=== PATIENT | male | born 1950 | race Caucasian/White ===

== ENCOUNTER 2017-10-25 09:50 | Day surgery (SDC) | payer MEDICARE, BC ==
--- NOTE | 2017-10-24 14:56 | PCM.PREANE ---
Preanesthetic Assessment - Anesthesia/Transfusion/Family Hx Anesthesia History: Prior Anesthesia Without Reaction Family History of Anesthesia Reaction: No Transfusion History: No Prior Transfusion(s) Intubation History: Unknown - Review of Systems General: No Symptoms, Fatigue Pulmonary: No Symptoms (quit smoking 2012) Cardiovascular: No Symptoms (Aortic Valve Stenosis: EF:70-75%), Palpitations, Other (History of murmur, rheumatic fever as a child) Gastrointestinal: No Symptoms Neurological: No Symptoms (Possible TIA/Stroke: 4-6 yrs ago, blacked out) Other: Reports: Easy Bleeding, Easy Bruising, Diabetes (Blood sugar: 126 @ 1048) , Liver Problems (Mildly elevated LFT's.), Depression - Physical Assessment NPO Status Date: 10/24/17 NPO Status Time: 23:00 Pulse: 72 O2 Sat by Pulse Oximetry: 93 Respiratory Rate: 16 Blood Pressure: 161/76 Temperature: 36.8 C Height: 1.85 m Weight: 113 kg ASA Class: 3 Mental Status: Alert & Oriented x3 Airway Class: Mallampati = 2 Dentition: Reports: Dentures (upper) Thyro-Mental Finger Breadths: 3 Mouth Opening Finger Breadths: 3 ROM/Head Extension: Full Lungs: Clear to Auscultation, Normal Respiratory Effort Cardiovascular: Regular Rate, Regular Rhythm, Murmurs - Lab Values: Laboratory Last Values MRSA (PCR) Negative 10/02/17 11:35 All lab values reviewed and noted and within acceptable ranges to proceed with scheduled procedure. Mildly elevated LFT's noted. HGB A1C: 6.7 (h) - Imaging/EKG Impressions: EKG: SR rate= 67, borderline prolonged MI interval, old inferior infarct, minimal ST segment elevation anterior leads. (No significant changes from prior EKG) CXR: negative Echocardiogram: EF=70-75% - Allergies Allergies/Adverse Reactions: Allergies Allergy/AdvReac Type Severity Reaction Status Date / Time No Known Allergies Allergy Verified 10/17/17 14:42 - Anesthesia Plan Pre-Op Medication Ordered: None - Acknowledgements Anesthesia Type Planned: General Anesthesia (And left interscalene block under US guidance for post operative pain control requested by Dr. 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 Neurological History: Reports: None Psychiatric History: Reports: Other (See Below) Other Psychiatric History: mild episode of recurrent major depressive disorder Endocrine/Metabolic History: Reports: Diabetes, Type II Hematologic History: Reports: None Immunologic History: Reports: None Oncologic (Cancer) History: Reports: None Dermatologic History: Reports: Cellulitis, Other (See Below) Other Dermatologic History: skin lesion - Past Surgical History Head Surgeries/Procedures: Reports: None HEENT Surgical History: Reports: Cataract Surgery, Other (See Below) Other HEENT Surgeries/Procedures: resection wedge of eyelid GI Surgical History: Reports: Colonoscopy, EGD Female Surgical History: Reports: None Male Surgical History: Reports: None Endocrine Surgical History: Reports: None Neurological Surgical History: Reports: None Musculoskeletal Surgical History: Reports: Other (See Below) Other Musculoskeletal Surgeries/Procedures:: right knee surgery for dislocated knee cap Oncologic Surgical History: Reports: None - SUBSTANCE USE Smoking Status *Q: Former Smoker Second Hand Smoke Exposure: No Days Per Week of Alcohol Use: 0 Recreational Drug Use History: No - HOME MEDS Home Medications: Home Meds metFORMIN [Glucophage] 1 tab PO BID 06/22/14 [History] Aspirin [Adult Low Dose Aspirin EC] 192 mg PO DAILY 06/23/14 [History] Sertraline [Zoloft] 50 mg PO DAILY 10/17/17 [History] Tamsulosin HCl [Flomax] 0.8 mg PO BEDTIME 10/17/17 [History] atorvaSTATin [Lipitor] 20 mg PO BEDTIME 10/17/17 [History] Cyclobenzaprine [Flexeril] 10 mg PO Q8H PRN #40 tab 10/18/17 [Rx] Hydrocodone/Acetaminophen [Culbertson 5-325 Tablet] 1 - 2 each PO Q6H PRN #40 tablet 10/18/17 [Rx] - CURRENT (IN HOUSE) MEDS Current Meds: Current Medications Discontinued Medications Epinephrine HCl (Adrenalin) Confirm Administered Dose 1 mg .ROUTE .STK-MED ONE Stop: 10/18/17 06:54 Lactated Ringer's (Ringers, Lactated) 1,000 mls @ 125 mls/hr IV ASDIRECTED NURY Stop: 10/18/17 23:00 Lidocaine HCl (Xylocaine-Mpf 1%) Confirm Administered Dose 4 mls @ as directed .ROUTE .STK-MED ONE Stop: 10/18/17 06:53 Lidocaine/Sodium Bicarbonate (Buffered Lidocaine 1% In Ns 8.4%) 0.25 ml IV ONETIME PRN PRN Reason: Prior to IV Start Stop: 10/18/17 18:00 Ropivacaine (Naropin 0.5%) Confirm Administered Dose 30 ml .ROUTE .STK-MED ONE Stop: 10/18/17 06:54 Sodium Chloride (Saline Flush) 10 ml FLUSH ASDIRECTED PRN PRN Reason: Keep Vein Open Stop: 10/18/17 18:00
[~2017-10-25 09:50] MED LIST: Dexamethasone 4 MG/ML 5 ML MDV ONE; EPINEPHrine 1 MG/ML 30 ML MDV ONE; EPINEPHrine 1 MG/ML SDV ONE; Ketorolac 30 MG/ML SDV ONE; Lactated Ringers 1,000 ML IV SCH; Lactated Ringers 1,000 ML ONE; Lidocaine 1% 0 ML ONE; Lidocaine 1% 6 ML ONE; Lidocaine 1%/Sod Bicarbonate in NS 8.4% 1 ML Syringe IV PRN; Midazolam 1 MG/ML 2 ML SDV ONE; Ondansetron 4 MG/2 ML SDV ONE; Propofol 200 MG/20 ML SDV ONE; Rocuronium 50 MG/5 ML Vial ONE; Ropivacaine 0.5% 5 MG/ML 30 ML SDV ONE; Sodium Chloride 0.9% 10 ML Syringe FLUSH PRN; ceFAZolin 1 GM Vial ONE; fentaNYL 250 MCG/5 ML SDV ONE
[2017-10-25] MEDS ORDERED: Lidocaine 1%/Sod Bicarbonate in NS 8.4% 1 ML Syringe IDERM PRN (10:01)
[2017-10-25] MEDS ORDERED: Sodium Chloride 0.9% 10 ML Syringe FLUSH PRN (10:01)
[2017-10-25] MEDS ORDERED: Lactated Ringers 1,000 ML IV SCH (10:15)
[2017-10-25] MEDS ORDERED: Bupivacaine 0.25% 10 ML SDV ONE (12:37)
[2017-10-25] MEDS ORDERED: Propofol 200 MG/20 ML SDV ONE (13:08)
[2017-10-25] MEDS ORDERED: Albuterol 0.083% 2.5 MG/3 ML Neb Soln NEB PRN (13:22)
[2017-10-25] MEDS ORDERED: ePHEDrine 50 MG/ML SDV IVPUSH PRN (13:22)
[2017-10-25] MEDS ORDERED: Ondansetron 4 MG/2 ML SDV IVPUSH PRN (13:22)
[2017-10-25] MEDS ORDERED: fentaNYL 100 MCG/2 ML SDV IVPUSH PRN (13:22)
[2017-10-25] MEDS ORDERED: HYDROmorphone 0.5 MG/0.5 ML Syringe IVPUSH PRN (13:22)
[2017-10-25] MEDS ORDERED: HYDROmorphone 1 MG/ML Syringe ONE (13:29)
[2017-10-25] MEDS ORDERED: Phenylephrine 1 MG in Sodium Chloride 0.9% 10 ML IV SCH (13:30)
[2017-10-25] MEDS ORDERED: ePHEDrine/Normal Saline 25 MG/5 ML Syringe ONE (13:34)
[2017-10-25] MEDS ORDERED: Phenylephrine/Normal Saline 100 MCG/ML 10 ML Syringe ONE (13:38)
[2017-10-25] MEDS ORDERED: Lactated Ringers 1,000 ML ONE (13:52)
[2017-10-25] MEDS ORDERED: Neostigmine Methylsulfate 1 MG/ML 5 ML Syringe ONE (14:16)
[2017-10-25] MEDS ORDERED: Labetalol 100 MG/20 ML MDV ONE (14:41)
--- NOTE | 2017-10-25 14:58 | PCM.POSTAN ---
POST ANESTHESIA ASSESSMENT - MENTAL STATUS Mental Status: Alert - VITAL SIGNS Pulse Rate: 73 SaO2: 91 Resp Rate: 10 Blood Pressure: 134/66 Temperature: 36.5 C - RESPIRATORY Respiratory Status: Respiratory Rate WNL, Airway Patent, O2 Saturation Stable, Supplemental Oxygen - CARDIOVASCULAR CV Status: Pulse Rate WNL, Blood Pressure Stable - GASTROINTESTINAL GI Status: No Symptoms - POST OP HYDRATION Hydration Status: Adequate & Stable
--- NOTE | 2017-10-25 15:36 | PCM.SN ---
- Free Text/Narrative Note: Anesthesia Note: (Left Interscalene block note) Date: 10/25/2017 Time Out: 1214 Start: 1214 Stop: 1230 Surgical Procedure: Left Shoulder Video Arthroscopy with Extensive Debridement , Rotator Cuff Repair, Subacromial Decompression, and bicepts tendonesis Diagnosis: Left Shoulder Rotator Cuff Tear Current Procedure: Left interscalene block under US guidance for postoperative pain control requested by Dr. Giron. Patient chart reviewed, risk/benefits discussed with patient, consent obtained. Patient positioned supine, monitors/alarms on, oxygen placed via nasal cannula at 2 LPM. IV sedation administered: Versed 2mg IV @ 1214, Fentanyl 50mcg IV @ 1214 Left shoulder prepped with two chloropreps. Sterile drapes placed with aseptic technique noted. Under US guidance, left subclavian artery visualized along with the left brachial plexus. Plexus followed up to C6 cricoid level, and area localized with 2mls of 1% lidocaine. 22gauge 2 inch stimiplex needle advanced under US with 0.6mV with stimulation of biceps noted. Good stimulation noted with decreased voltage and absent at 0.2mVs. 1ml of Normal Saline injected with loss of stimulation noted to confirm needle not placed intraneurally. Incremental dosing of 5mls with negative aspiration noted prior to each injection of 0.5% ropivacaine with 1:200,000 epinephrine. Total volume=25mls. Please refer to nurses noted for vital signs. Janessa Toussaint CRNA
--- NOTE | 2017-10-25 16:11 | PCM48HPAN ---
Post Anesthesia Note - EVALUATION WITHIN 48HRS OF ANESTHETIC Vital Signs in Normal Range: Yes Patient Participated in Evaluation: Yes Respiratory Function Stable: Yes Airway Patent: Yes Cardiovascular Function Stable: Yes Hydration Status Stable: Yes Pain Control Satisfactory: Yes Nausea and Vomiting Control Satisfactory: Yes Mental Status Recovered: Yes
[2017-10-25] MEDS ORDERED: Acetaminophen/HYDROcodone 325-5 MG Tab PO PRN (20:55)
[2017-10-25] MEDS ORDERED: Tamsulosin 0.4 MG Cap.ER PO SCH (21:00)
[2017-10-25] MEDS ORDERED: Simvastatin 20 MG Tab PO SCH (21:00)
[2017-10-25] MEDS: Cyclobenzaprine 10 MG Tab PO PRN (21:51)
[2017-10-26] MEDS ORDERED: Ketorolac 15 MG/ML SDV IVPUSH ONE (01:48)
[2017-10-26] MEDS ORDERED: Morphine 2 MG/ML Syringe IVPUSH ONE (01:49)
[2017-10-26] MEDS ORDERED: Acetaminophen/oxyCODONE 325-5 MG Tab PO ONE (01:50)
[2017-10-26] MEDS ORDERED: Acetaminophen/oxyCODONE 325-5 MG Tab PO PRN (01:51)
[2017-10-26] MEDS: Cyclobenzaprine 10 MG Tab PO PRN (06:29)
[2017-10-26] MEDS ORDERED: metFORMIN 500 MG Tab PO SCH ×2 (07:00→21:00)
[2017-10-26 11:47] VITALS: BP 151/63
--- NOTE | 2017-11-01 11:14 | PCM.OPNOTE ---
- General Post-Op/Procedure Note Date of Surgery/Procedure: 10/25/17 Operative Procedure(s): left shoulder video arthroscopy with rotator cuff repair , extensive debridement and biceps tenodesis Pre Op Diagnosis: left shoulder rotator cuff tear with biceps tendinopathy Post-Op Diagnosis: Same Anesthesia Technique: General ET Tube, Regional Block Primary Surgeon: Bridger Giron Anesthesia Provider: Janessa Toussaint Hand Stemmer: Stephy Ramirez EBL in mLs: 5 Complications: None Condition: Good
--- NOTE | 2017-11-01 12:04 | OR ---
DATE OF OPERATION: 10/25/2017 SURGEON: Bridger Giron MD OPERATION PERFORMED: Left shoulder video arthroscopy with rotator cuff repair, extensive debridement of biceps tenodesis. PREOPERATIVE DIAGNOSIS: Left shoulder rotator cuff tear with biceps tendinopathy. POSTOPERATIVE DIAGNOSIS: Left shoulder rotator cuff tear with biceps tendinopathy. ANESTHESIA: General endotracheal intubation with a regional interscalene block. ANESTHESIA PROVIDER: Janessa Toussaint CRNA ESTIMATED BLOOD LOSS: Less than 5 mL. COMPLICATIONS: None. CONDITION: Stable. DESCRIPTION OF PROCEDURE: The patient was identified in the preop holding area. Proper site was marked and identified by the surgeon. The patient was taken back to the operating theater where after adequate anesthesia, the patient was placed in a lazy left lateral decubitus position. The patient had a wedge placed posteriorly. All bony prominences were well padded. Left upper extremity was then sterilely prepped and draped in the usual sterile fashion. OR time-out was performed. The patient received 2 g IV Ancef, 15 pounds traction was applied to the left upper extremity. Standard posterior incision was made. Scope trocar was introduced to the glenohumeral joint. At this time, anterior portal was created with the use of a spinal needle from an outside-in technique. At this time, the biceps tendon was identified and showed significant fraying near its attachment point on the labrum. The supraspinatus did show a full-thickness tear. The glenohumeral joint showed no chondromalacia. There were no loose or foreign bodies in the axillary recess. Labrum did show some fraying as well as significant synovitis. At this time, it was decided biceps tenodesis would be performed with the use of a spinal needle. A #2 FiberWire was shuttled through the biceps tendon and then a tenotomy was performed at its attachment for later tenodesis in the subacromial space in the rotator interval. At this time, the labrum as well as synovitis was debrided out of the shoulder using a full radius resector. At this time, attention was turned to the subacromial space. At this time, the patient was noted to have significant bursitis as well as erythematous tissue in the subacromial space. With use of a full-radius resector as well as a cautery device, an extensive debridement was performed of the subacromial space at this time. A lateral portal was then created. The tear was identified. A good bony bleeding bed was then created at the tear surface using a full radius resector. At this time, one 4.75 mm SwiveLock Arthrex anchor was placed medially with 2 limbs of FiberTape and 2 limbs of FiberWire. At this time, all 4 were then passed through the tear and the 2 limbs of FiberWire were then tied. All 4 suture limbs were then brought out laterally and a lateral self-tapping 4.75 mm Arthrex SwiveLock anchor was used out laterally and attention was held. It was found to have adequate watertight repair. At this time, the biceps sutures were found anteriorly and the biceps tenodesis was performed in the rotator interval. At this time, excess saline was drained from the shoulder. Local was used down in the incisional sites. Simple suture was used for closure of the skin incisions and the patient was placed in a sterile soft dressing and a pillow sling. The patient tolerated the procedure well and was sent to PACU in stable condition. YVETTE /[id number]
== END 2017-10-26 10:04 | disposition home or self-care (01) ==
LOC: JD.SDS 09:50
PROVIDERS: ATTEND Orthopaedic Surgery
DX: M75.102 Unspecified rotator cuff tear or rupture of left shoulder, not specified as traumatic (principal); M75.22 Bicipital tendinitis, left shoulder; E11.9 Type 2 diabetes mellitus without complications; F32.9 Major depressive disorder, single episode, unspecified; Z87.891 Personal history of nicotine dependence
CPT/HCPCS: 29823; 29826; 29827; 29828; 51798; 64415; 82962; 87641; 94640; A9270; J0171; J0690; J1100; J1170; J1885; J2250; J2270; J2405; J2710; J2795; J3010; J7050; J7120; 01630; J2704

== ENCOUNTER 2018-03-25 13:05 | Emergency (ER) | payer MEDICARE, BC ==
[2018-03-25 13:10] VITALS: BP 119/56
[2018-03-25] MEDS ORDERED: Lidocaine 4% Top Soln 50 ML Bottle MUCMEM ONE (13:15)
[2018-03-25] MEDS: Lidocaine 1% 50 ML MDV INJECT STA ×2 (13:25→14:28)
[2018-03-25] MEDS ORDERED: Lidocaine 2% Jelly 10 ML Urojet ONE (13:36)
[2018-03-25] MEDS ORDERED: Lidocaine 2% Jelly 10 ML Urojet MUCMEM ONE (13:38)
--- NOTE | 2018-03-25 14:00 | EDM.PDOC ---
ED HPI GENERAL MEDICAL PROBLEM - General Chief Complaint: Skin Complaint Stated Complaint: WOOD IN RIGHT INDEX FINGER Time Seen by Provider: 03/25/18 13:12 Source of Information: Reports: Patient History Limitations: Reports: No Limitations - History of Present Illness INITIAL COMMENTS - FREE TEXT/NARRATIVE: The patient presents with a splinter in his right index finger. He was mowing around lil[place] bushes and he got poked with a lilac reynoso. His tetanus is up to date. Onset: Sudden Duration: Minutes: Location: Reports: Upper Extremity, Right (Index finger) Quality: Reports: Sharp Severity: Moderate Improves with: Reports: Immobilization Worsens with: Reports: Movement Context: Reports: Other (He was mowing lawn) Associated Symptoms: Reports: No Other Symptoms - Related Data Allergies Allergy/AdvReac Type Severity Reaction Status Date / Time No Known Allergies Allergy Verified 03/25/18 13:09 Home Meds: Home Meds metFORMIN [Glucophage] 1 tab PO BID 06/22/14 [History] Aspirin [Adult Low Dose Aspirin EC] 192 mg PO DAILY 06/23/14 [History] Sertraline [Zoloft] 50 mg PO DAILY 10/17/17 [History] Tamsulosin HCl [Flomax] 0.8 mg PO BEDTIME 10/17/17 [History] atorvaSTATin [Lipitor] 20 mg PO BEDTIME 10/17/17 [History] Past Medical History HEENT History: Reports: Other (See Below) Other HEENT History: dentures Cardiovascular History: Reports: Heart Murmur, High Cholesterol, Other (See Below) Other Cardiovascular History: aortic valve stenosis Respiratory History: Reports: None Genitourinary History: Reports: BPH [employer]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 Neurological History: Reports: None Psychiatric History: Reports: Other (See Below) Other Psychiatric History: mild episode of recurrent major depressive disorder Endocrine/Metabolic History: Reports: Diabetes, Type II Hematologic History: Reports: None Immunologic History: Reports: None Oncologic (Cancer) History: Reports: None Dermatologic History: Reports: Cellulitis, Other (See Below) Other Dermatologic History: skin lesion - Past Surgical History Head Surgeries/Procedures: Reports: None HEENT Surgical History: Reports: Cataract Surgery, Other (See Below) Other HEENT Surgeries/Procedures: resection wedge of eyelid GI Surgical History: Reports: Colonoscopy, EGD Male Surgical History: Reports: None Endocrine Surgical History: Reports: None Neurological Surgical History: Reports: None Musculoskeletal Surgical History: Reports: Other (See Below) Other Musculoskeletal Surgeries/Procedures:: right knee surgery for dislocated knee cap Oncologic Surgical History: Reports: None Social & Family History - Family History Family Medical History: Noncontributory - Tobacco Use Smoking Status *Q: Former Smoker Used Tobacco, but Quit: No - Caffeine Use Caffeine Use: Reports: Coffee - Recreational Drug Use Recreational Drug Use: No ED ROS GENERAL - Review of Systems Review Of Systems: See Below Constitutional: Reports: No Symptoms HEENT: Reports: No Symptoms Respiratory: Reports: No Symptoms Cardiovascular: Reports: No Symptoms Endocrine: Reports: No Symptoms GI/Abdominal: Reports: No Symptoms : Reports: No Symptoms Musculoskeletal: Reports: Other (Splinter to the right index finger) ED EXAM, SKIN/RASH Exam: See Below Exam Limited By: No Limitations General Appearance: Alert, No Apparent Distress Ears: Normal External Exam Nose: Normal Inspection Head: Atraumatic, Normocephalic Neck: Normal Inspection Respiratory/Chest: No Respiratory Distress Extremities: Other (Splinter in the right index finger) ED SKIN PROCEDURES - Foreign Body Removal Indication:: Right index finger splinter Consent Obtained:: Patient Performing Doctor:: Stephen Mayfield Anesthesia Type: Local Complications:: No Course - Vital Signs Last Recorded V/S: Last Vital Signs Temp 97 F 03/25/18 13:07 Pulse 83 03/25/18 13:07 Resp 18 03/25/18 13:07 BP 119/56 L 03/25/18 13:07 Pulse Ox 94 L 03/25/18 13:07 - Orders/Labs/Meds Meds: Medications Discontinued Medications Generic Name Dose Route Start Last Admin Trade Name Chantell PRN Reason Stop Dose Admin Lidocaine HCl 1 ml 03/25/18 13:15 03/25/18 13:25 Xylocaine 4% Top Soln MUCMEM 03/25/18 13:16 Not Given ONETIME ONE Lidocaine HCl 50 ml 03/25/18 13:20 03/25/18 14:28 Xylocaine 1% INJECT 03/25/18 13:21 50 ml NOW STA Administration Lidocaine HCl Confirm 03/25/18 13:36 03/25/18 13:38 Xylocaine 2% Jelly Administered 03/25/18 13:37 10 ml Dose Administration 10 ml .ROUTE .STK-MED ONE Lidocaine HCl 10 ml 03/25/18 13:38 03/25/18 13:40 Xylocaine 2% Jelly MUCMEM 03/25/18 13:39 Not Given ONETIME ONE - Re-Assessments/Exams Free Text/Narrative Re-Assessment/Exam: 03/25/18 15:00 I got the splinter out. I will leave the wound open. I will discharge him home. Departure - Departure Time of Disposition: 15:00 Disposition: Home, Self-Care 01 Condition: Good Clinical Impression: Splinter in skin - Discharge Information Forms: ED Department Discharge Additional Instructions: Soak your finger in warm soapy water 2 times per day and apply antibiotic ointment after. Please return if you are worse.
== END 2018-03-25 15:10 | disposition home or self-care (01) ==
LOC: JD.ED 13:05
DX: S60.450A Superficial foreign body of right index finger, initial encounter (principal); W45.8XXA Other foreign body or object entering through skin, initial encounter
CPT/HCPCS: 10120; 99283-25

== ENCOUNTER 2018-10-14 06:52 | Inpatient (IN) | payer MEDICARE, BC ==
--- NOTE | 2018-10-11 10:49 | PCM.PREANE ---
Preanesthetic Assessment - Anesthesia/Transfusion/Family Hx Anesthesia History: Prior Anesthesia Without Reaction Family History of Anesthesia Reaction: No Transfusion History: No Prior Transfusion(s) Intubation History: Unknown - Review of Systems General: Fatigue Pulmonary: No Symptoms (quit smoking 2013) Cardiovascular: No Symptoms (History of Moderate to Severe Aortic stenosis), Palpitations, Other (History of murmur/rheumatic fever as a child) Gastrointestinal: No Symptoms Neurological: No Symptoms (Possible TIA/Stroke 5-7 yrs ago/blacked out) Other: Reports: Easy Bleeding, Easy Bruising, Diabetes (AM blood [id number]=235 @ 0732), Liver Problems (Mildly elevated LFT's history of), Depression - Physical Assessment NPO Status Date: 10/13/18 NPO Status Time: 21:00 Pulse: 73 O2 Sat by Pulse Oximetry: 93 Respiratory Rate: 16 Blood Pressure: 141/65 Temperature: 36.5 C Height: 1.85 m Weight: 111 kg ASA Class: 3 Mental Status: Alert & Oriented x3 Airway Class: Mallampati = 3 Dentition: Reports: Dentures (upper only no other teeth) Thyro-Mental Finger Breadths: 3 Mouth Opening Finger Breadths: 3 ROM/Head Extension: Full Lungs: Clear to Auscultation, Normal Respiratory Effort Cardiovascular: Regular Rate, Regular Rhythm, Murmurs (History of rheumatic fever as a child) - Lab Values: MRSA: negative All labs reviewed and noted and within acceptable ranges to proceed with scheduled procedure. - Imaging/EKG Impressions: CXR: negative EKG: Sinus Rhythm rate= 77, old inferior infarct Echocardiogram: 10/03/2018 EF: 70-75% Moderate concentric left ventricular hypertrophy Grade II Diastolic Dysfunction Mildly dilated left atrium Moderate to Severe Aortic valve stenosis (can not exclude bicuspid valve) with mild insufficiency - Allergies Allergies/Adverse Reactions: Allergies Allergy/AdvReac Type Severity Reaction Status Date / Time No Known Allergies Allergy Verified 10/11/18 14:46 - Anesthesia Plan Pre-Op Medication Ordered: Other (Pre-Op meds in preoperative area given p.o.: lyrica, tylenol, oxycodone at 0723) - Acknowledgements Anesthesia Type Planned: General Anesthesia (Right adductor canal block under US guidance for post operative pain control requested by Dr. Giron/Radial Artery arterial line planned for invasive monitoring of blood pressures due to Moderate -Severe Aortic Stenosis diagnosis.) Pt an Appropriate Candidate for the Planned Anesthesia: Yes Alternatives and Risks of Anesthesia Discussed w Pt/Guardian: Yes Pt/Guardian Understands and Agrees with Anesthesia Plan: Yes PreAnesthesia Questionnaire HEENT History: Reports: Other (See Below) Other HEENT History: dentures Cardiovascular History: Reports: Heart Murmur, High Cholesterol, Other (See Below) Other Cardiovascular History: aortic valve stenosis Respiratory History: Reports: None Genitourinary History: Reports: BPH 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 Neurological History: Reports: None Psychiatric History: Reports: Other (See Below) Other Psychiatric History: mild episode of recurrent major depressive disorder Endocrine/Metabolic History: Reports: Diabetes, Type II Hematologic History: Reports: None Immunologic History: Reports: None Oncologic (Cancer) History: Reports: None Dermatologic History: Reports: Cellulitis, Other (See Below) Other Dermatologic History: skin lesion - Past Surgical History Head Surgeries/Procedures: Reports: None HEENT Surgical History: Reports: Cataract Surgery, Other (See Below) Other HEENT Surgeries/Procedures: resection wedge of eyelid GI Surgical History: Reports: Colonoscopy, EGD Male Surgical History: Reports: None Endocrine Surgical History: Reports: None Neurological Surgical History: Reports: None Musculoskeletal Surgical History: Reports: Other (See Below) Other Musculoskeletal Surgeries/Procedures:: right knee surgery for dislocated knee cap Oncologic Surgical History: Reports: None - HOME MEDS Home Medications: Home Meds Aspirin [Adult Low Dose Aspirin EC] 192 mg PO DAILY 06/23/14 [History] Sertraline [Zoloft] 50 mg PO DAILY 10/17/17 [History] Tamsulosin HCl [Flomax] 0.8 mg PO BEDTIME 10/17/17 [History] Cholecalciferol (Vitamin D3) [Vitamin D3] 2,000 unit PO BID 10/11/18 [History] atorvaSTATin Calcium [Lipitor] 20 mg PO DAILY 10/11/18 [History] metFORMIN HCl [Metformin HCl] 1,000 mg PO BID 10/11/18 [History] - CURRENT (IN HOUSE) MEDS Current Meds: Current Medications Acetaminophen (Tylenol) 975 mg PO ONETIME NURY Stop: 10/14/18 15:00 Lactated Ringer's (Ringers, Lactated) 1,000 mls @ 125 mls/hr IV ASDIRECTED NURY Stop: 10/14/18 23:00 Lidocaine/Sodium Bicarbonate (Buffered Lidocaine 1% In Ns 8.4%) 0.25 ml IDERM ONETIME PRN PRN Reason: Prior to IV Start Stop: 10/14/18 18:00 Oxycodone HCl (Oxycontin) 10 mg PO ONETIME NURY Stop: 10/14/18 15:00 Pregabalin (Lyrica) 50 mg PO ONETIME NURY Stop: 10/14/18 15:00 Sodium Chloride (Saline Flush) 10 ml FLUSH ASDIRECTED PRN PRN Reason: Keep Vein Open Stop: 10/14/18 18:00
[~2018-10-14 06:52] MED LIST changes: +Acetaminophen 325 MG Tab PO SCH; +Bisacodyl 5 MG Tab PO PRN; -Dexamethasone 4 MG/ML 5 ML MDV ONE; -EPINEPHrine 1 MG/ML 30 ML MDV ONE; -EPINEPHrine 1 MG/ML SDV ONE; +Ketorolac 15 MG/ML SDV IVPUSH PRN; -Ketorolac 30 MG/ML SDV ONE; -Lactated Ringers 1,000 ML IV SCH; -Lactated Ringers 1,000 ML ONE; -Lidocaine 1% 0 ML ONE; -Lidocaine 1% 6 ML ONE; +Lidocaine 1%/Sod Bicarbonate in NS 8.4% 1 ML Syringe IDERM PRN; -Lidocaine 1%/Sod Bicarbonate in NS 8.4% 1 ML Syringe IV PRN; -Midazolam 1 MG/ML 2 ML SDV ONE; +Naloxone 0.4 MG/ML SDV IVPUSH PRN; -Ondansetron 4 MG/2 ML SDV ONE; +Pregabalin 25 MG Cap PO SCH; -Propofol 200 MG/20 ML SDV ONE; -Rocuronium 50 MG/5 ML Vial ONE; -Ropivacaine 0.5% 5 MG/ML 30 ML SDV ONE; +Sennosides 8.6 MG Tab PO PRN; -ceFAZolin 1 GM Vial ONE; -fentaNYL 250 MCG/5 ML SDV ONE; +oxyCODONE ER 10 MG TAB.ER PO SCH
[2018-10-14] MEDS ORDERED: EPINEPHrine 1 MG/ML SDV ONE ×2 (07:23→07:24)
[2018-10-14] MEDS ORDERED: Ropivacaine 0.5% 5 MG/ML 30 ML SDV ONE (07:23)
[2018-10-14] MEDS: Lactated Ringers 1,000 ML IV SCH ×2 (07:35→16:01)
[2018-10-14] MEDS ORDERED: Ondansetron 4 MG/2 ML SDV ONE (08:01)
[2018-10-14] MEDS ORDERED: Phenylephrine 1% 10 MG/ML SDV ONE (08:01)
[2018-10-14] MEDS ORDERED: Ketorolac 30 MG/ML SDV ONE (08:01)
[2018-10-14] MEDS ORDERED: Sodium Chloride 0.9% 100 ML ONE (08:01)
[2018-10-14] MEDS ORDERED: ePHEDrine/Normal Saline 25 MG/5 ML Syringe ONE (08:01)
[2018-10-14] MEDS ORDERED: Lactated Ringers 1,000 ML ONE ×2 (08:01→09:57)
[2018-10-14] MEDS ORDERED: HYDROmorphone 0.5 MG/0.5 ML Syringe ONE (08:01)
[2018-10-14] MEDS ORDERED: Phenylephrine/Normal Saline 100 MCG/ML 10 ML Syringe ONE (08:01)
[2018-10-14] MEDS ORDERED: Rocuronium 50 MG/5 ML Vial ONE (08:01)
[2018-10-14] MEDS ORDERED: Lidocaine 1% 6 ML ONE (08:01)
[2018-10-14] MEDS ORDERED: Propofol 200 MG/20 ML SDV ONE (08:01)
[2018-10-14] MEDS ORDERED: fentaNYL 250 MCG/5 ML SDV ONE (08:02)
[2018-10-14] MEDS ORDERED: ceFAZolin 1 GM Vial ONE ×2 (08:02)
[2018-10-14] MEDS ORDERED: Midazolam 1 MG/ML 2 ML SDV ONE ×2 (08:02→09:55)
--- NOTE | 2018-10-14 09:30 | PCM.SN ---
- Free Text/Narrative Note: Right selective femoral nerve block at the adductor canal for post-procedure pain control under US guidance requested by Dr. Giron. Time Out: 909 Start: 909 End: 920 Chart reviewed. Consent signed. Questions answered. Appropriate monitors applied. Time out performed. Right mid-shaft femur identified with ultrasound, scanning medially of femur, the femoral artery in the adductor canal visualized , and the femoral nerve located laterally to the artery. The skin was prepped lateral to the ultrasound probe with chlorahexadine times two. The 21ga 4 insulated block needle was inserted under direct ultrasound guidance into the adductor canal. 25mL of 0.5% ropivacaine with 1:200,000 epinephrine was injected circumferentially around the nerve with intermittent negative aspiration noted. Patient tolerated the procedure well. Sterile technique noted along with sterile gloves, mask, and sterile probe cover. See picture on progress note and vital signs on nurses notes. Block completed in PREOP. Janessa Toussaint CRNA
[2018-10-14] MEDS ORDERED: ePHEDrine 50 MG/ML SDV IVPUSH PRN (10:08)
[2018-10-14] MEDS ORDERED: Albuterol 0.083% 2.5 MG/3 ML Neb Soln NEB PRN (10:08)
[2018-10-14] MEDS ORDERED: fentaNYL 100 MCG/2 ML SDV IVPUSH PRN (10:08)
[2018-10-14] MEDS ORDERED: diphenhydrAMINE 50 MG/ML SDV IVPUSH PRN (10:08)
[2018-10-14] MEDS ORDERED: Ondansetron 4 MG/2 ML SDV IVPUSH PRN (10:08)
[2018-10-14] MEDS ORDERED: HYDROmorphone 0.5 MG/0.5 ML Syringe IVPUSH PRN (10:08)
[2018-10-14] MEDS: Bupivacaine 0.25% 30 ML SDV ONE ×2 (10:10→10:32)
[2018-10-14] MEDS ORDERED: Phenylephrine 1 MG in Sodium Chloride 0.9% 10 ML IV SCH (10:15)
[2018-10-14] MEDS: ceFAZolin 1 GM Vial ONE ×2 (10:31→10:49)
[2018-10-14] MEDS: Iodine/Sodium Iodide 2% Tincture 30 ML Bottle ONE ×2 (10:32→10:48)
--- NOTE | 2018-10-14 10:32 | PCM.SN ---
- Free Text/Narrative Note: Anesthesia Note: Start:08:40 Stop: 09:15 Arterial Line placed to right radial artery times one attempt in PREOP area. Chart reviewed, allergies noted and consent obtained. Patient placed on monitors, O2 at 2LPM nasal cannula. Sterile technique noted with sterile drapes, sterile gloves, and mask worn. Site localized with 1% lidocaine, after prepped with two chlorohexadine preps. 20 gauge catheter 4 and 1/4" placed with no difficulties noted. Patient tolerated procedure well. Catheter secured with mastisol/steri-strips, and chlorohexadine opsite, and tape. Upon arrival to OR, arterial line zeroed to room air, flushed, and appropriate readings noted throughout surgery that correlated to NIBP monitoring. Thank You! Janessa Toussaint
[2018-10-14] MEDS: Morphine 8 MG, EPINEPHrine 0.3 MG, Cefuroxime 750 MG, Ketorolac 30 MG, Sodium Chloride ... ONE ×10 (10:33→10:55)
[2018-10-14] MEDS: Vancomycin 1 GM SDV ONE ×2 (10:34→10:56)
[2018-10-14] MEDS ORDERED: Neostigmine Methylsulfate 1 MG/ML 5 ML Syringe ONE (11:00)
[2018-10-14] MEDS ORDERED: Labetalol 100 MG/20 ML MDV ONE (11:04)
[2018-10-14] MEDS ORDERED: hydrALAZINE 20 MG/ML SDV ONE (11:04)
--- NOTE | 2018-10-14 11:59 | PCM.POSTAN ---
POST ANESTHESIA ASSESSMENT - MENTAL STATUS Mental Status: Alert - VITAL SIGNS Pulse Rate: 84 SaO2: 95 (3 LPM nasal cannula) Resp Rate: 12 Blood Pressure: 98/56 (ABP) Temperature: 36.7 C - RESPIRATORY Respiratory Status: Respiratory Rate WNL, Airway Patent, O2 Saturation Stable, Supplemental Oxygen - CARDIOVASCULAR CV Status: Pulse Rate WNL, Blood Pressure Stable - GASTROINTESTINAL GI Status: No Symptoms - POST OP HYDRATION Hydration Status: Adequate & Stable
--- NOTE | 2018-10-14 13:11 | CR ---
Right knee: AP and lateral views of the right knee were obtained. Comparison: Previous right knee study of 06/22/14. Knee prosthesis is seen. Components are aligned. Soft tissue air is noted from the surgical procedure. No acute bony abnormality is seen. Impression: 1. Satisfactory postop radiographic appearance of recently placed right knee prosthesis. Diagnostic code #2
[2018-10-14] MEDS: Cyclobenzaprine 10 MG Tab PO PRN (13:30)
[2018-10-14] MEDS: ceFAZolin 1 GM in Premix Bag 1 BAG IV SCH (16:35)
[2018-10-14] MEDS: ceFAZolin 2 GM in Premix Bag 1 BAG IV SCH (16:41)
--- NOTE | 2018-10-14 19:27 | PCM.CONS ---
H&P History of Present Illness - General Date of Service: 10/14/18 Admit Problem/Dx: Admission Diagnosis/Problem Admission Diagnosis/Problem Osteoarthritis of knee Source of Information: Patient, Provider History Limitations: Reports: No Limitations - History of Present Illness Initial Comments - Free Text/Narative: Wilder is a 68 yo male patient of Dr. Giron who is post-operative day 0 of R TKA. Hospital medicine was consulted for post-operative medical care. At this time he is stable. Pain is controlled. He denies any chest pain, shortness of breath, N/V/D, or palpitations. He carries a history of: Aortic stenosis, DM2, Thrombocytopenia, HLD, BPH, h/o rheumatic fever, depression. He is a previous smoker. He is a full code. His PCP is Dr. Canales. Right Knee Pain Score (Numeric/FACES): 3 - Related Data Allergies/Adverse Reactions: Allergies Allergy/AdvReac Type Severity Reaction Status Date / Time No Known Allergies Allergy Verified 10/14/18 19:46 Home Medications: Home Meds Sertraline [Zoloft] 50 mg PO DAILY 10/17/17 [History] Tamsulosin HCl [Flomax] 0.8 mg PO BEDTIME 10/17/17 [History] Cholecalciferol (Vitamin D3) [Vitamin D3] 2,000 unit PO BID 10/11/18 [History] atorvaSTATin Calcium [Lipitor] 20 mg PO DAILY 10/11/18 [History] metFORMIN HCl [Metformin HCl] 1,000 mg PO BID 10/11/18 [History] Acetaminophen/oxyCODONE [Percocet 325-5 MG] 1 - 2 tab PO Q6H PRN #60 tablet [Rx] Aspirin [Ecotrin] 325 mg PO BID #84 tab.ec 10/14/18 [Rx] Bisacodyl [Dulcolax] 5 mg PO DAILY PRN tablet 10/14/18 [Rx] Cyclobenzaprine [Flexeril] 10 mg PO TID PRN #40 tablet 10/14/18 [Rx] Docusate Sodium [Colace] 100 mg PO BID cap 10/14/18 [Rx] Famotidine [Pepcid] 20 mg PO Q12H tablet 10/14/18 [Rx] Sennosides [Senna] 8.6 mg PO BID PRN tablet 10/14/18 [Rx] Past Medical History HEENT History: Reports: Other (See Below) Other HEENT History: dentures Cardiovascular History: Reports: Heart Murmur, High Cholesterol, Other (See Below) Other Cardiovascular History: aortic valve stenosis Respiratory History: Reports: None Gastrointestinal History: Reports: None Genitourinary History: Reports: BPH Other Genitourinary History: frequency ON SITE PROPERTY MANAGER History: Reports: None Musculoskeletal History: Reports: Other (See Below) Other Musculoskeletal History: displaced right knee cap in the past Neurological History: Reports: None Psychiatric History: Reports: Other (See Below) Other Psychiatric History: mild episode of recurrent major depressive disorder Endocrine/Metabolic History: Reports: Diabetes, Type II Hematologic History: Reports: None Immunologic History: Reports: None Oncologic (Cancer) History: Reports: None Dermatologic History: Reports: Cellulitis, Other (See Below) Other Dermatologic History: skin lesion - Past Surgical History Head Surgeries/Procedures: Reports: None HEENT Surgical History: Reports: Cataract Surgery, Other (See Below) Other HEENT Surgeries/Procedures: resection wedge of eyelid Cardiovascular Surgical History: Reports: None GI Surgical History: Reports: Colonoscopy, EGD Male Surgical History: Reports: None Endocrine Surgical History: Reports: None Neurological Surgical History: Reports: None Musculoskeletal Surgical History: Reports: Other (See Below) Other Musculoskeletal Surgeries/Procedures:: right knee surgery for dislocated knee cap Oncologic Surgical History: Reports: None Social & Family History - Family History Family Medical History: Noncontributory - Tobacco Use Smoking Status *Q: Former Smoker Used Tobacco, but Quit: Yes Month/Year Tobacco Last Used: 2013 Second Hand Smoke Exposure: No - Caffeine Use Caffeine Use: Reports: Coffee, Soda, Tea - Recreational Drug Use Recreational Drug Use: No Drug Use in Last 12 Months: No H&P Review of Systems - Review of Systems: Review Of Systems: See Below General: Reports: No Symptoms. Denies: Fever, Chills HEENT: Reports: No Symptoms Pulmonary: Reports: No Symptoms. Denies: Shortness of Breath, Cough Cardiovascular: Reports: No Symptoms. Denies: Chest Pain, Palpitations Gastrointestinal: Reports: No Symptoms. Denies: Abdominal Pain, Diarrhea, Nausea, Vomiting Genitourinary: Reports: No Symptoms Musculoskeletal: Reports: No Symptoms Skin: Reports: No Symptoms Psychiatric: Reports: No Symptoms Neurological: Reports: No Symptoms Hematologic/Lymphatic: Reports: No Symptoms Immunologic: Reports: No Symptoms Exam - Exam Exam: See Below - Vital Signs Vital Signs: Last Vital Signs Temp 97.8 F 10/14/18 16:00 Pulse 81 10/14/18 17:00 Resp 10 L 10/14/18 16:00 BP 124/84 10/14/18 18:00 Pulse Ox 93 L 10/14/18 17:00 Weight: 254 lb 6.4 oz - Exam Quality Assessment: Supplemental Oxygen, DVT Prophylaxis General: Alert, Oriented, Cooperative, Mild Distress HEENT: Conjunctiva Clear, EACs Clear, EOMI, Hearing Intact, Mucosa Moist & [place] , Nares Patent, Normal Nasal Septum, Posterior Pharynx Clear, PERRLA Neck: Supple, Trachea Midline, 2 Lungs: Clear to Auscultation, Normal Respiratory Effort Cardiovascular: Regular Rate, Regular Rhythm, Systolic Murmur GI/Abdominal Exam: Normal Bowel Sounds, Soft, Non-Tender, No Organomegaly, No Distention, No Abnormal Bruit, No Mass, Pelvis Stable (Male) Exam: Deferred Rectal (Males) Exam: Deferred Back Exam: Normal Inspection Extremities: Normal Inspection, Non-Tender, No Pedal Edema, Normal Capillary Refill, Limited Range of Motion (s/p R TKA) Peripheral Pulses: 2+: Posterior Tibial (L), Posterior Tibial (R), Dorsalis Pedis (L), Dorsalis Pedis (R) Skin: Warm, Dry, Intact, Other (bandage dry and intact) Neurological: Cranial Nerves Intact (grossly) Psychiatric: Alert, Normal Affect, Normal Mood - Patient Data Lab Results Last 24 hrs: Laboratory Results - last 24 hr 10/14/18 10/14/18 10/14/18 Range/Units 07:30 07:32 11:50 PT 11.6 (9.5-12.1) SECONDS INR 1.07 POC Glucose 155 H 183 H (80-115) mg/dL Consult PN Assessment/Plan POD#: 0 Procedures: Procedures AIRWAY INHALATION TREATMENT (10/25/17) ARTHROSCOP ROTATOR CUFF REPR (10/25/17) ARTHROSCOPY BICEPS TENODESIS (10/25/17) ELECTROCARDIOGRAM TRACING (06/23/14) EMERGENCY DEPT VISIT (03/25/18) EMERGENCY DEPT VISIT (06/23/14) FLUOROSCOPY <1 HR PHYS/QHP (06/23/14) GAIT TRAINING THERAPY (06/23/14) GLUCOSE BLOOD TEST (10/25/17) INJECTION FOR SHOULDER X-RAY (05/23/17) MEASURE BLOOD OXYGEN LEVEL (06/23/14) MEASURE BLOOD OXYGEN LEVEL (06/23/14) MR-STAPH DNA AMP PROBE (10/03/18) MRI JNT OF LWR EXTRE W/O DYE (06/23/14) MRI JOINT UPR EXTREM W/DYE (05/23/17) N BLOCK INJ BRACHIAL PLEXUS (10/25/17) NEEDLE LOCALIZATION BY XRAY (05/23/17) PT EVALUATION (06/23/14) REMOVE FOREIGN BODY (03/25/18) REPAIR OF KNEECAP TENDON (06/23/14) SHOULDER ARTHROSCOPY/SURGERY (10/25/17) SHOULDER ARTHROSCOPY/SURGERY (10/25/17) THER/PROPH/DIAG INJ IV PUSH (06/23/14) THERAPEUTIC ACTIVITIES (06/23/14) TISSUE EXAM BY PATHOLOGIST (03/10/15) TX/PRO/DX INJ NEW DRUG ADDON (06/23/14) TX/PRO/DX INJ SAME DRUG SOCIOLOGY PROFESSOR (06/23/14) US URINE CAPACITY MEASURE (10/25/17) X-RAY EXAM OF FINGER(S) (11/16/16) X-RAY EXAM OF KNEE 3 (06/23/14) (1) S/P total knee arthroplasty SNOMED Code(s): 4928029688030, 736969108, 9233635986007 Code(s): Z96.659 - PRESENCE OF UNSPECIFIED ARTIFICIAL KNEE JOINT Priority: High Current Visit: Yes Qualifiers: Laterality: right Qualified Code(s): Z96.651 - Presence of right artificial knee joint Problem List Initiated/Reviewed/Updated: Yes Plan: I/P: Acute: S/P right total knee arthroplasty - post-operative day 0 -DVT prophylaxis and pain management per primary care team -PT/OT -IS/RT -Monitor oxygen saturation -Titrate oxygen as needed -Vital signs stable -Monitor labs -Hgb 15.8 -GFR >90 Osteoarthritis of right knee -Pain management per primary care team Chronic: Aortic stenosis DM2 Thrombocytopenia HLD BPH h/o rheumatic fever depression Plan: CM for discharge planning GI prophylaxis: Pepcid DVT/PE prophylaxis: ASA, RANDY hose, SCDs Home medications as indicated Other orders as listed above Routine AM labs He is a full code. Thank you for allowing us to participate in the care of this patient!
[2018-10-14] MEDS: Cholecalciferol (Vitamin D3) 1,000 Unit Tab PO SCH (20:24)
[2018-10-14] MEDS: Famotidine 20 MG Tab PO SCH (20:24)
[2018-10-14] MEDS: Docusate Sodium 100 MG Cap PO SCH (20:24)
[2018-10-14] MEDS: Tamsulosin 0.4 MG Cap.ER PO SCH (20:24)
[2018-10-14] MEDS: metFORMIN 500 MG Tab PO SCH (20:24)
--- NOTE | 2018-10-14 21:51 | PCM.OPNOTE ---
- General Post-Op/Procedure Note Date of Surgery/Procedure: 10/14/18 Operative Procedure(s): right total knee arthroplasty Pre Op Diagnosis: right knee osteoarthrosis Post-Op Diagnosis: Same Anesthesia Technique: General ET Tube, Regional Block Primary Surgeon: Bridger Giron Anesthesia Provider: Janessa Toussaint Shell Machine Operator: Stephy Ramirez Shell Machine Operator: Candice Warren EBL in mLs: 450 Complications: None Condition: Good Free Text/Narrative:: Intake & Output 10/14/18 10/14/18 10/14/18 06:59 14:59 22:59 Intake Total 300 1920 Output Total 50 Balance 300 1870 size 7 femur size 6 tibia 9mm poly 35x10
[2018-10-14] MEDS: Acetaminophen/oxyCODONE 325-5 MG Tab PO PRN (22:20)
[2018-10-15] MEDS: ceFAZolin 1 GM in Premix Bag 1 BAG IV SCH ×2 (00:17→09:16)
[2018-10-15] MEDS: ceFAZolin 2 GM in Premix Bag 1 BAG IV SCH ×2 (00:17→09:16)
[2018-10-15] MEDS: Cyclobenzaprine 10 MG Tab PO PRN ×3 (00:52→22:33)
[2018-10-15] MEDS: Acetaminophen/oxyCODONE 325-5 MG Tab PO PRN ×4 (05:28→20:52)
--- NOTE | 2018-10-15 06:26 | PCM.CONSN ---
- General Info Date of Service: 10/15/18 Admission Dx/Problem (Free Text): Admission Diagnosis/Problem Admission Diagnosis/Problem Osteoarthritis of knee Subjective Update: In to see Wilder. He is doing well and has been working with PT/OT. He has been ambulating and has urinated. We have attempted multiple times to wean him off of oxygen with no success. Suspect underlying COPD since he was a long-time smoker. Will order 2 view CXR. RT has been consulted to work towards getting him of of oxygen. He will have an overnight pulse ox. Suggest outpatient PFT and sleep study on discharge. He also needs to follow up with cardiology regarding his heart valve. Otherwise labs and vital signs look good. No nursing concerns. Will remove arterial line and downgrade to floor status. Hopeful for discharge tomorrow. Functional Status: Reports: Pain Controlled, Tolerating Diet, Ambulating, Urinating, Incentive Spirometry. Denies: New Symptoms - Review of Systems General: Reports: No Symptoms. Denies: Fever, Weakness, Fatigue, Malaise, Chills HEENT: Reports: No Symptoms. Denies: Headaches, Sore Throat Pulmonary: Reports: No Symptoms. Denies: Shortness of Breath, Pleuritic Chest Pain, Cough, Sputum, Wheezing Cardiovascular: Reports: No Symptoms. Denies: Chest Pain, Palpitations, Dyspnea on Exertion, Edema, Lightheadedness Gastrointestinal: Reports: No Symptoms. Denies: Abdominal Pain, Constipation, Diarrhea, Nausea, Vomiting Genitourinary: Reports: No Symptoms. Denies: Pain Musculoskeletal: Reports: Leg Pain Skin: Reports: No Symptoms. Denies: Cyanosis Neurological: Reports: No Symptoms. Denies: Confusion, Headache, Numbness, Seizure, Syncope, Change in Speech Psychiatric: Reports: No Symptoms - Patient Data Vitals - Most Recent: Last Vital Signs Temp 98.6 F 10/15/18 04:00 Pulse 79 10/15/18 04:00 Resp 18 10/15/18 04:00 BP 126/64 10/15/18 04:00 Pulse Ox 95 10/15/18 04:00 Weight - Most Recent: 264 lb 9.6 oz I&O - Last 24 Hours: Intake & Output 10/14/18 10/14/18 10/15/18 14:59 22:59 06:59 Intake Total 300 2020 1100 Output Total 100 350 Balance 300 1920 750 Lab Results Last 24 Hours: Laboratory Results - last 24 hr 10/14/18 10/14/18 10/14/18 Range/Units 07:30 07:32 11:50 PT 11.6 (9.5-12.1) SECONDS INR 1.07 POC Glucose 155 H 183 H (80-115) mg/dL Med Orders - Current: Current Medications Aspirin (Ecotrin) 325 mg PO BID [facility] Bisacodyl (Dulcolax) 5 mg PO DAILY PRN PRN Reason: Constipation Cholecalciferol (Vitamin D3) 2,000 units PO BID [facility] Last Admin: 10/14/18 20:24 Dose: 2,000 units Cyclobenzaprine HCl (Flexeril) 10 mg PO TID PRN PRN Reason: Spasms Last Admin: 10/15/18 00:52 Dose: 10 mg Docusate Sodium (Colace) 100 mg PO BID [facility] Last Admin: 10/14/18 20:24 Dose: 100 mg Famotidine (Pepcid) 20 mg PO Q12H [facility] Last Admin: 10/14/18 20:24 Dose: 20 mg Cefazolin Sodium/Dextrose 2 gm (/ Premix) 50 mls @ 100 mls/hr IV Q8H [facility] Stop: 10/15/18 08:59 Last Admin: 10/15/18 00:17 Dose: 100 mls/hr Cefazolin Sodium/Dextrose 1 gm (/ Premix) 50 mls @ 100 mls/hr IV Q8H [facility] Stop: 10/15/18 08:59 Last Admin: 10/15/18 00:17 Dose: 100 mls/hr Ketorolac Tromethamine (Toradol) 15 mg IVPUSH Q6H PRN PRN Reason: Pain Last Admin: 10/14/18 20:25 Dose: 15 mg Metformin HCl (Glucophage) 1,000 mg PO BID [facility] Last Admin: 10/14/18 20:24 Dose: 1,000 mg Morphine Sulfate (Morphine) 2 mg IVPUSH Q2H PRN PRN Reason: Breakthrough Pain Naloxone HCl (Narcan) 0.1 mg IVPUSH Q5M PRN PRN Reason: Oversedation Oxycodone/Acetaminophen (Percocet 325-5 Mg) 1 - 2 tab PO Q4H PRN PRN Reason: Pain Last Admin: 10/15/18 05:28 Dose: 2 tab Senna (Senna) 8.6 mg PO BID PRN PRN Reason: Constipation Sertraline HCl (Zoloft) 50 mg PO DAILY NURY Simvastatin (Zocor) 20 mg PO DAILY NURY Tamsulosin HCl (Flomax) 0.8 mg PO BEDTIME NURY Last Admin: 10/14/18 20:24 Dose: 0.8 mg Discontinued Medications Acetaminophen (Tylenol) 975 mg PO ONETIME NURY Stop: 10/14/18 15:00 Last Admin: 10/14/18 07:23 Dose: 975 mg Albuterol (Proventil Neb Soln) 2.5 mg NEB ONETIME PRN PRN Reason: improve oxygenation Stop: 10/14/18 14:00 Bupivacaine HCl (Marcaine 0.25%) Confirm Administered Dose 30 ml .ROUTE .STK- MED ONE Stop: 10/14/18 08:22 Last Admin: 10/14/18 10:10 Dose: 30 ml Cefazolin Sodium (Ancef) Confirm Administered Dose 1 gm .ROUTE .STK-MED ONE Stop: 10/14/18 08:03 Cefazolin Sodium (Ancef) Confirm Administered Dose 1 gm .ROUTE .STK-MED ONE Stop: 10/14/18 08:03 Cefazolin Sodium (Ancef) Confirm Administered Dose 2 gm .ROUTE .STK-MED ONE Stop: 10/14/18 08:21 Last Admin: 10/14/18 10:49 Dose: 2 gm Morphine Sulfate 8 mg/Epinephrine HCl 0.3 mg/Cefuroxime Sodium 750 mg/Ketorolac Tromethamine 30 mg/Sodium Chloride 27.9 ml 0 mg .XX ONETIME ONE Stop: 10/14/18 10:01 Last Admin: 10/14/18 10:55 Dose: 788.3 mg Diphenhydramine HCl (Benadryl) 25 mg IVPUSH Q6H PRN PRN Reason: pruritis Stop: 10/14/18 14:00 Ephedrine Sulfate (Ephedrine In Ns) Confirm Administered Dose 25 mg .ROUTE .STK- MED ONE Stop: 10/14/18 08:02 Ephedrine Sulfate (Ephedrine Sulfate) 5 mg IVPUSH ASDIRECTED PRN PRN Reason: Hypotension Stop: 10/14/18 14:00 Epinephrine HCl (Adrenalin) Confirm Administered Dose 1 mg .ROUTE .STK-MED ONE Stop: 10/14/18 07:24 Epinephrine HCl (Adrenalin) Confirm Administered Dose 1 mg .ROUTE .STK-MED ONE Stop: 10/14/18 07:25 Fentanyl (Sublimaze) Confirm Administered Dose 250 mcg .ROUTE .STK-MED ONE Stop: 10/14/18 08:03 Fentanyl (Sublimaze) 50 mcg IVPUSH Q5M PRN PRN Reason: Pain Stop: 10/14/18 14:00 Last Admin: 10/14/18 12:06 Dose: 50 mcg Glycopyrrolate () Confirm Administered Dose 1 mg .ROUTE .STK-MED ONE Stop: 10/14/18 11:01 Hydralazine HCl (Apresoline) Confirm Administered Dose 20 mg .ROUTE .STK-MED ONE Stop: 10/14/18 11:05 Hydromorphone HCl (Dilaudid) Confirm Administered Dose 0.5 mg .ROUTE .ST-MED ONE Stop: 10/14/18 08:02 Hydromorphone HCl (Dilaudid) 0.5 mg IVPUSH Q15M PRN PRN Reason: Pain (severe 7-10) Stop: 10/14/18 14:00 Last Admin: 10/14/18 11:51 Dose: 0.5 mg Lactated Ringer's (Ringers, Lactated) 1,000 mls @ 125 mls/hr IV ASDIRECTED NURY Stop: 10/14/18 23:00 Last Admin: 10/14/18 16:01 Dose: 125 mls/hr Lidocaine HCl (Xylocaine-Mpf 1%) Confirm Administered Dose 6 mls @ as directed .ROUTE .ST-MED ONE Stop: 10/14/18 08:02 Sodium Chloride (Normal Saline) Confirm Administered Dose 100 mls @ as directed .ROUTE .STK-MED ONE Stop: 10/14/18 08:02 Lactated Ringer's (Ringers, Lactated) Confirm Administered Dose 1,000 mls @ as directed .ROUTE .STK-MED ONE Stop: 10/14/18 08:02 Lactated Ringer's (Ringers, Lactated) Confirm Administered Dose 1,000 mls @ as directed .ROUTE .ST-MED ONE Stop: 10/14/18 09:58 Phenylephrine HCl 1 mg/ Sodium (Chloride) 10.1 mls @ 1 mls/sec IV TITRATE NURY; Protocol Stop: 10/14/18 14:00 Iodine (Iodine 2% Mild Tincture) Confirm Administered Dose 30 ml .ROUTE .STK- MED ONE Stop: 10/14/18 08:22 Last Admin: 10/14/18 10:48 Dose: 18 ml Ketorolac Tromethamine (Toradol) Confirm Administered Dose 30 mg .ROUTE .STK- MED ONE Stop: 10/14/18 08:02 Labetalol HCl (Normodyne) Confirm Administered Dose 100 mg .ROUTE .STK-MED ONE Stop: 10/14/18 11:05 Lidocaine/Sodium Bicarbonate (Buffered Lidocaine 1% In Ns 8.4%) 0.25 ml IDERM ONETIME PRN PRN Reason: Prior to IV Start Stop: 10/14/18 18:00 Last Admin: 10/14/18 07:34 Dose: 0.25 ml Midazolam HCl (Versed 1 Mg/Ml) Confirm Administered Dose 2 mg .ROUTE .ST-MED ONE Stop: 10/14/18 08:03 Midazolam HCl (Versed 1 Mg/Ml) Confirm Administered Dose 2 mg .ROUTE .ST-MED ONE Stop: 10/14/18 09:56 Neostigmine Methylsulfate (Neostigmine) Confirm Administered Dose 5 mg .ROUTE .STK-MED ONE Stop: 10/14/18 11:01 Ondansetron HCl (Zofran) Confirm Administered Dose 4 mg .ROUTE .STK-MED ONE Stop: 10/14/18 08:02 Ondansetron HCl (Zofran) 4 mg IVPUSH ONETIME PRN PRN Reason: Nausea/Vomiting Stop: 10/14/18 14:00 Oxycodone HCl (Oxycontin) 10 mg PO ONETIME NURY Stop: 10/14/18 15:00 Last Admin: 10/14/18 07:23 Dose: 10 mg Phenylephrine HCl (Christ-Synephrine) Confirm Administered Dose 10 mg .ROUTE .STK- MED ONE Stop: 10/14/18 08:02 Phenylephrine HCl (Phenylephrine In Ns 100 Mcg/Ml) Confirm Administered Dose 1 mg .ROUTE .STK-MED ONE Stop: 10/14/18 08:02 Pregabalin (Lyrica) 50 mg PO ONETIME NURY Stop: 10/14/18 15:00 Last Admin: 10/14/18 07:23 Dose: 50 mg Propofol (Diprivan 20 Ml) Confirm Administered Dose 200 mg .ROUTE .STK-MED ONE Stop: 10/14/18 08:02 Rocuronium [place] (Zemuron) Confirm Administered Dose 50 mg .ROUTE .STK-MED ONE Stop: 10/14/18 08:02 Ropivacaine (Naropin 0.5%) Confirm Administered Dose 30 ml .ROUTE .STK-MED ONE Stop: 10/14/18 07:24 Sodium Chloride (Saline Flush) 10 ml FLUSH ASDIRECTED PRN PRN Reason: Keep Vein Open Stop: 10/14/18 18:00 Tranexamic Acid (Cyklokapron) Confirm Administered Dose 1,000 mg .ROUTE .STK- MED ONE Stop: 10/14/18 08:21 Last Admin: 10/14/18 10:57 Dose: 1,000 mg Vancomycin HCl (Vancomycin) Confirm Administered Dose 1 gm .ROUTE .[facility]-MED ONE Stop: 10/14/18 08:21 Last Admin: 10/14/18 10:56 Dose: 1 gm - Exam Quality Assessment: Supplemental Oxygen (2L), DVT Prophylaxis General: Alert, Oriented, Cooperative, No Acute Distress HEENT: Pupils Equal, Pupils Reactive, EOMI, Mucous Membr. Moist/[place] Neck: Supple, Trachea Midline, No JVD Lungs: Clear to Auscultation, Normal Respiratory Effort Cardiovascular: Regular Rate, Regular Rhythm, Murmurs GI/Abdominal Exam: Normal Bowel Sounds, Soft, Non-Tender, No Distention, No Abnormal Bruit (Male) Exam: No Hernia, Normal Inspection, Normal Prostate, Circumcised Back Exam: Normal Inspection, Full Range of Motion Extremities: No Pedal Edema, Normal Capillary Refill, Leg Pain, Limited Range of Motion, Other (Bandage in place on right leg. Cooling pack in place ) Peripheral Pulses: 3+: Radial (L), Radial (R), Dorsalis Pedis (L), Dorsalis Pedis (R) Skin: Warm, Dry, Intact Wound/Incisions: Dressing Dry and Intact, No Drainage Neurological: No New Focal Deficit Psy/Mental Status: Alert, Normal Affect, Normal Mood Consult PN Assessment/Plan POD#: 1 Procedures: Procedures AIRWAY INHALATION TREATMENT (10/25/17) ARTHROSCOP ROTATOR CUFF REPR (10/25/17) ARTHROSCOPY BICEPS TENODESIS (10/25/17) ELECTROCARDIOGRAM TRACING (06/23/14) EMERGENCY DEPT VISIT (03/25/18) EMERGENCY DEPT VISIT (06/23/14) FLUOROSCOPY <1 HR PHYS/QHP (06/23/14) GAIT TRAINING THERAPY (06/23/14) GLUCOSE BLOOD TEST (10/25/17) INJECTION FOR SHOULDER X-RAY (05/23/17) MEASURE BLOOD OXYGEN LEVEL (06/23/14) MEASURE BLOOD OXYGEN LEVEL (06/23/14) MR-STAPH DNA AMP PROBE (10/03/18) MRI JNT OF LWR EXTRE W/O DYE (06/23/14) MRI JOINT UPR EXTREM W/DYE (05/23/17) N BLOCK INJ BRACHIAL PLEXUS (10/25/17) NEEDLE LOCALIZATION BY XRAY (05/23/17) PT EVALUATION (06/23/14) REMOVE FOREIGN BODY (03/25/18) REPAIR OF KNEECAP TENDON (06/23/14) SHOULDER ARTHROSCOPY/SURGERY (10/25/17) SHOULDER ARTHROSCOPY/SURGERY (10/25/17) THER/PROPH/DIAG INJ IV PUSH (06/23/14) THERAPEUTIC ACTIVITIES (06/23/14) TISSUE EXAM BY PATHOLOGIST (03/10/15) TX/PRO/DX INJ NEW DRUG ADDON (06/23/14) TX/PRO/DX INJ SAME DRUG POWDER AND PRIMER CANNING LEADER (06/23/14) US URINE CAPACITY MEASURE (10/25/17) X-RAY EXAM OF FINGER(S) (11/16/16) X-RAY EXAM OF KNEE 3 (06/23/14) (1) S/P total knee arthroplasty SNOMED Code(s): 5079209939884, 739216907, 2821608061521 Code(s): Z96.659 - PRESENCE OF UNSPECIFIED ARTIFICIAL KNEE JOINT Priority: High Current Visit: Yes Qualifiers: Laterality: right Qualified Code(s): Z96.651 - Presence of right artificial knee joint (2) Hypomagnesemia SNOMED Code(s): 710278911 Code(s): E83.42 - HYPOMAGNESEMIA Priority: High Current Visit: Yes (3) Postoperative hypoxia SNOMED Code(s): 475604230 Code(s): R09.02 - HYPOXEMIA; Z98.890 - OTHER SPECIFIED POSTPROCEDURAL STATES Priority: High Current Visit: Yes Problem List Initiated/Reviewed/Updated: Yes Plan: I/P: Acute: S/P right total knee arthroplasty - post-operative day 1 -DVT prophylaxis and pain management per primary care team -PT/OT -IS/RT -Monitor oxygen saturation -Titrate oxygen as needed -Vital signs stable -Monitor labs -Hgb 15.8; Now 12.5 -GFR >90; Now >60 Osteoarthritis of right knee -Pain management per primary care team Post-operative Hypoxia -Former long-term smoker -Oxygen saturations have been in 80's when off O2 -Currently on 2L via NC -CXR ordered -Consult RT -Continue IS -Had similar episode with last surgery -Overnight pulse ox - evaluate for home O2. -Suspect underlying COPD -Suggest outpatient PFT and sleep study after discharge Moderate to sever aortic valve stenosis -Reportedly has been worsening over past few surgeries -Cardiology recommended arterial line for monitoring -Discontinue today -Recommend follow-up with cardiology to explore surgical fixation Hypomagnesemia -Magnesium 1.8 (low end of normal) -2gm supplement given -Monitor Chronic: Aortic stenosis DM2 Thrombocytopenia HLD BPH h/o rheumatic fever depression Plan: ICU status due to arterial line--> Discontinue arterial line and downgrade to floor status with telemetry CM for discharge planning GI prophylaxis: Pepcid DVT/PE prophylaxis: ASA, RANDY hose, SCDs Home medications as indicated Other orders as listed above Routine AM labs He is a full code; PCP: Dr. Canales Thank you for allowing us to participate in the care of this patient!
--- NOTE | 2018-10-15 08:16 | PCM.SURGPN ---
- General Info Date of Service: 10/15/18 POD#: 1 Functional Status: Reports: Tolerating Diet, Incentive Spirometry, Other (The pt states he did not sleep well last night.) - Patient Data Vitals - Most Recent: Last Vital Signs Temp 99.1 F 10/15/18 08:00 Pulse 79 10/15/18 04:00 Resp 16 10/15/18 08:00 BP 130/69 10/15/18 08:00 Pulse Ox 92 L 10/15/18 08:00 Weight - Most Recent: 264 lb 9.6 oz I&O - Last 24 Hours: Intake & Output 10/14/18 10/15/18 10/15/18 22:59 06:59 14:59 Intake Total 2020 1100 Output Total 100 350 Balance 1920 750 Lab Results Last 24 Hrs: Laboratory Results - last 24 hr 10/14/18 10/15/18 10/15/18 Range/Units 11:50 05:54 05:54 WBC 6.64 (4.23-9.07) K/mm3 RBC 3.95 L (4.63-6.08) M/mm3 Hgb 12.5 L (13.7-17.5) gm/L Hct 39.6 L (40.1-51.0) % MCV 100.3 H (79.0-92.2) fl MCH 31.6 (25.7-32.2) pg MCHC 31.6 L (32.2-35.5) g/dl RDW Std Deviation 51.4 H (35.1-43.9) fL Plt Count 108 L (163-337) K/mm3 MPV 11.0 (9.4-12.3) fl Sodium 137 (136-145) mEq/L Potassium 4.1 (3.5-5.1) mEq/L Chloride 103 (98-107) mEq/L Carbon Dioxide 27 (21-32) mEq/L Anion Gap 11.1 (5-15) BUN 14 (7-18) mg/dL Creatinine 0.8 (0.7-1.3) mg/dL Est Cr Clr Drug Dosing 99.88 mL/min Estimated GFR (MDRD) > 60 (>60) mL/min BUN/Creatinine Ratio 17.5 (14-18) Glucose 187 H (80-115) mg/dL POC Glucose 183 H (80-115) mg/dL Calcium 8.2 L (8.5-10.1) mg/dL Total Bilirubin 0.6 (0.2-1.0) mg/dL AST 42 H (15-37) U/L ALT 53 (16-63) U/L Alkaline Phosphatase 140 H (46-116) U/L Total Protein 6.3 L (6.4-8.2) g/dl Albumin 2.8 L (3.4-5.0) g/dl Globulin 3.5 gm/dL Albumin/Globulin Ratio 0.8 L (1-2) Med Orders - Current: Current Medications Aspirin (Ecotrin) 325 mg PO BID [facility] Bisacodyl (Dulcolax) 5 mg PO DAILY PRN PRN Reason: Constipation Cholecalciferol (Vitamin D3) 2,000 units PO BID [facility] Last Admin: 10/14/18 20:24 Dose: 2,000 units Cyclobenzaprine HCl (Flexeril) 10 mg PO TID PRN PRN Reason: Spasms Last Admin: 10/15/18 00:52 Dose: 10 mg Docusate Sodium (Colace) 100 mg PO BID [facility] Last Admin: 10/14/18 20:24 Dose: 100 mg Famotidine (Pepcid) 20 mg PO Q12H [facility] Last Admin: 10/14/18 20:24 Dose: 20 mg Cefazolin Sodium/Dextrose 2 gm (/ Premix) 50 mls @ 100 mls/hr IV Q8H [facility] Stop: 10/15/18 08:59 Last Admin: 10/15/18 00:17 Dose: 100 mls/hr Cefazolin Sodium/Dextrose 1 gm (/ Premix) 50 mls @ 100 mls/hr IV Q8H [facility] Stop: 10/15/18 08:59 Last Admin: 10/15/18 00:17 Dose: 100 mls/hr Ketorolac Tromethamine (Toradol) 15 mg IVPUSH Q6H PRN PRN Reason: Pain Last Admin: 10/14/18 20:25 Dose: 15 mg Metformin HCl (Glucophage) 1,000 mg PO BID [facility] Last Admin: 10/14/18 20:24 Dose: 1,000 mg Morphine Sulfate (Morphine) 2 mg IVPUSH Q2H PRN PRN Reason: Breakthrough Pain Naloxone HCl (Narcan) 0.1 mg IVPUSH Q5M PRN PRN Reason: Oversedation Oxycodone/Acetaminophen (Percocet 325-5 Mg) 1 - 2 tab PO Q4H PRN PRN Reason: Pain Last Admin: 10/15/18 05:28 Dose: 2 tab Senna (Senna) 8.6 mg PO BID PRN PRN Reason: Constipation Sertraline HCl (Zoloft) 50 mg PO DAILY NURY Simvastatin (Zocor) 20 mg PO DAILY NURY Tamsulosin HCl (Flomax) 0.8 mg PO BEDTIME NURY Last Admin: 10/14/18 20:24 Dose: 0.8 mg Discontinued Medications Acetaminophen (Tylenol) 975 mg PO ONETIME NURY Stop: 10/14/18 15:00 Last Admin: 10/14/18 07:23 Dose: 975 mg Albuterol (Proventil Neb Soln) 2.5 mg NEB ONETIME PRN PRN Reason: improve oxygenation Stop: 10/14/18 14:00 Bupivacaine HCl (Marcaine 0.25%) Confirm Administered Dose 30 ml .ROUTE .STK- MED ONE Stop: 10/14/18 08:22 Last Admin: 10/14/18 10:10 Dose: 30 ml Cefazolin Sodium (Ancef) Confirm Administered Dose 1 gm .ROUTE .STK-MED ONE Stop: 10/14/18 08:03 Cefazolin Sodium (Ancef) Confirm Administered Dose 1 gm .ROUTE .STK-MED ONE Stop: 10/14/18 08:03 Cefazolin Sodium (Ancef) Confirm Administered Dose 2 gm .ROUTE .STK-MED ONE Stop: 10/14/18 08:21 Last Admin: 10/14/18 10:49 Dose: 2 gm Morphine Sulfate 8 mg/Epinephrine HCl 0.3 mg/Cefuroxime Sodium 750 mg/Ketorolac Tromethamine 30 mg/Sodium Chloride 27.9 ml 0 mg .XX ONETIME ONE Stop: 10/14/18 10:01 Last Admin: 10/14/18 10:55 Dose: 788.3 mg Diphenhydramine HCl (Benadryl) 25 mg IVPUSH Q6H PRN PRN Reason: pruritis Stop: 10/14/18 14:00 Ephedrine Sulfate (Ephedrine In Ns) Confirm Administered Dose 25 mg .ROUTE .STK- MED ONE Stop: 10/14/18 08:02 Ephedrine Sulfate (Ephedrine Sulfate) 5 mg IVPUSH ASDIRECTED PRN PRN Reason: Hypotension Stop: 10/14/18 14:00 Epinephrine HCl (Adrenalin) Confirm Administered Dose 1 mg .ROUTE .STK-MED ONE Stop: 10/14/18 07:24 Epinephrine HCl (Adrenalin) Confirm Administered Dose 1 mg .ROUTE .STK-MED ONE Stop: 10/14/18 07:25 Fentanyl (Sublimaze) Confirm Administered Dose 250 mcg .ROUTE .STK-MED ONE Stop: 10/14/18 08:03 Fentanyl (Sublimaze) 50 mcg IVPUSH Q5M PRN PRN Reason: Pain Stop: 10/14/18 14:00 Last Admin: 10/14/18 12:06 Dose: 50 mcg Glycopyrrolate () Confirm Administered Dose 1 mg .ROUTE .STK-MED ONE Stop: 10/14/18 11:01 Hydralazine HCl (Apresoline) Confirm Administered Dose 20 mg .ROUTE .STK-MED ONE Stop: 10/14/18 11:05 Hydromorphone HCl (Dilaudid) Confirm Administered Dose 0.5 mg .ROUTE .STK-MED ONE Stop: 10/14/18 08:02 Hydromorphone HCl (Dilaudid) 0.5 mg IVPUSH Q15M PRN PRN Reason: Pain (severe 7-10) Stop: 10/14/18 14:00 Last Admin: 10/14/18 11:51 Dose: 0.5 mg Lactated Ringer's (Ringers, Lactated) 1,000 mls @ 125 mls/hr IV ASDIRECTED NURY Stop: 10/14/18 23:00 Last Admin: 10/14/18 16:01 Dose: 125 mls/hr Lidocaine HCl (Xylocaine-Mpf 1%) Confirm Administered Dose 6 mls @ as directed .ROUTE .STK-MED ONE Stop: 10/14/18 08:02 Sodium Chloride (Normal Saline) Confirm Administered Dose 100 mls @ as directed .ROUTE .STK-MED ONE Stop: 10/14/18 08:02 Lactated Ringer's (Ringers, Lactated) Confirm Administered Dose 1,000 mls @ as directed .ROUTE .STK-MED ONE Stop: 10/14/18 08:02 Lactated Ringer's (Ringers, Lactated) Confirm Administered Dose 1,000 mls @ as directed .ROUTE .[facility]-MED ONE Stop: 10/14/18 09:58 Phenylephrine HCl 1 mg/ Sodium (Chloride) 10.1 mls @ 1 mls/sec IV TITRATE NURY; Protocol Stop: 10/14/18 14:00 Iodine (Iodine 2% Mild Tincture) Confirm Administered Dose 30 ml .ROUTE .ST- MED ONE Stop: 10/14/18 08:22 Last Admin: 10/14/18 10:48 Dose: 18 ml Ketorolac Tromethamine (Toradol) Confirm Administered Dose 30 mg .ROUTE .ST- MED ONE Stop: 10/14/18 08:02 Labetalol HCl (Normodyne) Confirm Administered Dose 100 mg .ROUTE .ST-MED ONE Stop: 10/14/18 11:05 Lidocaine/Sodium Bicarbonate (Buffered Lidocaine 1% In Ns 8.4%) 0.25 ml IDERM ONETIME PRN PRN Reason: Prior to IV Start Stop: 10/14/18 18:00 Last Admin: 10/14/18 07:34 Dose: 0.25 ml Midazolam HCl (Versed 1 Mg/Ml) Confirm Administered Dose 2 mg .ROUTE .ST-MED ONE Stop: 10/14/18 08:03 Midazolam HCl (Versed 1 Mg/Ml) Confirm Administered Dose 2 mg .ROUTE .ST-MED ONE Stop: 10/14/18 09:56 Neostigmine Methylsulfate (Neostigmine) Confirm Administered Dose 5 mg .ROUTE .ST-MED ONE Stop: 10/14/18 11:01 Ondansetron HCl (Zofran) Confirm Administered Dose 4 mg .ROUTE .ST-MED ONE Stop: 10/14/18 08:02 Ondansetron HCl (Zofran) 4 mg IVPUSH ONETIME PRN PRN Reason: Nausea/Vomiting Stop: 10/14/18 14:00 Oxycodone HCl (Oxycontin) 10 mg PO ONETIME NURY Stop: 10/14/18 15:00 Last Admin: 10/14/18 07:23 Dose: 10 mg Phenylephrine HCl (Christ-Synephrine) Confirm Administered Dose 10 mg .ROUTE .STK- MED ONE Stop: 10/14/18 08:02 Phenylephrine HCl (Phenylephrine In Ns 100 Mcg/Ml) Confirm Administered Dose 1 mg .ROUTE .STK-MED ONE Stop: 10/14/18 08:02 Pregabalin (Lyrica) 50 mg PO ONETIME NURY Stop: 10/14/18 15:00 Last Admin: 10/14/18 07:23 Dose: 50 mg Propofol (Diprivan 20 Ml) Confirm Administered Dose 200 mg .ROUTE .STK-MED ONE Stop: 10/14/18 08:02 Rocuronium [place] (Zemuron) Confirm Administered Dose 50 mg .ROUTE .STK-MED ONE Stop: 10/14/18 08:02 Ropivacaine (Naropin 0.5%) Confirm Administered Dose 30 ml .ROUTE .STK-MED ONE Stop: 10/14/18 07:24 Sodium Chloride (Saline Flush) 10 ml FLUSH ASDIRECTED PRN PRN Reason: Keep Vein Open Stop: 10/14/18 18:00 Tranexamic Acid (Cyklokapron) Confirm Administered Dose 1,000 mg .ROUTE .STK- MED ONE Stop: 10/14/18 08:21 Last Admin: 10/14/18 10:57 Dose: 1,000 mg Vancomycin HCl (Vancomycin) Confirm Administered Dose 1 gm .ROUTE .STK-MED ONE Stop: 10/14/18 08:21 Last Admin: 10/14/18 10:56 Dose: 1 gm - Exam Wound/Incisions: Dressing Dry and Intact General: Alert, Cooperative, No Acute Distress Lungs: Normal Respiratory Effort Extremities: Other (NVS intact for BLE. Joyce' negative.) - Problem List Review Problem List Initiated/Reviewed/Updated: Yes - My Orders Last 24 Hours: Active Orders 24 hr Category Date Time Status Patient Status [ADT] Routine ADT 10/14/18 12:44 Active Communication Order [RC] ROUTINE Care 10/14/18 10:08 Active Notify Provider [RC] ASDIRECTED Care 10/14/18 10:08 Active Pulse Oximetry [RC] ASDIRECTED Care 10/14/18 10:08 Active RT Aerosol Therapy [RC] ASDIRECTED Care 10/14/18 10:09 Active [employer] Diet [DIET] Diet 10/14/18 Lunch Active Aspirin [Ecotrin] Med 10/15/18 09:00 Active 325 mg PO BID Cholecalciferol (Vitamin D3) [Vitamin D3] Med 10/14/18 21:00 Active 2,000 units PO BID Docusate Sodium [Colace] Med 10/14/18 21:00 Active 100 mg PO BID Famotidine [Pepcid] Med 10/14/18 21:00 Active 20 mg PO Q12H Sertraline [Zoloft] Med 10/15/18 09:00 Active 50 mg PO DAILY Simvastatin [Zocor] Med 10/15/18 09:00 Active 20 mg PO DAILY Tamsulosin [Flomax] Med 10/14/18 21:00 Active 0.8 mg PO BEDTIME ceFAZolin [Ancef] 1 gm Med 10/14/18 16:30 Active Premix Bag 1 bag IV Q8H ceFAZolin [Ancef] 2 gm Med 10/14/18 16:30 Active Premix Bag 1 bag IV Q8H metFORMIN [Glucophage] Med 10/14/18 21:00 Active 1,000 mg PO BID Medication Orders Aspirin (Ecotrin) 325 mg PO BID [facility] Bisacodyl (Dulcolax) 5 mg PO DAILY PRN PRN Reason: Constipation Cholecalciferol (Vitamin D3) 2,000 units PO BID [facility] Last Admin: 10/14/18 20:24 Dose: 2,000 units Cyclobenzaprine HCl (Flexeril) 10 mg PO TID PRN PRN Reason: Spasms Last Admin: 10/15/18 00:52 Dose: 10 mg Admin: 10/14/18 13:30 Dose: 10 mg Docusate Sodium (Colace) 100 mg PO BID [facility] Last Admin: 10/14/18 20:24 Dose: 100 mg Famotidine (Pepcid) 20 mg PO Q12H [facility] Last Admin: 10/14/18 20:24 Dose: 20 mg Cefazolin Sodium/Dextrose 2 gm (/ Premix) 50 mls @ 100 mls/hr IV Q8H [facility] Stop: 10/15/18 08:59 Last Admin: 10/15/18 00:17 Dose: 100 mls/hr Infusion: 10/14/18 17:11 Dose: 100 mls/hr Admin: 10/14/18 16:41 Dose: 100 mls/hr Cefazolin Sodium/Dextrose 1 gm (/ Premix) 50 mls @ 100 mls/hr IV Q8H [facility] Stop: 10/15/18 08:59 Last Admin: 10/15/18 00:17 Dose: 100 mls/hr Infusion: 10/14/18 17:05 Dose: 100 mls/hr Admin: 10/14/18 16:35 Dose: 100 mls/hr Ketorolac Tromethamine (Toradol) 15 mg IVPUSH Q6H PRN PRN Reason: Pain Last Admin: 10/14/18 20:25 Dose: 15 mg Metformin HCl (Glucophage) 1,000 mg PO BID [facility] Last Admin: 10/14/18 20:24 Dose: 1,000 mg Morphine Sulfate (Morphine) 2 mg IVPUSH Q2H PRN PRN Reason: Breakthrough Pain Naloxone HCl (Narcan) 0.1 mg IVPUSH Q5M PRN PRN Reason: Oversedation Oxycodone/Acetaminophen (Percocet 325-5 Mg) 1 - 2 tab PO Q4H PRN PRN Reason: Pain Last Admin: 10/15/18 05:28 Dose: 2 tab Admin: 10/14/18 22:20 Dose: 2 tab Senna (Senna) 8.6 mg PO BID PRN PRN Reason: Constipation Sertraline HCl (Zoloft) 50 mg PO DAILY [facility] Simvastatin (Zocor) 20 mg PO DAILY [facility] Tamsulosin HCl (Flomax) 0.8 mg PO BEDTIME [facility] Last Admin: 10/14/18 20:24 Dose: 0.8 mg - Assessment Assessment (Free Text/Narrative):: POD#1 - right TKA - Plan Plan (Free Text/Narrative):: 1. Hgb 12.5. 2. Further orders per Hospitalist service. 3. 325mg ASA PO BID, frequent mobility, TEDs. 4. Discharge to home today if cleared by Hospitalist service and therapies. The pt's case was discussed with Dr. Giron.
[2018-10-15] MEDS: Morphine 2 MG/ML Syringe IVPUSH PRN ×2 (09:14→18:46)
[2018-10-15] MEDS: metFORMIN 500 MG Tab PO SCH ×2 (09:23→20:52)
[2018-10-15] MEDS: Sertraline 50 MG Tab PO SCH (09:23)
[2018-10-15] MEDS: Aspirin 325 MG Tab.EC PO SCH ×2 (09:25→20:52)
[2018-10-15] MEDS: Docusate Sodium 100 MG Cap PO SCH ×2 (09:25→20:52)
[2018-10-15] MEDS: Famotidine 20 MG Tab PO SCH ×2 (09:26→20:52)
[2018-10-15] MEDS: Cholecalciferol (Vitamin D3) 1,000 Unit Tab PO SCH ×2 (09:28→20:52)
[2018-10-15] MEDS: Simvastatin 20 MG Tab PO SCH (09:28)
[2018-10-15] MEDS ORDERED: Magnesium Sulfate/Water 2 GM in Premix Bag 1 BAG IV ONE (13:00)
--- NOTE | 2018-10-15 15:43 | CR ---
Chest: Two views of the chest were obtained. Comparison: No prior chest x-rays available. Heart size at the upper limits of normal. Tortuous thoracic aorta is seen. Minimal areas of atelectasis are seen. Central lung markings are slightly increased and difficult to exclude mild upper lobe pulmonary vascular redistribution. No acute parenchymal change is suspected. Degenerative spurring is noted within the spine. Impression: 1. Heart size at the upper limits of normal. 2. Slight increased central lung markings most likely chronic but difficult to exclude mild upper lobe pulmonary vascular redistribution. Diagnostic code #3
[2018-10-15] MEDS: Tamsulosin 0.4 MG Cap.ER PO SCH (20:52)
[2018-10-15] MEDS ORDERED: Temazepam 15 MG Cap PO PRN (22:24)
[2018-10-16] MEDS: Acetaminophen/oxyCODONE 325-5 MG Tab PO PRN ×3 (00:52→11:43)
[2018-10-16] MEDS: Morphine 2 MG/ML Syringe IVPUSH PRN ×3 (02:11→10:12)
--- NOTE | 2018-10-16 06:42 | PCM.CONSN ---
- General Info Date of Service: 10/16/18 Admission Dx/Problem (Free Text): Admission Diagnosis/Problem Admission Diagnosis/Problem Osteoarthritis of knee Subjective Update: In to see Wilder multiple times today. He is doing pretty well however overnight he has had multiple desaturations while on oxygen and was noted to drop into the 60's at times. He has been placed on 2L via NC for discharge. Home oxygen was ordered. Discussed progress with him, his , and daughter. He will need cardiology f/u, outpatient PFT, and outpatient sleep study. He will be discharged today. Functional Status: Reports: Pain Controlled, Tolerating Diet, Ambulating, Urinating, Incentive Spirometry. Denies: New Symptoms - Review of Systems General: Reports: No Symptoms. Denies: Fever, Weakness, Fatigue, Malaise, Chills HEENT: Reports: No Symptoms. Denies: Headaches, Sore Throat, Visual Changes Pulmonary: Reports: No Symptoms. Denies: Shortness of Breath, Cough, Sputum, Wheezing Cardiovascular: Reports: Dyspnea on Exertion. Denies: Chest Pain, Palpitations , Edema, Lightheadedness Gastrointestinal: Reports: No Symptoms. Denies: Abdominal Pain, Constipation, Diarrhea, Nausea, Vomiting Genitourinary: Reports: No Symptoms. Denies: Pain Musculoskeletal: Reports: Leg Pain Skin: Reports: No Symptoms Neurological: Reports: No Symptoms. Denies: Confusion, Dizziness, Headache, Numbness, Tingling Psychiatric: Reports: No Symptoms - Patient Data Vitals - Most Recent: Last Vital Signs Temp 97.9 F 10/16/18 03:59 Pulse 100 10/16/18 03:59 Resp 18 10/16/18 03:59 BP 144/78 H 10/16/18 03:59 Pulse Ox 87 L 10/16/18 03:59 Weight - Most Recent: 265 lb 4.8 oz I&O - Last 24 Hours: Intake & Output 10/15/18 10/15/18 10/16/18 14:59 22:59 06:59 Intake Total 150 1880 200 Output Total 291 437 7382 Balance -50 1380 -800 Lab Results Last 24 Hours: Laboratory Results - last 24 hr 10/15/18 10/15/18 10/15/18 Range/Units 05:54 05:54 05:54 WBC 6.64 (4.23-9.07) K/mm3 RBC 3.95 L (4.63-6.08) M/mm3 Hgb 12.5 L (13.7-17.5) gm/L Hct 39.6 L (40.1-51.0) % MCV 100.3 H (79.0-92.2) fl MCH 31.6 (25.7-32.2) pg MCHC 31.6 L (32.2-35.5) g/dl RDW Std Deviation 51.4 H (35.1-43.9) fL Plt Count 108 L (163-337) K/mm3 MPV 11.0 (9.4-12.3) fl Sodium 137 (136-145) mEq/L Potassium 4.1 (3.5-5.1) mEq/L Chloride 103 (98-107) mEq/L Carbon Dioxide 27 (21-32) mEq/L Anion Gap 11.1 (5-15) BUN 14 (7-18) mg/dL Creatinine 0.8 (0.7-1.3) mg/dL Est Cr Clr Drug Dosing 99.88 mL/min Estimated GFR (MDRD) > 60 (>60) mL/min BUN/Creatinine Ratio 17.5 (14-18) Glucose 187 H (80-115) mg/dL Calcium 8.2 L (8.5-10.1) mg/dL Magnesium 1.8 (1.8-2.4) mg/dl Total Bilirubin 0.6 (0.2-1.0) mg/dL AST 42 H (15-37) U/L ALT 53 (16-63) U/L Alkaline Phosphatase 140 H (46-116) U/L Total Protein 6.3 L (6.4-8.2) g/dl Albumin 2.8 L (3.4-5.0) g/dl Globulin 3.5 gm/dL Albumin/Globulin Ratio 0.8 L (1-2) Med Orders - Current: Current Medications Aspirin (Ecotrin) 325 mg PO BID [facility] Last Admin: 10/15/18 20:52 Dose: 325 mg Bisacodyl (Dulcolax) 5 mg PO DAILY PRN PRN Reason: Constipation Cholecalciferol (Vitamin D3) 2,000 units PO BID [facility] Last Admin: 10/15/18 20:52 Dose: 2,000 units Cyclobenzaprine HCl (Flexeril) 10 mg PO TID PRN PRN Reason: Spasms Last Admin: 10/15/18 22:33 Dose: 10 mg Docusate Sodium (Colace) 100 mg PO BID [facility] Last Admin: 10/15/18 20:52 Dose: 100 mg Famotidine (Pepcid) 20 mg PO Q12H [facility] Last Admin: 10/15/18 20:52 Dose: 20 mg Ketorolac Tromethamine (Toradol) 15 mg IVPUSH Q6H PRN PRN Reason: Pain Last Admin: 10/14/18 20:25 Dose: 15 mg Metformin HCl (Glucophage) 1,000 mg PO BID [facility] Last Admin: 10/15/18 20:52 Dose: 1,000 mg Morphine Sulfate (Morphine) 2 mg IVPUSH Q2H PRN PRN Reason: Breakthrough Pain Last Admin: 10/16/18 05:59 Dose: 2 mg Naloxone HCl (Narcan) 0.1 mg IVPUSH Q5M PRN PRN Reason: Oversedation Oxycodone/Acetaminophen (Percocet 325-5 Mg) 1 - 2 tab PO Q4H PRN PRN Reason: Pain Last Admin: 10/16/18 00:52 Dose: 2 tab Senna (Senna) 8.6 mg PO BID PRN PRN Reason: Constipation Sertraline HCl (Zoloft) 50 mg PO DAILY [facility] Last Admin: 10/15/18 09:23 Dose: 50 mg Simvastatin (Zocor) 20 mg PO DAILY [facility] Last Admin: 10/15/18 09:28 Dose: Not Given Tamsulosin HCl (Flomax) 0.8 mg PO BEDTIME [facility] Last Admin: 10/15/18 20:52 Dose: 0.8 mg Temazepam (Restoril) 15 mg PO BEDTIME PRN PRN Reason: Sleep Last Admin: 10/15/18 22:33 Dose: 15 mg Discontinued Medications Acetaminophen (Tylenol) 975 mg PO ONETIME [facility] Stop: 10/14/18 15:00 Last Admin: 10/14/18 07:23 Dose: 975 mg Albuterol (Proventil Neb Soln) 2.5 mg NEB ONETIME PRN PRN Reason: improve oxygenation Stop: 10/14/18 14:00 Bupivacaine HCl (Marcaine 0.25%) Confirm Administered Dose 30 ml .ROUTE .STK- MED ONE Stop: 10/14/18 08:22 Last Admin: 10/14/18 10:10 Dose: 30 ml Cefazolin Sodium (Ancef) Confirm Administered Dose 1 gm .ROUTE .STK-MED ONE Stop: 10/14/18 08:03 Cefazolin Sodium (Ancef) Confirm Administered Dose 1 gm .ROUTE .STK-MED ONE Stop: 10/14/18 08:03 Cefazolin Sodium (Ancef) Confirm Administered Dose 2 gm .ROUTE .STK-MED ONE Stop: 10/14/18 08:21 Last Admin: 10/14/18 10:49 Dose: 2 gm Morphine Sulfate 8 mg/Epinephrine HCl 0.3 mg/Cefuroxime Sodium 750 mg/Ketorolac Tromethamine 30 mg/Sodium Chloride 27.9 ml 0 mg .XX ONETIME ONE Stop: 10/14/18 10:01 Last Admin: 10/14/18 10:55 Dose: 788.3 mg Diphenhydramine HCl (Benadryl) 25 mg IVPUSH Q6H PRN PRN Reason: pruritis Stop: 10/14/18 14:00 Ephedrine Sulfate (Ephedrine In Ns) Confirm Administered Dose 25 mg .ROUTE .STK- MED ONE Stop: 10/14/18 08:02 Ephedrine Sulfate (Ephedrine Sulfate) 5 mg IVPUSH ASDIRECTED PRN PRN Reason: Hypotension Stop: 10/14/18 14:00 Epinephrine HCl (Adrenalin) Confirm Administered Dose 1 mg .ROUTE .STK-MED ONE Stop: 10/14/18 07:24 Epinephrine HCl (Adrenalin) Confirm Administered Dose 1 mg .ROUTE .STK-MED ONE Stop: 10/14/18 07:25 Fentanyl (Sublimaze) Confirm Administered Dose 250 mcg .ROUTE .STK-MED ONE Stop: 10/14/18 08:03 Fentanyl (Sublimaze) 50 mcg IVPUSH Q5M PRN PRN Reason: Pain Stop: 10/14/18 14:00 Last Admin: 10/14/18 12:06 Dose: 50 mcg Glycopyrrolate () Confirm Administered Dose 1 mg .ROUTE .STK-MED ONE Stop: 10/14/18 11:01 Hydralazine HCl (Apresoline) Confirm Administered Dose 20 mg .ROUTE .STK-MED ONE Stop: 10/14/18 11:05 Hydromorphone HCl (Dilaudid) Confirm Administered Dose 0.5 mg .ROUTE .[facility]-MED ONE Stop: 10/14/18 08:02 Hydromorphone HCl (Dilaudid) 0.5 mg IVPUSH Q15M PRN PRN Reason: Pain (severe 7-10) Stop: 10/14/18 14:00 Last Admin: 10/14/18 11:51 Dose: 0.5 mg Lactated Ringer's (Ringers, Lactated) 1,000 mls @ 125 mls/hr IV ASDIRECTED [facility] Stop: 10/14/18 23:00 Last Admin: 10/14/18 16:01 Dose: 125 mls/hr Cefazolin Sodium/Dextrose 2 gm (/ Premix) 50 mls @ 100 mls/hr IV Q8H [facility] Stop: 10/15/18 08:59 Last Admin: 10/15/18 09:16 Dose: 100 mls/hr Lidocaine HCl (Xylocaine-Mpf 1%) Confirm Administered Dose 6 mls @ as directed .ROUTE .[facility]-MED ONE Stop: 10/14/18 08:02 Sodium Chloride (Normal Saline) Confirm Administered Dose 100 mls @ as directed .ROUTE .[facility] ONE Stop: 10/14/18 08:02 Lactated Ringer's (Ringers, Lactated) Confirm Administered Dose 1,000 mls @ as directed .ROUTE .[facility] ONE Stop: 10/14/18 08:02 Cefazolin Sodium/Dextrose 1 gm (/ Premix) 50 mls @ 100 mls/hr IV Q8H [facility] Stop: 10/15/18 08:59 Last Admin: 10/15/18 09:16 Dose: 100 mls/hr Lactated Ringer's (Ringers, Lactated) Confirm Administered Dose 1,000 mls @ as directed .ROUTE .[facility] ONE Stop: 10/14/18 09:58 Phenylephrine HCl 1 mg/ Sodium (Chloride) 10.1 mls @ 1 mls/sec IV TITRATE NURY; Protocol Stop: 10/14/18 14:00 Magnesium Sulfate 2 gm/ Premix 50 mls @ 25 mls/hr IV ONETIME ONE Stop: 10/15/18 14:59 Last Admin: 10/15/18 12:57 Dose: 25 mls/hr Iodine (Iodine 2% Mild Tincture) Confirm Administered Dose 30 ml .ROUTE .STK- MED ONE Stop: 10/14/18 08:22 Last Admin: 10/14/18 10:48 Dose: 18 ml Ketorolac Tromethamine (Toradol) Confirm Administered Dose 30 mg .ROUTE .STK- MED ONE Stop: 10/14/18 08:02 Labetalol HCl (Normodyne) Confirm Administered Dose 100 mg .ROUTE .STK-MED ONE Stop: 10/14/18 11:05 Lidocaine/Sodium Bicarbonate (Buffered Lidocaine 1% In Ns 8.4%) 0.25 ml IDERM ONETIME PRN PRN Reason: Prior to IV Start Stop: 10/14/18 18:00 Last Admin: 10/14/18 07:34 Dose: 0.25 ml Midazolam HCl (Versed 1 Mg/Ml) Confirm Administered Dose 2 mg .ROUTE .ST-MED ONE Stop: 10/14/18 08:03 Midazolam HCl (Versed 1 Mg/Ml) Confirm Administered Dose 2 mg .ROUTE .ST-MED ONE Stop: 10/14/18 09:56 Neostigmine Methylsulfate (Neostigmine) Confirm Administered Dose 5 mg .ROUTE .ST-MED ONE Stop: 10/14/18 11:01 Ondansetron HCl (Zofran) Confirm Administered Dose 4 mg .ROUTE .ST-MED ONE Stop: 10/14/18 08:02 Ondansetron HCl (Zofran) 4 mg IVPUSH ONETIME PRN PRN Reason: Nausea/Vomiting Stop: 10/14/18 14:00 Oxycodone HCl (Oxycontin) 10 mg PO ONETIME [facility] Stop: 10/14/18 15:00 Last Admin: 10/14/18 07:23 Dose: 10 mg Phenylephrine HCl (Christ-Synephrine) Confirm Administered Dose 10 mg .ROUTE .STK- MED ONE Stop: 10/14/18 08:02 Phenylephrine HCl (Phenylephrine In Ns 100 Mcg/Ml) Confirm Administered Dose 1 mg .ROUTE .STK-MED ONE Stop: 10/14/18 08:02 Pregabalin (Lyrica) 50 mg PO ONETIME NURY Stop: 10/14/18 15:00 Last Admin: 10/14/18 07:23 Dose: 50 mg Propofol (Diprivan 20 Ml) Confirm Administered Dose 200 mg .ROUTE .STK-MED ONE Stop: 10/14/18 08:02 Rocuronium [place] (Zemuron) Confirm Administered Dose 50 mg .ROUTE .STK-MED ONE Stop: 10/14/18 08:02 Ropivacaine (Naropin 0.5%) Confirm Administered Dose 30 ml .ROUTE .STK-MED ONE Stop: 10/14/18 07:24 Sodium Chloride (Saline Flush) 10 ml FLUSH ASDIRECTED PRN PRN Reason: Keep Vein Open Stop: 10/14/18 18:00 Tranexamic Acid (Cyklokapron) Confirm Administered Dose 1,000 mg .ROUTE .STK- MED ONE Stop: 10/14/18 08:21 Last Admin: 10/14/18 10:57 Dose: 1,000 mg Vancomycin HCl (Vancomycin) Confirm Administered Dose 1 gm .ROUTE .STK-MED ONE Stop: 10/14/18 08:21 Last Admin: 10/14/18 10:56 Dose: 1 gm - Exam Quality Assessment: Supplemental Oxygen, DVT Prophylaxis General: Alert, Oriented, Cooperative, No Acute Distress HEENT: Pupils Equal, Pupils Reactive, EOMI, Mucous Membr. Moist/[place] Neck: Supple, Trachea Midline, No JVD Lungs: Clear to Auscultation, Normal Respiratory Effort Cardiovascular: Regular Rate, Regular Rhythm, Murmurs GI/Abdominal Exam: Normal Bowel Sounds, Soft, Non-Tender, No Organomegaly, No Distention, No Abnormal Bruit, No Mass, Pelvis Stable (Male) Exam: Deferred Back Exam: Normal Inspection, Full Range of Motion Extremities: No Pedal Edema, Normal Capillary Refill, Leg Pain, Limited Range of Motion, Other (Bandage in place on right leg. Cooling pack in place. ) Peripheral Pulses: 2+: Radial (L), Radial (R), Dorsalis Pedis (L), Dorsalis Pedis (R) Skin: Warm, Dry, Intact Neurological: No New Focal Deficit Psy/Mental Status: Alert, Normal Affect, Normal Mood Consult PN Assessment/Plan POD#: 2 Procedures: Procedures AIRWAY INHALATION TREATMENT (10/25/17) ARTHROSCOP ROTATOR CUFF REPR (10/25/17) ARTHROSCOPY BICEPS TENODESIS (10/25/17) ELECTROCARDIOGRAM TRACING (06/23/14) EMERGENCY DEPT VISIT (03/25/18) EMERGENCY DEPT VISIT (06/23/14) FLUOROSCOPY <1 HR PHYS/QHP (06/23/14) GAIT TRAINING THERAPY (06/23/14) GLUCOSE BLOOD TEST (10/25/17) INJECTION FOR SHOULDER X-RAY (05/23/17) MEASURE BLOOD OXYGEN LEVEL (06/23/14) MEASURE BLOOD OXYGEN LEVEL (06/23/14) MR-STAPH DNA AMP PROBE (10/03/18) MRI JNT OF LWR EXTRE W/O DYE (06/23/14) MRI JOINT UPR EXTREM W/DYE (05/23/17) N BLOCK INJ BRACHIAL PLEXUS (10/25/17) NEEDLE LOCALIZATION BY XRAY (05/23/17) PT EVALUATION (06/23/14) REMOVE FOREIGN BODY (03/25/18) REPAIR OF KNEECAP TENDON (06/23/14) SHOULDER ARTHROSCOPY/SURGERY (10/25/17) SHOULDER ARTHROSCOPY/SURGERY (10/25/17) THER/PROPH/DIAG INJ IV PUSH (06/23/14) THERAPEUTIC ACTIVITIES (06/23/14) TISSUE EXAM BY PATHOLOGIST (03/10/15) TX/PRO/DX INJ NEW DRUG ADDON (06/23/14) TX/PRO/DX INJ SAME DRUG HEAD START TEACHER (06/23/14) US URINE CAPACITY MEASURE (10/25/17) X-RAY EXAM OF FINGER(S) (11/16/16) X-RAY EXAM OF KNEE 3 (06/23/14) (1) S/P total knee arthroplasty SNOMED Code(s): 0514406591072, 438591577, 8536808190383 Code(s): Z96.659 - PRESENCE OF UNSPECIFIED ARTIFICIAL KNEE JOINT Priority: High Current Visit: Yes Qualifiers: Laterality: right Qualified Code(s): Z96.651 - Presence of right artificial knee joint (2) Hypomagnesemia SNOMED Code(s): 132925608 Code(s): E83.42 - HYPOMAGNESEMIA Priority: High Current Visit: Yes (3) Postoperative hypoxia SNOMED Code(s): 609111091 Code(s): R09.02 - HYPOXEMIA; Z98.890 - OTHER SPECIFIED POSTPROCEDURAL STATES Priority: High Current Visit: Yes Problem List Initiated/Reviewed/Updated: Yes My Orders Last 24 Hours: My Active Orders 10/15/18 12:57 Consult to Respiratory Therapy [Respiratory Care Assess and Treatment] [CONS] Routine 10/15/18 12:59 Patient Status [ADT] Routine Arterial Line Discontinue [OM.PC] Routine 10/15/18 14:07 Evaluate for Home Oxygen [RT Evaluate for Home Oxygen] [RC] Click to Edit Overnight Pulse Oximetry [RC] Click to Edit 10/16/18 05:11 BASIC METABOLIC PANEL,BMP [CHEM] AM CBC WITH AUTO DIFF [HEME] AM MAGNESIUM [CHEM] AM 10/17/18 05:11 BASIC METABOLIC PANEL,BMP [CHEM] AM CBC WITH AUTO DIFF [HEME] AM MAGNESIUM [CHEM] AM 10/18/18 05:11 BASIC METABOLIC PANEL,BMP [CHEM] AM CBC WITH AUTO DIFF [HEME] AM MAGNESIUM [CHEM] AM 10/19/18 05:11 BASIC METABOLIC PANEL,BMP [CHEM] AM CBC WITH AUTO DIFF [HEME] AM MAGNESIUM [CHEM] AM Plan: I/P: Acute: S/P right total knee arthroplasty - post-operative day 2 -DVT prophylaxis and pain management per primary care team -PT/OT -IS/RT -Monitor oxygen saturation -Titrate oxygen as needed -Vital signs stable -Monitor labs -Hgb 15.8 preoperatively; 12.5; Now 12.3 -GFR >90 preoperatively; >60; Now >60 Osteoarthritis of right knee -Pain management per primary care team Post-operative Hypoxia -Former long-term smoker -Oxygen saturations have been in 80's when off O2 -Currently on 2L via NC -CXR 10/15/18: * 1. Heart size at the upper limits of normal * 2. Slight increased central lung markings most likely chronic but difficult to exclude mild upper lobe pulmonary vascular redistribution -Consult RT -Continue IS -Had similar episode with last surgery -Overnight pulse ox showed sever desaturations - will need home O2. -Suspect underlying COPD -Strongly recommend outpatient PFT and sleep study after discharge -Consider pulmonology consult outpatient Moderate to sever aortic valve stenosis -Reportedly has been worsening over past few surgeries -Cardiology recommended arterial line for monitoring -Discontinued yesterday -Strongly recommend follow-up with cardiology to explore surgical fixation Resolved Hypomagnesemia -Magnesium 1.8 (low end of normal) -2gm supplement given -Monitor Chronic: Aortic stenosis DM2 Thrombocytopenia HLD BPH h/o rheumatic fever depression Plan: ICU status due to arterial line--> Discontinue arterial line and downgrade to floor status with telemetry CM for discharge planning GI prophylaxis: Pepcid DVT/PE prophylaxis: ASA, RANDY hose, SCDs Home medications as indicated Other orders as listed above Routine AM labs He is a full code; PCP: Dr. Canales Overall from a hospitalist standpoint Wilder is doing ok. His labs have been stable. He has needed O2 and this will be ordered on discharge. He had an overnight pulse ox with over 900 desaturations and saturations that have dropped into the 60's as noted by RT. He will need a sleep study after discharge once he has recovered form his TKA and is off of opiates. He was noted to have several apneic episodes by nursing while sleeping. He has known moderate to severe aortic stenosis. He was encouraged to follow-up with cardiology to explore a possible aortic valve replacement. He is suspected to have an underlying COPD as well. Suggest PFT once he has completed recovery with his PCP. Family and patient were updated on this. Otherwise he has been ambulating and working with therapies. He has urinated. Vital signs have remained stable. He will be discharged today pending primary team and PT/OT agreement. Dr. Giron has been updated on oxygenation status. Thank you for allowing us to participate in the care of this patient!
[2018-10-16] MEDS: Cyclobenzaprine 10 MG Tab PO PRN (07:41)
--- NOTE | 2018-10-16 08:54 | PCM.SURGPN ---
- General Info Date of Service: 10/16/18 POD#: 2 Functional Status: Reports: Pain Controlled, Tolerating Diet, Ambulating, Urinating, Incentive Spirometry, Other (The pt states he is "moving better" than yesterday.) - Patient Data Vitals - Most Recent: Last Vital Signs Temp 98.3 F 10/16/18 07:48 Pulse 100 10/16/18 03:59 Resp 16 10/16/18 07:48 BP 138/66 10/16/18 07:48 Pulse Ox 91 L 10/16/18 07:48 Weight - Most Recent: 265 lb 4.8 oz I&O - Last 24 Hours: Intake & Output 10/15/18 10/16/18 10/16/18 22:59 06:59 14:59 Intake Total 1880 200 Output Total 500 1000 200 Balance 1380 -800 -200 Lab Results Last 24 Hrs: Laboratory Results - last 24 hr 10/15/18 10/16/18 10/16/18 Range/Units 05:54 05:55 05:55 WBC 7.98 (4.23-9.07) K/mm3 RBC 3.91 L (4.63-6.08) M/mm3 Hgb 12.3 L (13.7-17.5) gm/L Hct 38.9 L (40.1-51.0) % MCV 99.5 H (79.0-92.2) fl MCH 31.5 (25.7-32.2) pg MCHC 31.6 L (32.2-35.5) g/dl RDW Std Deviation 50.0 H (35.1-43.9) fL Plt Count 126 L (163-337) K/mm3 MPV 11.0 (9.4-12.3) fl Neut % (Auto) 68.2 H (34.0-67.9) % Lymph % (Auto) 17.4 L (21.8-53.1) % [place] % (Auto) 12.3 H (5.3-12.2) % Eos % (Auto) 0.9 (0.8-7.0) Baso % (Auto) 0.9 (0.1-1.2) % Neut # (Auto) 5.45 H (1.78-5.38) K/mm3 Lymph # (Auto) 1.39 (1.32-3.57) K/mm3 [place] # (Auto) 0.98 H (0.30-0.82) K/mm3 Eos # (Auto) 0.07 (0.04-0.54) K/mm3 Baso # (Auto) 0.07 (0.01-0.08) K/mm3 Sodium 134 L (136-145) mEq/L Potassium 4.2 (3.5-5.1) mEq/L Chloride 99 (98-107) mEq/L Carbon Dioxide 26 (21-32) mEq/L Anion Gap 13.2 (5-15) BUN 12 (7-18) mg/dL Creatinine 0.7 (0.7-1.3) mg/dL Est Cr Clr Drug Dosing 114.14 mL/min Estimated GFR (MDRD) > 60 (>60) mL/min BUN/Creatinine Ratio 17.1 (14-18) Glucose 160 H (80-115) mg/dL POC Glucose (80-115) mg/dL Calcium 8.7 (8.5-10.1) mg/dL Magnesium 1.8 2.0 (1.8-2.4) mg/dl 10/16/18 Range/Units 06:41 WBC (4.23-9.07) K/mm3 RBC (4.63-6.08) M/mm3 Hgb (13.7-17.5) gm/L Hct (40.1-51.0) % MCV (79.0-92.2) fl MCH (25.7-32.2) pg MCHC (32.2-35.5) g/dl RDW Std Deviation (35.1-43.9) fL Plt Count (163-337) K/mm3 MPV (9.4-12.3) fl Neut % (Auto) (34.0-67.9) % Lymph % (Auto) (21.8-53.1) % [place] % (Auto) (5.3-12.2) % Eos % (Auto) (0.8-7.0) Baso % (Auto) (0.1-1.2) % Neut # (Auto) (1.78-5.38) K/mm3 Lymph # (Auto) (1.32-3.57) K/mm3 [place] # (Auto) (0.30-0.82) K/mm3 Eos # (Auto) (0.04-0.54) K/mm3 Baso # (Auto) (0.01-0.08) K/mm3 Sodium (136-145) mEq/L Potassium (3.5-5.1) mEq/L Chloride (98-107) mEq/L Carbon Dioxide (21-32) mEq/L Anion Gap (5-15) BUN (7-18) mg/dL Creatinine (0.7-1.3) mg/dL Est Cr Clr Drug Dosing mL/min Estimated GFR (MDRD) (>60) mL/min BUN/Creatinine Ratio (14-18) Glucose (80-115) mg/dL POC Glucose 176 H (80-115) mg/dL Calcium (8.5-10.1) mg/dL Magnesium (1.8-2.4) mg/dl Med Orders - Current: Current Medications Aspirin (Ecotrin) 325 mg PO BID [facility] Last Admin: 10/15/18 20:52 Dose: 325 mg Bisacodyl (Dulcolax) 5 mg PO DAILY PRN PRN Reason: Constipation Cholecalciferol (Vitamin D3) 2,000 units PO BID [facility] Last Admin: 10/15/18 20:52 Dose: 2,000 units Cyclobenzaprine HCl (Flexeril) 10 mg PO TID PRN PRN Reason: Spasms Last Admin: 10/16/18 07:41 Dose: 10 mg Docusate Sodium (Colace) 100 mg PO BID [facility] Last Admin: 10/15/18 20:52 Dose: 100 mg Famotidine (Pepcid) 20 mg PO Q12H [facility] Last Admin: 10/15/18 20:52 Dose: 20 mg Ketorolac Tromethamine (Toradol) 15 mg IVPUSH Q6H PRN PRN Reason: Pain Last Admin: 10/14/18 20:25 Dose: 15 mg Metformin HCl (Glucophage) 1,000 mg PO BID [facility] Last Admin: 10/15/18 20:52 Dose: 1,000 mg Morphine Sulfate (Morphine) 2 mg IVPUSH Q2H PRN PRN Reason: Breakthrough Pain Last Admin: 10/16/18 05:59 Dose: 2 mg Naloxone HCl (Narcan) 0.1 mg IVPUSH Q5M PRN PRN Reason: Oversedation Oxycodone/Acetaminophen (Percocet 325-5 Mg) 1 - 2 tab PO Q4H PRN PRN Reason: Pain Last Admin: 10/16/18 07:38 Dose: 2 tab Senna (Senna) 8.6 mg PO BID PRN PRN Reason: Constipation Sertraline HCl (Zoloft) 50 mg PO DAILY [facility] Last Admin: 10/15/18 09:23 Dose: 50 mg Simvastatin (Zocor) 20 mg PO DAILY [facility] Last Admin: 10/15/18 09:28 Dose: Not Given Tamsulosin HCl (Flomax) 0.8 mg PO BEDTIME [facility] Last Admin: 10/15/18 20:52 Dose: 0.8 mg Temazepam (Restoril) 15 mg PO BEDTIME PRN PRN Reason: Sleep Last Admin: 10/15/18 22:33 Dose: 15 mg Discontinued Medications Acetaminophen (Tylenol) 975 mg PO ONETIME NURY Stop: 10/14/18 15:00 Last Admin: 10/14/18 07:23 Dose: 975 mg Albuterol (Proventil Neb Soln) 2.5 mg NEB ONETIME PRN PRN Reason: improve oxygenation Stop: 10/14/18 14:00 Bupivacaine HCl (Marcaine 0.25%) Confirm Administered Dose 30 ml .ROUTE .STK- MED ONE Stop: 10/14/18 08:22 Last Admin: 10/14/18 10:10 Dose: 30 ml Cefazolin Sodium (Ancef) Confirm Administered Dose 1 gm .ROUTE .STK-MED ONE Stop: 10/14/18 08:03 Cefazolin Sodium (Ancef) Confirm Administered Dose 1 gm .ROUTE .STK-MED ONE Stop: 10/14/18 08:03 Cefazolin Sodium (Ancef) Confirm Administered Dose 2 gm .ROUTE .STK-MED ONE Stop: 10/14/18 08:21 Last Admin: 10/14/18 10:49 Dose: 2 gm Morphine Sulfate 8 mg/Epinephrine HCl 0.3 mg/Cefuroxime Sodium 750 mg/Ketorolac Tromethamine 30 mg/Sodium Chloride 27.9 ml 0 mg .XX ONETIME ONE Stop: 10/14/18 10:01 Last Admin: 10/14/18 10:55 Dose: 788.3 mg Diphenhydramine HCl (Benadryl) 25 mg IVPUSH Q6H PRN PRN Reason: pruritis Stop: 10/14/18 14:00 Ephedrine Sulfate (Ephedrine In Ns) Confirm Administered Dose 25 mg .ROUTE .STK- MED ONE Stop: 10/14/18 08:02 Ephedrine Sulfate (Ephedrine Sulfate) 5 mg IVPUSH ASDIRECTED PRN PRN Reason: Hypotension Stop: 10/14/18 14:00 Epinephrine HCl (Adrenalin) Confirm Administered Dose 1 mg .ROUTE .STK-MED ONE Stop: 10/14/18 07:24 Epinephrine HCl (Adrenalin) Confirm Administered Dose 1 mg .ROUTE .STK-MED ONE Stop: 10/14/18 07:25 Fentanyl (Sublimaze) Confirm Administered Dose 250 mcg .ROUTE .STK-MED ONE Stop: 10/14/18 08:03 Fentanyl (Sublimaze) 50 mcg IVPUSH Q5M PRN PRN Reason: Pain Stop: 10/14/18 14:00 Last Admin: 10/14/18 12:06 Dose: 50 mcg Glycopyrrolate () Confirm Administered Dose 1 mg .ROUTE .STK-MED ONE Stop: 10/14/18 11:01 Hydralazine HCl (Apresoline) Confirm Administered Dose 20 mg .ROUTE .STK-MED ONE Stop: 10/14/18 11:05 Hydromorphone HCl (Dilaudid) Confirm Administered Dose 0.5 mg .ROUTE .STK-MED ONE Stop: 10/14/18 08:02 Hydromorphone HCl (Dilaudid) 0.5 mg IVPUSH Q15M PRN PRN Reason: Pain (severe 7-10) Stop: 10/14/18 14:00 Last Admin: 10/14/18 11:51 Dose: 0.5 mg Lactated Ringer's (Ringers, Lactated) 1,000 mls @ 125 mls/hr IV ASDIRECTED NURY Stop: 10/14/18 23:00 Last Admin: 10/14/18 16:01 Dose: 125 mls/hr Cefazolin Sodium/Dextrose 2 gm (/ Premix) 50 mls @ 100 mls/hr IV Q8H [facility] Stop: 10/15/18 08:59 Last Admin: 10/15/18 09:16 Dose: 100 mls/hr Lidocaine HCl (Xylocaine-Mpf 1%) Confirm Administered Dose 6 mls @ as directed .ROUTE .ST-MED ONE Stop: 10/14/18 08:02 Sodium Chloride (Normal Saline) Confirm Administered Dose 100 mls @ as directed .ROUTE .ST-MED ONE Stop: 10/14/18 08:02 Lactated Ringer's (Ringers, Lactated) Confirm Administered Dose 1,000 mls @ as directed .ROUTE .[facility]-MED ONE Stop: 10/14/18 08:02 Cefazolin Sodium/Dextrose 1 gm (/ Premix) 50 mls @ 100 mls/hr IV Q8H NURY Stop: 10/15/18 08:59 Last Admin: 10/15/18 09:16 Dose: 100 mls/hr Lactated Ringer's (Ringers, Lactated) Confirm Administered Dose 1,000 mls @ as directed .ROUTE .[facility]-MED ONE Stop: 10/14/18 09:58 Phenylephrine HCl 1 mg/ Sodium (Chloride) 10.1 mls @ 1 mls/sec IV TITRATE NURY; Protocol Stop: 10/14/18 14:00 Magnesium Sulfate 2 gm/ Premix 50 mls @ 25 mls/hr IV ONETIME ONE Stop: 10/15/18 14:59 Last Admin: 10/15/18 12:57 Dose: 25 mls/hr Iodine (Iodine 2% Mild Tincture) Confirm Administered Dose 30 ml .ROUTE .[facility]- MED ONE Stop: 10/14/18 08:22 Last Admin: 10/14/18 10:48 Dose: 18 ml Ketorolac Tromethamine (Toradol) Confirm Administered Dose 30 mg .ROUTE .ST- MED ONE Stop: 10/14/18 08:02 Labetalol HCl (Normodyne) Confirm Administered Dose 100 mg .ROUTE .[facility]-MED ONE Stop: 10/14/18 11:05 Lidocaine/Sodium Bicarbonate (Buffered Lidocaine 1% In Ns 8.4%) 0.25 ml IDERM ONETIME PRN PRN Reason: Prior to IV Start Stop: 10/14/18 18:00 Last Admin: 10/14/18 07:34 Dose: 0.25 ml Midazolam HCl (Versed 1 Mg/Ml) Confirm Administered Dose 2 mg .ROUTE .ST-MED ONE Stop: 10/14/18 08:03 Midazolam HCl (Versed 1 Mg/Ml) Confirm Administered Dose 2 mg .ROUTE .[facility]-MED ONE Stop: 10/14/18 09:56 Neostigmine Methylsulfate (Neostigmine) Confirm Administered Dose 5 mg .ROUTE .[facility]-MED ONE Stop: 10/14/18 11:01 Ondansetron HCl (Zofran) Confirm Administered Dose 4 mg .ROUTE .[facility]-MED ONE Stop: 10/14/18 08:02 Ondansetron HCl (Zofran) 4 mg IVPUSH ONETIME PRN PRN Reason: Nausea/Vomiting Stop: 10/14/18 14:00 Oxycodone HCl (Oxycontin) 10 mg PO ONETIME [facility] Stop: 10/14/18 15:00 Last Admin: 10/14/18 07:23 Dose: 10 mg Phenylephrine HCl (Christ-Synephrine) Confirm Administered Dose 10 mg .ROUTE .[facility]- MED ONE Stop: 10/14/18 08:02 Phenylephrine HCl (Phenylephrine In Ns 100 Mcg/Ml) Confirm Administered Dose 1 mg .ROUTE .[facility]-MED ONE Stop: 10/14/18 08:02 Pregabalin (Lyrica) 50 mg PO ONETIME NURY Stop: 10/14/18 15:00 Last Admin: 10/14/18 07:23 Dose: 50 mg Propofol (Diprivan 20 Ml) Confirm Administered Dose 200 mg .ROUTE .ST-MED ONE Stop: 10/14/18 08:02 Rocuronium [place] (Zemuron) Confirm Administered Dose 50 mg .ROUTE .[facility]-MED ONE Stop: 10/14/18 08:02 Ropivacaine (Naropin 0.5%) Confirm Administered Dose 30 ml .ROUTE .[facility]-MED ONE Stop: 10/14/18 07:24 Sodium Chloride (Saline Flush) 10 ml FLUSH ASDIRECTED PRN PRN Reason: Keep Vein Open Stop: 10/14/18 18:00 Tranexamic Acid (Cyklokapron) Confirm Administered Dose 1,000 mg .ROUTE .ST- MED ONE Stop: 10/14/18 08:21 Last Admin: 10/14/18 10:57 Dose: 1,000 mg Vancomycin HCl (Vancomycin) Confirm Administered Dose 1 gm .ROUTE .[facility]-MED ONE Stop: 10/14/18 08:21 Last Admin: 10/14/18 10:56 Dose: 1 gm - Exam Wound/Incisions: Dressing Dry and Intact General: Alert, Cooperative, No Acute Distress Lungs: Normal Respiratory Effort Extremities: Other (NVS intact for RLE. Joyce's negative.) - Problem List Review Problem List Initiated/Reviewed/Updated: Yes - My Orders Last 24 Hours: Active Orders 24 hr Category Date Time Status Patient Status [ADT] Routine ADT 10/15/18 12:59 Active Evaluate for Home Oxygen [RT Evaluate for Home Oxygen] Care 10/15/18 14:07 Active [RC] Click to Edit Overnight Pulse Oximetry [RC] Click to Edit Care 10/15/18 14:07 Active Ready for Discharge [RC] PER UNIT ROUTINE Care 10/16/18 07:00 Active Consult to Respiratory Therapy [Respiratory Care Assess Cons 10/15/18 12:57 Active and Treatment] [CONS] Routine BASIC METABOLIC PANEL,BMP [CHEM] AM Lab 10/17/18 05:11 Ordered BASIC METABOLIC PANEL,BMP [CHEM] AM Lab 10/18/18 05:11 Ordered BASIC METABOLIC PANEL,BMP [CHEM] AM Lab 10/19/18 05:11 Ordered CBC WITH AUTO DIFF [HEME] AM Lab 10/17/18 05:11 Ordered CBC WITH AUTO DIFF [HEME] AM Lab 10/18/18 05:11 Ordered CBC WITH AUTO DIFF [HEME] AM Lab 10/19/18 05:11 Ordered MAGNESIUM [CHEM] AM Lab 10/17/18 05:11 Ordered MAGNESIUM [CHEM] AM Lab 10/18/18 05:11 Ordered MAGNESIUM [CHEM] AM Lab 10/19/18 05:11 Ordered Aspirin [Ecotrin] Med 10/15/18 09:00 Active 325 mg PO BID Sertraline [Zoloft] Med 10/15/18 09:00 Active 50 mg PO DAILY Simvastatin [Zocor] Med 10/15/18 09:00 Active 20 mg PO DAILY Temazepam [Restoril] Med 10/15/18 22:24 Active 15 mg PO BEDTIME PRN Arterial Line Discontinue [OM.PC] Routine Oth 10/15/18 12:59 Ordered Medication Orders Aspirin (Ecotrin) 325 mg PO BID NURY Last Admin: 10/15/18 20:52 Dose: 325 mg Admin: 10/15/18 09:25 Dose: 325 mg Bisacodyl (Dulcolax) 5 mg PO DAILY PRN PRN Reason: Constipation Cholecalciferol (Vitamin D3) 2,000 units PO BID [facility] Last Admin: 10/15/18 20:52 Dose: 2,000 units Admin: 10/15/18 09:28 Dose: Not Given Admin: 10/14/18 20:24 Dose: 2,000 units Cyclobenzaprine HCl (Flexeril) 10 mg PO TID PRN PRN Reason: Spasms Last Admin: 10/16/18 07:41 Dose: 10 mg Admin: 10/15/18 22:33 Dose: 10 mg Admin: 10/15/18 12:33 Dose: 10 mg Admin: 10/15/18 00:52 Dose: 10 mg Admin: 10/14/18 13:30 Dose: 10 mg Docusate Sodium (Colace) 100 mg PO BID [facility] Last Admin: 10/15/18 20:52 Dose: 100 mg Admin: 10/15/18 09:25 Dose: 100 mg Admin: 10/14/18 20:24 Dose: 100 mg Famotidine (Pepcid) 20 mg PO Q12H [facility] Last Admin: 10/15/18 20:52 Dose: 20 mg Admin: 10/15/18 09:26 Dose: 20 mg Admin: 10/14/18 20:24 Dose: 20 mg Ketorolac Tromethamine (Toradol) 15 mg IVPUSH Q6H PRN PRN Reason: Pain Last Admin: 10/14/18 20:25 Dose: 15 mg Metformin HCl (Glucophage) 1,000 mg PO BID [facility] Last Admin: 10/15/18 20:52 Dose: 1,000 mg Admin: 10/15/18 09:23 Dose: 1,000 mg Admin: 10/14/18 20:24 Dose: 1,000 mg Morphine Sulfate (Morphine) 2 mg IVPUSH Q2H PRN PRN Reason: Breakthrough Pain Last Admin: 10/16/18 05:59 Dose: 2 mg Admin: 10/16/18 02:11 Dose: 2 mg Admin: 10/15/18 18:46 Dose: 2 mg Admin: 10/15/18 09:14 Dose: 2 mg Naloxone HCl (Narcan) 0.1 mg IVPUSH Q5M PRN PRN Reason: Oversedation Oxycodone/Acetaminophen (Percocet 325-5 Mg) 1 - 2 tab PO Q4H PRN PRN Reason: Pain Last Admin: 10/16/18 07:38 Dose: 2 tab Admin: 10/16/18 00:52 Dose: 2 tab Admin: 10/15/18 20:52 Dose: 2 tab Admin: 10/15/18 14:47 Dose: 2 tab Admin: 10/15/18 08:55 Dose: 2 tab Admin: 10/15/18 05:28 Dose: 2 tab Admin: 10/14/18 22:20 Dose: 2 tab Senna (Senna) 8.6 mg PO BID PRN PRN Reason: Constipation Sertraline HCl (Zoloft) 50 mg PO DAILY [facility] Last Admin: 10/15/18 09:23 Dose: 50 mg Simvastatin (Zocor) 20 mg PO DAILY [facility] Last Admin: 10/15/18 09:28 Dose: Not Given Tamsulosin HCl (Flomax) 0.8 mg PO BEDTIME NURY Last Admin: 10/15/18 20:52 Dose: 0.8 mg Admin: 10/14/18 20:24 Dose: 0.8 mg Temazepam (Restoril) 15 mg PO BEDTIME PRN PRN Reason: Sleep Last Admin: 10/15/18 22:33 Dose: 15 mg - Assessment Assessment (Free Text/Narrative):: POD#2 - right TKA - Plan Plan (Free Text/Narrative):: 1. 325mg ASA PO BID, TEDs. SCDs in Hospital. 2. Discharge to home today. The pt will have the assistance of his . 3. Further orders per Hospitalist service. 4. Hgb 12.3 today. The pt's case was discussed with Dr. Giron.
[2018-10-16] MEDS: Docusate Sodium 100 MG Cap PO SCH (09:16)
[2018-10-16] MEDS: Sertraline 50 MG Tab PO SCH (09:16)
[2018-10-16] MEDS: Aspirin 325 MG Tab.EC PO SCH (09:17)
[2018-10-16] MEDS: metFORMIN 500 MG Tab PO SCH (09:17)
[2018-10-16] MEDS: Famotidine 20 MG Tab PO SCH (09:18)
[2018-10-16] MEDS: Cholecalciferol (Vitamin D3) 1,000 Unit Tab PO SCH (09:19)
[2018-10-16] MEDS: Simvastatin 20 MG Tab PO SCH (09:19)
[2018-10-16 12:41] VITALS: BP 143/73
--- NOTE | 2018-10-17 10:10 | PCM.DCSUM1 ---
Discharge Summary - Hospital Course Brief History: Wilder is a 68 yo male who underwent right TKA with Dr. Giron on . The procedure was completed under general anesthesia with pre- operative adductor canal block. The pt had an arterial line inserted pre- operatively. The pt tolerated the procedure well and was admitted to the ICU. The pt received Ancef stephanie-operatively. He participated in P.T. and O.T. and progressed well. He was allowed to WBAT and used a FWW for mobility. The pt's surgical wound was dressed with a Mepilex dressing and remained clean and dry. On POD#1, the pt was started on 325mg ASA BID for VTE prophylaxis. The pt used TEDs and SCDs also. On POD#1, the pt's hemoglobin was 12.5. Medical management was provided by the Hospitalist service and the pt's hospital course was remarkable for low O2 saturations, therefore, the pt remain in Hospital until POD#2 to allow for overnight oximetry to be completed. On POD#2, the pt was deemed appropriate for discharge to home with his . The pt was discharged with O2 for home and the pt will follow-up with his PCP. - Discharge Data Discharge Date: 10/16/18 Discharge Disposition: Home, Self-Care 01 Condition: Good - Patient Summary/Data Operative Procedure(s) Performed: right total knee arthroplasty Consults: Consultations 10/14/18 06:46 OT Evaluation and Treatment [CONS] Routine PT Evaluation and Treatment [CONS] Routine 10/14/18 06:47 Consult to Physician [CONS] Routine 10/15/18 12:57 Consult to Respiratory Therapy [Respiratory Care Assess and Treatment] [CONS] Routine - Patient Instructions Diet: Diabetic Diet Activity: Apply Ice, As Tolerated, Elevate Extremity, Full Weight Bearing Driving: Do Not Drive Showering/Bathing: May Shower Wound/Incision Care: Keep Operative Site/Wound Site Clean and Dry, Do NOT Change Dressing Notify Provider of: Fever, Increased Pain, Swelling and Redness, Drainage, Nausea and/or Vomiting Other/Special Instructions: Please get up and moving around EVERY HOUR while awake. This helps to prevent blood clots. Please use your walker and have help with mobility as needed. Take a short walk in your home EVERY HOUR while awake. Please take 325mg Aspirin TWICE daily. The aspirin is being used for blood clot prevention and not for pain management so please do not miss a dose of the medication. You do not need to take your 81mg aspirin daily in addition to the 325mg aspirin twice daily. At this time, take only the 325mg aspirin twice daily. You could use a medication like Zantac or Pepcid and a medication like Prilosec or Nexium to protect your stomach while you are using the aspirin. At home, please complete the exercises that you learned during the Hospital stay. Schedule for physical therapy. Use the pain medication as needed. The medication may cause drowsiness and constipation. Contact your primary care provider for instructions if you are constipated. You may use a stool softener like docusate sodium or Colace 100mg twice daily and/or a laxative like Miralax daily for constipation. Increase your water and fiber intake while you are using the pain medication. Discontinue use of the pain medication as soon as able. Please do not use other medications that may cause drowsiness (other pain medications, anxiety pills, cold medications, sleeping pills, etc) while using the prescription pain medication. Do not use alcohol while using the pain medication. Wear the RANDY hose during the day and you may remove these at night. Elevate the limb to decrease swelling. Place ice to the area often. Place a towel between your skin and the blue pad. Use the incentive spirometer often. Take deep breaths throughout the day. Please keep the dressing in place until follow-up. Notify the Clinic if the dressing becomes saturated. Increase your protein intake while you are healing. Please closely monitor your blood sugars and notify your primary care provider with abnormal values. Elevated blood sugars increases the risk of infection. Call the Clinic with questions or concerns - [phone]. - Discharge Plan *PRESCRIPTION DRUG MONITORING PROGRAM REVIEWED*: No *COPY OF PRESCRIPTION DRUG MONITORING REPORT IN PATIENT SHO: No Prescriptions/Med Rec: Acetaminophen/oxyCODONE [Percocet 325-5 MG] 1 - 2 tab PO Q6H PRN #60 tablet PRN Reason: Pain Aspirin [Ecotrin] 325 mg PO BID #84 tab.ec Cyclobenzaprine [Flexeril] 10 mg PO TID PRN #40 tablet PRN Reason: Spasms Home Medications: Home Meds Sertraline [Zoloft] 50 mg PO DAILY 10/17/17 [History] Tamsulosin HCl [Flomax] 0.8 mg PO BEDTIME 10/17/17 [History] Cholecalciferol (Vitamin D3) [Vitamin D3] 2,000 unit PO BID 10/11/18 [History] atorvaSTATin Calcium [Lipitor] 20 mg PO DAILY 10/11/18 [History] metFORMIN HCl [Metformin HCl] 1,000 mg PO BID 10/11/18 [History] Acetaminophen/oxyCODONE [Percocet 325-5 MG] 1 - 2 tab PO Q6H PRN #60 tablet [Rx] Aspirin [Ecotrin] 325 mg PO BID #84 tab.ec 10/14/18 [Rx] Bisacodyl [Dulcolax] 5 mg PO DAILY PRN tablet 10/14/18 [Rx] Cyclobenzaprine [Flexeril] 10 mg PO TID PRN #40 tablet 10/14/18 [Rx] Docusate Sodium [Colace] 100 mg PO BID cap 10/14/18 [Rx] Famotidine [Pepcid] 20 mg PO Q12H tablet 10/14/18 [Rx] Sennosides [Senna] 8.6 mg PO BID PRN tablet 10/14/18 [Rx] Referrals: Stephy Ramirez PA-C [Physician Financial Aid Counselor] - (Orthopedics. ) Zaki Canales MD [Primary Care Provider] - (Please f/u with PCP in 7-10 days.) - Discharge Summary/Plan Comment DC Time >30 min.: No - Patient Data Vitals - Most Recent: Last Vital Signs Temp 98.8 F 10/16/18 11:47 Pulse 100 10/16/18 03:59 Resp 16 10/16/18 11:47 BP 143/73 H 10/16/18 12:00 Pulse Ox 93 L 10/16/18 12:00 Weight - Most Recent: 265 lb 4.8 oz Med Orders - Current: Current Medications Discontinued Medications Acetaminophen (Tylenol) 975 mg PO ONETIME NURY Stop: 10/14/18 15:00 Last Admin: 10/14/18 07:23 Dose: 975 mg Albuterol (Proventil Neb Soln) 2.5 mg NEB ONETIME PRN PRN Reason: improve oxygenation Stop: 10/14/18 14:00 Aspirin (Ecotrin) 325 mg PO BID NURY Last Admin: 10/16/18 09:17 Dose: 325 mg Bisacodyl (Dulcolax) 5 mg PO DAILY PRN PRN Reason: Constipation Bupivacaine HCl (Marcaine 0.25%) Confirm Administered Dose 30 ml .ROUTE .STK- MED ONE Stop: 10/14/18 08:22 Last Admin: 10/14/18 10:10 Dose: 30 ml Cefazolin Sodium (Ancef) Confirm Administered Dose 1 gm .ROUTE .STK-MED ONE Stop: 10/14/18 08:03 Cefazolin Sodium (Ancef) Confirm Administered Dose 1 gm .ROUTE .STK-MED ONE Stop: 10/14/18 08:03 Cefazolin Sodium (Ancef) Confirm Administered Dose 2 gm .ROUTE .STK-MED ONE Stop: 10/14/18 08:21 Last Admin: 10/14/18 10:49 Dose: 2 gm Cholecalciferol (Vitamin D3) 2,000 units PO BID [facility] Last Admin: 10/16/18 09:19 Dose: Not Given Morphine Sulfate 8 mg/Epinephrine HCl 0.3 mg/Cefuroxime Sodium 750 mg/Ketorolac Tromethamine 30 mg/Sodium Chloride 27.9 ml 0 mg .XX ONETIME ONE Stop: 10/14/18 10:01 Last Admin: 10/14/18 10:55 Dose: 788.3 mg Cyclobenzaprine HCl (Flexeril) 10 mg PO TID PRN PRN Reason: Spasms Last Admin: 10/16/18 07:41 Dose: 10 mg Diphenhydramine HCl (Benadryl) 25 mg IVPUSH Q6H PRN PRN Reason: pruritis Stop: 10/14/18 14:00 Docusate Sodium (Colace) 100 mg PO BID [facility] Last Admin: 10/16/18 09:16 Dose: 100 mg Ephedrine Sulfate (Ephedrine In Ns) Confirm Administered Dose 25 mg .ROUTE .STK- MED ONE Stop: 10/14/18 08:02 Ephedrine Sulfate (Ephedrine Sulfate) 5 mg IVPUSH ASDIRECTED PRN PRN Reason: Hypotension Stop: 10/14/18 14:00 Epinephrine HCl (Adrenalin) Confirm Administered Dose 1 mg .ROUTE .STK-MED ONE Stop: 10/14/18 07:24 Epinephrine HCl (Adrenalin) Confirm Administered Dose 1 mg .ROUTE .STK-MED ONE Stop: 10/14/18 07:25 Famotidine (Pepcid) 20 mg PO Q12H [facility] Last Admin: 10/16/18 09:18 Dose: Not Given Fentanyl (Sublimaze) Confirm Administered Dose 250 mcg .ROUTE .STK-MED ONE Stop: 10/14/18 08:03 Fentanyl (Sublimaze) 50 mcg IVPUSH Q5M PRN PRN Reason: Pain Stop: 10/14/18 14:00 Last Admin: 10/14/18 12:06 Dose: 50 mcg Glycopyrrolate () Confirm Administered Dose 1 mg .ROUTE .STK-MED ONE Stop: 10/14/18 11:01 Hydralazine HCl (Apresoline) Confirm Administered Dose 20 mg .ROUTE .STK-MED ONE Stop: 10/14/18 11:05 Hydromorphone HCl (Dilaudid) Confirm Administered Dose 0.5 mg .ROUTE .STK-MED ONE Stop: 10/14/18 08:02 Hydromorphone HCl (Dilaudid) 0.5 mg IVPUSH Q15M PRN PRN Reason: Pain (severe 7-10) Stop: 10/14/18 14:00 Last Admin: 10/14/18 11:51 Dose: 0.5 mg Lactated Ringer's (Ringers, Lactated) 1,000 mls @ 125 mls/hr IV ASDIRECTED [facility] Stop: 10/14/18 23:00 Last Admin: 10/14/18 16:01 Dose: 125 mls/hr Cefazolin Sodium/Dextrose 2 gm (/ Premix) 50 mls @ 100 mls/hr IV Q8H [facility] Stop: 10/15/18 08:59 Last Admin: 10/15/18 09:16 Dose: 100 mls/hr Lidocaine HCl (Xylocaine-Mpf 1%) Confirm Administered Dose 6 mls @ as directed .ROUTE .STK-MED ONE Stop: 10/14/18 08:02 Sodium Chloride (Normal Saline) Confirm Administered Dose 100 mls @ as directed .ROUTE .STK-MED ONE Stop: 10/14/18 08:02 Lactated Ringer's (Ringers, Lactated) Confirm Administered Dose 1,000 mls @ as directed .ROUTE .STK-MED ONE Stop: 10/14/18 08:02 Cefazolin Sodium/Dextrose 1 gm (/ Premix) 50 mls @ 100 mls/hr IV Q8H NURY Stop: 10/15/18 08:59 Last Admin: 10/15/18 09:16 Dose: 100 mls/hr Lactated Ringer's (Ringers, Lactated) Confirm Administered Dose 1,000 mls @ as directed .ROUTE .STK-MED ONE Stop: 10/14/18 09:58 Phenylephrine HCl 1 mg/ Sodium (Chloride) 10.1 mls @ 1 mls/sec IV TITRATE NURY; Protocol Stop: 10/14/18 14:00 Magnesium Sulfate 2 gm/ Premix 50 mls @ 25 mls/hr IV ONETIME ONE Stop: 10/15/18 14:59 Last Admin: 10/15/18 12:57 Dose: 25 mls/hr Iodine (Iodine 2% Mild Tincture) Confirm Administered Dose 30 ml .ROUTE .STK- MED ONE Stop: 10/14/18 08:22 Last Admin: 10/14/18 10:48 Dose: 18 ml Ketorolac Tromethamine (Toradol) 15 mg IVPUSH Q6H PRN PRN Reason: Pain Last Admin: 10/14/18 20:25 Dose: 15 mg Ketorolac Tromethamine (Toradol) Confirm Administered Dose 30 mg .ROUTE .STK- MED ONE Stop: 10/14/18 08:02 Labetalol HCl (Normodyne) Confirm Administered Dose 100 mg .ROUTE .STK-MED ONE Stop: 10/14/18 11:05 Lidocaine/Sodium Bicarbonate (Buffered Lidocaine 1% In Ns 8.4%) 0.25 ml IDERM ONETIME PRN PRN Reason: Prior to IV Start Stop: 10/14/18 18:00 Last Admin: 10/14/18 07:34 Dose: 0.25 ml Metformin HCl (Glucophage) 1,000 mg PO BID NURY Last Admin: 10/16/18 09:17 Dose: 1,000 mg Midazolam HCl (Versed 1 Mg/Ml) Confirm Administered Dose 2 mg .ROUTE .STK-MED ONE Stop: 10/14/18 08:03 Midazolam HCl (Versed 1 Mg/Ml) Confirm Administered Dose 2 mg .ROUTE .STK-MED ONE Stop: 10/14/18 09:56 Morphine Sulfate (Morphine) 2 mg IVPUSH Q2H PRN PRN Reason: Breakthrough Pain Last Admin: 10/16/18 10:12 Dose: 2 mg Naloxone HCl (Narcan) 0.1 mg IVPUSH Q5M PRN PRN Reason: Oversedation Neostigmine Methylsulfate (Neostigmine) Confirm Administered Dose 5 mg .ROUTE .STK-MED ONE Stop: 10/14/18 11:01 Ondansetron HCl (Zofran) Confirm Administered Dose 4 mg .ROUTE .STK-MED ONE Stop: 10/14/18 08:02 Ondansetron HCl (Zofran) 4 mg IVPUSH ONETIME PRN PRN Reason: Nausea/Vomiting Stop: 10/14/18 14:00 Oxycodone HCl (Oxycontin) 10 mg PO ONETIME [facility] Stop: 10/14/18 15:00 Last Admin: 10/14/18 07:23 Dose: 10 mg Oxycodone/Acetaminophen (Percocet 325-5 Mg) 1 - 2 tab PO Q4H PRN PRN Reason: Pain Last Admin: 10/16/18 11:43 Dose: 2 tab Phenylephrine HCl (Christ-Synephrine) Confirm Administered Dose 10 mg .ROUTE .STK- MED ONE Stop: 10/14/18 08:02 Phenylephrine HCl (Phenylephrine In Ns 100 Mcg/Ml) Confirm Administered Dose 1 mg .ROUTE .STK-MED ONE Stop: 10/14/18 08:02 Pregabalin (Lyrica) 50 mg PO ONETIME [facility] Stop: 10/14/18 15:00 Last Admin: 10/14/18 07:23 Dose: 50 mg Propofol (Diprivan 20 Ml) Confirm Administered Dose 200 mg .ROUTE .STK-MED ONE Stop: 10/14/18 08:02 Rocuronium Griffin (Zemuron) Confirm Administered Dose 50 mg .ROUTE .STK-MED ONE Stop: 10/14/18 08:02 Ropivacaine (Naropin 0.5%) Confirm Administered Dose 30 ml .ROUTE .STK-MED ONE Stop: 10/14/18 07:24 Senna (Senna) 8.6 mg PO BID PRN PRN Reason: Constipation Sertraline HCl (Zoloft) 50 mg PO DAILY [facility] Last Admin: 10/16/18 09:16 Dose: 50 mg Simvastatin (Zocor) 20 mg PO DAILY [facility] Last Admin: 10/16/18 09:19 Dose: Not Given Sodium Chloride (Saline Flush) 10 ml FLUSH ASDIRECTED PRN PRN Reason: Keep Vein Open Stop: 10/14/18 18:00 Tamsulosin HCl (Flomax) 0.8 mg PO BEDTIME NURY Last Admin: 10/15/18 20:52 Dose: 0.8 mg Temazepam (Restoril) 15 mg PO BEDTIME PRN PRN Reason: Sleep Last Admin: 10/15/18 22:33 Dose: 15 mg Tranexamic Acid (Cyklokapron) Confirm Administered Dose 1,000 mg .ROUTE .STK- MED ONE Stop: 10/14/18 08:21 Last Admin: 10/14/18 10:57 Dose: 1,000 mg Vancomycin HCl (Vancomycin) Confirm Administered Dose 1 gm .ROUTE .STK-MED ONE Stop: 10/14/18 08:21 Last Admin: 10/14/18 10:56 Dose: 1 gm
--- NOTE | 2018-10-24 11:08 | OR ---
DATE OF OPERATION: 10/14/2018 SURGEON: Bridger Giron MD OPERATION PERFORMED: Right total knee arthroplasty. PREOPERATIVE DIAGNOSIS: Right knee osteoarthrosis. POSTOPERATIVE DIAGNOSIS: Right knee osteoarthrosis. ANESTHESIA: General endotracheal intubation with regional adductor canal block. ANESTHESIA PROVIDER: Janessa Toussaint CRNA. ASSISTANTS: Stephy Ramirez PA-C and Candice Warren LPN. ESTIMATED BLOOD LOSS: 450 mL. COMPLICATIONS: None. CONDITION: Stable. IMPLANTS: 1. [place] size 7 press-fit CR femur. 2. Paulie size 6 press-fit tibial base plate. 3. [place] size 6, 9 mm CS polyethylene insert. 4. Paulie size 35 x 10 mm cementless patella. DESCRIPTION OF PROCEDURE: The patient was identified in the preop holding area. Proper site was marked and identified by the surgeon. The patient was taken back to the operating theater. After adequate anesthesia, the patient's right lower extremity had a nonsterile tourniquet applied and it was sterilely prepped and draped in the usual sterile fashion. OR time-out was performed. The patient received 2 g IV Ancef. At this time, the right lower extremity was exsanguinated. Tourniquet was insufflated to 300 mmHg. Standard medial parapatellar incision was made. Medial parapatellar arthrotomy was created. Deep fibers of the MCL were raised and anterior fat pad was resected. At this time, attention was turned to the patella. Patella measured a 25 and was resected to a 15 for a 35 x 10 mm patella. Drill holes were then drilled and found to be in adequate position. The drill was then drilled in the distal femur and the intramedullary distal femoral cutting guide was then placed. 8 mm was resected off the distal femur and was found to be an adequate resection. Sizing guide was placed. It was found to be a Paulie size 7 press-fit CR femur that was shown on the implant record at the beginning of this dictation. The drill holes were drilled for the epicondylar axis using Whitesides line and epicondyles as reference. At this time, the 4-in-1 cutting block was placed. An anterior posterior and anterior and posterior chamfer cuts were then completed. Attention was turned to the tibia. The posterior medial lateral retractors were placed. The extramedullary tibial guide was placed. It was placed in the old footprint of the ACL. It was aligned with the center of the ankle and 0 degrees of slope, 9 mm was then resected off the unaffected side. There was found to be an acceptable reduction. At this time, posterior osteophytes were removed along with medial and lateral meniscus. A trial implant was placed with a correct sized tibia that was mentioned at the beginning of the dictation. A [place] size 6, 9 mm CS polyethylene insert was then placed. The patient's knee was brought through range of motion. The patella was tracking centrally and was stable to varus and valgus stress. Alignment was found to be roughly at 0 degrees. The tibia was stamped and drilled in proper rotation. The universal tibial base plate was impacted in place. Next, the [place] size 7 press-fit CR femur impacted into place and the [place] size 6, 9 mm CS polyethylene insert was placed. The patient's knee was brought into full extension. The patella was then press-fit in place at this time. Tourniquet was deflated. One liter dilute Betadine solution was irrigated through the knee along with 3 L of pulse lavage irrigation with Ancef. Periarticular injection was then completed. The patient's knee was brought through a range of motion. Knee was found to be stable to varus valgus stress, the patella was tracking centrally with full range of motion. At this time, a #2 barbed suture was used for closure of the medial parapatellar arthrotomy. Topical tranexamic acid was placed. 2-0 Vicryl was used subcutaneously, Prineo was used for the skin. The patient tolerated the procedure well and was sent to the PACU in stable condition. YVETTE /[id number] ZANE
== END 2018-10-16 14:00 | disposition home or self-care (01) | DRG 470 ==
LOC: JD.SDS 06:52 → JD.MS 06:53 → JD.ICU 11:18 → JD.SDS 12:44 → JD.ICU 12:44
PROVIDERS: ADMIT Orthopaedic Surgery; ATTEND Orthopaedic Surgery
PROC: 0SRC0JA Replacement of Right Knee Joint with Synthetic Substitute, Uncemented, Open Approach (ICD-10-PCS; principal; 2018-10-14)
PROC: 3E0T3BZ Introduction of Anesthetic Agent into Peripheral Nerves and Plexi, Percutaneous Approach (ICD-10-PCS; 2018-10-14)
DX: M17.11 Unilateral primary osteoarthritis, right knee (principal); F33.9 Major depressive disorder, recurrent, unspecified; I06.0 Rheumatic aortic stenosis; E83.42 Hypomagnesemia; J44.9 Chronic obstructive pulmonary disease, unspecified; R09.02 Hypoxemia; G89.18 Other acute postprocedural pain; E11.9 Type 2 diabetes mellitus without complications; E78.5 Hyperlipidemia, unspecified; N40.1 Benign prostatic hyperplasia with lower urinary tract symptoms; R35.0 Frequency of micturition; R39.15 Urgency of urination; D69.6 Thrombocytopenia, unspecified; E78.00 Pure hypercholesterolemia, unspecified; R79.89 Other specified abnormal findings of blood chemistry; Z87.891 Personal history of nicotine dependence; Z79.84 Long term (current) use of oral hypoglycemic drugs; Z79.82 Long term (current) use of aspirin; Z79.899 Other long term (current) drug therapy
CPT/HCPCS: 27447; 36415; 73560; 82962 ×2; 85610; A9270 ×4; C1776 ×4; J0171 ×3; J0360; J0690 ×3; J0697; J1170 ×2; J1885 ×2; J2001; J2250 ×2; J2270; J2370 ×2; J2405; J2704; J2710; J2795; J3010 ×2; J3370; J3490 ×2; J7030; J7050; J7120 ×3; 01402; 64450; 71046; 71046-26; 80048; 80053; 83735; 85025; 85027; 97110-GP; 97116-GP; 97161-GP; 97165-GO; 97535-GO; J3475

== ENCOUNTER 2018-10-19 12:26 | Emergency (ER) | payer MEDICARE, BC ==
[2018-10-19 13:25] VITALS: BP 131/66
[2018-10-19] MEDS ORDERED: Lidocaine 2% Jelly 10 ML Urojet ONE (13:34)
[2018-10-19] MEDS ORDERED: Lidocaine 2% Jelly 10 ML Urojet MUCMEM ONE (13:40)
[2018-10-19] MEDS ORDERED: Sodium Chloride 0.9% 10 ML Syringe FLUSH PRN (14:09)
[2018-10-19] MEDS ORDERED: Sodium Chloride 0.9% 1,000 ML IV SCH (14:15)
--- NOTE | 2018-10-19 16:03 | EDM.PDOC ---
ED HPI GENERAL MEDICAL PROBLEM - General Chief Complaint: Genitourinary Problem Stated Complaint: POSSIBLE BLADDER INFECTION Time Seen by Provider: 10/19/18 13:40 Source of Information: Reports: Patient, RN Notes Reviewed - History of Present Illness INITIAL COMMENTS - FREE TEXT/NARRATIVE: 68-year-old male comes in with some concerns over voiding frequency, discoloration of urine about 5 days status post right knee replacement. Was discharged home 3 days ago. He is having some but not a lot of right knee pain. He has been taking oxycodone about every 3-4 hours for pain. His reports that he was hallucinating some during the night, was sure that there was someone hiding behind a couch. He has had no nausea vomiting fever or chills. No chest pain or difficulty breathing. - Related Data Allergies Allergy/AdvReac Type Severity Reaction Status Date / Time No Known Allergies Allergy Verified 10/19/18 13:01 Home Meds: Home Meds Sertraline [Zoloft] 50 mg PO DAILY 10/17/17 [History] Tamsulosin HCl [Flomax] 0.8 mg PO BEDTIME 10/17/17 [History] Cholecalciferol (Vitamin D3) [Vitamin D3] 2,000 unit PO BID 10/11/18 [History] atorvaSTATin Calcium [Lipitor] 20 mg PO DAILY 10/11/18 [History] metFORMIN HCl [Metformin HCl] 1,000 mg PO BID 10/11/18 [History] Acetaminophen/oxyCODONE [Percocet 325-5 MG] 1 - 2 tab PO Q6H PRN #60 tablet [Rx] Aspirin [Ecotrin] 325 mg PO BID #84 tab.ec 10/14/18 [Rx] Cyclobenzaprine [Flexeril] 10 mg PO TID PRN #40 tablet 10/14/18 [Rx] Docusate Sodium [Colace] 100 mg PO BID cap 10/14/18 [Rx] Past Medical History HEENT History: Reports: Other (See Below) Other HEENT History: dentures Cardiovascular History: Reports: Heart Murmur, High Cholesterol, Other (See Below) Other Cardiovascular History: aortic valve stenosis Respiratory History: Reports: None Gastrointestinal History: Reports: None Genitourinary History: Reports: BPH Other Genitourinary History: frequency TRACK GRINDER History: Reports: None Musculoskeletal History: Reports: Other (See Below) Other Musculoskeletal History: displaced right knee cap in the past Neurological History: Reports: None Psychiatric History: Reports: Depression, Other (See Below) Other Psychiatric History: mild episode of recurrent major depressive disorder Endocrine/Metabolic History: Reports: Diabetes, Type II Hematologic History: Reports: None Immunologic History: Reports: None Oncologic (Cancer) History: Reports: None Dermatologic History: Reports: Cellulitis, Other (See Below) Other Dermatologic History: skin lesion - Infectious Disease History Infectious Disease History: Reports: Chicken Pox, Measles, Mumps - Past Surgical History Head Surgeries/Procedures: Reports: None HEENT Surgical History: Reports: Cataract Surgery, Other (See Below) Other HEENT Surgeries/Procedures: resection wedge of eyelid Cardiovascular Surgical History: Reports: None GI Surgical History: Reports: Colonoscopy, EGD Male Surgical History: Reports: None Endocrine Surgical History: Reports: None Neurological Surgical History: Reports: None Musculoskeletal Surgical History: Reports: Other (See Below) Other Musculoskeletal Surgeries/Procedures:: right knee surgery for dislocated knee cap Oncologic Surgical History: Reports: None Social & Family History - Family History Family Medical History: Noncontributory - Tobacco Use Smoking Status *Q: Former Smoker Years of Tobacco use: 50 Packs/Tins Daily: 2 Used Tobacco, but Quit: Yes Month/Year Tobacco Last Used: September 2013 - Caffeine Use Caffeine Use: Reports: Coffee - Recreational Drug Use Recreational Drug Use: No ED ROS GENERAL - Review of Systems Review Of Systems: See Below Constitutional: Denies: Fever, Chills, Diaphoresis HEENT: Reports: No Symptoms Respiratory: Reports: Shortness of Breath (Not any worse than usual, has been using oxygen at home postoperatively), Cough. Denies: Wheezing Cardiovascular: Denies: Chest Pain (Occasional) GI/Abdominal: Denies: Abdominal Pain, Nausea, Vomiting : Reports: Frequency, Other (Discoloration) Musculoskeletal: Reports: Joint Pain (Right knee, moderate), Joint Swelling ( Right knee moderate) Skin: Reports: Erythema (He has had some erythema of the medial knee and adjacent distal medial and inferior thigh) Neurological: Denies: Numbness, Tingling, Trouble Speaking, Weakness ED EXAM, RENAL/ - Physical Exam Exam: See Below General Appearance: Alert, No Apparent Distress Eye Exam: Bilateral Eye: PERRL Throat/Mouth: Normal Inspection Head: Atraumatic Neck: Supple Respiratory/Chest: No Respiratory Distress, Lungs Clear, Normal Breath Sounds Cardiovascular: Regular Rate, Rhythm GI/Abdominal: Soft, Non-Tender Extremities: Joint Swelling (There is moderate swelling of the right knee, minimal tenderness, does fairly well with, no major pain with flexion and extension with), Redness (Calf is nontender is erythema of the medial distal thigh just proximal to the knee). No: Leg Pain Neurological: Alert, Oriented, No Motor/Sensory Deficits Skin Exam: Warm, Dry, Normal Color Course - Vital Signs Last Recorded V/S: Last Vital Signs Temp 96.6 F 10/19/18 12:30 Pulse 92 10/19/18 12:30 Resp 18 10/19/18 12:30 BP 131/66 10/19/18 12:30 Pulse Ox 91 L 10/19/18 12:30 - Orders/Labs/Meds Orders: Active Orders 24 hr Category Date Time Status Peripheral IV Care [RC] . DIRECTED Care 10/19/18 14:10 Active Peripheral IV Insertion Adult [OM.PC] Stat Oth 10/19/18 14:09 Ordered Labs: Laboratory Tests 10/19/18 10/19/18 10/19/18 Range/Units 12:48 12:50 12:55 WBC 7.04 (4.23-9.07) K/mm3 RBC 3.98 L (4.63-6.08) M/mm3 Hgb 12.4 L (13.7-17.5) gm/L Hct 38.6 L (40.1-51.0) % MCV 97.0 H (79.0-92.2) fl MCH 31.2 (25.7-32.2) pg MCHC 32.1 L (32.2-35.5) g/dl RDW Std Deviation 47.5 H (35.1-43.9) fL Plt Count 240 (163-337) K/mm3 MPV 10.4 (9.4-12.3) fl Neutrophils % (Manual) 57 (40-60) % Band Neutrophils % 0 (0-10) % Lymphocytes % (Manual) 36 (20-40) % Atypical Lymphs % 0 % Monocytes % (Manual) 4 (2-10) % Eosinophils % (Manual) 2 (0.8-7.0) % Basophils % (Manual) 1 (0.2-1.2) Platelet Estimate Adequate RBC Morph Comment Normal Sodium (136-145) mEq/L Potassium (3.5-5.1) mEq/L Chloride (98-107) mEq/L Carbon Dioxide (21-32) mEq/L Anion Gap (5-15) BUN (7-18) mg/dL Creatinine (0.7-1.3) mg/dL Est Cr Clr Drug Dosing mL/min Estimated GFR (MDRD) (>60) mL/min BUN/Creatinine Ratio (14-18) Glucose (80-115) mg/dL POC Glucose 176 H (80-115) mg/dL Calcium (8.5-10.1) mg/dL Total Bilirubin (0.2-1.0) mg/dL AST (15-37) U/L ALT (16-63) U/L Alkaline Phosphatase (46-116) U/L Total Protein (6.4-8.2) g/dl Albumin (3.4-5.0) g/dl Globulin gm/dL Albumin/Globulin Ratio (1-2) Urine Color [place] H (Yellow) Urine Appearance Clear (Clear) Urine pH 7.0 (5.0-8.0) Ur Specific [place] 1.020 (1.005-1.030) Urine Protein 1+ H (Negative) Urine Glucose (UA) 1+ H (Negative) Urine Ketones 1+ H (Negative) Urine Occult Blood Negative (Negative) Urine Nitrite Negative (Negative) Urine Bilirubin 2+ H (Negative) Urine Urobilinogen >=8.0 H (0.2-1.0) Ur Leukocyte Esterase Negative (Negative) Urine RBC 0-5 (0-5) /hpf Urine WBC 0-5 (0-5) /hpf Ur Epithelial Cells 0-5 (0-5) /hpf Urine Bacteria Few (FEW) /hpf Hyaline Casts 5-10 H (0-5) /lpf Urine Mucus Many H (FEW) /hpf 10/19/18 Range/Units 12:55 WBC (4.23-9.07) K/mm3 RBC (4.63-6.08) M/mm3 Hgb (13.7-17.5) gm/L Hct (40.1-51.0) % MCV (79.0-92.2) fl MCH (25.7-32.2) pg MCHC (32.2-35.5) g/dl RDW Std Deviation (35.1-43.9) fL Plt Count (163-337) K/mm3 MPV (9.4-12.3) fl Neutrophils % (Manual) (40-60) % Band Neutrophils % (0-10) % Lymphocytes % (Manual) (20-40) % Atypical Lymphs % % Monocytes % (Manual) (2-10) % Eosinophils % (Manual) (0.8-7.0) % Basophils % (Manual) (0.2-1.2) Platelet Estimate RBC Morph Comment Sodium 137 (136-145) mEq/L Potassium 3.4 L (3.5-5.1) mEq/L Chloride 98 (98-107) mEq/L Carbon Dioxide 28 (21-32) mEq/L Anion Gap 14.4 (5-15) BUN 16 (7-18) mg/dL Creatinine 1.0 (0.7-1.3) mg/dL Est Cr Clr Drug Dosing 79.90 mL/min Estimated GFR (MDRD) > 60 (>60) mL/min BUN/Creatinine Ratio 16.0 (14-18) Glucose 170 H (80-115) mg/dL POC Glucose (80-115) mg/dL Calcium 9.2 (8.5-10.1) mg/dL Total Bilirubin 2.0 H (0.2-1.0) mg/dL AST 51 H (15-37) U/L ALT 39 (16-63) U/L Alkaline Phosphatase 140 H (46-116) U/L Total Protein 7.6 (6.4-8.2) g/dl Albumin 3.0 L (3.4-5.0) g/dl Globulin 4.6 gm/dL Albumin/Globulin Ratio 0.7 L (1-2) Urine Color (Yellow) Urine Appearance (Clear) Urine pH (5.0-8.0) Ur Specific [place] (1.005-1.030) Urine Protein (Negative) Urine Glucose (UA) (Negative) Urine Ketones (Negative) Urine Occult Blood (Negative) Urine Nitrite (Negative) Urine Bilirubin (Negative) Urine Urobilinogen (0.2-1.0) Ur Leukocyte Esterase (Negative) Urine RBC (0-5) /hpf Urine WBC (0-5) /hpf Ur Epithelial Cells (0-5) /hpf Urine Bacteria (FEW) /hpf Hyaline Casts (0-5) /lpf Urine Mucus (FEW) /hpf Meds: Medications Discontinued Medications Generic Name Dose Route Start Last Admin Trade Name Chantell PRN Reason Stop Dose Admin Sodium Chloride 1,000 mls @ 999 mls/hr 10/19/18 14:15 10/19/18 15:40 Normal Saline IV 999 mls/hr ONETIME NURY Administration Lidocaine HCl Confirm 10/19/18 13:34 10/19/18 13:51 Xylocaine 2% Jelly Administered 10/19/18 13:35 Not Given Dose 10 ml .ROUTE .STK-MED ONE Lidocaine HCl 10 ml 10/19/18 13:40 10/19/18 13:40 Xylocaine 2% Jelly MUCMEM 10/19/18 13:41 10 ml ONETIME ONE Administration Sodium Chloride 10 ml 10/19/18 14:09 Saline Flush FLUSH ASDIRECTED PRN Keep Vein Open - Re-Assessments/Exams Free Text/Narrative Re-Assessment/Exam: 10/19/18 16:38 Urine does show bilirubin and ketones, bilirubin 2.0, other labs as noted. He is not been having difficulty with gallbladder or right upper quadrant discomfort. He has not been eating real well. Renal function hydration status status looks good, we did give 1 L of fluid while awaiting lab work. Discharge instructions as documented. Departure - Departure Time of Disposition: 16:00 Disposition: Home, Self-Care 01 Condition: Fair Clinical Impression: Postoperative examination, Elevated bilirubin - Discharge Information Instructions: Pain Relief Preoperatively and Postoperatively, Bilirubin Test Referrals: Zaki Canales MD [Primary Care Provider] - Forms: ED Department Discharge Additional Instructions: Drink plenty of water to maintain hydration, stop the oxycodone, cut ear hydrocodone tablets in half and take one half tablet hydrocodone along with 500 mg Tylenol every 6-8 hours if needed for severe pain. After a day or 2 try go to just Tylenol 2 or 3 times daily if needed, do not ever take more than 3000 mg Tylenol in a 24-hour time., Follow-up with Dr. Giron as planned or needed, follow-up clinic and have your labs rechecked in about 3-5 days. Return to ED as needed if symptoms worsening in any way. - My Orders Last 24 Hours: My Active Orders 10/19/18 14:09 Peripheral IV Insertion Adult [OM.PC] Stat 10/19/18 14:10 Peripheral IV Care [RC] . DIRECTED - Assessment/Plan Last 24 Hours: My Active Orders 10/19/18 14:09 Peripheral IV Insertion Adult [OM.PC] Stat 10/19/18 14:10 Peripheral IV Care [RC] . DIRECTED
== END 2018-10-19 16:22 | disposition home or self-care (01) ==
LOC: JD.ED 12:26 → SUPCPDRO 12:26 → JD.ED 16:22
DX: R17 Unspecified jaundice (principal); Z79.899 Other long term (current) drug therapy; Z87.891 Personal history of nicotine dependence; Z98.890 Other specified postprocedural states
CPT/HCPCS: 36415; 80053; 81001; 82962; 85007; 85027; 93005; 96360; 99285; J7040; 99283

== ENCOUNTER 2019-09-09 03:30 | Inpatient (IN) | payer MEDICARE, BC ==
--- NOTE | 2019-09-09 04:00 | EDM.PDOC ---
<Maxwell Quezada - Last Filed: 09/09/19 07:16> ED HPI GENERAL MEDICAL PROBLEM - General Chief Complaint: Abdominal Pain Stated Complaint: UPPER ABDOMINAL PAIN Time Seen by Provider: 09/09/19 03:50 - History of Present Illness INITIAL COMMENTS - FREE TEXT/NARRATIVE: 69-year-old male presents emergency room with right upper quadrant pain. Yesterday the patient had a liver biopsy done. He is being evaluated for underlying liver disease before undergoing cholecystectomy. Patient is on Xaralto and held this for 4 days just started it again last night. Patient cannot recall any triggers to this pain. He has had pain like this with his gallbladder in the past however it has gotten better with time this time it has not patient denies any nausea or vomiting. He is not any fevers or chills. He denies any alcohol use Epigastric Pain Score (Numeric/FACES): 10 - Related Data Allergies Allergy/AdvReac Type Severity Reaction Status Date / Time No Known Allergies Allergy Verified 09/09/19 03:39 Home Meds: Home Meds Alfuzosin [Uroxatral] 10 mg PO DAILY 01/23/19 [History] Sertraline [Zoloft] 50 mg PO DAILY 01/23/19 [History] metFORMIN HCl [Metformin HCl ER] 1,000 mg PO BID 01/23/19 [History] Cholecalciferol (Vitamin D3) [Vitamin D3] 1,000 intnl unit PO DAILY 08/06/19 [ History] Rivaroxaban [Xarelto] 20 mg PO BEDTIME 08/06/19 [History] Rosuvastatin [Crestor] 10 mg PO DAILY 08/06/19 [History] Acetaminophen/Butalbital/Caff [Fioricet 325-50-40 MG] 1 tab PO Q6H PRN #60 tablet 08/09/19 [Rx] Past Medical History HEENT History: Reports: Other (See Below) Other HEENT History: dentures Cardiovascular History: Reports: Heart Murmur, High Cholesterol, Other (See Below) Other Cardiovascular History: aortic valve stenosis Respiratory History: Reports: None Gastrointestinal History: Reports: None Genitourinary History: Reports: BPH Other Genitourinary History: frequency [employer] History: Reports: None Musculoskeletal History: Reports: Other (See Below) Other Musculoskeletal History: displaced right knee cap in the past Neurological History: Reports: TIA Psychiatric History: Reports: Depression, Other (See Below) Other Psychiatric History: mild episode of recurrent major depressive disorder Endocrine/Metabolic History: Reports: Diabetes, Type II, Obesity/BMI 30+ Hematologic History: Reports: None Immunologic History: Reports: None Oncologic (Cancer) History: Reports: None Dermatologic History: Reports: Cellulitis, Other (See Below) Other Dermatologic History: skin lesion - Infectious Disease History Infectious Disease History: Reports: Chicken Pox, Measles, Mumps - Past Surgical History Head Surgeries/Procedures: Reports: None HEENT Surgical History: Reports: Cataract Surgery, Other (See Below) Other HEENT Surgeries/Procedures: resection wedge of eyelid Cardiovascular Surgical History: Reports: Valve Replacement GI Surgical History: Reports: Colonoscopy, EGD Male Surgical History: Reports: None Endocrine Surgical History: Reports: None Neurological Surgical History: Reports: None Musculoskeletal Surgical History: Reports: Other (See Below) Other Musculoskeletal Surgeries/Procedures:: right knee surgery for dislocated knee cap, shoulder surgery Oncologic Surgical History: Reports: None Social & Family History - Family History Family Medical History: Noncontributory - Caffeine Use Caffeine Use: Reports: Coffee Other Caffeine Use: 2-3 cups coffee/day. 1 can pop/day ED ROS GENERAL - Review of Systems Review Of Systems: See Below Constitutional: Reports: No Symptoms Respiratory: Reports: No Symptoms Cardiovascular: Reports: No Symptoms GI/Abdominal: Reports: Abdominal Pain. Denies: Constipation, Diarrhea, Nausea, Vomiting : Reports: No Symptoms Musculoskeletal: Reports: No Symptoms Skin: Reports: No Symptoms Neurological: Reports: No Symptoms ED EXAM, GI/ABD - Physical Exam Exam: See Below Exam Limited By: No Limitations General Appearance: Alert, No Apparent Distress Head: Atraumatic, Normocephalic Neck: Normal Inspection, Supple, Non-Tender, Full Range of Motion Respiratory/Chest: No Respiratory Distress, Lungs Clear, Normal Breath Sounds Cardiovascular: Regular Rate, Rhythm, No Edema, No Murmur GI/Abdominal Exam: Normal Bowel Sounds, Soft, No Distention, Other (At upper quadrant discomfort with palpation). No: Guarding, Rigid, Rebound Back Exam: Normal Inspection. No: CVA Tenderness (L), CVA Tenderness (R) Extremities: Normal Inspection, No Pedal Edema Neurological: Alert, Oriented, Normal Cognition Skin Exam: Warm, Dry, Diaphoretic Course - Vital Signs Last Recorded V/S: Last Vital Signs Temp 37.0 C 09/09/19 11:11 Pulse 111 H 09/09/19 11:11 Resp 28 H 09/09/19 11:11 BP 192/80 H 09/09/19 11:11 Pulse Ox 88 L 09/09/19 11:11 - Orders/Labs/Meds Orders: Active Orders 24 hr Category Date Time Status Oxygen Therapy, ED [RC] ASDIRECTED Care 09/09/19 09:40 Active PATIENT RETYPE [BBK] Routine Lab 09/09/19 09:57 Ordered Schedule Procedure [COMM] Routine Oth 09/09/19 07:40 Ordered Labs: Laboratory Tests 09/09/19 09/09/19 09/09/19 Range/Units 03:45 03:45 03:45 WBC 4.52 (4.23-9.07) K/mm3 RBC 4.80 (4.63-6.08) M/mm3 Hgb 14.4 (13.7-17.5) gm/dl Hct 44.4 (40.1-51.0) % MCV 92.5 H (79.0-92.2) fl MCH 30.0 (25.7-32.2) pg MCHC 32.4 (32.2-35.5) g/dl RDW Std Deviation 47.7 H (35.1-43.9) fL Plt Count 80 L (163-337) K/mm3 MPV 10.4 (9.4-12.3) fl Neutrophils % (Manual) 59 (40-60) % Band Neutrophils % 2 (0-10) % Lymphocytes % (Manual) 27 (20-40) % Atypical Lymphs % 0 % Monocytes % (Manual) 7 (2-10) % Eosinophils % (Manual) 1 (0.8-7.0) % Basophils % (Manual) 4 H (0.2-1.2) Platelet Estimate Marked dec Plt Morphology Comment Normal RBC Morph Comment Normal PT (9.7-12.0) SECONDS INR Sodium 140 (136-145) mEq/L Potassium 3.3 L (3.5-5.1) mEq/L Chloride 103 (98-107) mEq/L Carbon Dioxide 25 (21-32) mEq/L Anion Gap 15.3 H (5-15) BUN 10 (7-18) mg/dL Creatinine 0.7 (0.7-1.3) mg/dL Est Cr Clr Drug Dosing 115.80 mL/min Estimated GFR (MDRD) > 60 (>60) mL/min BUN/Creatinine Ratio 14.3 (14-18) Glucose 198 H (80-115) mg/dL Calcium 8.6 (8.5-10.1) mg/dL Total Bilirubin 0.7 (0.2-1.0) mg/dL Direct Bilirubin 0.40 H (0.0-0.2) mg/dl GGT 672 H (15-85) U/L AST 64 H (15-37) U/L ALT 60 (16-63) U/L Alkaline Phosphatase 248 H (46-116) U/L Troponin I < 0.017 (0.00-0.056) ng/mL Total Protein 7.9 (6.4-8.2) g/dl Albumin 3.5 (3.4-5.0) g/dl Globulin 4.4 gm/dL Albumin/Globulin Ratio 0.8 L (1-2) Blood Type B POSITIVE Gel Antibody Screen Negative 09/09/19 Range/Units 03:45 WBC (4.23-9.07) K/mm3 RBC (4.63-6.08) M/mm3 Hgb (13.7-17.5) gm/dl Hct (40.1-51.0) % MCV (79.0-92.2) fl MCH (25.7-32.2) pg MCHC (32.2-35.5) g/dl RDW Std Deviation (35.1-43.9) fL Plt Count (163-337) K/mm3 MPV (9.4-12.3) fl Neutrophils % (Manual) (40-60) % Band Neutrophils % (0-10) % Lymphocytes % (Manual) (20-40) % Atypical Lymphs % % Monocytes % (Manual) (2-10) % Eosinophils % (Manual) (0.8-7.0) % Basophils % (Manual) (0.2-1.2) Platelet Estimate Plt Morphology Comment RBC Morph Comment PT 13.1 H (9.7-12.0) SECONDS INR 1.22 Sodium (136-145) mEq/L Potassium (3.5-5.1) mEq/L Chloride (98-107) mEq/L Carbon Dioxide (21-32) mEq/L Anion Gap (5-15) BUN (7-18) mg/dL Creatinine (0.7-1.3) mg/dL Est Cr Clr Drug Dosing mL/min Estimated GFR (MDRD) (>60) mL/min BUN/Creatinine Ratio (14-18) Glucose (80-115) mg/dL Calcium (8.5-10.1) mg/dL Total Bilirubin (0.2-1.0) mg/dL Direct Bilirubin (0.0-0.2) mg/dl GGT (15-85) U/L AST (15-37) U/L ALT (16-63) U/L Alkaline Phosphatase (46-116) U/L Troponin I (0.00-0.056) ng/mL Total Protein (6.4-8.2) g/dl Albumin (3.4-5.0) g/dl Globulin gm/dL Albumin/Globulin Ratio (1-2) Blood Type Gel Antibody Screen Meds: Medications Discontinued Medications Generic Name Dose Route Start Last Admin Trade Name Freq PRN Reason Stop Dose Admin Diatrizoate Meglum/Diatrizoate Sod 90 ml 09/09/19 07:36 09/09/19 07:57 Gastrografin 37% PO 09/09/19 07:37 90 ml ONETIME ONE Administration Fentanyl Confirm 09/09/19 08:02 Sublimaze Administered 09/09/19 08:03 Dose 250 mcg .ROUTE .STK-MED ONE Hydromorphone HCl 0.5 mg 09/09/19 04:13 09/09/19 04:22 Dilaudid IVPUSH 09/09/19 04:14 0.5 mg ONETIME ONE Administration Hydromorphone HCl 0.5 mg 09/09/19 05:45 09/09/19 05:53 Dilaudid IVPUSH 09/09/19 05:46 0.5 mg ONETIME ONE Administration Hydromorphone HCl 1 mg 09/09/19 07:02 09/09/19 07:22 Dilaudid IVPUSH 09/09/19 07:03 1 mg ONETIME ONE Administration Hydromorphone HCl Confirm 09/09/19 08:01 Dilaudid Administered 09/09/19 08:02 Dose 0.5 mg .ROUTE .STK-MED ONE Hydromorphone HCl 1 mg 09/09/19 08:29 09/09/19 08:39 Dilaudid IVPUSH 09/09/19 08:30 1 mg ONETIME ONE Administration Lidocaine HCl Confirm 09/09/19 08:00 Xylocaine-Mpf 1% Administered 09/09/19 08:01 Dose 6 mls @ as directed .ROUTE .STK-MED ONE Lactated Ringer's Confirm 09/09/19 08:00 Ringers, Lactated Administered 09/09/19 08:01 Dose 2,000 mls @ as directed .ROUTE .STK-MED ONE Iopamidol 100 ml 09/09/19 07:36 09/09/19 07:58 Isovue-300 (61%) IVPUSH 09/09/19 07:37 100 ml ONETIME ONE Administration Iopamidol 50 ml 09/09/19 07:36 09/09/19 07:58 Isovue-300 (61%) IVPUSH 09/09/19 07:37 25 ml ONETIME ONE Administration Ketorolac Tromethamine Confirm 09/09/19 08:00 Toradol Administered 09/09/19 08:01 Dose 30 mg .ROUTE .STK-MED ONE Lorazepam 1 mg 09/09/19 08:30 09/09/19 08:36 Ativan IVPUSH 09/09/19 08:31 1 mg ONETIME ONE Administration Metoclopramide HCl 7.5 mg 09/09/19 10:41 09/09/19 11:09 Reglan IVPUSH 09/09/19 10:42 7.5 mg ONETIME ONE Administration Midazolam HCl Confirm 09/09/19 08:01 Versed 1 Mg/Ml Administered 09/09/19 08:02 Dose 2 mg .ROUTE .STK-MED ONE Morphine Sulfate 8 mg 09/09/19 10:41 09/09/19 11:06 Morphine IVPUSH 09/09/19 10:42 Not Given ONETIME ONE Morphine Sulfate 8 mg 09/09/19 11:15 09/09/19 11:05 Morphine IVPUSH 09/09/19 11:16 8 mg ONETIME ONE Administration Ondansetron HCl 4 mg 09/09/19 04:13 09/09/19 04:20 Zofran IVPUSH 09/09/19 04:14 4 mg ONETIME ONE Administration Ondansetron HCl Confirm 09/09/19 08:00 Zofran Administered 09/09/19 08:01 Dose 4 mg .ROUTE .STK-MED ONE Phenylephrine HCl Confirm 09/09/19 08:00 Phenylephrine In Ns 100 Mcg/Ml Administered 09/09/19 08:01 Dose 1 mg .ROUTE .STK-MED ONE Potassium Chloride 40 meq 09/09/19 05:51 09/09/19 05:59 Klor-Con M20 PO 09/09/19 05:52 40 meq ONETIME ONE Administration Propofol Confirm 09/09/19 08:01 Diprivan 20 Ml Administered 09/09/19 08:02 Dose 200 mg .ROUTE .STK-MED ONE Rocuronium [place] Confirm 09/09/19 08:00 Zemuron Administered 09/09/19 08:01 Dose 100 mg .ROUTE .STK-MED ONE Sodium Chloride 10 ml 09/09/19 07:36 09/09/19 07:58 Saline Flush FLUSH 09/09/19 07:37 10 ml ONETIME ONE Administration - Re-Assessments/Exams Free Text/Narrative Re-Assessment/Exam: 09/09/19 05:59 Patient has improved with pain management with Dilaudid 0.5 mg 2. Laboratory evaluation shows low platelet count at 80,000, this is chronic. Transaminases, his GGT is quite elevated total scratch that direct bilirubin mildly elevated at 0.4. CBC non suggestive the patient's potassium is low he received 40 mg once oral potassium here. Case was discussed with Dr. Sandoval, interventional radiologist on-call for Dr. Parham who agreed with the workup thus far recommended. Management if symptoms worsen check a CT. Pain is quite similar to gallbladder attacks he's had in the past however this wouldn't did not resolve. 09/09/19 07:16 She does have a hard time getting comfortable. Also the patient's daughter states that the patient is just not himself at this point even though his vitals are stable going check a CT to ensure he does not have any extensive bleeding going on. At this time it's change or shift further care and disposition per Dr. Soriano Departure - Departure Disposition: DC/Tfer to [facility] Clinical Impression: Right upper quadrant pain, Recurrent biliary colic - Discharge Information Instructions: Biliary Colic, Adult Referrals: Zaki Canales MD [Primary Care Provider] - Forms: ED Department Discharge Sepsis Event Note - Evaluation Sepsis Screening Result: No Definite Risk - Focused Exam Vital Signs: Vital Signs Temp Pulse Resp BP Pulse Ox 09/09/19 11:11 37.0 C 111 H 28 H 192/80 H 88 L 09/09/19 05:57 36.3 C 69 18 161/81 H 91 L 09/09/19 03:35 36.4 C 74 16 175/87 H 97 Date Exam was Performed: 09/09/19 Time Exam was Performed: 07:16 <Jj Soriano - Last Filed: 09/09/19 11:50> Course - Re-Assessments/Exams Free Text/Narrative Re-Assessment/Exam: 09/09/19 08:25 CT of the abdomen and pelvis has been completed with IV contrast only. It does not reveal any intrahepatic bleeding source to account for his current pain syndrome. Solitary nodule appreciated in the posterior left lobe of the liver. The area was recently biopsied yesterday. It appears to be a solid lesion of unclear etiology. Gallbladder itself does appear to contain a few stones and sludge. Pancreas appears normal. Spleen appears normal. Adrenal glands. Normal kidneys appear normal. Dr. Alfaro the surgeon has seen him in consultation and agrees that it appears that it is his gallbladder causing current pain condition. For the patient be kept nothing by mouth have a formal surgical time. Pain is much improved after the last dose of Dilaudid 1 mg IV. Will repeat Dilaudid 1 mg IV with Ativan 1 mg IV in hopes of relieving the pain a little bit longer. It's likely going to be late this afternoon before he can have any definitive surgery. 09/09/19 10:41 patient once again is complaining of pain right upper quadrant of the abdomen. Requesting further analgesia. Try morphine 8 mg IV and was given Reglan 7.5 mg IV as well 09/09/19 11:31 it appears that the patient will be going to the operating room shortly after 1300 hrs. today. This is for laparoscopic cholecystectomy with Dr. Jj Alfaro. Departure - Departure Time of Disposition: 13:00 - Discharge Information *PRESCRIPTION DRUG MONITORING PROGRAM REVIEWED*: No *COPY OF PRESCRIPTION DRUG MONITORING REPORT IN PATIENT SHO: No Sepsis Event Note - Focused Exam Date Exam was Performed: 09/09/19 Time Exam was Performed: 11:48
[2019-09-09] MEDS ORDERED: HYDROmorphone 0.5 MG/0.5 ML Syringe IVPUSH ONE ×2 (04:13→05:45)
[2019-09-09] MEDS ORDERED: Ondansetron 4 MG/2 ML SDV IVPUSH ONE ×2 (04:13→23:07)
[2019-09-09] MEDS ORDERED: Potassium Chloride 20 MEQ Tab.ER PO ONE (05:51)
[2019-09-09] MEDS ORDERED: HYDROmorphone 1 MG/ML Syringe IVPUSH ONE ×2 (07:02→08:29)
--- NOTE | 2019-09-09 07:25 | CR ---
Abdomen: Supine and upright views of the abdomen were obtained. Comparison: No prior abdominal x-ray, previous abdominal ultrasound of the right upper quadrant dated 08/06/[address] abdomen and pelvis also dated 08/06/19. Degenerative change is scattered throughout the spine. Vascular calcification is noted. Bowel gas pattern is normal. No free air is seen. Impression: 1. Nothing acute is seen on two-view abdominal x-ray. Diagnostic code #2 This report was dictated in [place] Standard Time
[2019-09-09] MEDS ORDERED: Iopamidol 612 MG/ML 100 ML Bottle IVPUSH ONE (07:36)
[2019-09-09] MEDS ORDERED: Diatrizoate Meglumine/Diatrizoate Sodium 37% 120 ML Bottle PO ONE (07:36)
[2019-09-09] MEDS ORDERED: Sodium Chloride 0.9% 10 ML Syringe FLUSH ONE (07:36)
[2019-09-09] MEDS ORDERED: Iopamidol 612 MG/ML 50 ML SDV IVPUSH ONE (07:36)
[2019-09-09] MEDS ORDERED: Lidocaine 1% 6 ML ONE (08:00)
[2019-09-09] MEDS ORDERED: Rocuronium 100 MG/10 ML MDV ONE ×2 (08:00→15:56)
[2019-09-09] MEDS ORDERED: Phenylephrine/Normal Saline 100 MCG/ML 10 ML Syringe ONE ×3 (08:00→17:03)
[2019-09-09] MEDS ORDERED: Ketorolac 30 MG/ML SDV ONE (08:00)
[2019-09-09] MEDS ORDERED: Ondansetron 4 MG/2 ML SDV ONE (08:00)
[2019-09-09] MEDS ORDERED: Lactated Ringers 2,000 ML ONE (08:00)
[2019-09-09] MEDS ORDERED: Midazolam 1 MG/ML 2 ML SDV ONE (08:01)
[2019-09-09] MEDS ORDERED: HYDROmorphone 0.5 MG/0.5 ML Syringe ONE (08:01)
[2019-09-09] MEDS ORDERED: Propofol 200 MG/20 ML SDV ONE (08:01)
[2019-09-09] MEDS ORDERED: fentaNYL 250 MCG/5 ML SDV ONE (08:02)
[2019-09-09] MEDS ORDERED: LORazepam 2 MG/ML SDV IVPUSH ONE (08:30)
--- NOTE | 2019-09-09 08:32 | PCM.PREANE ---
<OrestesJanessa gagnon Monty - Last Filed: 09/09/19 08:27> Preanesthetic Assessment - Anesthesia/Transfusion/Family Hx Anesthesia History: Prior Anesthesia Without Reaction Family History of Anesthesia Reaction: No Transfusion History: No Prior Transfusion(s) Intubation History: Unknown - Review of Systems Pulmonary: No Symptoms (quit smoking 2012) Cardiovascular: No Symptoms (HTN, history of severe aortic valve stenosis/ aortic valve replaced) Gastrointestinal: Abdominal Pain Neurological: No Symptoms (? TIA 5-7 years ago/patient blacked out) Other: Reports: Easy Bleeding, Easy Bruising, Diabetes (am Blood sugar=), Liver Problems (elevated liver enzymes noted), Depression - Physical Assessment NPO Status Date: 09/09/19 NPO Status Time: 07:57 (gastrografen) Vital Signs: Last Vital Signs Temp 97.4 F 09/09/19 05:57 Pulse 69 09/09/19 05:57 Resp 18 09/09/19 05:57 BP 161/81 H 09/09/19 05:57 Pulse Ox 91 L 09/09/19 05:57 Height: 6 ft 2 in Weight: 109.316 kg ASA Class: 3 Mental Status: Alert & Oriented x3 Dentition: Reports: Dentures - Lab Values: Laboratory Last Values WBC 4.52 K/mm3 (4.23-9.07) 09/09/19 03:45 RBC 4.80 M/mm3 (4.63-6.08) 09/09/19 03:45 Hgb 14.4 gm/dl (13.7-17.5) 09/09/19 03:45 Hct 44.4 % (40.1-51.0) 09/09/19 03:45 MCV 92.5 fl (79.0-92.2) H 09/09/19 03:45 MCH 30.0 pg (25.7-32.2) 09/09/19 03:45 MCHC 32.4 g/dl (32.2-35.5) 09/09/19 03:45 RDW Std Deviation 47.7 fL (35.1-43.9) H 09/09/19 03:45 Plt Count 80 K/mm3 (163-337) L 09/09/19 03:45 MPV 10.4 fl (9.4-12.3) 09/09/19 03:45 Neutrophils % (Manual) 59 % (40-60) 09/09/19 03:45 Band Neutrophils % 2 % (0-10) 09/09/19 03:45 Lymphocytes % (Manual) 27 % (20-40) 09/09/19 03:45 Atypical Lymphs % 0 % 09/09/19 03:45 Monocytes % (Manual) 7 % (2-10) 09/09/19 03:45 Eosinophils % (Manual) 1 % (0.8-7.0) 09/09/19 03:45 Basophils % (Manual) 4 (0.2-1.2) H 09/09/19 03:45 Platelet Estimate Marked dec 09/09/19 03:45 Plt Morphology Comment Normal 09/09/19 03:45 RBC Morph Comment Normal 09/09/19 03:45 PT 13.1 SECONDS (9.7-12.0) H 09/09/19 03:45 INR 1.22 09/09/19 03:45 Sodium 140 mEq/L (136-145) 09/09/19 03:45 Potassium 3.3 mEq/L (3.5-5.1) L 09/09/19 03:45 Chloride 103 mEq/L (98-107) 09/09/19 03:45 Carbon Dioxide 25 mEq/L (21-32) 09/09/19 03:45 Anion Gap 15.3 (5-15) H 09/09/19 03:45 BUN 10 mg/dL (7-18) 09/09/19 03:45 Creatinine 0.7 mg/dL (0.7-1.3) 09/09/19 03:45 Est Cr Clr Drug Dosing 115.80 mL/min 09/09/19 03:45 Estimated GFR (MDRD) > 60 mL/min (>60) 09/09/19 03:45 BUN/Creatinine Ratio 14.3 (14-18) 09/09/19 03:45 Glucose 198 mg/dL (80-115) H 09/09/19 03:45 Calcium 8.6 mg/dL (8.5-10.1) 09/09/19 03:45 Total Bilirubin 0.7 mg/dL (0.2-1.0) 09/09/19 03:45 Direct Bilirubin 0.40 mg/dl (0.0-0.2) H 09/09/19 03:45 GGT 672 U/L (15-85) H 09/09/19 03:45 AST 64 U/L (15-37) H 09/09/19 03:45 ALT 60 U/L (16-63) 09/09/19 03:45 Alkaline Phosphatase 248 U/L (46-116) H 09/09/19 03:45 Troponin I < 0.017 ng/mL (0.00-0.056) 09/09/19 03:45 Total Protein 7.9 g/dl (6.4-8.2) 09/09/19 03:45 Albumin 3.5 g/dl (3.4-5.0) 09/09/19 03:45 Globulin 4.4 gm/dL 09/09/19 03:45 Albumin/Globulin Ratio 0.8 (1-2) L 09/09/19 03:45 Blood Type B POSITIVE 09/09/19 03:45 Gel Antibody Screen Negative 09/09/19 03:45 Above labs reviewed and noted and within acceptable ranges to proceed with scheduled procedure. - Imaging/EKG Impressions: CXR: 08/12 negative EK04/15/2019 SR rate 69 prolonged ENMANUEL, old infarct Qwaves inferior leads, anterior leads Echocardiogram: 08/11/2019 EF: 60-65%, trace mitral valve regurgitation, mild tricuspid regurgitation. - Allergies Allergies/Adverse Reactions: Allergies Allergy/AdvReac Type Severity Reaction Status Date / Time No Known Allergies Allergy Verified 09/09/19 03:39 - Acknowledgements Anesthesia Type Planned: General Anesthesia Pt an Appropriate Candidate for the Planned Anesthesia: Yes Alternatives and Risks of Anesthesia Discussed w Pt/Guardian: Yes Pt/Guardian Understands and Agrees with Anesthesia Plan: Yes PreAnesthesia Questionnaire HEENT History: Reports: Other (See Below) Other HEENT History: dentures Cardiovascular History: Reports: Heart Murmur, High Cholesterol, Other (See Below) Other Cardiovascular History: aortic valve stenosis Respiratory History: Reports: None Gastrointestinal History: Reports: None Genitourinary History: Reports: BPH Other Genitourinary History: frequency 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 Musculoskeletal History: Reports: Other (See Below) Other Musculoskeletal History: displaced right knee cap in the past Neurological History: Reports: TIA Psychiatric History: Reports: Depression, Other (See Below) Other Psychiatric History: mild episode of recurrent major depressive disorder Endocrine/Metabolic History: Reports: Diabetes, Type II, Obesity/BMI 30+ Hematologic History: Reports: None Immunologic History: Reports: None Oncologic (Cancer) History: Reports: None Dermatologic History: Reports: Cellulitis, Other (See Below) Other Dermatologic History: skin lesion - Infectious Disease History Infectious Disease History: Reports: Chicken Pox, Measles, Mumps - Past Surgical History Head Surgeries/Procedures: Reports: None HEENT Surgical History: Reports: Cataract Surgery, Other (See Below) Other HEENT Surgeries/Procedures: resection wedge of eyelid Cardiovascular Surgical History: Reports: Valve Replacement GI Surgical History: Reports: Colonoscopy, EGD Male Surgical History: Reports: None Endocrine Surgical History: Reports: None Neurological Surgical History: Reports: None Musculoskeletal Surgical History: Reports: Other (See Below) Other Musculoskeletal Surgeries/Procedures:: right knee surgery for dislocated knee cap, shoulder surgery Oncologic Surgical History: Reports: None - SUBSTANCE USE Smoking Status *Q: Former Smoker - HOME MEDS Home Medications: Home Meds Alfuzosin [Uroxatral] 10 mg PO DAILY 01/23/19 [History] Sertraline [Zoloft] 50 mg PO DAILY 01/23/19 [History] metFORMIN HCl [Metformin HCl ER] 1,000 mg PO BID 01/23/19 [History] Cholecalciferol (Vitamin D3) [Vitamin D3] 1,000 intnl unit PO DAILY 08/06/19 [ History] Rivaroxaban [Xarelto] 20 mg PO BEDTIME 08/06/19 [History] Rosuvastatin [Crestor] 10 mg PO DAILY 08/06/19 [History] Acetaminophen/Butalbital/Caff [Fioricet 325-50-40 MG] 1 tab PO Q6H PRN #60 tablet 08/09/19 [Rx] - CURRENT (IN HOUSE) MEDS Current Meds: Current Medications Discontinued Medications Diatrizoate Meglum/Diatrizoate Sod (Gastrografin 37%) 90 ml PO ONETIME ONE Stop: 09/09/19 07:37 Last Admin: 09/09/19 07:57 Dose: 90 ml Fentanyl (Sublimaze) Confirm Administered Dose 250 mcg .ROUTE .STK-MED ONE Stop: 09/09/19 08:03 Hydromorphone HCl (Dilaudid) 0.5 mg IVPUSH ONETIME ONE Stop: 09/09/19 04:14 Last Admin: 09/09/19 04:22 Dose: 0.5 mg Hydromorphone HCl (Dilaudid) 0.5 mg IVPUSH ONETIME ONE Stop: 09/09/19 05:46 Last Admin: 09/09/19 05:53 Dose: 0.5 mg Hydromorphone HCl (Dilaudid) 1 mg IVPUSH ONETIME ONE Stop: 09/09/19 07:03 Last Admin: 09/09/19 07:22 Dose: 1 mg Hydromorphone HCl (Dilaudid) Confirm Administered Dose 0.5 mg .ROUTE .STK-MED ONE Stop: 09/09/19 08:02 Hydromorphone HCl (Dilaudid) 1 mg IVPUSH ONETIME ONE Stop: 09/09/19 08:30 Last Admin: 09/09/19 08:39 Dose: 1 mg Lidocaine HCl (Xylocaine-Mpf 1%) Confirm Administered Dose 6 mls @ as directed .ROUTE .STK-MED ONE Stop: 09/09/19 08:01 Lactated Ringer's (Ringers, Lactated) Confirm Administered Dose 2,000 mls @ as directed .ROUTE .STK-MED ONE Stop: 09/09/19 08:01 Iopamidol (Isovue-300 (61%)) 100 ml IVPUSH ONETIME ONE Stop: 09/09/19 07:37 Last Admin: 09/09/19 07:58 Dose: 100 ml Iopamidol (Isovue-300 (61%)) 50 ml IVPUSH ONETIME ONE Stop: 09/09/19 07:37 Last Admin: 09/09/19 07:58 Dose: 25 ml Ketorolac Tromethamine (Toradol) Confirm Administered Dose 30 mg .ROUTE .STK- MED ONE Stop: 09/09/19 08:01 Lorazepam (Ativan) 1 mg IVPUSH ONETIME ONE Stop: 09/09/19 08:31 Last Admin: 09/09/19 08:36 Dose: 1 mg Midazolam HCl (Versed 1 Mg/Ml) Confirm Administered Dose 2 mg .ROUTE .STK-MED ONE Stop: 09/09/19 08:02 Ondansetron HCl (Zofran) 4 mg IVPUSH ONETIME ONE Stop: 09/09/19 04:14 Last Admin: 09/09/19 04:20 Dose: 4 mg Ondansetron HCl (Zofran) Confirm Administered Dose 4 mg .ROUTE .STK-MED ONE Stop: 09/09/19 08:01 Phenylephrine HCl (Phenylephrine In Ns 100 Mcg/Ml) Confirm Administered Dose 1 mg .ROUTE .STK-MED ONE Stop: 09/09/19 08:01 Potassium Chloride (Klor-Con M20) 40 meq PO ONETIME ONE Stop: 09/09/19 05:52 Last Admin: 09/09/19 05:59 Dose: 40 meq Propofol (Diprivan 20 Ml) Confirm Administered Dose 200 mg .ROUTE .STK-MED ONE Stop: 09/09/19 08:02 Rocuronium [place] (Zemuron) Confirm Administered Dose 100 mg .ROUTE .STK-MED ONE Stop: 09/09/19 08:01 Sodium Chloride (Saline Flush) 10 ml FLUSH ONETIME ONE Stop: 09/09/19 07:37 Last Admin: 09/09/19 07:58 Dose: 10 ml <Stephen Beltran M - Last Filed: 09/09/19 10:32> Preanesthetic Assessment - Procedure Proposed Procedure: lap choley - Anesthesia/Transfusion/Family Hx Anesthesia History: Prior Anesthesia Reaction Type of Anesthesia Reaction: Other (see below) (getting oxygen levels up) Family History of Anesthesia Reaction: No Transfusion History: No Prior Transfusion(s) Intubation History: Unknown - Review of Systems General: No Symptoms Pulmonary: No Symptoms, Other (on oxygen now at 2 liters with sat of 92) Cardiovascular: No Symptoms Gastrointestinal: Abdominal Pain (started last night at 11 pm) Neurological: No Symptoms Other: Reports: Easy Bleeding, Easy Bruising, Diabetes (198) - Physical Assessment ASA Class: 3E Mental Status: Alert & Oriented x3 Airway Class: Mallampati = 2 Dentition: Reports: Dentures (top) Thyro-Mental Finger Breadths: 3 Mouth Opening Finger Breadths: 3 ROM/Head Extension: Full Lungs: Clear to Auscultation, Normal Respiratory Effort Cardiovascular: Regular Rate, Regular Rhythm - Blood Blood Available: Yes - Acknowledgements Anesthesia Type Planned: General Anesthesia Pt an Appropriate Candidate for the Planned Anesthesia: Yes Alternatives and Risks of Anesthesia Discussed w Pt/Guardian: Yes Pt/Guardian Understands and Agrees with Anesthesia Plan: Yes PreAnesthesia Questionnaire Cardiovascular History: Reports: Heart Murmur (aortic valve replaced december 2018) , High Cholesterol Respiratory History: Reports: None, Other (See Below) (on oxygen now) Gastrointestinal History: Reports: None Genitourinary History: Reports: BPH 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 Neurological History: Reports: TIA Psychiatric History: Reports: Depression Endocrine/Metabolic History: Reports: Diabetes, Type II, Obesity/BMI 30+ Immunologic History: Reports: None Oncologic (Cancer) History: Reports: None Dermatologic History: Reports: Cellulitis - Past Surgical History HEENT Surgical History: Reports: Cataract Surgery, Other (See Below) Cardiovascular Surgical History: Reports: Valve Replacement (december 2018) GI Surgical History: Reports: Colonoscopy, EGD Male Surgical History: Reports: None Endocrine Surgical History: Reports: None Neurological Surgical History: Reports: None Musculoskeletal Surgical History: Reports: Other (See Below) Oncologic Surgical History: Reports: None - SUBSTANCE USE Smoking Status *Q: Former Smoker Tobacco Use Within Last Twelve Months: No Second Hand Smoke Exposure: No Days Per Week of Alcohol Use: 0 Recreational Drug Use History: No
--- NOTE | 2019-09-09 08:53 | CT ---
CT abdomen and pelvis Technique: Multiple axial sections were obtained from above the dome of the diaphragm inferiorly through the pubic symphysis. Intravenous contrast was utilized. Small amount of oral contrast is seen which remains primarily within the stomach. Comparison: Previous CT abdomen and pelvis exam of 08/06/19. Visualized lung bases shows a partially visualized nodule within the right middle lobe measuring 4 mm. No additional nodule is seen within either lung base. Liver shows a low density lesion within the left lobe. This does not appear to be cystic and is a solid nodule and shows no characteristics of hemangioma. This measures 1.8 cm in size. This is believed to be present without definite change from previous CT exam. Spleen appears within normal limits. Adrenal glands show no nodule. Increased density is seen within the gallbladder possibly due to gallstones or sludge. Pancreas shows no discrete abnormality. Kidneys show symmetric contrast enhancement. Low density lesion is noted within the left kidney which has Hounsfield unit measurements of a cyst and measures about 1.5 cm. Aorta shows atherosclerotic calcification which continues into the iliac vessels. No aneurysm is identified. No retroperitoneal adenopathy or mesenteric abnormalities are seen. No pelvic mass or adenopathy is seen. No small bowel dilatation is seen. No free fluid is seen. Bone window settings were reviewed showing diffuse degenerative change throughout the spine. Impression: 1. Single liver lesion identified on the CT exam within the left lobe. This is without appreciable change from prior CT study of 08/06/19. 2. Minimal density within the gallbladder either due to sludge or gallstones. 3. Small right middle lobe nodule measuring 4 mm. This is not appreciated on previous exam. 4. Nothing acute is otherwise seen on CT study of the abdomen and pelvis. Diagnostic code #3 This report was dictated in [place] Standard Time
[2019-09-09] MEDS ORDERED: Metoclopramide 10 MG/2 ML SDV IVPUSH ONE (10:41)
[2019-09-09] MEDS ORDERED: Morphine 10 MG/ML Syringe IVPUSH ONE (10:41)
[2019-09-09] MEDS ORDERED: Morphine 10 MG/ML SDV IVPUSH ONE (11:15)
[2019-09-09] MEDS ORDERED: Iopamidol 612 MG/ML 50 ML SDV ONE (12:33)
[2019-09-09] MEDS ORDERED: Albuterol 0.083% 2.5 MG/3 ML Neb Soln NEB ONE (13:08)
[2019-09-09] MEDS ORDERED: Levalbuterol HCl 1.25 MG/3 ML Neb NEB ONE (13:10)
[2019-09-09] MEDS ORDERED: Metoprolol Tartrate 5 MG/5 ML SDV IVPUSH ONE ×2 (13:15→13:35)
[2019-09-09] MEDS ORDERED: Metoprolol Tartrate 5 MG/5 ML SDV ONE (13:17)
[2019-09-09] MEDS ORDERED: Lactated Ringers 1,000 ML IV ONE ×3 (13:20→14:41)
[2019-09-09] MEDS ORDERED: Piperacillin/Tazobactam 4.5 GM in Sodium Chloride 0.9% 100 ML IV SCH (13:45)
--- NOTE | 2019-09-09 14:23 | PCM.HP.2 ---
H&P History of Present Illness - General Date of Service: 09/09/19 Admit Problem/Dx: Admission Diagnosis/Problem Admission Diagnosis/Problem Acalculous Cholecystitis Source of Information: Patient History Limitations: Reports: No Limitations - History of Present Illness Onset of Symptoms: Reports: Today Duration of Symptoms: Reports: Hour(s):, Constant, Getting Worse Location: Reports: Abdomen Quality: Reports: Sharp Severity: Severe Improves with: Reports: None Associated Symptoms: Reports: Diaphoresis, Fever/Chills Other HPI/Comments: Patient known to me from prior recent inpatient consult following admission for suspected sepsis- he had abnormal LFTs and suspected cholecystitis based on CT imaging, though no gallstones were identified on supplemental ultrasound imaging. His symptoms spontaneously resolved and he had a HIDA scan just before discharge showing lack of activity of the gallbladder consistent with acalculous cholecystitis. A suspicious liver lesion had been identified prior to workup and initial IR core biopsy was non-diagnostic. He had a repeat biopsy in [place] about 12 hours preceding the onset of his abdominal pain. Epigastric Pain Score (Numeric/FACES): 10 - Related Data Allergies/Adverse Reactions: Allergies Allergy/AdvReac Type Severity Reaction Status Date / Time No Known Allergies Allergy Verified 09/09/19 03:39 Home Medications: Home Meds Alfuzosin [Uroxatral] 10 mg PO DAILY 01/23/19 [History] Sertraline [Zoloft] 50 mg PO DAILY 01/23/19 [History] metFORMIN HCl [Metformin HCl ER] 1,000 mg PO BID 01/23/19 [History] Cholecalciferol (Vitamin D3) [Vitamin D3] 1,000 intnl unit PO DAILY 08/06/19 [ History] Rivaroxaban [Xarelto] 20 mg PO BEDTIME 08/06/19 [History] Rosuvastatin [Crestor] 10 mg PO DAILY 08/06/19 [History] Acetaminophen/Butalbital/Caff [Fioricet 325-50-40 MG] 1 tab PO Q6H PRN #60 tablet 08/09/19 [Rx] Past Medical History HEENT History: Reports: Other (See Below) Other HEENT History: dentures Cardiovascular History: Reports: Heart Murmur (aortic valve replaced december 2018) , High Cholesterol Other Cardiovascular History: aortic valve stenosis Respiratory History: Reports: None, Other (See Below) (on oxygen now) Gastrointestinal History: Reports: None Genitourinary History: Reports: BPH Other Genitourinary History: frequency 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 Musculoskeletal History: Reports: Other (See Below) Other Musculoskeletal History: displaced right knee cap in the past Neurological History: Reports: TIA Psychiatric History: Reports: Depression Other Psychiatric History: mild episode of recurrent major depressive disorder Endocrine/Metabolic History: Reports: Diabetes, Type II, Obesity/BMI 30+ Hematologic History: Reports: None Immunologic History: Reports: None Oncologic (Cancer) History: Reports: None Dermatologic History: Reports: Cellulitis Other Dermatologic History: skin lesion - Infectious Disease History Infectious Disease History: Reports: Chicken Pox, Measles, Mumps - Past Surgical History HEENT Surgical History: Reports: Cataract Surgery, Other (See Below) Cardiovascular Surgical History: Reports: Valve Replacement (december 2018) GI Surgical History: Reports: Colonoscopy, EGD Male Surgical History: Reports: None Endocrine Surgical History: Reports: None Neurological Surgical History: Reports: None Musculoskeletal Surgical History: Reports: Other (See Below) Oncologic Surgical History: Reports: None Social & Family History - Family History Family Medical History: Noncontributory - Tobacco Use Smoking Status *Q: Former Smoker Used Tobacco, but Quit: Yes Month/Year Tobacco Last Used: Second Hand Smoke Exposure: No - Caffeine Use Caffeine Use: Reports: Coffee Other Caffeine Use: 2-3 cups coffee/day. 1 can pop/day - Alcohol Use Days Per Week of Alcohol Use: 0 - Recreational Drug Use Recreational Drug Use: No H&P Review of Systems - Review of Systems: Review Of Systems: See Below General: Reports: Fever, Chills, Malaise HEENT: Reports: No Symptoms Pulmonary: Reports: No Symptoms Cardiovascular: Reports: No Symptoms Gastrointestinal: Reports: Abdominal Pain Genitourinary: Reports: No Symptoms Musculoskeletal: Reports: No Symptoms Skin: Reports: No Symptoms Psychiatric: Reports: No Symptoms Neurological: Reports: No Symptoms Hematologic/Lymphatic: Reports: Easy Bleeding Immunologic: Reports: No Symptoms Exam - Exam Exam: See Below - Vital Signs Vital Signs: Last Vital Signs Temp 37.0 C 09/09/19 11:11 Pulse 134 H 09/09/19 13:18 Resp 28 H 09/09/19 11:11 BP 113/53 L 09/09/19 13:18 Pulse Ox 100 09/09/19 13:55 Weight: 109.316 kg - Exam Quality Assessment: Supplemental Oxygen General: Alert, Oriented, Mild Distress HEENT: Conjunctiva Clear Neck: Supple Lungs: Clear to Auscultation Cardiovascular: Regular Rate GI/Abdominal Exam: Distended, Guarding, Tender (Male) Exam: No Hernia Rectal (Males) Exam: Deferred Back Exam: Normal Inspection Extremities: Normal Inspection Skin: Warm, Moist Neuro Extensive - Mental Status: Alert, Oriented x3 Psychiatric: Alert, Normal Affect - Patient Data Lab Results Last 24 hrs: Laboratory Results - last 24 hr 09/09/19 09/09/19 09/09/19 Range/Units 03:45 03:45 03:45 WBC 4.52 (4.23-9.07) K/mm3 RBC 4.80 (4.63-6.08) M/mm3 Hgb 14.4 (13.7-17.5) gm/dl Hct 44.4 (40.1-51.0) % MCV 92.5 H (79.0-92.2) fl MCH 30.0 (25.7-32.2) pg MCHC 32.4 (32.2-35.5) g/dl RDW Std Deviation 47.7 H (35.1-43.9) fL Plt Count 80 L (163-337) K/mm3 MPV 10.4 (9.4-12.3) fl Neutrophils % (Manual) 59 (40-60) % Band Neutrophils % 2 (0-10) % Lymphocytes % (Manual) 27 (20-40) % Atypical Lymphs % 0 % Monocytes % (Manual) 7 (2-10) % Eosinophils % (Manual) 1 (0.8-7.0) % Basophils % (Manual) 4 H (0.2-1.2) Platelet Estimate Marked dec Plt Morphology Comment Normal RBC Morph Comment Normal PT (9.7-12.0) SECONDS INR Sodium 140 (136-145) mEq/L Potassium 3.3 L (3.5-5.1) mEq/L Chloride 103 (98-107) mEq/L Carbon Dioxide 25 (21-32) mEq/L Anion Gap 15.3 H (5-15) BUN 10 (7-18) mg/dL Creatinine 0.7 (0.7-1.3) mg/dL Est Cr Clr Drug Dosing 115.80 mL/min Estimated GFR (MDRD) > 60 (>60) mL/min BUN/Creatinine Ratio 14.3 (14-18) Glucose 198 H (80-115) mg/dL POC Glucose (80-115) mg/dL Calcium 8.6 (8.5-10.1) mg/dL Total Bilirubin 0.7 (0.2-1.0) mg/dL Direct Bilirubin 0.40 H (0.0-0.2) mg/dl GGT 672 H (15-85) U/L AST 64 H (15-37) U/L ALT 60 (16-63) U/L Alkaline Phosphatase 248 H (46-116) U/L Troponin I < 0.017 (0.00-0.056) ng/mL Total Protein 7.9 (6.4-8.2) g/dl Albumin 3.5 (3.4-5.0) g/dl Globulin 4.4 gm/dL Albumin/Globulin Ratio 0.8 L (1-2) Blood Type B POSITIVE Gel Antibody Screen Negative 09/09/19 09/09/19 09/09/19 Range/Units 03:45 13:09 13:20 WBC (4.23-9.07) K/mm3 RBC (4.63-6.08) M/mm3 Hgb (13.7-17.5) gm/dl Hct (40.1-51.0) % MCV (79.0-92.2) fl MCH (25.7-32.2) pg MCHC (32.2-35.5) g/dl RDW Std Deviation (35.1-43.9) fL Plt Count (163-337) K/mm3 MPV (9.4-12.3) fl Neutrophils % (Manual) (40-60) % Band Neutrophils % (0-10) % Lymphocytes % (Manual) (20-40) % Atypical Lymphs % % Monocytes % (Manual) (2-10) % Eosinophils % (Manual) (0.8-7.0) % Basophils % (Manual) (0.2-1.2) Platelet Estimate Plt Morphology Comment RBC Morph Comment PT 13.1 H (9.7-12.0) SECONDS INR 1.22 Sodium (136-145) mEq/L Potassium (3.5-5.1) mEq/L Chloride (98-107) mEq/L Carbon Dioxide (21-32) mEq/L Anion Gap (5-15) BUN (7-18) mg/dL Creatinine (0.7-1.3) mg/dL Est Cr Clr Drug Dosing mL/min Estimated GFR (MDRD) (>60) mL/min BUN/Creatinine Ratio (14-18) Glucose (80-115) mg/dL POC Glucose 206 H (80-115) mg/dL Calcium (8.5-10.1) mg/dL Total Bilirubin (0.2-1.0) mg/dL Direct Bilirubin (0.0-0.2) mg/dl GGT (15-85) U/L AST (15-37) U/L ALT (16-63) U/L Alkaline Phosphatase (46-116) U/L Troponin I < 0.017 (0.00-0.056) ng/mL Total Protein (6.4-8.2) g/dl Albumin (3.4-5.0) g/dl Globulin gm/dL Albumin/Globulin Ratio (1-2) Blood Type Gel Antibody Screen 09/09/19 Range/Units 13:42 WBC (4.23-9.07) K/mm3 RBC (4.63-6.08) M/mm3 Hgb (13.7-17.5) gm/dl Hct (40.1-51.0) % MCV (79.0-92.2) fl MCH (25.7-32.2) pg MCHC (32.2-35.5) g/dl RDW Std Deviation (35.1-43.9) fL Plt Count (163-337) K/mm3 MPV (9.4-12.3) fl Neutrophils % (Manual) (40-60) % Band Neutrophils % (0-10) % Lymphocytes % (Manual) (20-40) % Atypical Lymphs % % Monocytes % (Manual) (2-10) % Eosinophils % (Manual) (0.8-7.0) % Basophils % (Manual) (0.2-1.2) Platelet Estimate Plt Morphology Comment RBC Morph Comment PT (9.7-12.0) SECONDS INR Sodium (136-145) mEq/L Potassium (3.5-5.1) mEq/L Chloride (98-107) mEq/L Carbon Dioxide (21-32) mEq/L Anion Gap (5-15) BUN (7-18) mg/dL Creatinine (0.7-1.3) mg/dL Est Cr Clr Drug Dosing mL/min Estimated GFR (MDRD) (>60) mL/min BUN/Creatinine Ratio (14-18) Glucose (80-115) mg/dL POC Glucose 169 H (80-115) mg/dL Calcium (8.5-10.1) mg/dL Total Bilirubin (0.2-1.0) mg/dL Direct Bilirubin (0.0-0.2) mg/dl GGT (15-85) U/L AST (15-37) U/L ALT (16-63) U/L Alkaline Phosphatase (46-116) U/L Troponin I (0.00-0.056) ng/mL Total Protein (6.4-8.2) g/dl Albumin (3.4-5.0) g/dl Globulin gm/dL Albumin/Globulin Ratio (1-2) Blood Type Gel Antibody Screen Result Diagrams: 09/09/19 03:45 09/09/19 03:45 Sepsis Event Note - Evaluation Sepsis Screening Result: No Definite Risk - Focused Exam Vital Signs: Vital Signs Temp Pulse Pulse Resp BP BP Pulse Ox 09/09/19 13:55 09/09/19 13:18 134 H 113/53 L 09/09/19 11:11 37.0 C 111 H 28 H 192/80 H 88 L 09/09/19 05:57 36.3 C 69 18 161/81 H 91 L 09/09/19 03:35 36.4 C 74 16 175/87 H 97 Pulse Ox 09/09/19 13:55 100 09/09/19 13:18 09/09/19 11:11 09/09/19 05:57 09/09/19 03:35 Date Exam was Performed: 09/09/19 Time Exam was Performed: 14:18 *Q Meaningful Use (ADM) - VTE *Q VTE Pharmacological Contraindications *Q: Risk of Bleeding Problem List Initiated/Reviewed/Updated: Yes Orders Last 24hrs: Active Orders 24 hr Category Date Time Status Patient Status [ADT] Routine ADT 09/09/19 13:04 Active EKG Documentation Completion [RC] STAT Care 09/09/19 13:09 Active Oxygen Therapy, ED [RC] ASDIRECTED Care 09/09/19 09:40 Active RT Aerosol Therapy [RC] ASDIRECTED Care 09/09/19 13:08 Inactive RT Aerosol Therapy [RC] ASDIRECTED Care 09/09/19 13:10 Active Chest 1V Frontal [CR] Stat Exams 09/09/19 13:35 Taken MYOGLOBIN [REF] Stat Lab 09/09/19 13:20 Received PATIENT RETYPE [BBK] Routine Lab 09/09/19 09:57 Ordered Piperacillin/Tazobactam [Piperacil-Tazobact] 4.5 gm Med 09/09/19 13:45 Active Sodium Chloride 0.9% [Normal Saline] 100 ml IV Q8H Schedule Procedure [COMM] Routine Oth 09/09/19 07:40 Ordered Medication Orders Piperacillin Sod/Tazobactam (Sod 4.5 gm/ Sodium Chloride) 100 mls @ 25 mls/hr IV Q8H NURY Assessment/Plan Comment:: 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
--- NOTE | 2019-09-09 14:24 | CR ---
Chest: Portable view of the chest was obtained. Comparison: Prior chest x-ray of 08/06/19. Heart is enlarged. Tortuous thoracic aorta is seen. Sternotomy is noted. Pulmonary vessels show mild upper lobe vascular redistribution. Mild left basilar atelectasis is noted. Impression: 1. Cardiomegaly. Upper lobe pulmonary vascular redistribution. 2. Mild left basilar atelectasis. Diagnostic code #3 This report was dictated in [place] Standard Time
[2019-09-09] MEDS ORDERED: Piperacillin/Tazobactam 4.5 GM in Sodium Chloride 0.9% 100 ML IV ONE (14:30)
[2019-09-09] MEDS ORDERED: Lactated Ringers 1,000 ML ONE ×3 (14:43→17:17)
[2019-09-09] MEDS ORDERED: Sodium Chloride 0.9% 1,000 ML IV SCH (15:15)
[2019-09-09] MEDS: Bupivacaine 0.5%/EPINEPHrine 1:200,000 50 ML MDV ONE ×2 (15:26→15:42)
[2019-09-09] MEDS ORDERED: Albuterol 6.7 GM Inhaler INH ONE (15:51)
[2019-09-09] MEDS ORDERED: ePHEDrine/Normal Saline 25 MG/5 ML Syringe ONE (16:24)
[2019-09-09] MEDS ORDERED: ceFAZolin 1 GM Vial ONE (16:45)
[2019-09-09] MEDS ORDERED: Midazolam 50 MG in Sodium Chloride 0.9% 40 ML IV SCH (17:45)
[2019-09-09] MEDS: fentaNYL 100 MCG/2 ML SDV IVPUSH PRN ×2 (17:54→21:37)
[2019-09-09] MEDS: Lactated Ringers 1,000 ML IV SCH (18:07)
--- NOTE | 2019-09-09 18:07 | PCM.PRNOTE ---
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 Given the patient's bleeding diatheses and difficulty with safe dissection, the gallbladder was needle decompressed and a 10 F CASSIE drain was placed in the dissection field. EBL 100 cc. Detailed report: The patient was taken to the OR and placed in supine position. Time out was performed, and general endotracheal anesthesia administered. The abdomen was clipped, prepped and draped in sterile fashion. A Veress insufflation needle was inserted at the left upper quadrant at Zhu's point and the abdominal cavity insufflated with CO2 to 15 mm Hg. A 5 mm port was placed superior to the umbilicus and the 5 mm 30 degree laparoscope was inserted. The liver had the appearance of nodular cirrhosis. Additional ports were placed; two 5 mm sites at the right upper quadrant and a 12 mm site in the subxiphoid region. The gallbladder fundus was grasped and elevated. It was chronically inflamed with very thickened, indurated and edematous overlying peritoneum. The gallbladder was needle decompressed and about 15 cc of light blood/bile tinged fluid was aspirated. Careful dissection proceeded using hook electrocautery, blunt dissection with Kittner and suction irrigation, and [place] graspers. The peritoneum overlying the infundibulum was opened transversely and a thick rind was peeled back to expose the gallbladder. Bleeding and weeping edema was managed with suction and with sponges. The peritoneal attachments to the liver were divided with cautery and the gallbladder was carefully mobilized. The inflammation was too severe to safely proceed with dissection at the triangle of Calot, and a top-down approach was employed with the plan to clip to gallbladder at the infundibulum for subtotal cholecystectomy. However, it proved too dangerous to safely dissect posteriorly between the gallbladder and liver plate, and there was significant concern for hemorrhage and unsafe blind dissection. At this point, a 10 F CASSIE drain was placed in the dissection field and brought out through the lateral right sided 5 mm port site. This was secured at the skin with a nylon stitch. The field had some hematoma and ongoing hemorrhage or coagulopathy was not evident. The large port site was closed at the level of fascia with vicryl on the laparoscopic suture passer. Pneumoperitoneum was released. Skin was closed with vicryl and dressed with dermabond. The patient was transferred intubated to the ICU for ongoing resuscitation. Ernst Alfaro MD General Surgery
--- NOTE | 2019-09-09 18:11 | PCM.POSTAN ---
POST ANESTHESIA ASSESSMENT - MENTAL STATUS Mental Status: Other (intubated) - VITAL SIGNS Vital Signs: Last Vital Signs Temp 98.6 F 09/09/19 11:11 Pulse 110 H 09/09/19 13:38 Resp 28 H 09/09/19 11:11 BP 108/62 09/09/19 13:38 Pulse Ox 100 09/09/19 13:55 1710 90/43 10 100 98% 98.9 - RESPIRATORY Respiratory Status: Respiratory Rate WNL, Airway Patent, O2 Saturation Stable, Supplemental Oxygen - CARDIOVASCULAR CV Status: Pulse Rate WNL, Blood Pressure Stable, Low Blood Pressure - GASTROINTESTINAL GI Status: No Symptoms - PAIN Pain Score: 0 - POST OP HYDRATION Hydration Status: Adequate & Stable - OBSERVATIONS Free Text/Narrative:: Intubated with 100% ambu. In ICU. Monitors on. Dr. Alfaro present.
[2019-09-09] MEDS ORDERED: Sodium Chloride 0.9% 500 ML ONE (19:12)
[2019-09-09] MEDS: Acetaminophen 325 MG Tab PO SCH (21:01)
[2019-09-09] MEDS ORDERED: Ondansetron 4 MG/2 ML SDV IVPUSH PRN ×2 (23:10→23:59)
[2019-09-09] MEDS: Piperacillin/Tazobactam 4.5 GM in Sodium Chloride 0.9% 100 ML IV SCH (23:18)
[2019-09-10] MEDS: Lactated Ringers 1,000 ML IV SCH ×3 (00:45→14:16)
[2019-09-10] MEDS: Acetaminophen 325 MG Tab PO SCH ×3 (02:50→17:27)
[2019-09-10] MEDS: oxyCODONE 5 MG Tab PO PRN ×3 (04:18→14:24)
[2019-09-10] MEDS: Piperacillin/Tazobactam 4.5 GM in Sodium Chloride 0.9% 100 ML IV SCH ×2 (05:36→14:16)
[2019-09-10] MEDS: fentaNYL 100 MCG/2 ML SDV IVPUSH PRN ×2 (06:15→16:17)
[2019-09-10] MEDS ORDERED: Sodium Chloride 0.9% 1,000 ML IV ONE (07:48)
--- NOTE | 2019-09-10 11:02 | PCM48HPAN ---
Post Anesthesia Note - EVALUATION WITHIN 48HRS OF ANESTHETIC Vital Signs in Normal Range: Yes Patient Participated in Evaluation: Yes Respiratory Function Stable: Yes Airway Patent: Yes Cardiovascular Function Stable: Yes Hydration Status Stable: Yes Pain Control Satisfactory: Yes Nausea and Vomiting Control Satisfactory: Yes Mental Status Recovered: Yes Vital Signs: Last Vital Signs Temp 36.9 C 09/10/19 08:00 Pulse 88 09/10/19 04:00 Resp 15 09/10/19 08:00 BP 122/65 09/10/19 08:00 Pulse Ox 94 L 09/10/19 08:00
[2019-09-10] MEDS ORDERED: oxyCODONE 5 MG Tab PO PRN (17:08)
[2019-09-10] MEDS ORDERED: oxyCODONE 5 MG Tab PO ONE (17:15)
[2019-09-10] MEDS ORDERED: Morphine 2 MG/ML Syringe IVPUSH PRN (18:20)
--- NOTE | 2019-09-10 20:22 | CR ---
Chest: Portable view of the chest was obtained. Comparison: Prior chest x-ray of 09/09/19. Heart is enlarged. Minimal blunting of the costophrenic angles are seen which may be chronic or due to minimal pleural effusions. Lung markings are mildly increased which appears stable. No acute parenchymal change is seen. Bony structures are grossly intact. Previous sternotomy is noted. Impression: 1. Multiple findings as noted above. Diagnostic code #2 This report was dictated in [place] Standard Time
--- NOTE | 2019-09-10 20:22 | CR ---
Chest: Supine view of the chest was obtained. Comparison: Prior CT abdomen and pelvis exam of 09/09/19. Findings: Study is extremely suboptimal due to patient body habitus and technique. Visualized bowel gas pattern is grossly unremarkable. Degenerative change is scattered within the spine. No further comments can be made. Impression: 1. Suboptimal study as noted above. 2. Nothing acute is definitely appreciated. Diagnostic code #2 This report was dictated in [place] Standard Time
[2019-09-10 20:34] VITALS: BP 167/80; PULSE 84
--- NOTE | 2019-09-11 11:39 | PCM.DCSUM1 ---
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 The operation was very difficult and dangerous due to the severity of inflammation and the patient's multiple bleeding diatheses including thrombocytopenia and anticoagulation with xarelto for a cardiac valve replacement. Thus, the operation was aborted after needle decompression of the gallbladder to aid with retraction and placement of a 10 F CASSIE drain around the dissection field. He went to the ICU post op intubated, and was successfully extubated by morning. He was initially doing okay, but pain returned, and on the evening of POD 1 he developed several abdominal chest pain and the output from the CASSIE drain changed from serosanguinous to bilious. Transfer was arranged to [facility] for availability of multidisciplinary and subspecialty care. He was hemodynamically stable at the time of discharge and air transport to [facility]. - Discharge Data Discharge Date: 09/10/19 Discharge Disposition: DC/Tfer to Acute Hospital 02 Condition: Good - Referral to Home Health Primary Care Physician: Zaki Canales MD - Patient Summary/Data Consults: Consultations 09/10/19 15:32 OT Evaluation and Treatment [CONS] Routine 09/10/19 15:33 Consult to Physical Therapy [PT Evaluation and Treatment] [CONS] Routine - Discharge Plan *PRESCRIPTION DRUG MONITORING PROGRAM REVIEWED*: Not Applicable *COPY OF PRESCRIPTION DRUG MONITORING REPORT IN PATIENT SHO: Not Applicable Home Medications: Home Meds Alfuzosin [Uroxatral] 10 mg PO DAILY 01/23/19 [History] Sertraline [Zoloft] 50 mg PO DAILY 01/23/19 [History] metFORMIN HCl [Metformin HCl ER] 1,000 mg PO BID 01/23/19 [History] Cholecalciferol (Vitamin D3) [Vitamin D3] 1,000 intnl unit PO DAILY 08/06/19 [ History] Rivaroxaban [Xarelto] 20 mg PO BEDTIME 08/06/19 [History] Rosuvastatin [Crestor] 10 mg PO DAILY 08/06/19 [History] Acetaminophen/Butalbital/Caff [Fioricet 325-50-40 MG] 1 tab PO Q6H PRN #60 tablet 08/09/19 [Rx] Other Amb Orders: CULTURE BLOOD [BC] Location: None Selected CULTURE BLOOD [BC] Location: None Selected LACTIC ACID [CHEM] Location: None Selected Patient Handouts: Laparoscopic Cholecystectomy, Care After, Biliary Colic, Adult Forms: ED Department Discharge Referrals: Zaki Canales MD [Primary Care Provider] - - Discharge Summary/Plan Comment DC Time >30 min.: Yes (arrangement for transfer) Discharge Summary/Plan Comment: Transfer to [facility] for higher level of care with availability of IR, GI, HPB and cardiology specialty care. - Patient Data Vitals - Most Recent: Last Vital Signs Temp 37.1 C 09/10/19 20:28 Pulse 84 09/10/19 20:28 Resp 17 09/10/19 20:28 BP 167/80 H 09/10/19 20:28 Pulse Ox 94 L 09/10/19 20:28 Weight - Most Recent: 113.852 kg I&O - Last 24 hours: Intake & Output 09/10/19 09/11/19 09/11/19 22:59 06:59 14:59 Intake Total 2868 Output Total 955 Balance 1913 Lab Results - Last 24 hrs: Laboratory Results - last 24 hr 09/09/19 09/10/19 09/10/19 Range/Units 13:20 11:51 17:32 WBC (4.23-9.07) K/mm3 RBC (4.63-6.08) M/mm3 Hgb (13.7-17.5) gm/dl Hct (40.1-51.0) % MCV (79.0-92.2) fl MCH (25.7-32.2) pg MCHC (32.2-35.5) g/dl RDW Std Deviation (35.1-43.9) fL Plt Count (163-337) K/mm3 MPV (9.4-12.3) fl Neut % (Auto) (34.0-67.9) % Lymph % (Auto) (21.8-53.1) % [place] % (Auto) (5.3-12.2) % Eos % (Auto) (0.8-7.0) Baso % (Auto) (0.1-1.2) % Neut # (Auto) (1.78-5.38) K/mm3 Lymph # (Auto) (1.32-3.57) K/mm3 [place] # (Auto) (0.30-0.82) K/mm3 Eos # (Auto) (0.04-0.54) K/mm3 Baso # (Auto) (0.01-0.08) K/mm3 Manual Slide Review Puncture Site ABG pH (7.35-7.45) ABG pCO2 (35.0-45.0) mmHg ABG pO2 (80.0-100.0) mmHg ABG HCO3 (22.0-26.0) meq/L ABG O2 Saturation (96.0-97.0) % ABG Base Excess (-2-2.0) A-a Gradient mmHg O2 Delivery Device Oxygen Flow Rate FiO2 (21.00-100.00) % POC Glucose 124 H 130 H (80-115) mg/dL Magnesium (1.8-2.4) mg/dl CK-MB (CK-2) (0-3.6) ng/ml Myoglobin 22 (17-106) ng/mL Troponin I (0.00-0.056) ng/mL 09/10/19 09/10/19 09/10/19 Range/Units 19:40 19:40 19:40 WBC 12.31 H (4.23-9.07) K/mm3 RBC 4.27 L (4.63-6.08) M/mm3 Hgb 13.0 L (13.7-17.5) gm/dl Hct 41.5 (40.1-51.0) % MCV 97.2 H (79.0-92.2) fl MCH 30.4 (25.7-32.2) pg MCHC 31.3 L (32.2-35.5) g/dl RDW Std Deviation 51.7 H (35.1-43.9) fL Plt Count 71 L (163-337) K/mm3 MPV 11.2 (9.4-12.3) fl Neut % (Auto) 81.8 H (34.0-67.9) % Lymph % (Auto) 10.4 L (21.8-53.1) % [place] % (Auto) 6.3 (5.3-12.2) % Eos % (Auto) 0.9 (0.8-7.0) Baso % (Auto) 0.3 (0.1-1.2) % Neut # (Auto) 10.07 H (1.78-5.38) K/mm3 Lymph # (Auto) 1.28 L (1.32-3.57) K/mm3 [place] # (Auto) 0.77 (0.30-0.82) K/mm3 Eos # (Auto) 0.11 (0.04-0.54) K/mm3 Baso # (Auto) 0.04 (0.01-0.08) K/mm3 Manual Slide Review Abnormal smear Puncture Site Rt radial ABG pH 7.41 (7.35-7.45) ABG pCO2 44.1 (35.0-45.0) mmHg ABG pO2 67.0 L (80.0-100.0) mmHg ABG HCO3 27.4 H (22.0-26.0) meq/L ABG O2 Saturation 94.4 L (96.0-97.0) % ABG Base Excess 2.8 H (-2-2.0) A-a Gradient 192 mmHg O2 Delivery Device Nasal cannula Oxygen Flow Rate 6.0 FiO2 44.00 (21.00-100.00) % POC Glucose (80-115) mg/dL Magnesium (1.8-2.4) mg/dl CK-MB (CK-2) 1.0 (0-3.6) ng/ml Myoglobin (17-106) ng/mL Troponin I < 0.017 (0.00-0.056) ng/mL 09/10/19 Range/Units 19:40 WBC (4.23-9.07) K/mm3 RBC (4.63-6.08) M/mm3 Hgb (13.7-17.5) gm/dl Hct (40.1-51.0) % MCV (79.0-92.2) fl MCH (25.7-32.2) pg MCHC (32.2-35.5) g/dl RDW Std Deviation (35.1-43.9) fL Plt Count (163-337) K/mm3 MPV (9.4-12.3) fl Neut % (Auto) (34.0-67.9) % Lymph % (Auto) (21.8-53.1) % [place] % (Auto) (5.3-12.2) % Eos % (Auto) (0.8-7.0) Baso % (Auto) (0.1-1.2) % Neut # (Auto) (1.78-5.38) K/mm3 Lymph # (Auto) (1.32-3.57) K/mm3 [place] # (Auto) (0.30-0.82) K/mm3 Eos # (Auto) (0.04-0.54) K/mm3 Baso # (Auto) (0.01-0.08) K/mm3 Manual Slide Review Puncture Site ABG pH (7.35-7.45) ABG pCO2 (35.0-45.0) mmHg ABG pO2 (80.0-100.0) mmHg ABG HCO3 (22.0-26.0) meq/L ABG O2 Saturation (96.0-97.0) % ABG Base Excess (-2-2.0) A-a Gradient mmHg O2 Delivery Device Oxygen Flow Rate FiO2 (21.00-100.00) % POC Glucose (80-115) mg/dL Magnesium 1.6 L (1.8-2.4) mg/dl CK-MB (CK-2) (0-3.6) ng/ml Myoglobin (17-106) ng/mL Troponin I (0.00-0.056) ng/mL LEATHA Results - Last 24 hrs: Microbiology 09/09/19 13:55 Aerobic Blood Culture - Preliminary Blood NO GROWTH AFTER 1 DAY Anaerobic Blood Culture - Preliminary NO GROWTH AFTER 1 DAY 09/09/19 14:01 Aerobic Blood Culture - Preliminary Blood NO GROWTH AFTER 1 DAY Anaerobic Blood Culture - Preliminary NO GROWTH AFTER 1 DAY Med Orders - Current: Current Medications Discontinued Medications Acetaminophen (Tylenol) 975 mg PO Q8H [facility] Last Admin: 09/10/19 17:27 Dose: 975 mg Albuterol (Proventil Neb Soln) 2.5 mg NEB ONETIME ONE Stop: 09/09/19 13:09 Last Admin: 09/09/19 13:56 Dose: Not Given Albuterol (Proventil Hfa) Confirm Administered Dose 6.7 gm INH .STK-MED ONE Stop: 09/09/19 15:52 Bupivacaine HCl/Epinephrine Bitart (Marcaine 0.5%/Epinephrine 1:200,000) Confirm Administered Dose 50 ml .ROUTE .STK-MED ONE Stop: 09/09/19 12:34 Last Admin: 09/09/19 15:26 Dose: 28 ml Cefazolin Sodium (Ancef) Confirm Administered Dose 2 gm .ROUTE .STK-MED ONE Stop: 09/09/19 16:46 Diatrizoate Meglum/Diatrizoate Sod (Gastrografin 37%) 90 ml PO ONETIME ONE Stop: 09/09/19 07:37 Last Admin: 09/09/19 07:57 Dose: 90 ml Ephedrine Sulfate (Ephedrine In Ns) Confirm Administered Dose 25 mg .ROUTE .STK- MED ONE Stop: 09/09/19 16:25 Fentanyl (Sublimaze) Confirm Administered Dose 250 mcg .ROUTE .STK-MED ONE Stop: 09/09/19 08:03 Fentanyl (Sublimaze) 25 mcg IVPUSH Q1H PRN PRN Reason: Abdominal Pain Last Admin: 09/10/19 16:17 Dose: 25 mcg Hydromorphone HCl (Dilaudid) 0.5 mg IVPUSH ONETIME ONE Stop: 09/09/19 04:14 Last Admin: 09/09/19 04:22 Dose: 0.5 mg Hydromorphone HCl (Dilaudid) 0.5 mg IVPUSH ONETIME ONE Stop: 09/09/19 05:46 Last Admin: 09/09/19 05:53 Dose: 0.5 mg Hydromorphone HCl (Dilaudid) 1 mg IVPUSH ONETIME ONE Stop: 09/09/19 07:03 Last Admin: 09/09/19 07:22 Dose: 1 mg Hydromorphone HCl (Dilaudid) Confirm Administered Dose 0.5 mg .ROUTE .STK-MED ONE Stop: 09/09/19 08:02 Hydromorphone HCl (Dilaudid) 1 mg IVPUSH ONETIME ONE Stop: 09/09/19 08:30 Last Admin: 09/09/19 08:39 Dose: 1 mg Lidocaine HCl (Xylocaine-Mpf 1%) Confirm Administered Dose 6 mls @ as directed .ROUTE .STK-MED ONE Stop: 09/09/19 08:01 Lactated Ringer's (Ringers, Lactated) Confirm Administered Dose 2,000 mls @ as directed .ROUTE .STK-MED ONE Stop: 09/09/19 08:01 Piperacillin Sod/Tazobactam (Sod 4.5 gm/ Sodium Chloride) 100 mls @ 25 mls/hr IV Q8H NURY Last Admin: 09/09/19 14:30 Dose: Not Given Piperacillin Sod/Tazobactam (Sod 4.5 gm/ Sodium Chloride) 100 mls @ 200 mls/hr IV ONETIME ONE Stop: 09/09/19 14:59 Last Admin: 09/09/19 14:19 Dose: 200 mls/hr Piperacillin Sod/Tazobactam (Sod 4.5 gm/ Sodium Chloride) 100 mls @ 25 mls/hr IV Q8H [facility] Last Admin: 09/10/19 14:16 Dose: 25 mls/hr Lactated Ringer's (Ringers, Lactated) 1,000 mls @ 999 mls/hr IV .BOLUS ONE Stop: 09/09/19 14:20 Last Admin: 09/09/19 13:20 Dose: 999 mls/hr Lactated Ringer's (Ringers, Lactated) 1,000 mls @ 999 mls/hr IV .BOLUS ONE Stop: 09/09/19 15:41 Last Admin: 09/09/19 13:50 Dose: 999 mls/hr Lactated Ringer's (Ringers, Lactated) Confirm Administered Dose 1,000 mls @ as directed .ROUTE .STK-MED ONE Stop: 09/09/19 14:44 Lactated Ringer's (Ringers, Lactated) 1,000 mls @ 999 mls/hr IV .BOLUS ONE Stop: 09/09/19 14:40 Last Admin: 09/09/19 13:40 Dose: 999 mls/hr Sodium Chloride (Normal Saline) 1,000 mls @ 50 mls/hr IV ASDIRECTED NURY Stop: 09/13/19 15:07 Last Admin: 09/09/19 14:15 Dose: 50 mls/hr Lactated Ringer's (Ringers, Lactated) Confirm Administered Dose 1,000 mls @ as directed .ROUTE .STK-MED ONE Stop: 09/09/19 16:40 Lactated Ringer's (Ringers, Lactated) Confirm Administered Dose 1,000 mls @ as directed .ROUTE .STK-MED ONE Stop: 09/09/19 17:18 Last Admin: 09/09/19 21:02 Dose: Not Given Lactated Ringer's (Ringers, Lactated) 1,000 mls @ 150 mls/hr IV ASDIRECTED NURY Last Admin: 09/10/19 14:16 Dose: 150 mls/hr Midazolam HCl 50 mg/ Sodium (Chloride) 50 mls @ 7 mls/hr IV TITRATE NURY; Protocol Last Titration: 09/09/19 23:15 Dose: 0 mg/hr, 0 mls/hr Sodium Chloride (Normal Saline) Confirm Administered Dose 500 mls @ as directed .ROUTE .STK-MED ONE Stop: 09/09/19 19:13 Last Admin: 09/09/19 21:03 Dose: Not Given Sodium Chloride (Normal Saline) 1,000 mls @ 1,000 mls/hr IV ONETIME ONE Stop: 09/10/19 08:47 Last Admin: 09/10/19 09:18 Dose: 1,000 mls/hr Iopamidol (Isovue-300 (61%)) 100 ml IVPUSH ONETIME ONE Stop: 09/09/19 07:37 Last Admin: 09/09/19 07:58 Dose: 100 ml Iopamidol (Isovue-300 (61%)) 50 ml IVPUSH ONETIME ONE Stop: 09/09/19 07:37 Last Admin: 09/09/19 07:58 Dose: 25 ml Iopamidol (Isovue-300 (61%)) Confirm Administered Dose 50 ml .ROUTE .STK-MED ONE Stop: 09/09/19 12:34 Ketorolac Tromethamine (Toradol) Confirm Administered Dose 30 mg .ROUTE .STK- MED ONE Stop: 09/09/19 08:01 Levalbuterol HCl (Xopenex) 1.25 mg NEB ONETIME ONE Stop: 09/09/19 13:11 Last Admin: 09/09/19 13:56 Dose: 1.25 mg Lorazepam (Ativan) 1 mg IVPUSH ONETIME ONE Stop: 09/09/19 08:31 Last Admin: 09/09/19 08:36 Dose: 1 mg Metoclopramide HCl (Reglan) 7.5 mg IVPUSH ONETIME ONE Stop: 09/09/19 10:42 Last Admin: 09/09/19 11:09 Dose: 7.5 mg Metoprolol Tartrate (Lopressor) Confirm Administered Dose 5 mg .ROUTE .STK-MED ONE Stop: 09/09/19 13:18 Last Admin: 09/09/19 14:02 Dose: Not Given Metoprolol Tartrate (Lopressor) 2.5 mg IVPUSH ONETIME ONE Stop: 09/09/19 13:16 Last Admin: 09/09/19 13:18 Dose: 2.5 mg Metoprolol Tartrate (Lopressor) 2.5 mg IVPUSH ONETIME ONE Stop: 09/09/19 13:36 Last Admin: 09/09/19 13:38 Dose: 2.5 mg Midazolam HCl (Versed 1 Mg/Ml) Confirm Administered Dose 2 mg .ROUTE .STK-MED ONE Stop: 09/09/19 08:02 Morphine Sulfate (Morphine) 8 mg IVPUSH ONETIME ONE Stop: 09/09/19 10:42 Last Admin: 09/09/19 11:06 Dose: Not Given Morphine Sulfate (Morphine) 8 mg IVPUSH ONETIME ONE Stop: 09/09/19 11:16 Last Admin: 09/09/19 11:05 Dose: 8 mg Morphine Sulfate (Morphine) 1 mg IVPUSH Q3H PRN PRN Reason: Breakthrough Pain Last Admin: 09/10/19 18:33 Dose: 1 mg Ondansetron HCl (Zofran) 4 mg IVPUSH ONETIME ONE Stop: 09/09/19 04:14 Last Admin: 09/09/19 04:20 Dose: 4 mg Ondansetron HCl (Zofran) Confirm Administered Dose 4 mg .ROUTE .STK-MED ONE Stop: 09/09/19 08:01 Ondansetron HCl (Zofran) 4 mg IVPUSH Q8H PRN PRN Reason: Nausea/Vomiting Last Admin: 09/09/19 23:17 Dose: 4 mg Ondansetron HCl (Zofran) 4 mg IVPUSH Q6H PRN PRN Reason: Nausea/Vomiting Oxycodone HCl (Oxycodone) 5 mg PO Q4H PRN PRN Reason: Pain (moderate 4-6) Last Admin: 09/10/19 14:24 Dose: 5 mg Oxycodone HCl (Oxycodone) 5 mg PO ONETIME ONE Stop: 09/10/19 17:16 Last Admin: 09/10/19 17:29 Dose: 5 mg Oxycodone HCl (Oxycodone) 10 mg PO Q4H PRN PRN Reason: Pain Last Admin: 09/10/19 20:21 Dose: 10 mg Phenylephrine HCl (Phenylephrine In Ns 100 Mcg/Ml) Confirm Administered Dose 1 mg .ROUTE .STK-MED ONE Stop: 09/09/19 08:01 Phenylephrine HCl (Phenylephrine In Ns 100 Mcg/Ml) Confirm Administered Dose 1 mg .ROUTE .STK-MED ONE Stop: 09/09/19 15:47 Phenylephrine HCl (Phenylephrine In Ns 100 Mcg/Ml) Confirm Administered Dose 1 mg .ROUTE .STK-MED ONE Stop: 09/09/19 17:04 Potassium Chloride (Klor-Con M20) 40 meq PO ONETIME ONE Stop: 09/09/19 05:52 Last Admin: 09/09/19 05:59 Dose: 40 meq Propofol (Diprivan 20 Ml) Confirm Administered Dose 200 mg .ROUTE .STK-MED ONE Stop: 09/09/19 08:02 Rocuronium [place] (Zemuron) Confirm Administered Dose 100 mg .ROUTE .STK-MED ONE Stop: 09/09/19 08:01 Rocuronium [place] (Zemuron) Confirm Administered Dose 100 mg .ROUTE .STK-MED ONE Stop: 09/09/19 15:57 Sodium Chloride (Saline Flush) 10 ml FLUSH ONETIME ONE Stop: 09/09/19 07:37 Last Admin: 09/09/19 07:58 Dose: 10 ml *Q Meaningful Use (DIS) - VTE *Q VTE Pharmacological Contraindications *Q: Risk of Bleeding
== END 2019-09-10 21:17 | DRG 419 ==
LOC: JD.ED 03:30 → JD.SDS 13:05 → JD.ICU 17:25 → JD.MS 09-10 09:54 → JD.ICU 09-10 10:00
PROVIDERS: ADMIT Surgery; ATTEND Surgery
PROC: 0FT44ZZ Resection of Gallbladder, Percutaneous Endoscopic Approach (ICD-10-PCS; principal; 2019-09-09)
PROC: 0BH17EZ Insertion of Endotracheal Airway into Trachea, Via Natural or Artificial Opening (ICD-10-PCS; 2019-09-09)
DX: K81.2 Acute cholecystitis with chronic cholecystitis (principal); K80.46 Calculus of bile duct with acute and chronic cholecystitis without obstruction; Z95.2 Presence of prosthetic heart valve; D69.6 Thrombocytopenia, unspecified; K74.69 Other cirrhosis of liver; E78.00 Pure hypercholesterolemia, unspecified; E11.9 Type 2 diabetes mellitus without complications; F32.9 Major depressive disorder, single episode, unspecified; E66.9 Obesity, unspecified; N40.0 Benign prostatic hyperplasia without lower urinary tract symptoms; Z86.73 Personal history of transient ischemic attack (TIA), and cerebral infarction without residual deficits; Z98.49 Cataract extraction status, unspecified eye; Z53.09 Procedure and treatment not carried out because of other contraindication; Z79.01 Long term (current) use of anticoagulants; Z79.84 Long term (current) use of oral hypoglycemic drugs; Z79.899 Other long term (current) drug therapy; Z87.891 Personal history of nicotine dependence; Z68.32 Body mass index [BMI] 32.0-32.9, adult
CPT/HCPCS: 36415; 47562; 71045; 74019; 74177; 80053; 82248; 82962 ×2; 82977; 83874; 84484 ×2; 85007; 85027; 85610; 86850; 86900; 86901; 87040 ×2; 93005 ×2; 94640; A9270 ×2; J1170 ×4; J2001; J2060; J2250; J2270; J2370 ×3; J2405 ×2; J2543; J2704; J2765; J3010; J3490 ×3; J7030; J7050 ×2; J7120 ×7; J7612; Q9963; Q9967 ×2; 36600; 74018; 74018-26; 80048; 82553; 82803; 83735; 85025; 94002; 94760; J0690; J1885

== ENCOUNTER 2020-12-19 04:40 | Observation (INO) | payer MEDICARE, BC ==
[2020-12-19] MEDS ORDERED: Ondansetron 4 MG/2 ML SDV IVPUSH ONE (05:04)
[2020-12-19] MEDS ORDERED: HYDROmorphone 0.5 MG/0.5 ML Syringe IVPUSH ONE ×2 (05:04→10:12)
--- NOTE | 2020-12-19 05:09 | EDM.PDOC ---
<Stephen Henson - Last Filed: 12/19/20 06:58> ED HPI GENERAL MEDICAL PROBLEM - General Chief Complaint: Abdominal Pain Stated Complaint: EXTREME ABDOMINAL PAIN Time Seen by Provider: 12/19/20 04:58 Source of Information: Reports: Patient History Limitations: Reports: No Limitations - History of Present Illness INITIAL COMMENTS - FREE TEXT/NARRATIVE: This is a 70-year-old male. He had onset of right upper quadrant abdominal pain fairly severe going across the upper abdomen to the left upper quadrant. It started around midnight and since that time he has had nausea and vomiting x4. He has had no fever he has had no diarrhea. He had a normal bowel movement about the time this started. It is eased up some but he still having considerable upper abdominal pain. This does not radiate into his chest. He had a cholecystectomy in August 2019 as well as some liver biopsies. Apparently he is got some lesions in his liver and he had some more biopsies done about a month ago but he has been doing fine. This was sudden onset. He has not had any duration of the pain into his back. The patient had a aortic valve replacement about 5 or 6 as ago and has been doing well in that department. He does indicate in the last 3 or 4 days has been waking up with a lot of low back pain but it does not seem to be related to his upper abdominal pain. He assures me the pain in his abdomen does not seem to radiate into his back. We have some communication from his daughter indicates he does have a history and present history of liver cancer. He does have a cyst on the top of his liver that was not ablated the last time they worked on his liver a month ago. Right Upper Abdomen Pain Score (Numeric/FACES): 7 - Related Data Allergies Allergy/AdvReac Type Severity Reaction Status Date / Time cyclobenzaprine Allergy Severe Hallucinati Verified 12/19/20 05:44 [From Flexeril] ons gabapentin Allergy Severe Hallucinati Verified 12/19/20 05:44 ons Home Meds: Home Meds Alfuzosin [Uroxatral] 10 mg PO DAILY 01/23/19 [History] Sertraline [Zoloft] 100 mg PO DAILY 01/23/19 [History] metFORMIN HCl [Metformin HCl ER] 1,000 mg PO BID 01/23/19 [History] Cholecalciferol (Vitamin D3) [Vitamin D3] 2,000 units PO DAILY 08/06/19 [History] Rivaroxaban [Xarelto] 20 mg PO BEDTIME 08/06/19 [History] Rosuvastatin [Crestor] 10 mg PO DAILY 08/06/19 [History] Diltiazem [Cardizem CD] 120 mg PO DAILY 12/19/20 [History] Furosemide [Lasix] 20 mg PO DAILY 12/19/20 [History] Oxybutynin 5 mg PO BID 12/19/20 [History] Past Medical History HEENT History: Reports: Other (See Below) Other HEENT History: dentures Cardiovascular History: Reports: Afib, Arrhythmia, Heart Murmur, High Cholesterol Other Cardiovascular History: aortic valve stenosis Respiratory History: Reports: Other (See Below) Gastrointestinal History: Reports: None Genitourinary History: Reports: BPH Other Genitourinary History: frequency [employer] History: Reports: None Musculoskeletal History: Reports: Other (See Below) Other Musculoskeletal History: displaced right knee cap in the past Neurological History: Reports: TIA Psychiatric History: Reports: Depression Other Psychiatric History: mild episode of recurrent major depressive disorder Endocrine/Metabolic History: Reports: Diabetes, Type II, Obesity/BMI 30+ Hematologic History: Reports: None Immunologic History: Reports: None Oncologic (Cancer) History: Reports: Other (See Below) Other Oncologic History: liver biopsy Dermatologic History: Reports: Cellulitis Other Dermatologic History: skin lesion - Infectious Disease History Infectious Disease History: Reports: Chicken Pox, Measles, Mumps - Past Surgical History HEENT Surgical History: Reports: Cataract Surgery, Other (See Below) Other HEENT Surgeries/Procedures: resection wedge of eyelid Cardiovascular Surgical History: Reports: Valve Replacement Respiratory Surgical History: Reports: None GI Surgical History: Reports: Cholecystectomy, Colonoscopy, EGD, Other (See Below) Other GI Surgeries/Procedures: Part of liver removed. Liver biopsy. Male Surgical History: Reports: None Musculoskeletal Surgical History: Reports: Knee Replacement, Other (See Below) Other Musculoskeletal Surgeries/Procedures:: right knee surgery for dislocated knee cap, shoulder surgery Oncologic Surgical History: Reports: None Social & Family History - Family History Family Medical History: No Pertinent Family History - Tobacco Use Tobacco Use Status *Q: Former Tobacco User Used Tobacco, but Quit: Yes Month/Year Tobacco Last Used: 2014 - Caffeine Use Caffeine Use: Reports: Coffee Other Caffeine Use: 2-3 cups coffee/day. 1 can pop/day - Recreational Drug Use Recreational Drug Use: No ED ROS GENERAL - Review of Systems Review Of Systems: See Below Constitutional: Denies: Fever, Chills HEENT: Reports: No Symptoms Respiratory: Denies: Shortness of Breath, Cough Cardiovascular: Denies: Chest Pain Endocrine: Reports: No Symptoms GI/Abdominal: Reports: Abdominal Pain, Nausea, Vomiting. Denies: Constipation, Diarrhea : Reports: No Symptoms Musculoskeletal: Reports: No Symptoms Skin: Reports: No Symptoms Neurological: Reports: No Symptoms Psychiatric: Reports: No Symptoms Hematologic/Lymphatic: Reports: No Symptoms ED EXAM, GI/ABD - Physical Exam Exam: See Below Exam Limited By: No Limitations General Appearance: Alert, WD/WN, No Apparent Distress, Other (Does complain of upper abdominal pain but he does not appear to be in any severe distress.) Eyes: Bilateral: Normal Appearance Ears: Normal External Exam Nose: Normal Inspection Throat/Mouth: Normal Lips, Normal Voice, No Airway Compromise Head: Normocephalic Neck: Supple Respiratory/Chest: No Respiratory Distress, Lungs Clear, Normal Breath Sounds Cardiovascular: Regular Rate, Rhythm, No Murmur, Systolic Murmur, Other (Faint systolic ejection murmur noted) GI/Abdominal Exam: Soft, Guarding, Tender, Other (He has tenderness in the right upper quadrant and all across epigastric and left upper quadrant, no rebound but he does guard some with palpation, bowel sounds are decreased. He also has some tenderness in the left lower quadrant but not so much in the right lower quadrant.) Back Exam: Normal Inspection, Full Range of Motion Extremities: Normal Inspection, Normal Range of Motion Neurological: Alert, Oriented Psychiatric: Normal Affect, Normal Mood Skin Exam: Warm, Dry Course - Radiology Interpretation Free Text/Narrative:: Ultrasound of the right upper quadrant kidney and pancreas just shows diffuse increase in hepatic parenchymal echogenicity consistent with fatty infiltration. The liver is somewhat larger than normal at 18 cm. They cannot visualize the pancreas very well but everything else appeared to be normal. - Re-Assessments/Exams Free Text/Narrative Re-Assessment/Exam: 12/19/20 06:59 Spoke to the patient regarding the ultrasound report. Due to his severe pain with nausea and vomiting and unknown etiology when looking at his blood work and then his history of liver cancer I will order a p.o. and IV contrast CT of the abdomen and pelvis. 12/19/20 07:04 Dr. Mayfield will be taking over the care of this patient. Departure - Departure Disposition: Admitted As Inpatient 66 Clinical Impression: Thrombocytopenia Abdominal pain Qualifiers: Abdominal location: upper abdomen, unspecified Qualified Code(s): R10.10 - Upper abdominal pain, unspecified Gastric ulcer Qualifiers: Gastric ulcer chronicity: acute Gastric ulcer complication status: with hemorrhage Qualified Code(s): K25.0 - Acute gastric ulcer with hemorrhage Liver cancer Qualifiers: Liver malignancy type: unspecified primary liver malignancy Qualified Code(s): C22.8 - Malignant neoplasm of liver, primary, unspecified as to type - Discharge Information Referrals: Zaki Canales MD [Primary Care Provider] - Forms: ED Department Discharge Sepsis Event Note (ED) - Evaluation Sepsis Screening Result: No Definite Risk <Stephen Mayfield - Last Filed: 12/19/20 09:48> #1 Interpretation EKG Date: 12/19/20 Time: 07:15 Rhythm: NSR Rate (Beats/Min): 84 [place]: LAD-Left [place] Deviation P-Wave: Present QRS: Normal ST-T: Normal QT: Normal MT/PQ Interval: 1st degree HB EKG Interpretation Comments: Q waves in the inferior leads Course - Vital Signs Last Recorded V/S: Last Vital Signs Temp 97.9 F 12/19/20 04:49 Pulse 85 12/19/20 09:00 Resp 14 12/19/20 09:00 BP 121/70 12/19/20 09:00 Pulse Ox 90 L 12/19/20 09:00 - Orders/Labs/Meds Orders: Active Orders 24 hr Category Date Time Status Patient Status [ADT] Routine ADT 12/19/20 09:23 Active Activity as Tolerated [RC] .Routine Care 12/19/20 09:23 Active Antiembolic Devices [RC] PER UNIT ROUTINE Care 12/19/20 09:24 Active EKG Documentation Completion [RC] ASDIRECTED Care 12/19/20 07:06 Active Oxygen Therapy [RC] ASDIRECTED Care 12/19/20 05:45 Active Oxygen Therapy [RC] PRN Care 12/19/20 09:23 Active RT Incentive Spirometry [RC] Q1HWA Care 12/19/20 09:23 Active Vital Signs [RC] Q4H Care 12/19/20 09:23 Active Nothing Per Oral Diet [DIET] Diet 12/19/20 Breakfast Active CBC WITH AUTO DIFF [HEME] Timed Lab 12/19/20 16:00 Ordered Lactated Ringers [Ringers, Lactated] 1,000 ml Med 12/19/20 09:30 Active IV ASDIRECTED Morphine Med 12/19/20 09:23 Active 1 mg IVPUSH Q3H PRN Ondansetron [Zofran] 4 mg Med 12/19/20 09:27 Active Sodium Chloride 0.9% [Normal Saline] 50 ml IV Q6H Oxybutynin Med 12/19/20 21:00 Active 5 mg PO BID Pantoprazole [ProTONIX IV] 40 mg Med 12/19/20 21:00 Active Sodium Chloride 0.9% [Normal Saline] 100 ml IV BID Rosuvastatin [Crestor] Med 12/20/20 09:00 Active 10 mg PO DAILY Sertraline [Zoloft] Med 12/20/20 09:00 Active 100 mg PO DAILY Sodium Chloride 0.9% [Normal Saline] 1,000 ml Med 12/19/20 09:29 Active IV ONETIME Sodium Chloride 0.9% [Saline Flush] Med 12/19/20 07:45 Active 10 ml FLUSH BOLUS Sucralfate [Carafate] Med 12/19/20 09:30 Active 1 gm PO Q6H Sequential Compression Device [OM.PC] Routine Oth 12/19/20 09:23 Ordered Resuscitation Status Routine Resus Stat 12/19/20 09:23 Ordered EKG 12 Lead [EK] Stat Ther 12/19/20 07:06 Ordered Medication Orders Lactated Ringer's (Ringers, Lactated) 1,000 mls @ 100 mls/hr IV ASDIRECTED NURY Pantoprazole Sodium 40 mg/ (Sodium Chloride) 100 mls @ 200 mls/hr IV BID NURY Ondansetron HCl 4 mg/ Sodium (Chloride) 52 mls @ 100 mls/hr IV Q6H PRN PRN Reason: Nausea Sodium Chloride (Normal Saline) 1,000 mls @ 1,000 mls/hr IV ONETIME ONE Stop: 12/19/20 10:28 Morphine Sulfate (Morphine 2 Mg/Ml Syringe) 1 mg IVPUSH Q3H PRN PRN Reason: Pain (severe 7-10) Oxybutynin Chloride (Oxybutynin 5 Mg Tab) 5 mg PO BID [facility] Rosuvastatin Calcium (Rosuvastatin 10 Mg Tab) 10 mg PO DAILY [facility] Sertraline HCl (Sertraline 50 Mg Tab) 100 mg PO DAILY [facility] Sodium Chloride (Sodium Chloride 0.9% 10 Ml Syringe) 10 ml FLUSH BOLUS [facility] Last Admin: 12/19/20 07:56 Dose: 10 ml Documented by: ASHLEY Sucralfate (Sucralfate Suspension 1 Gm/10 Ml Cup) 1 gm PO Q6H [facility] Last Admin: 12/19/20 09:44 Dose: Not Given Documented by: MALIK Labs: Laboratory Tests 12/19/20 12/19/20 12/19/20 Range/Units 05:20 05:20 07:20 WBC 6.99 (4.23-9.07) K/mm3 RBC 4.46 L (4.63-6.08) M/mm3 Hgb 13.8 (13.7-17.5) gm/dl Hct 42.4 (40.1-51.0) % MCV 95.1 H (79.0-92.2) fl MCH 30.9 (25.7-32.2) pg MCHC 32.5 (32.2-35.5) g/dl RDW Std Deviation 49.3 H (35.1-43.9) fL Plt Count 72 L (163-337) K/mm3 MPV 11.0 (9.4-12.3) fl Neut % (Auto) 93.6 H (34.0-67.9) % Lymph % (Auto) 2.0 L (21.8-53.1) % [place] % (Auto) 3.9 L (5.3-12.2) % Eos % (Auto) 0.4 L (0.8-7.0) Baso % (Auto) 0.1 (0.1-1.2) % Neut # (Auto) 6.54 H (1.78-5.38) K/mm3 Lymph # (Auto) 0.14 L (1.32-3.57) K/mm3 [place] # (Auto) 0.27 L (0.30-0.82) K/mm3 Eos # (Auto) 0.03 L (0.04-0.54) K/mm3 Baso # (Auto) 0.01 (0.01-0.08) K/mm3 Manual Slide Review Abnormal smear Sodium 140 (136-145) mEq/L Potassium 3.9 (3.5-5.1) mEq/L Chloride 101 (98-107) mEq/L Carbon Dioxide 29 (21-32) mEq/L Anion Gap 13.9 (5-15) BUN 13 (7-18) mg/dL Creatinine 1.0 (0.7-1.3) mg/dL Est Cr Clr Drug Dosing 79.92 mL/min Estimated GFR (MDRD) > 60 (>60) mL/min BUN/Creatinine Ratio 13.0 L (14-18) Glucose 216 H (80-115) mg/dL Calcium 9.1 (8.5-10.1) mg/dL Total Bilirubin 1.2 H (0.2-1.0) mg/dL AST 61 H (15-37) U/L ALT 55 (16-63) U/L Alkaline Phosphatase 242 H (46-116) U/L Troponin I < 0.017 < 0.017 (0.00-0.056) ng/mL Total Protein 7.6 (6.4-8.2) g/dl Albumin 3.4 (3.4-5.0) g/dl Globulin 4.2 gm/dL Albumin/Globulin Ratio 0.8 L (1-2) Lipase 155 (73-393) U/L Meds: Medications Generic Name Dose Route Start Last Admin Trade Name Freq PRN Reason Stop Dose Admin Lactated Ringer's 1,000 mls @ 100 mls/hr 12/19/20 09:30 Ringers, Lactated IV ASDIRECTED NURY Pantoprazole Sodium 40 mg/ 100 mls @ 200 mls/hr 12/19/20 21:00 Sodium Chloride IV BID NURY Ondansetron HCl 4 mg/ Sodium 52 mls @ 100 mls/hr 12/19/20 09:27 Chloride IV Q6H PRN Nausea Sodium Chloride 1,000 mls @ 1,000 mls/hr 12/19/20 09:29 Normal Saline IV 12/19/20 10:28 ONETIME ONE Morphine Sulfate 1 mg 12/19/20 09:23 Morphine 2 Mg/Ml Syringe IVPUSH Q3H PRN Pain (severe 7-10) Oxybutynin Chloride 5 mg 12/19/20 21:00 Oxybutynin 5 Mg Tab PO BID [facility] Rosuvastatin Calcium 10 mg 12/20/20 09:00 Rosuvastatin 10 Mg Tab PO DAILY [facility] Sertraline HCl 100 mg 12/20/20 09:00 Sertraline 50 Mg Tab PO DAILY [facility] Sodium Chloride 10 ml 12/19/20 07:45 12/19/20 07:56 Sodium Chloride 0.9% 10 Ml Syringe FLUSH 10 ml BOLUS [facility] Administration Sucralfate 1 gm 12/19/20 09:30 12/19/20 09:44 Sucralfate Suspension 1 Gm/10 Ml Cup PO Not Given Q6H [facility] Discontinued Medications Generic Name Dose Route Start Last Admin Trade Name Freq PRN Reason Stop Dose Admin Hydromorphone HCl 0.5 mg 12/19/20 05:04 12/19/20 05:30 Hydromorphone 0.5 Mg/0.5 Ml Syringe IVPUSH 12/19/20 05:05 0.5 mg ONETIME ONE Administration Hydromorphone HCl 1 mg 12/19/20 07:25 12/19/20 07:29 Hydromorphone 1 Mg/Ml Syringe IVPUSH 12/19/20 07:26 1 mg ONETIME ONE Administration Lactated Ringer's 1,000 mls @ 500 mls/hr 12/19/20 05:15 12/19/20 05:36 Ringers, Lactated IV 500 mls/hr ASDIRECTED NURY Administration Iopamidol 100 ml 12/19/20 07:34 12/19/20 07:55 Iopamidol 612 Mg/Ml 100 Ml Bottle IVPUSH 12/19/20 07:35 100 ml ONETIME ONE Administration Iopamidol 50 ml 12/19/20 07:36 12/19/20 07:56 Iopamidol 612 Mg/Ml 50 Ml Sdv IVPUSH 12/19/20 07:37 50 ml ONETIME ONE Administration Metoclopramide HCl 10 mg 12/19/20 07:25 12/19/20 07:29 Metoclopramide 10 Mg/2 Ml Sdv IVPUSH 12/19/20 07:26 10 mg ONETIME ONE Administration Ondansetron HCl 4 mg 12/19/20 05:04 12/19/20 05:30 Ondansetron 4 Mg/2 Ml Sdv IVPUSH 12/19/20 05:05 4 mg ONETIME ONE Administration Pantoprazole Sodium 40 mg 12/19/20 09:05 12/19/20 09:12 Pantoprazole 40 Mg Vial IVPUSH 12/19/20 09:06 40 mg ONETIME ONE Administration Sucralfate 1 gm 12/19/20 09:05 12/19/20 09:12 Sucralfate Suspension 1 Gm/10 Ml Cup PO 12/19/20 09:06 1 gm ONETIME ONE Administration - Re-Assessments/Exams Free Text/Narrative Re-Assessment/Exam: 12/19/20 09:[address] Henson. His WBC and Hgb were normal. His platelets were low at 72. His glucose was 216. His total bili was 1.2. His AST was elevated at 61. His alk phos was elevated at 242. His troponin was negative initially. He did have a run of V-tach of about 8 beats. I did an EKG and it showed a NSR with no acute changes. His repeat troponin was negative. His lipase was normal. The CT of his chest shows slight atelectasis within both posterior lung bases superimposed upon scarring. Nothing acute is appreciated. Low density lesion within the right lobe of the liver measuring up to 3.8cm. This is an interval change from prior exam. This is not identified on recent ultrasound study. Has this been worked up in the past? Increased fluid within the stomach. There is also increased density within the body and fundus of the stomach which could represent ingested material or represent acute blood. By history patient has not had recent meal and blood is most likely etiology. Other findings as noted above believed to be incidental. No other acute finding is appreciated on CT study of the abdomen and pelvis. I called Dr Alfaro and he will come see the patient. He did want me to give him protonix 40mg IV and sucralfate PO. I have ordered both. 12/19/20 09:46 Dr Alfaro will admit him and hold his xarelto and put him on a PPI. Departure - Departure Time of Disposition: 09:50 Condition: Fair Sepsis Event Note (ED) - Focused Exam Vital Signs: Vital Signs Temp Pulse Resp BP Pulse Ox 12/19/20 09:00 85 14 121/70 90 L 12/19/20 08:30 84 14 128/67 90 L 12/19/20 08:05 86 14 114/60 91 L 12/19/20 06:00 17 124/67 92 L 12/19/20 04:49 97.9 F 97 17 130/68 95 - My Orders Last 24 Hours: My Active Orders 12/19/20 07:06 EKG Documentation Completion [RC] ASDIRECTED EKG 12 Lead [EK] Stat - Assessment/Plan Last 24 Hours: My Active Orders 12/19/20 07:06 EKG Documentation Completion [RC] ASDIRECTED EKG 12 Lead [EK] Stat
[2020-12-19] MEDS ORDERED: Lactated Ringers 1,000 ML IV SCH (05:15)
[2020-12-19] MEDS ORDERED: Metoclopramide 10 MG/2 ML SDV IVPUSH ONE (07:25)
[2020-12-19] MEDS ORDERED: HYDROmorphone 1 MG/ML Syringe IVPUSH ONE (07:25)
[2020-12-19] MEDS ORDERED: Iopamidol 612 MG/ML 100 ML Bottle IVPUSH ONE (07:34)
[2020-12-19] MEDS ORDERED: Iopamidol 612 MG/ML 50 ML SDV IVPUSH ONE (07:36)
[2020-12-19] MEDS ORDERED: Sodium Chloride 0.9% 10 ML Syringe FLUSH SCH (07:45)
--- NOTE | 2020-12-19 09:01 | CT ---
CT chest Technique: Multiple axial sections through the chest were obtained. Intravenous contrast was utilized. Reconstructed coronal and sagittal images were obtained. Comparison: Prior CT chest exam of 08/07/19. Findings: Atherosclerotic calcification is seen within the thoracic aorta. No aneurysm or dissection is seen within the aorta. Coronary artery calcification is seen. No pericardial thickening is seen. Small lymph nodes are seen within the mediastinum which are believed to be within normal limits. No axillary adenopathy is appreciated. Minimal scattered nodules are seen on lung window settings. These are believed to be stable. There is minimal atelectasis posteriorly within both lung bases as well as areas of scarring. No acute parenchymal change is appreciated. Bone window settings were reviewed which show scattered degenerative change within the spine. Previous sternotomy is noted. No acute osseous finding is appreciated. Impression: 1. Slight atelectasis within both posterior lung bases superimposed upon scarring. 2. Other findings as noted above. Nothing acute is appreciated. Diagnostic code #2 CT abdomen and pelvis Technique: Multiple axial sections were obtained through the abdomen and pelvis. Intravenous contrast was utilized. No oral contrast has been given. Reconstructed coronal and sagittal images were obtained. Comparison: Prior CT abdomen and pelvis study of 09/09/19. Prior ultrasound study performed earlier (5:49 AM). Findings: Low density lesion is noted within the right lobe of the liver. This is an interval change from prior exam. This finding measures approximately 3.8 cm. Prior study showed a low density lesion within the left lobe which cannot be seen on the current CT study. Gallbladder is collapsed and shows a minimal density possibly due to minimal gallstone. Stomach is dilated with fluid. There is some increased density noted within the body of the stomach and superiorly close to the fundus which could represent ingested material as well as possible blood. Spleen appears within normal limits. Adrenal glands show no nodule. No abnormality is appreciated within the pancreas. Kidneys show symmetric contrast enhancement. Cyst is noted within the left kidney measuring 1.9 cm which is stable from prior CT exam. Abdominal aorta shows atherosclerotic calcification without aneurysmal dilatation. Atherosclerotic calcification continues into the iliac vessels. No retroperitoneal adenopathy or mesenteric abnormalities are seen. Prostate calcifications are seen. No discrete pelvic mass or adenopathy is noted. Diverticuli are seen within portions of the descending and sigmoid colon. No inflammatory change is seen to indicate diverticulitis. Bone window settings were reviewed which show diffuse degenerative change within the spine. No definite acute osseous abnormality is appreciated. Impression: 1. Low density lesion within the right lobe of the liver measuring up to 3.8 cm. This is an interval change from prior exam. This is not identified on recent ultrasound study. Has this been worked up in the past? 2. Increased fluid within the stomach. There is also increased density within the body and fundus of the stomach which could represent ingested material or represent acute blood. By history patient has not had recent meal and blood is the most likely etiology. 3. Other findings as noted above believed to be incidental. No other acute finding is appreciated on CT study of the abdomen and pelvis. Diagnostic code #9
[2020-12-19] MEDS ORDERED: Sucralfate Suspension 1 GM/10 ML Cup PO ONE (09:05)
[2020-12-19] MEDS ORDERED: Pantoprazole 40 MG Vial IVPUSH ONE (09:05)
--- NOTE | 2020-12-19 09:19 | US ---
Limited abdominal ultrasound: Multiple real-time images of the upper right abdomen were obtained. Technologist's note: Suboptimal study due to patient body habitus, poor ultrasound windows and lots of bowel gas Comparison: No prior abdominal ultrasound is available. Liver is poorly seen. No gross abnormality is noted. No finding is appreciated on the ultrasound to explain subsequent CT mass within the right lobe of the liver. History and ultrasound says prior cholecystectomy. Interesting to note that there appears to be a small gallbladder on the CT exam which most likely represents a small cystic collection on CT study if history of cholecystectomy is present. Right kidney shows no hydronephrosis. No biliary duct dilatation is seen. Main portal vein shows normal hepatopedal flow. Pancreas is not seen. Impression: 1. Suboptimal study as noted above. 2. History of prior cholecystectomy, if this is correct the report on CT study suggesting a small gallbladder most likely represents a small postoperative fluid collection. 3. No additional abnormality is definitely appreciated. Diagnostic code #2 I agree with preliminary report from [facility], finalized on 12/19/20, 7:55 AM CDT
[2020-12-19] MEDS ORDERED: Morphine 2 MG/ML SYRINGE IVPUSH PRN (09:23)
[2020-12-19] MEDS ORDERED: Ondansetron 4 MG in Sodium Chloride 0.9% 50 ML IV PRN (09:27)
[2020-12-19] MEDS ORDERED: Sodium Chloride 0.9% 1,000 ML IV ONE (09:29)
--- NOTE | 2020-12-19 09:36 | PCM.HP.2 ---
H&P History of Present Illness - General Date of Service: 12/19/20 Admit Problem/Dx: Admission Diagnosis/Problem Admission Diagnosis/Problem Gastritis with hemorrhage Source of Information: Patient, Provider History Limitations: Reports: No Limitations - History of Present Illness Initial Comments - Free Text/Narative: Mr. Schaefer is a 70 yo man with history of cirrhosis, HCC who presents with nausea, vomiting and abdominal pain that started last night. He has vomited multiple times, with emesis described as relatively clear. He denies hematemesis or melena. Lab work indicates only mild dehydration, and CT scan is significant for finding of what looks like gastric hemorrhage. The patient is hemodynamically normal and Hgb > 13 with no clinical signs of GI bleed. He is taking xarelto for atrial fibrillation. He has no history of peptic ulcer disease and does not take antacid medication. He has never had an upper endoscopy. He has no history of portal hypertension or esophageal varices. Right Upper Abdomen Pain Score (Numeric/FACES): 7 - Related Data Allergies/Adverse Reactions: Allergies Allergy/AdvReac Type Severity Reaction Status Date / Time cyclobenzaprine Allergy Severe Hallucinati Verified 12/19/20 05:44 [From Flexeril] ons gabapentin Allergy Severe Hallucinati Verified 12/19/20 05:44 ons Home Medications: Home Meds Alfuzosin [Uroxatral] 10 mg PO DAILY 01/23/19 [History] Sertraline [Zoloft] 100 mg PO DAILY 01/23/19 [History] metFORMIN HCl [Metformin HCl ER] 1,000 mg PO BID 01/23/19 [History] Cholecalciferol (Vitamin D3) [Vitamin D3] 2,000 units PO DAILY 08/06/19 [History] Rivaroxaban [Xarelto] 20 mg PO BEDTIME 08/06/19 [History] Rosuvastatin [Crestor] 10 mg PO DAILY 08/06/19 [History] Diltiazem [Cardizem CD] 120 mg PO DAILY 12/19/20 [History] Furosemide [Lasix] 20 mg PO DAILY 12/19/20 [History] Oxybutynin 5 mg PO BID 12/19/20 [History] Past Medical History HEENT History: Reports: Other (See Below) Other HEENT History: dentures Cardiovascular History: Reports: Afib, Arrhythmia, Heart Murmur, High Cholesterol Other Cardiovascular History: aortic valve stenosis Respiratory History: Reports: Other (See Below) Gastrointestinal History: Reports: Other (See Below) Other Gastrointestinal History: Nodule to upper liver near the diaphragm Genitourinary History: Reports: BPH Other Genitourinary History: frequency COLLAR FUSER History: Reports: None Musculoskeletal History: Reports: Other (See Below) Other Musculoskeletal History: displaced right knee cap in the past Neurological History: Reports: TIA Psychiatric History: Reports: Depression Other Psychiatric History: mild episode of recurrent major depressive disorder Endocrine/Metabolic History: Reports: Diabetes, Type II, Obesity/BMI 30+ Hematologic History: Reports: Other (See Below) Other Hematologic History: low platelets Immunologic History: Reports: None Oncologic (Cancer) History: Reports: Liver, Other (See Below) Other Oncologic History: liver biopsy. Nodule to upper liver near the diaphragm Dermatologic History: Reports: Cellulitis Other Dermatologic History: skin lesion - Infectious Disease History Infectious Disease History: Reports: Chicken Pox, Measles, Mumps - Past Surgical History HEENT Surgical History: Reports: Cataract Surgery, Other (See Below) Other HEENT Surgeries/Procedures: resection wedge of eyelid Cardiovascular Surgical History: Reports: Valve Replacement Respiratory Surgical History: Reports: None GI Surgical History: Reports: Cholecystectomy, Colonoscopy, EGD, Other (See Below) Other GI Surgeries/Procedures: Part of liver removed. Liver biopsy. Male Surgical History: Reports: None Musculoskeletal Surgical History: Reports: Knee Replacement, Other (See Below) Other Musculoskeletal Surgeries/Procedures:: right knee surgery for dislocated knee cap, shoulder surgery Oncologic Surgical History: Reports: None Social & Family History - Family History Family Medical History: No Pertinent Family History - Tobacco Use Tobacco Use Status *Q: Former Tobacco User Used Tobacco, but Quit: Yes Month/Year Tobacco Last Used: 2014 - Caffeine Use Caffeine Use: Reports: Coffee Other Caffeine Use: 2-3 cups coffee/day. 1 can pop/day - Recreational Drug Use Recreational Drug Use: No H&P Review of Systems - Review of Systems: Review Of Systems: See Below General: Reports: Malaise HEENT: Reports: No Symptoms Pulmonary: Reports: No Symptoms Cardiovascular: Reports: No Symptoms Gastrointestinal: Reports: Abdominal Pain, Anorexia, Diarrhea, Nausea, Vomiting Genitourinary: Reports: No Symptoms Musculoskeletal: Reports: No Symptoms Skin: Reports: No Symptoms Psychiatric: Reports: No Symptoms Neurological: Reports: No Symptoms Hematologic/Lymphatic: Reports: Easy Bleeding Immunologic: Reports: No Symptoms Exam - Exam Exam: See Below - Vital Signs Vital Signs: Last Vital Signs Temp 36.6 C 12/19/20 04:49 Pulse 85 12/19/20 09:00 Resp 14 12/19/20 09:00 BP 121/70 12/19/20 09:00 Pulse Ox 90 L 12/19/20 09:00 Weight: 112.173 kg - Exam General: Alert, Oriented, Cooperative HEENT: Conjunctiva Clear Neck: Supple, Trachea Midline Lungs: Clear to Auscultation, Normal Respiratory Effort Cardiovascular: Regular Rate GI/Abdominal Exam: Other (distended, minimally tender diffusely, no especially tympanitic, right subcostal incision scar) Skin: Warm, Dry Neuro Extensive - Mental Status: Alert, Oriented x3 Psychiatric: Normal Mood - Patient Data Lab Results Last 24 hrs: Laboratory Results - last 24 hr 12/19/20 12/19/20 12/19/20 Range/Units 05:20 05:20 07:20 WBC 6.99 (4.23-9.07) K/mm3 RBC 4.46 L (4.63-6.08) M/mm3 Hgb 13.8 (13.7-17.5) gm/dl Hct 42.4 (40.1-51.0) % MCV 95.1 H (79.0-92.2) fl MCH 30.9 (25.7-32.2) pg MCHC 32.5 (32.2-35.5) g/dl RDW Std Deviation 49.3 H (35.1-43.9) fL Plt Count 72 L (163-337) K/mm3 MPV 11.0 (9.4-12.3) fl Neut % (Auto) 93.6 H (34.0-67.9) % Lymph % (Auto) 2.0 L (21.8-53.1) % [place] % (Auto) 3.9 L (5.3-12.2) % Eos % (Auto) 0.4 L (0.8-7.0) Baso % (Auto) 0.1 (0.1-1.2) % Neut # (Auto) 6.54 H (1.78-5.38) K/mm3 Lymph # (Auto) 0.14 L (1.32-3.57) K/mm3 [place] # (Auto) 0.27 L (0.30-0.82) K/mm3 Eos # (Auto) 0.03 L (0.04-0.54) K/mm3 Baso # (Auto) 0.01 (0.01-0.08) K/mm3 Manual Slide Review Abnormal smear Sodium 140 (136-145) mEq/L Potassium 3.9 (3.5-5.1) mEq/L Chloride 101 (98-107) mEq/L Carbon Dioxide 29 (21-32) mEq/L Anion Gap 13.9 (5-15) BUN 13 (7-18) mg/dL Creatinine 1.0 (0.7-1.3) mg/dL Est Cr Clr Drug Dosing 79.92 mL/min Estimated GFR (MDRD) > 60 (>60) mL/min BUN/Creatinine Ratio 13.0 L (14-18) Glucose 216 H (80-115) mg/dL Calcium 9.1 (8.5-10.1) mg/dL Total Bilirubin 1.2 H (0.2-1.0) mg/dL AST 61 H (15-37) U/L ALT 55 (16-63) U/L Alkaline Phosphatase 242 H (46-116) U/L Troponin I < 0.017 < 0.017 (0.00-0.056) ng/mL Total Protein 7.6 (6.4-8.2) g/dl Albumin 3.4 (3.4-5.0) g/dl Globulin 4.2 gm/dL Albumin/Globulin Ratio 0.8 L (1-2) Lipase 155 (73-393) U/L Result Diagrams: 12/19/20 05:20 12/19/20 05:20 Sepsis Event Note - Evaluation Sepsis Screening Result: No Definite Risk - Focused Exam Vital Signs: Vital Signs Temp Pulse Resp BP Pulse Ox 12/19/20 09:00 85 14 121/70 90 L 12/19/20 08:30 84 14 128/67 90 L 12/19/20 08:05 86 14 114/60 91 L 12/19/20 06:00 17 124/67 92 L 12/19/20 04:49 36.6 C 97 17 130/68 95 Problem List Initiated/Reviewed/Updated: Yes Orders Last 24hrs: Active Orders 24 hr Category Date Time Status Patient Status [ADT] Routine ADT 12/19/20 09:23 Ordered Activity as Tolerated [RC] .Routine Care 12/19/20 09:23 Ordered Antiembolic Devices [RC] PER UNIT ROUTINE Care 12/19/20 09:24 Ordered EKG Documentation Completion [RC] ASDIRECTED Care 12/19/20 07:06 Active Oxygen Therapy [RC] ASDIRECTED Care 12/19/20 05:45 Active Oxygen Therapy [RC] PRN Care 12/19/20 09:23 Ordered RT Incentive Spirometry [RC] Q1HWA Care 12/19/20 09:23 Ordered Vital Signs [RC] Q4H Care 12/19/20 09:23 Ordered Nothing Per Oral Diet [DIET] Diet 12/19/20 Breakfast Ordered CBC WITH AUTO DIFF [HEME] Timed Lab 12/19/20 16:00 Ordered Lactated Ringers @ 100 MLS/HR(1000ml Bag) Med 12/19/20 09:30 Ordered Lactated Ringers [Ringers, Lactated] 1,000 ml IV ASDIRECTED Morphine Med 12/19/20 09:23 Ordered 1 mg IVPUSH Q3H PRN Ondansetron [Zofran] 4 mg Med 12/19/20 09:27 Ordered Sodium Chloride 0.9% [Normal Saline] 50 ml IV Q6H Oxybutynin Med 12/19/20 21:00 Ordered 5 mg PO BID Pantoprazole [ProTONIX IV] 40 mg Med 12/19/20 21:00 Ordered Sodium Chloride 0.9% [Normal Saline] 100 ml IV BID Rosuvastatin [Crestor] Med 12/20/20 09:00 Ordered 10 mg PO DAILY Sertraline [Zoloft] Med 12/20/20 09:00 Ordered 100 mg PO DAILY Sodium Chloride 0.9% [Normal Saline] 1,000 ml Med 12/19/20 09:29 Ordered IV ONETIME Sodium Chloride 0.9% [Saline Flush] Med 12/19/20 07:45 Active 10 ml FLUSH BOLUS Sucralfate [Carafate] Med 12/19/20 09:30 Ordered 1 gm PO Q6H Sequential Compression Device [OM.PC] Routine Oth 12/19/20 09:23 Ordered Resuscitation Status Routine Resus Stat 12/19/20 09:23 Ordered EKG 12 Lead [EK] Stat Ther 12/19/20 07:06 Ordered Medication Orders Lactated Ringer's (Ringers, Lactated) 1,000 mls @ 100 mls/hr IV ASDIRECTED [facility] Pantoprazole Sodium 40 mg/ (Sodium Chloride) 100 mls @ 200 mls/hr IV BID [facility] Ondansetron HCl 4 mg/ Sodium (Chloride) 52 mls @ 100 mls/hr IV Q6H PRN PRN Reason: Nausea Morphine Sulfate (Morphine 2 Mg/Ml Syringe) 1 mg IVPUSH Q3H PRN PRN Reason: Pain (severe 7-10) Oxybutynin Chloride (Oxybutynin 5 Mg Tab) 5 mg PO BID [facility] Rosuvastatin Calcium (Rosuvastatin 10 Mg Tab) 10 mg PO DAILY [facility] Sertraline HCl (Sertraline 50 Mg Tab) 100 mg PO DAILY [facility] Sodium Chloride (Sodium Chloride 0.9% 10 Ml Syringe) 10 ml FLUSH BOLUS [facility] Last Admin: 12/19/20 07:56 Dose: 10 ml Documented by: ASHLEY Sucralfate (Sucralfate Suspension 1 Gm/10 Ml Cup) 1 gm PO Q6H [facility] Assessment/Plan Comment:: New onset nausea, vomiting and abdominal pain, with CT scan suggestive of upper GI hemorrhage. Patient is taking xarelto for atrial fibrillation. Hemodynamically normal with reassuring lab work at this time. Plan for admission to observation. Morphine prn pain IS, pulmonary toilet 1 L NS bolus now, LR @ 100cc/hr NPO, sips with meds okay. Will place NG tube for decompression if patient vomits again. Will plan for EGD if clinical signs of GI bleed manifest. Start protonix 40 mg IV bid, sucralfate. Hold xarelto. Repeat CBC at 4 pm. SCD for DVT ppx - Mortality Measure Prognosis:: Poor
[2020-12-19] MEDS: Sucralfate Suspension 1 GM/10 ML Cup PO SCH ×3 (09:44→20:38)
[2020-12-19] MEDS: Lactated Ringers 1,000 ML IV SCH ×2 (11:41→20:31)
[2020-12-19] MEDS: HYDROmorphone 0.5 MG/0.5 ML Syringe IVPUSH PRN ×3 (14:36→20:39)
[2020-12-19] MEDS: Oxybutynin 5 MG Tab PO SCH (20:34)
[2020-12-19] MEDS ORDERED: Pantoprazole 40 MG in Sodium Chloride 0.9% 100 ML IV SCH (21:00)
[2020-12-20] MEDS: Sucralfate Suspension 1 GM/10 ML Cup PO SCH ×4 (03:46→20:46)
[2020-12-20] MEDS: HYDROmorphone 0.5 MG/0.5 ML Syringe IVPUSH PRN ×2 (03:47→07:39)
[2020-12-20] MEDS: Lactated Ringers 1,000 ML IV SCH (05:41)
[2020-12-20] MEDS ORDERED: Ondansetron 4 MG/2 ML SDV IVPUSH PRN (07:34)
[2020-12-20] MEDS ORDERED: Sodium Chloride 0.45% 1,000 ML IV SCH (09:00)
[2020-12-20] MEDS ORDERED: Sodium Chloride 0.9% 1,000 ML ONE (09:02)
[2020-12-20] MEDS: Rosuvastatin 10 MG Tab PO SCH (09:08)
[2020-12-20] MEDS: Sertraline 50 MG Tab PO SCH (09:08)
[2020-12-20] MEDS: Simethicone 80 MG Tab.Chew PO SCH ×3 (09:08→20:46)
[2020-12-20] MEDS: Pantoprazole 40 MG Vial IV SCH ×2 (09:09→20:46)
[2020-12-20] MEDS: Oxybutynin 5 MG Tab PO SCH ×2 (09:09→20:46)
--- NOTE | 2020-12-20 10:20 | PCM.SN.2 ---
- Free Text/Narrative Note: Hospital day 2, admitted with abdominal pain and vomiting with finding on CT suggestive of hemorrhagic gastritis. S: reports continued abdominal pain and headache. No vomiting since admission. No bowel movement. Passing small amount of flatus. reports right neck swelling. O: AF-VSS Hgb 12.3 this morning, was 12.3 yesterday afternoon Awake and alert, appears mildly uncomfortable On 3 L NC with SpO2 low 90% range, breathing normally RRR Abd distended, tympanitic, tender diffusely, no palpable mass, no rebound A: Probable hemorrhagic gastritis based on CT imaging, although there has been no clinical sign of hemorrhage since admission. Patient has chronic abdominal pain but distention and vomiting are new. No evidence of small bowel obstruction on CT scan. P: Will treat symptoms with gas-x. Stop narcotics. Prefer to avoid giving acetaminophen and NSAIDs given chronic liver disease and presumed gastritis. If feeling better by end of day and tolerating PO may restart anticoagulation at that time. Continue PPI, sucralfate.
[2020-12-20] MEDS ORDERED: Furosemide 20 MG Tab PO ONE (15:00)
[2020-12-20] MEDS ORDERED: Rivaroxaban 10 MG Tab PO ONE (21:00)
[2020-12-20] MEDS ORDERED: metFORMIN 500 MG Tab PO ONE (21:00)
[2020-12-20] MEDS ORDERED: METFORMIN 500 MG PO SCH (21:00)
[2020-12-21] MEDS: Sucralfate Suspension 1 GM/10 ML Cup PO SCH ×2 (03:09→08:45)
[2020-12-21] MEDS: Simethicone 80 MG Tab.Chew PO SCH ×2 (03:09→08:45)
[2020-12-21] MEDS ORDERED: Magnesium Hydroxide 400 MG/5 ML Susp 30 ML Cup PO ONE (06:00)
--- NOTE | 2020-12-21 08:28 | PCM.DCSUM1 ---
Discharge Summary - Hospital Course Free Text/Narrative:: Mr. Schaefer is a 70 yo man with cirrhosis and HCC who presented to the ER with abdominal pain, vomiting, and finding of probable hemorrhagic gastritis on CT scan, although he never had an episode of hematemesis or melena. He takes eliquis for history of atrial fibrillation. He was admitted, placed on a PPI, and anticoagulation was held. Serial CBC showed stable hemoglobin around 12 g/dL. His symptoms improved while he was observed and no invasive procedure was undertaken. His platelets were as low as 51,000, without concurrent signs of active hemorrhage. He was tolerating a regular diet and having bowel movements, with no worrisome symptoms, after observation for 48 hours. Diagnosis: Stroke: No - Discharge Data Discharge Date: 12/21/20 Discharge Disposition: Home, Self-Care 01 Condition: Good - Referral to Home Health Primary Care Physician: Zaki Canales MD - Patient Instructions Diet: Regular Diet as Tolerated Notify Provider of: Fever, Increased Pain, Nausea and/or Vomiting - Discharge Plan *PRESCRIPTION DRUG MONITORING PROGRAM REVIEWED*: Not Applicable *COPY OF PRESCRIPTION DRUG MONITORING REPORT IN PATIENT SHO: Not Applicable Home Medications: Home Meds Alfuzosin [Uroxatral] 10 mg PO DAILY 01/23/19 [History] Sertraline [Zoloft] 100 mg PO DAILY 01/23/19 [History] Cholecalciferol (Vitamin D3) [Vitamin D3] 2,000 units PO DAILY 08/06/19 [History] Rivaroxaban [Xarelto] 20 mg PO BEDTIME 08/06/19 [History] Rosuvastatin [Crestor] 10 mg PO DAILY 08/06/19 [History] Diltiazem [Cardizem CD] 120 mg PO DAILY 12/19/20 [History] Furosemide [Lasix] 20 mg PO DAILY 12/19/20 [History] Ibuprofen [Motrin] 600 mg PO Q4HR PRN 12/19/20 [History] Oxybutynin 5 mg PO BID 12/19/20 [History] metFORMIN HCl [Glucophage] 1,000 mg PO BID 12/20/20 [History] Oxygen Therapy Mode: Room Air Forms: ED Department Discharge Referrals: Zaki Canales MD [Primary Care Provider] - - Discharge Summary/Plan Comment DC Time >30 min.: No Discharge Summary/Plan Comment: Take omeprazole (prilosec) twice a day for two weeks. Go to once a day after this. Plan for follow up with recheck of platelet count with your primary doctor within the next week or two. - Patient Data Vitals - Most Recent: Last Vital Signs Temp 36.5 C 12/21/20 03:12 Pulse 68 12/21/20 03:12 Resp 20 12/21/20 03:12 BP 147/82 H 12/21/20 03:12 Pulse Ox 91 L 12/21/20 03:12 Weight - Most Recent: 112.899 kg I&O - Last 24 hours: Intake & Output 12/20/20 12/21/20 12/21/20 22:59 06:59 14:59 Intake Total 400 600 Output Total 1950 Balance -1550 600 Lab Results - Last 24 hrs: Laboratory Results - last 24 hr 12/20/20 Range/Units 05:58 Sodium 140 (136-145) mEq/L Potassium 4.4 (3.5-5.1) mEq/L Chloride 103 (98-107) mEq/L Carbon Dioxide 32 (21-32) mEq/L Anion Gap 9.4 (5-15) BUN 10 (7-18) mg/dL Creatinine 0.7 (0.7-1.3) mg/dL Est Cr Clr Drug Dosing 114.17 mL/min Estimated GFR (MDRD) > 60 (>60) mL/min BUN/Creatinine Ratio 14.3 (14-18) Glucose 149 H (80-115) mg/dL Calcium 8.4 L (8.5-10.1) mg/dL Total Bilirubin 1.2 H (0.2-1.0) mg/dL AST 49 H (15-37) U/L ALT 45 (16-63) U/L Alkaline Phosphatase 177 H (46-116) U/L Total Protein 6.7 (6.4-8.2) g/dl Albumin 2.8 L (3.4-5.0) g/dl Globulin 3.9 gm/dL Albumin/Globulin Ratio 0.7 L (1-2) Med Orders - Current: Current Medications Cholecalciferol (Cholecalciferol (Vitamin D3) 25 Mcg Tab) 50 mcg PO DAILY [facility]UR[facility] Diltiazem HCl (Diltiazem 120 Mg Cap.Cd) 120 mg PO DAILY [facility] Furosemide (Furosemide 20 Mg Tab) 20 mg PO DAILY [facility] Non-Formulary Medication (Alfuzosin [Uroxatral]) 10 mg PO DAILY [facility] Non-Formulary Medication (Rivaroxaban [Xarelto]) 20 mg PO BEDTIME [facility] Non-Formulary Medication (Metformin) 1,000 mg PO BID [facility] Ondansetron HCl (Ondansetron 4 Mg/2 Ml Sdv) 4 mg IVPUSH Q6H PRN PRN Reason: NAUSEA Oxybutynin Chloride (Oxybutynin 5 Mg Tab) 5 mg PO BID [facility] Last Admin: 12/20/20 20:46 Dose: 5 mg Documented by: Pantoprazole Sodium (Pantoprazole 40 Mg Vial) 40 mg IV BID [facility] Last Admin: 12/20/20 20:46 Dose: 40 mg Documented by: Rosuvastatin Calcium (Rosuvastatin 10 Mg Tab) 10 mg PO DAILY [facility] Last Admin: 12/20/20 09:08 Dose: 10 mg Documented by: Sertraline HCl (Sertraline 50 Mg Tab) 100 mg PO DAILY [facility] Last Admin: 12/20/20 09:08 Dose: 100 mg Documented by: Simethicone (Simethicone 80 Mg Tab.Chew) 80 mg PO Q6H [facility] Last Admin: 12/21/20 03:09 Dose: 80 mg Documented by: Sucralfate (Sucralfate Suspension 1 Gm/10 Ml Cup) 1 gm PO Q6H [facility] Last Admin: 12/21/20 03:09 Dose: 1 gm Documented by: Discontinued Medications Furosemide (Furosemide 20 Mg Tab) 20 mg PO ONETIME ONE Stop: 12/20/20 15:01 Last Admin: 12/20/20 14:52 Dose: 20 mg Documented by: Hydromorphone HCl (Hydromorphone 0.5 Mg/0.5 Ml Syringe) 0.5 mg IVPUSH ONETIME ONE Stop: 12/19/20 05:05 Last Admin: 12/19/20 05:30 Dose: 0.5 mg Documented by: Hydromorphone HCl (Hydromorphone 1 Mg/Ml Syringe) 1 mg IVPUSH ONETIME ONE Stop: 12/19/20 07:26 Last Admin: 12/19/20 07:29 Dose: 1 mg Documented by: Hydromorphone HCl (Hydromorphone 0.5 Mg/0.5 Ml Syringe) 0.5 mg IVPUSH ONETIME ONE Stop: 12/19/20 10:13 Last Admin: 12/19/20 10:17 Dose: 0.5 mg Documented by: Hydromorphone HCl (Hydromorphone 0.5 Mg/0.5 Ml Syringe) 0.5 mg IVPUSH Q3H PRN PRN Reason: Pain (severe 7-10) Last Admin: 12/20/20 07:39 Dose: 0.5 mg Documented by: Lactated Ringer's (Ringers, Lactated) 1,000 mls @ 500 mls/hr IV ASDIRECTED [facility] Last Admin: 12/19/20 05:36 Dose: 500 mls/hr Documented by: Lactated Ringer's (Ringers, Lactated) 1,000 mls @ 100 mls/hr IV ASDIRECTED [facility] Last Admin: 12/20/20 05:41 Dose: 100 mls/hr Documented by: Pantoprazole Sodium 40 mg/ (Sodium Chloride) 100 mls @ 200 mls/hr IV BID [facility] Last Admin: 12/19/20 20:29 Dose: 200 mls/hr Documented by: Ondansetron HCl 4 mg/ Sodium (Chloride) 52 mls @ 100 mls/hr IV Q6H PRN PRN Reason: Nausea Sodium Chloride (Normal Saline) 1,000 mls @ 1,000 mls/hr IV ONETIME ONE Stop: 12/19/20 10:28 Last Admin: 12/19/20 10:10 Dose: 1,000 mls/hr Documented by: Sodium Chloride (Sodium Chloride 0.45%) 1,000 mls @ 50 mls/hr IV ASDIRECTED [facility] Last Admin: 12/20/20 09:15 Dose: 50 mls/hr Documented by: Sodium Chloride (Normal Saline) Confirm Administered Dose 1,000 mls @ as directed .ROUTE .STK-MED ONE Stop: 12/20/20 09:03 Last Admin: 12/20/20 09:10 Dose: Not Given Documented by: Iopamidol (Iopamidol 612 Mg/Ml 100 Ml Bottle) 100 ml IVPUSH ONETIME ONE Stop: 12/19/20 07:35 Last Admin: 12/19/20 07:55 Dose: 100 ml Documented by: Iopamidol (Iopamidol 612 Mg/Ml 50 Ml Sdv) 50 ml IVPUSH ONETIME ONE Stop: 12/19/20 07:37 Last Admin: 12/19/20 07:56 Dose: 50 ml Documented by: Magnesium Hydroxide (Magnesium Hydroxide 400 Mg/5 Ml Susp 30 Ml Cup) 30 ml PO ONETIME ONE Stop: 12/21/20 06:01 Last Admin: 12/21/20 07:05 Dose: Not Given Documented by: Metformin HCl (Metformin 500 Mg Tab) 1,000 mg PO ONETIME ONE Stop: 12/20/20 21:01 Last Admin: 12/20/20 20:45 Dose: 1,000 mg Documented by: Metoclopramide HCl (Metoclopramide 10 Mg/2 Ml Sdv) 10 mg IVPUSH ONETIME ONE Stop: 12/19/20 07:26 Last Admin: 12/19/20 07:29 Dose: 10 mg Documented by: Morphine Sulfate (Morphine 2 Mg/Ml Syringe) 1 mg IVPUSH Q3H PRN PRN Reason: Pain (severe 7-10) Last Admin: 12/19/20 11:45 Dose: 1 mg Documented by: Ondansetron HCl (Ondansetron 4 Mg/2 Ml Sdv) 4 mg IVPUSH ONETIME ONE Stop: 12/19/20 05:05 Last Admin: 12/19/20 05:30 Dose: 4 mg Documented by: Pantoprazole Sodium (Pantoprazole 40 Mg Vial) 40 mg IVPUSH ONETIME ONE Stop: 12/19/20 09:06 Last Admin: 12/19/20 09:12 Dose: 40 mg Documented by: Rivaroxaban (Rivaroxaban 10 Mg Tab) 20 mg PO ONETIME ONE Stop: 12/20/20 21:01 Last Admin: 12/20/20 20:46 Dose: 20 mg Documented by: Sodium Chloride (Sodium Chloride 0.9% 10 Ml Syringe) 10 ml FLUSH BOLUS NURY Last Admin: 12/19/20 07:56 Dose: 10 ml Documented by: Sucralfate (Sucralfate Suspension 1 Gm/10 Ml Cup) 1 gm PO ONETIME ONE Stop: 12/19/20 09:06 Last Admin: 12/19/20 09:12 Dose: 1 gm Documented by:
[2020-12-21] MEDS: Rosuvastatin 10 MG Tab PO SCH (08:45)
[2020-12-21] MEDS: Sertraline 50 MG Tab PO SCH (08:45)
[2020-12-21] MEDS: Pantoprazole 40 MG Vial IV SCH (08:45)
[2020-12-21] MEDS: Oxybutynin 5 MG Tab PO SCH (08:45)
[2020-12-21 08:52] VITALS: BP 141/94; PULSE 62
[2020-12-21] MEDS ORDERED: METFORMIN 500 MG PO SCH (09:00)
[2020-12-21] MEDS ORDERED: Diltiazem 120 MG Cap.CD PO SCH (09:00)
[2020-12-21] MEDS ORDERED: Furosemide 20 MG Tab PO SCH (09:00)
[2020-12-21] MEDS ORDERED: ALFUZOSIN 10 MG PO SCH (09:00)
[2020-12-21] MEDS ORDERED: Cholecalciferol (Vitamin D3) 25 MCG Tab PO SCH (09:00)
[2020-12-21] MEDS ORDERED: Non-Formulary Medication 1 Each (Rivaroxaban [Xarelto] 20 MG Tablet) PO SCH (21:00)
== END 2020-12-21 10:21 | disposition home or self-care (01) ==
LOC: JD.ED 04:40 → JD.MS 09:23
PROVIDERS: ADMIT Surgery; ATTEND Surgery
DX: R10.11 Right upper quadrant pain (principal); R11.2 Nausea with vomiting, unspecified; C22.0 Liver cell carcinoma; D69.6 Thrombocytopenia, unspecified; I48.91 Unspecified atrial fibrillation; E78.00 Pure hypercholesterolemia, unspecified; E11.9 Type 2 diabetes mellitus without complications; E66.9 Obesity, unspecified; Z68.32 Body mass index [BMI] 32.0-32.9, adult; Z01.812 Encounter for preprocedural laboratory examination; Z20.822 Contact with and (suspected) exposure to COVID-19; Z88.8 Allergy status to other drugs, medicaments and biological substances; Z79.84 Long term (current) use of oral hypoglycemic drugs; Z79.899 Other long term (current) drug therapy; Z87.891 Personal history of nicotine dependence; Z95.818 Presence of other cardiac implants and grafts; Z98.890 Other specified postprocedural states
CPT/HCPCS: 36415; 71260; 74177; 76705; 80053; 83690; 84484; 85025; 93005; 94761; 96365; 96375; 96376; 99285; A9270; C9113; G0378; J1170; J2270; J2405; J2765; J7030; J7120; Q9967; U0002; 93010; 96374; 99217; 99219; 99225

== ENCOUNTER 2021-04-13 09:40 | Emergency (ER) | payer MEDICARE, BC ==
[2021-04-13] MEDS ORDERED: Sodium Chloride 0.9% 10 ML Syringe FLUSH PRN (09:57)
[2021-04-13 10:06] VITALS: BP 126/63; PULSE 73
--- NOTE | 2021-04-13 10:22 | CT ---
Head CT Technique: Multiple axial sections through the brain were obtained. Intravenous contrast was not utilized. Reconstructed coronal and sagittal images were obtained. Comparison: Prior head CT study of 08/06/19. Findings: Ventricles along with basal cisterns and sulci over the convexities are mildly prominent. No abnormal parenchymal densities are seen. No evidence of intracranial hemorrhage is seen. No midline shift or mass-effect is seen. Bone window settings were reviewed which show mild atherosclerotic calcification within the carotid siphon. No acute calvarial abnormality is seen. Visualized mastoid sinuses and paranasal sinuses show nothing acute. Impression: 1. Mild generalized atrophy. This appears similar to prior exam. 2. Slight atherosclerotic calcification within the carotid siphon. 3. No acute intracranial abnormality is appreciated. Diagnostic code #2
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
== END 2021-04-13 12:30 | disposition home or self-care (01) ==
LOC: JD.ED 09:40
DX: R42 Dizziness and giddiness (principal); D69.6 Thrombocytopenia, unspecified; D72.818 Other decreased white blood cell count; I48.91 Unspecified atrial fibrillation; E78.00 Pure hypercholesterolemia, unspecified; E11.9 Type 2 diabetes mellitus without complications; E66.9 Obesity, unspecified; Z68.32 Body mass index [BMI] 32.0-32.9, adult; Z88.5 Allergy status to narcotic agent; Z79.01 Long term (current) use of anticoagulants; Z79.899 Other long term (current) drug therapy; Z79.84 Long term (current) use of oral hypoglycemic drugs; Z87.891 Personal history of nicotine dependence
CPT/HCPCS: 36415; 70450; 70450-26; 80053; 84484; 85025; 85610; 85730; 93005; 93010; 99284; 99284-25

== ENCOUNTER 2021-05-23 13:52 | Emergency (ER) | payer MEDICARE, BC ==
[2021-05-23 14:08] VITALS: BP 140/59; PULSE 86
--- NOTE | 2021-05-23 16:07 | EDM.PDOC ---
ED HPI GENERAL MEDICAL PROBLEM - General Chief Complaint: Gastrointestinal Problem Stated Complaint: BLACK STOOL Time Seen by Provider: 05/23/21 14:00 Source of Information: Reports: Patient History Limitations: Reports: No Limitations - History of Present Illness INITIAL COMMENTS - FREE TEXT/NARRATIVE: 70-year-old male presents the emergency department today with complaints of black tarry stools for the past 2 days. Patient takes Xarelto for intermittent atrial fibrillation. He states that 2 days ago he noted black tarry stools and did have a little dizziness associated with it however he states that the dizziness has resolved. He states he noted black tarry stools again yesterday and has not had a bowel movement today. He states he called his primary care provider, , who advised him to come to the emergency department for evaluation. He denies any fever, chills, nausea, vomiting or diarrhea. He denies any shortness of breath or cough or any other respiratory type symptoms. States he has felt healthy otherwise. Of note, the patient does have a primary hepatocellular carcinoma for like he had a liver resection. He states that he recently had biopsies for new masses spot on liver however they did come back negative. He sees Dr. Farrell, for his oncology and states he sees him in a couple of weeks. - Related Data Allergies Allergy/AdvReac Type Severity Reaction Status Date / Time cyclobenzaprine AdvReac Intermediate Hallucinati Verified 04/13/21 10:06 [From Flexeril] ons gabapentin AdvReac Intermediate Hallucinati Verified 04/13/21 10:06 ons Home Meds: Home Meds Alfuzosin [Uroxatral] 10 mg PO DAILY 01/23/19 [History] Sertraline [Zoloft] 100 mg PO DAILY 01/23/19 [History] Cholecalciferol (Vitamin D3) [Vitamin D3] 2,000 units PO DAILY 08/06/19 [History] Rivaroxaban [Xarelto] 20 mg PO BEDTIME 08/06/19 [History] Rosuvastatin [Crestor] 10 mg PO DAILY 08/06/19 [History] Diltiazem [Cardizem CD] 120 mg PO DAILY 12/19/20 [History] Furosemide [Lasix] 20 mg PO DAILY 12/19/20 [History] Oxybutynin 5 mg PO BID 12/19/20 [History] metFORMIN HCl [Glucophage] 1,000 mg PO BID 12/20/20 [History] Past Medical History HEENT History: Reports: Cataract, Other (See Below) Other HEENT History: wear upper dentures Cardiovascular History: Reports: Afib, Arrhythmia, Heart Murmur, High Cholesterol Other Cardiovascular History: aortic valve stenosis Respiratory History: Reports: Other (See Below) Gastrointestinal History: Reports: Other (See Below) Other Gastrointestinal History: Nodule to upper liver near the diaphragm-found about 1 month ago Genitourinary History: Reports: BPH Other Genitourinary History: frequency 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 Hematologic History: Reports: Other (See Below) Other Hematologic History: low platelets, black stool Immunologic History: Reports: None Oncologic (Cancer) History: Reports: Liver, Other (See Below) Other Oncologic History: liver biopsy. Nodule to upper liver near the diaphragm Dermatologic History: Reports: Cellulitis Other Dermatologic History: skin lesion - Infectious Disease History Infectious Disease History: Reports: Chicken Pox, Measles, Mumps - Past Surgical History Head Surgeries/Procedures: Reports: None HEENT Surgical History: Reports: Cataract Surgery, Other (See Below) Other HEENT Surgeries/Procedures: resection wedge of eyelid Cardiovascular Surgical History: Reports: Valve Replacement Respiratory Surgical History: Reports: None GI Surgical History: Reports: Cholecystectomy, Colonoscopy, EGD, Other (See Below) Other GI Surgeries/Procedures: Part of liver removed. Liver biopsy x2. Male Surgical History: Reports: None Endocrine Surgical History: Reports: None Neurological Surgical History: Reports: None Musculoskeletal Surgical History: Reports: Knee Replacement, Shoulder Surgery, Other (See Below) Other Musculoskeletal Surgeries/Procedures:: right knee surgery for dislocated knee cap, shoulder surgery Oncologic Surgical History: Reports: None Other Oncologic Surgeries/Procedures: Liver ablation Social & Family History - Family History Family Medical History: No Pertinent Family History - Tobacco Use Used Tobacco, but Quit: No - Caffeine Use Caffeine Use: Reports: Coffee Other Caffeine Use: 2-3 cups coffee/day. 1 can pop/day - Recreational Drug Use Recreational Drug Use: No ED ROS GENERAL - Review of Systems Review Of Systems: Comprehensive ROS is negative, except as noted in HPI. ED EXAM, GI/ABD - Physical Exam Exam: See Below Exam Limited By: No Limitations General Appearance: Alert, WD/WN, No Apparent Distress Ears: Normal External Exam, Hearing Grossly Normal Nose: Normal Inspection Throat/Mouth: Normal Inspection, Normal Lips, Normal Voice, No Airway Compromise Head: Atraumatic Neck: Normal Inspection, Supple Respiratory/Chest: No Respiratory Distress, Lungs Clear, Normal Breath Sounds, No Accessory Muscle Use, Chest Non-Tender Cardiovascular: Normal Peripheral Pulses, Regular Rate, Rhythm, No Edema, Systolic Murmur GI/Abdominal Exam: Normal Bowel Sounds, Soft, Non-Tender, No Distention (Male) Exam: Deferred Rectal (Males) Exam: Heme + Stool (Patient was able to give a stool sample which was tested) Back Exam: Normal Inspection Extremities: Normal Inspection, Normal Range of Motion, Non-Tender, No Pedal Edema, Normal Capillary Refill Neurological: Alert, Oriented, Normal Cognition Psychiatric: Normal Affect, Normal Mood Skin Exam: Warm, Dry, Intact, Normal Color, No Rash Lymphatic: No Adenopathy Course - Vital Signs Text/Narrative:: As stated above, patient presents with a 2-day history of black tarry stools. He was symptomatic 2 days ago with dizziness however this has resolved. He has had no other symptoms. Upon assessment the patient is awake alert and in no distress. Assessment is essentially unremarkable. I have ordered labs to include a CBC, CMP, PT/INR and a PTT. We will also do rectal exam to test for occult stool. Last Recorded V/S: Last Vital Signs Temp 97.3 F 05/23/21 14:02 Pulse 86 05/23/21 14:02 Resp 18 05/23/21 14:02 BP 140/59 L 05/23/21 14:02 Pulse Ox 95 05/23/21 14:02 - Orders/Labs/Meds Labs: Laboratory Tests 05/23/21 05/23/21 05/23/21 Range/Units 14:36 14:47 14:47 WBC 4.58 (4.23-9.07) K/mm3 RBC 3.11 L (4.63-6.08) M/mm3 Hgb 9.7 L D (13.7-17.5) gm/dl Hct 29.9 L (40.1-51.0) % MCV 96.1 H (79.0-92.2) fl MCH 31.2 (25.7-32.2) pg MCHC 32.4 (32.2-35.5) g/dl RDW Std Deviation 52.3 H (35.1-43.9) fL Plt Count 66 L (163-337) K/mm3 MPV 11.0 (9.4-12.3) fl Neut % (Auto) 76.4 H (34.0-67.9) % Lymph % (Auto) 13.1 L (21.8-53.1) % [place] % (Auto) 8.1 (5.3-12.2) % Eos % (Auto) 1.7 (0.8-7.0) Baso % (Auto) 0.7 (0.1-1.2) % Neut # (Auto) 3.50 (1.78-5.38) K/mm3 Lymph # (Auto) 0.60 L (1.32-3.57) K/mm3 [place] # (Auto) 0.37 (0.30-0.82) K/mm3 Eos # (Auto) 0.08 (0.04-0.54) K/mm3 Baso # (Auto) 0.03 (0.01-0.08) K/mm3 Manual Slide Review Abnormal smear PT 12.8 H (9.7-12.0) SECONDS INR 1.20 APTT 31.4 (21.7-31.4) SECONDS Sodium 141 (136-145) mEq/L Potassium 3.6 (3.5-5.1) mEq/L Chloride 105 (98-107) mEq/L Carbon Dioxide 25 (21-32) mEq/L Anion Gap 14.6 (5-15) BUN 27 H (7-18) mg/dL Creatinine 0.9 (0.7-1.3) mg/dL Est Cr Clr Drug Dosing 88.80 mL/min Estimated GFR (MDRD) > 60 (>60) mL/min BUN/Creatinine Ratio 30.0 H (14-18) Glucose 208 H (70-99) mg/dL Calcium 8.6 (8.5-10.1) mg/dL Total Bilirubin 0.6 (0.2-1.0) mg/dL AST 51 H (15-37) U/L ALT 59 (16-63) U/L Alkaline Phosphatase 191 H (46-116) U/L Total Protein 6.8 (6.4-8.2) g/dl Albumin 3.1 L (3.4-5.0) g/dl Globulin 3.7 gm/dL Albumin/Globulin Ratio 0.8 L (1-2) - Re-Assessments/Exams Free Text/Narrative Re-Assessment/Exam: 05/23/21 16:15 Hematology reveals a WBC of 4.58, hemoglobin 9.7, hematocrit 29.9, platelet co unt 66 (patient's platelet count generally runs 50s to 70s as seen from previous ER visits, so this is stable for him, Coagulation reveals a pro time of 12.8, INR 1.20, PTT 31.4 Chemistry reveals a sodium of 141, potassium 3.6, anion gap 14.6, BUN 27, creatinine 0.9, glucose 208, total bilirubin 0.6, AST 51, ALT 59, alk phos 191 Patient did have a bowel movement and it was grossly positive for occult stool. I discussed the case with the surgeon on-call, , and she recommends that the patient stop taking his Xarelto and be discharged to home. He will need to follow-up with his oncologist and his primary care provider for the management of that. She states that she will see him in consult either tomorrow or Alejandro in the clinic and he will likely need a colonoscopy. I discussed the plan with the patient and he is agreeable to this. I have also given him strong return precautions. Departure - Departure Time of Disposition: 16:18 Disposition: Home, Self-Care 01 Condition: Good Clinical Impression: GI bleed Qualifiers: GI bleed type/associated pathology: unspecified gastrointestinal hemorrhage type Qualified Code(s): K92.2 - Gastrointestinal hemorrhage, unspecified - Discharge Information Instructions: Gastrointestinal Bleeding Referrals: Zaki Canales MD [Primary Care Provider] - Additional Instructions: You were seen in the emergency department today with complaints of black tarry stools. Labs were pleaded which included a CBC, CMP, PT/INR and a PTT. Your hemoglobin level today was 9.6 however it is not low enough to meet criteria to receive a blood transfusion. Platelet count was 66 today. Stool was tested and it was positive for blood. Dr. Wright, general surgeon on-call, was consulted and she recommends you stop taking your Xarelto at this time. You will need to follow-up with Dr. Canales and Dr. Farrell for further recommendations regarding management of your Xarelto. Please phone them for follow up. Dr. Wright will see you at the clinic either tomorrow or Sunday of this week. You will need to call and schedule an appointment with her at [phone] and they will get you in for an appointment. Should you develop dizziness or lightheadedness, it is recommended that you return to the emergency department at that time. Sepsis Event Note (ED) - Focused Exam Vital Signs: Vital Signs Temp Pulse Resp BP Pulse Ox 05/23/21 14:02 97.3 F 86 18 140/59 L 95
== END 2021-05-23 16:39 | disposition home or self-care (01) ==
LOC: JD.ED 13:52
DX: K92.2 Gastrointestinal hemorrhage, unspecified (principal); I48.91 Unspecified atrial fibrillation; E78.00 Pure hypercholesterolemia, unspecified; E11.9 Type 2 diabetes mellitus without complications; E66.9 Obesity, unspecified; Z68.30 Body mass index [BMI] 30.0-30.9, adult; Z88.8 Allergy status to other drugs, medicaments and biological substances; Z79.84 Long term (current) use of oral hypoglycemic drugs; Z79.899 Other long term (current) drug therapy
CPT/HCPCS: 36415; 80053; 85025; 85610; 85730; 99284

== ENCOUNTER → 2021-06-01 | Day surgery (SDC) | payer MEDICARE, BC ==
[~2021-06-01] MED LIST changes: -Acetaminophen 325 MG Tab PO SCH; -Bisacodyl 5 MG Tab PO PRN; -Ketorolac 15 MG/ML SDV IVPUSH PRN; +Lactated Ringers 1,000 ML IV SCH; +Lidocaine 1% 4 ML ONE; -Naloxone 0.4 MG/ML SDV IVPUSH PRN; -Pregabalin 25 MG Cap PO SCH; +Propofol 200 MG/20 ML SDV ONE; -Sennosides 8.6 MG Tab PO PRN; -oxyCODONE ER 10 MG TAB.ER PO SCH
--- NOTE | 2021-06-01 08:03 | PCM.PREANE ---
Preanesthetic Assessment - Procedure Proposed Procedure: EGD - Anesthesia/Transfusion/Family Hx Anesthesia History: Prior Anesthesia Without Reaction (Patient has needed oxygen following surgery) Family History of Anesthesia Reaction: No Transfusion History: No Prior Transfusion(s) Intubation History: Unknown - Review of Systems General: No Symptoms Pulmonary: No Symptoms Cardiovascular: No Symptoms Gastrointestinal: Melena (Patient went into ER with this symptom, was told to stop taking xarelto, his symptoms stopped two days following stopping his xarelto) Neurological: Dizziness (ocassionally, patient describes it as orthostatic hypotension), Other (History of TIA greater than 5 years ago. No deficits following.) Other: Reports: Easy Bleeding, Easy Bruising, Diabetes, Liver Problems (Liver cancer), Depression, Anxiety - Physical Assessment NPO Status Date: 05/31/21 (Sip of water this morning with pills at 0530) NPO Status Time: 23:00 Vital Signs: Admission BP: 149/64 Recheck BP at 0808: 122/72 HR 75 96% RA RR 18 98.6 Height: 1.88 m Weight: 109.8 kg ASA Class: 3 Mental Status: Alert & Oriented x3 Airway Class: Mallampati = 2 Dentition: Reports: Dentures (On top), Broken Tooth/Teeth, Missing Tooth/Teeth Thyro-Mental Finger Breadths: 3 Mouth Opening Finger Breadths: 3 ROM/Head Extension: Full Lungs: Clear to Auscultation, Normal Respiratory Effort Cardiovascular: Regular Rate, Regular Rhythm, No Murmurs (No murmur heard on exam) - Lab Values: Labs placed to recheck CBC and coags due to liver cancer and questioning GI bleed; will evaluate labs when resulted - Imaging/EKG Impressions: EKG 04/28: NSR, prolonged WA interval ECHO EF 60-65% See cardiology documentation - Allergies Allergies/Adverse Reactions: Allergies Allergy/AdvReac Type Severity Reaction Status Date / Time cyclobenzaprine AdvReac Intermediate Hallucinati Verified 06/01/21 08:36 [From Flexeril] ons gabapentin AdvReac Intermediate Hallucinati Verified 06/01/21 08:36 ons - Blood Blood Available: No Product(s) Available: None - Anesthesia Plan Pre-Op Medication Ordered: None - Acknowledgements Anesthesia Type Planned: MAC Pt an Appropriate Candidate for the Planned Anesthesia: Yes Alternatives and Risks of Anesthesia Discussed w Pt/Guardian: Yes Pt/Guardian Understands and Agrees with Anesthesia Plan: Yes PreAnesthesia Questionnaire HEENT History: Reports: Cataract, Other (See Below) Other HEENT History: wear upper dentures Cardiovascular History: Reports: Afib, Arrhythmia, CAD, Heart Murmur, High Cholesterol Other Cardiovascular History: aortic valve stenosis (s/p aortic valve replacement), right bundle branch block, atrial tachycardia Respiratory History: Reports: None Gastrointestinal History: Reports: Other (See Below) Other Gastrointestinal History: abnormal LFTs, biliary colic Genitourinary History: Reports: BPH, Other (See Below) Other Genitourinary History: frequency, benign non-nodular prostatic hyperplasia with lower urinary tract symptoms 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 Hematologic History: Reports: Other (See Below) Other Hematologic History: low platelets, black stool, thrombocytopenia Immunologic History: Reports: None Oncologic (Cancer) History: Reports: Liver, Other (See Below) Other Oncologic History: liver biopsy. Nodule to upper liver near the diaphragm (hepatocellular carcinoma) Dermatologic History: Reports: Cellulitis Other Dermatologic History: skin lesion, wound cellulitis (resolved) - Infectious Disease History Infectious Disease History: Reports: Chicken Pox, Measles, Mumps - Past Surgical History Head Surgeries/Procedures: Reports: None HEENT Surgical History: Reports: Cataract Surgery, Other (See Below) Other HEENT Surgeries/Procedures: resection wedge of eyelid Cardiovascular Surgical History: Reports: Valve Replacement Respiratory Surgical History: Reports: None GI Surgical History: Reports: Cholecystectomy, Colonoscopy, Other (See Below) Other GI Surgeries/Procedures: Part of liver removed. Liver biopsy x2, ERCP Female Surgical History: Reports: None Male Surgical History: Reports: None Endocrine Surgical History: Reports: None Neurological Surgical History: Reports: None Musculoskeletal Surgical History: Reports: Knee Replacement, Shoulder Surgery, Other (See Below) Other Musculoskeletal Surgeries/Procedures:: right knee surgery for dislocated knee cap, left shoulder surgery with rotator cuff repair, right quad tendon repair Oncologic Surgical History: Reports: None Other Oncologic Surgeries/Procedures: Liver ablation, liver nodule resection Dermatological Surgical History: Reports: None - Past Imaging History Past Imaging History: Reports: Angiography, Cardiac Echo, Carotid US, Holter Monitor, Stress Testing - SUBSTANCE USE Tobacco Use Status *Q: Former Tobacco User Tobacco Use Within Last Twelve Months: No Second Hand Smoke Exposure: No Days Per Week of Alcohol Use: 0 Number of Drinks Per Day: 0 Total Drinks Per Week: 0 Recreational Drug Use History: No - HOME MEDS Home Medications: Home Meds Alfuzosin [Uroxatral] 10 mg PO DAILY 01/23/19 [History] Sertraline [Zoloft] 100 mg PO DAILY 01/23/19 [History] Cholecalciferol (Vitamin D3) [Vitamin D3] 2,000 units PO DAILY 08/06/19 [History] Rivaroxaban [Xarelto] 20 mg PO BEDTIME 08/06/19 [History] Rosuvastatin [Crestor] 10 mg PO DAILY 08/06/19 [History] Diltiazem [Cardizem CD] 120 mg PO DAILY 12/19/20 [History] Furosemide [Lasix] 20 mg PO DAILY 12/19/20 [History] Oxybutynin 5 mg PO BID 12/19/20 [History] metFORMIN HCl [Glucophage] 1,000 mg PO BID 12/20/20 [History] - CURRENT (IN HOUSE) MEDS Current Meds: Current Medications Lactated Ringer's (Ringers, Lactated) 1,000 mls @ 125 mls/hr IV ASDIRECTED NURY Stop: 06/01/21 23:00 Lidocaine/Sodium Bicarbonate (Lidocaine 1%/Sod Bicarbonate In Ns 8.4% 1 Ml Syringe) 0.25 ml IDERM ONETIME PRN PRN Reason: Prior to IV Start Stop: 06/01/21 18:00 Sodium Chloride (Sodium Chloride 0.9% 10 Ml Syringe) 10 ml FLUSH ASDIRECTED PRN PRN Reason: Keep Vein Open Stop: 06/01/21 18:00
--- NOTE | 2021-06-01 10:24 | PCM.OPNOTE ---
- General Post-Op/Procedure Note Date of Surgery/Procedure: 06/01/21 Operative Procedure(s): EGD Findings: 1. Irregular Z-line 2. Gastritis with punctate adherent blood 3. Duodenitis Pre Op Diagnosis: melena Post-Op Diagnosis: same Anesthesia Technique: MAC Primary Surgeon: Radha Hogan Anesthesia Provider: Mily Yoon Pathology: 1. Z-line biopsies 2. Antrum biopsies 3. Duodenal biopsies Fluid Replacement, Intraop: 600 Output, Urine Amount: 0 EBL in mLs: 0 Complications: none apparent Condition: Good
--- NOTE | 2021-06-01 10:29 | PCM.PRNOTE ---
- Free Text/Narrative Note: Operative Report Date of procedure: June 01, 2021 Preoperative diagnosis: melena Postoperative diagnosis: same Surgeon: Radha Hogan M.D. Procedure: EGD Anesthesia: MAC Anthropology Lecturer: Lala Yoon CRNA IV fluids: 600 mL Estimated blood loss: 0 mL Findings: 1. Irregular Z-line 2. Gastritis with punctate adherent blood 3. Duodenitis 4. Abnormal esophageal mucosa Specimens: 1. Z-line biopsies 2. Antrum biopsies 3. Duodenal biopsies 4. Upper esophagus biopsies Indication: The patient is a 70 -year-old gentleman who presented with melena. The patient has findings of anemia and has been off of his Xarelto for many days. The patient was consented for an EGD. Risk of bleeding and perforation were discussed. The patient's consent was obtained Description of the procedure: The patient was taken to the endoscopy suite and placed on hemodynamic monitoring. The nurse candy supervisor induced MAC anesthesia. A bite block was placed. The patient was positioned in the left lateral decubitus position. A surgical timeout was performed. The endoscope was gently placed into the mouth to the back of the pharynx and introduced into the esophagus. The scope was gently advanced under direct visualization down to the level of the lower esophageal sphincter. The stomach was then entered. Normal rugal folds were noted. The scope was advanced into the antrum. The pylorus was then entered and the first and second portion of the duodenum was inspected. We did note some erythema and friability in the duodenal bulb and first portion of the duodenum consistent with healing duodenitis. This was biopsied with a cold biopsy forceps. There were no ulcerations in the duodenum. The scope was withdrawn to the antrum where there were areas of punctate bleeding and raised areas of erythema and edema consistent with gastritis. The antrum was biopsied with a cold biopsy forceps for H. pylori and pathology testing. The scope was then retroflexed in the cardia and fundus were investigated. There is no evidence of any hiatal hernia. The patient had patchy erythema extending all the way into the fundus, no other abnormalities were noted. The scope was then withdrawn while inspecting the esophagus. There was no esophagitis. The patient did have an irregular Z-line. This was biopsied in 4 quadrants using a cold biopsy forceps. The scope was moved into the proximal esophagus and the rest of gastric appearing mucosa was noted in this area at approximately 20 cm. This was biopsied using cold biopsy forceps The procedure was terminated. the patient tolerated the procedure well without any evidence of complications. Radha Hogan MD General Surgery
--- NOTE | 2021-06-01 10:30 | PCM48HPAN ---
Post Anesthesia Note - EVALUATION WITHIN 48HRS OF ANESTHETIC Vital Signs in Normal Range: Yes Patient Participated in Evaluation: Yes Respiratory Function Stable: Yes Airway Patent: Yes Cardiovascular Function Stable: Yes Hydration Status Stable: Yes Pain Control Satisfactory: Yes Nausea and Vomiting Control Satisfactory: Yes Mental Status Recovered: Yes Vital Signs: 1015 126/68 97 % 74 16 98.7 Last Vital Signs Temp 37.0 C 06/01/21 08:00 Pulse 75 06/01/21 08:00 Resp 18 06/01/21 08:00 BP 149/64 H 06/01/21 08:00 Pulse Ox 96 06/01/21 08:00
[2021-06-01 11:16] VITALS: BP 136/69; PULSE 68
== END | disposition home or self-care (01) ==
LOC: JD.SDS 07:43
PROVIDERS: ATTEND Surgery
DX: K29.90 Gastroduodenitis, unspecified, without bleeding (principal); K22.8 Other specified diseases of esophagus; K31.89 Other diseases of stomach and duodenum; K20.90 Esophagitis, unspecified without bleeding; I25.10 Atherosclerotic heart disease of native coronary artery without angina pectoris; E11.9 Type 2 diabetes mellitus without complications; E78.5 Hyperlipidemia, unspecified; I48.0 Paroxysmal atrial fibrillation; I50.9 Heart failure, unspecified; I11.0 Hypertensive heart disease with heart failure; G47.30 Sleep apnea, unspecified; Z98.890 Other specified postprocedural states; Z79.84 Long term (current) use of oral hypoglycemic drugs; Z79.01 Long term (current) use of anticoagulants; Z79.899 Other long term (current) drug therapy; Z88.8 Allergy status to other drugs, medicaments and biological substances; Z87.891 Personal history of nicotine dependence
CPT/HCPCS: 36415; 43239; 85025; 85610; 85730; 88305; 88342; J2704; J7120; 00731; 99100

== ENCOUNTER 2021-06-18 15:30 | Emergency (ER) | payer MEDICARE, BC ==
[2021-06-18 16:11] VITALS: BP 111/56; PULSE 72
--- NOTE | 2021-06-18 17:15 | CR ---
Chest: Portable view of the chest was obtained. Comparison: Prior chest x-ray of 09/10/19. Heart is enlarged. Slight tortuosity of the thoracic aorta is seen. Pulmonary vessels are increased which are mildly more prominent than on prior study. Small nodule is seen within the left lung base believed to be stable. No acute parenchymal change is otherwise appreciated. Prior sternotomy is seen. Bony structures show nothing acute. Impression: 1. Cardiomegaly. Mild increased pulmonary vascular congestion compatible with mild CHF. 2. No other acute abnormality is appreciated. Diagnostic code #3
[2021-06-18] MEDS ORDERED: Furosemide 40 MG/4 ML VIAL IVPUSH ONE (17:55)
[2021-06-18] MEDS ORDERED: Furosemide 20 MG Tab PO ONE (18:02)
--- NOTE | 2021-06-18 18:33 | EDM.PDOC ---
ED HPI GENERAL MEDICAL PROBLEM - General Chief Complaint: General Stated Complaint: FLUID RETENTION Time Seen by Provider: 06/18/21 16:16 Source of Information: Reports: Patient, RN Notes Reviewed - History of Present Illness INITIAL COMMENTS - FREE TEXT/NARRATIVE: 70 yr old male comes in with leg swelling present for 2 or more weeks, worse this past week and also worsening dyspnea with exertion this past week. He states he was started on lasix for leg edema about 6 wks ago, 20 mg per day. That was increased to 40 mg daily 2 weeks ago and than to 60 mg total per day just 2 days ago. No chest pain. - Related Data Allergies Allergy/AdvReac Type Severity Reaction Status Date / Time cyclobenzaprine AdvReac Intermediate Hallucinati Verified 06/18/21 16:11 [From Flexeril] ons gabapentin AdvReac Intermediate Hallucinati Verified 06/18/21 16:11 ons Home Meds: Home Meds Alfuzosin [Uroxatral] 10 mg PO DAILY 01/23/19 [History] Sertraline [Zoloft] 100 mg PO DAILY 01/23/19 [History] Cholecalciferol (Vitamin D3) [Vitamin D3] 2,000 units PO DAILY 08/06/19 [History] Rosuvastatin [Crestor] 10 mg PO DAILY 08/06/19 [History] Diltiazem [Cardizem CD] 120 mg PO DAILY 12/19/20 [History] Furosemide [Lasix] 20 mg PO DAILY 12/19/20 [History] Oxybutynin 5 mg PO BID 12/19/20 [History] metFORMIN HCl [Glucophage] 1,000 mg PO BID 12/20/20 [History] Pantoprazole Sodium [Protonix] 20 mg PO BID #60 tablet. 06/01/21 [Rx] Rivaroxaban [Xarelto] 20 mg PO BEDTIME #0 06/01/21 [Rx] Sucralfate [Carafate] 1 gm PO Q6HR #120 tab 06/01/21 [Rx] Past Medical History HEENT History: Reports: Cataract, Other (See Below) Other HEENT History: wear upper dentures Cardiovascular History: Reports: Afib, Arrhythmia, CAD, Heart Murmur, High Cholesterol Other Cardiovascular History: aortic valve stenosis (s/p aortic valve replacement), right bundle branch block, atrial tachycardia Respiratory History: Reports: SOB Gastrointestinal History: Reports: Other (See Below) Other Gastrointestinal History: abnormal LFTs, biliary colic Genitourinary History: Reports: BPH, Other (See Below) Other Genitourinary History: frequency, benign non-nodular prostatic hyperplasia with lower urinary tract symptoms 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 Hematologic History: Reports: Other (See Below) Other Hematologic History: low platelets, black stool, thrombocytopenia Immunologic History: Reports: None Oncologic (Cancer) History: Reports: Liver, Other (See Below) Other Oncologic History: liver biopsy. Nodule to upper liver near the diaphragm (hepatocellular carcinoma) Dermatologic History: Reports: Cellulitis Other Dermatologic History: skin lesion, wound cellulitis (resolved) - Infectious Disease History Infectious Disease History: Reports: Chicken Pox, Measles, Mumps - Past Surgical History Head Surgeries/Procedures: Reports: None HEENT Surgical History: Reports: Cataract Surgery, Other (See Below) Other HEENT Surgeries/Procedures: resection wedge of eyelid Cardiovascular Surgical History: Reports: Valve Replacement Other Cardiovascular Surgeries/Procedures: IR ablation Respiratory Surgical History: Reports: None GI Surgical History: Reports: Cholecystectomy, Colonoscopy, Other (See Below) Other GI Surgeries/Procedures: Part of liver removed. Liver biopsy x2, ERCP Male Surgical History: Reports: None Endocrine Surgical History: Reports: None Neurological Surgical History: Reports: None Musculoskeletal Surgical History: Reports: Knee Replacement, Shoulder Surgery, Other (See Below) Other Musculoskeletal Surgeries/Procedures:: right knee surgery for dislocated knee cap, left shoulder surgery with rotator cuff repair, right quad tendon repair Oncologic Surgical History: Reports: None Other Oncologic Surgeries/Procedures: Liver ablation, liver nodule resection Dermatological Surgical History: Reports: None - Past Imaging History Past Imaging History: Reports: Angiography, Cardiac Echo, Carotid US, Holter Monitor, Stress Testing Social & Family History - Family History Family Medical History: No Pertinent Family History - Tobacco Use Tobacco Use Status *Q: Never Tobacco User Second Hand Smoke Exposure: No - Caffeine Use Caffeine Use: Reports: Coffee Other Caffeine Use: 2-3 cups coffee/day. 1 can pop/day - Recreational Drug Use Recreational Drug Use: No ED ROS GENERAL - Review of Systems Review Of Systems: See Below Constitutional: Denies: Fever, Chills, Diaphoresis HEENT: Reports: No Symptoms Respiratory: Reports: Shortness of Breath. Denies: Wheezing, Pleuritic Chest Pain, Cough Cardiovascular: Denies: Chest Pain GI/Abdominal: Denies: Abdominal Pain, Nausea, Vomiting Musculoskeletal: Denies: Shoulder Pain, Arm Pain Skin: Denies: Rash Neurological: Reports: Dizziness, Weakness (mild generalized). Denies: Trouble Speaking ED EXAM, GENERAL - Physical Exam Exam: See Below General Appearance: Alert, No Apparent Distress Throat/Mouth: Normal Inspection Head: Atraumatic Neck: Supple Respiratory/Chest: No Respiratory Distress, Lungs Clear, Normal Breath Sounds. No: Rales, Rhonchi, Wheezing Cardiovascular: Regular Rate, Rhythm GI/Abdominal: Soft, Non-Tender, Other (moderate distension) Extremities: Pedal Edema (mild bilat), Other (mild bilat stasis dermatitis). No : Leg Pain, Increased Warmth, Redness Skin Exam: Warm, Dry, Normal Color Course - Vital Signs Last Recorded V/S: Last Vital Signs Temp 97.8 F 06/18/21 16:10 Pulse 72 06/18/21 16:10 Resp 20 06/18/21 16:10 BP 111/56 L 06/18/21 16:10 Pulse Ox 99 06/18/21 16:10 - Orders/Labs/Meds Labs: Laboratory Tests 06/18/21 06/18/21 06/18/21 Range/Units 16:42 16:42 16:42 WBC 2.43 L* (4.23-9.07) K/mm3 RBC 3.19 L (4.63-6.08) M/mm3 Hgb 8.8 L (13.7-17.5) gm/dl Hct 28.7 L (40.1-51.0) % MCV 90.0 D (79.0-92.2) fl MCH 27.6 (25.7-32.2) pg MCHC 30.7 L (32.2-35.5) g/dl RDW Std Deviation 51.5 H (35.1-43.9) fL Plt Count 67 L (163-337) K/mm3 MPV 11.2 (9.4-12.3) fl Neut % (Auto) 64.2 (34.0-67.9) % Lymph % (Auto) 19.3 L (21.8-53.1) % [place] % (Auto) 12.8 H (5.3-12.2) % Eos % (Auto) 2.5 (0.8-7.0) Baso % (Auto) 1.2 (0.1-1.2) % Neut # (Auto) 1.56 L (1.78-5.38) K/mm3 Lymph # (Auto) 0.47 L (1.32-3.57) K/mm3 [place] # (Auto) 0.31 (0.30-0.82) K/mm3 Eos # (Auto) 0.06 (0.04-0.54) K/mm3 Baso # (Auto) 0.03 (0.01-0.08) K/mm3 Manual Slide Review Abnormal smear Sodium 137 (136-145) mEq/L Potassium 3.2 L (3.5-5.1) mEq/L Chloride 102 (98-107) mEq/L Carbon Dioxide 28 (21-32) mEq/L Anion Gap 10.2 (5-15) BUN 11 (7-18) mg/dL Creatinine 0.8 (0.7-1.3) mg/dL Est Cr Clr Drug Dosing 99.90 mL/min Estimated GFR (MDRD) > 60 (>60) mL/min BUN/Creatinine Ratio 13.8 L (14-18) Glucose 155 H (70-99) mg/dL Calcium 8.2 L (8.5-10.1) mg/dL Total Bilirubin 0.6 (0.2-1.0) mg/dL AST 37 (15-37) U/L ALT 31 (16-63) U/L Alkaline Phosphatase 193 H (46-116) U/L NT-Pro-B Natriuret Pep 388 H (0-125) pg/mL Total Protein 6.8 (6.4-8.2) g/dl Albumin 3.0 L (3.4-5.0) g/dl Globulin 3.8 gm/dL Albumin/Globulin Ratio 0.8 L (1-2) Meds: Medications Discontinued Medications Generic Name Dose Route Start Last Admin Trade Name Chantell PRN Reason Stop Dose Admin Furosemide 20 mg 06/18/21 17:55 06/18/21 18:18 Furosemide 40 Mg/4 Ml Vial IVPUSH 06/18/21 17:56 Not Given NOW ONE Furosemide 20 mg 06/18/21 18:02 06/18/21 18:18 Furosemide 20 Mg Tab PO 06/18/21 18:03 20 mg ONETIME ONE Administration - Re-Assessments/Exams Free Text/Narrative Re-Assessment/Exam: 06/20/21 14:55 CXR shows very slight pul congestion only, creatnine is good, lytes are OK. Hgb is down to 8.8 from 9.7 1 month ago. BNP only about 380, not markedly elevated. He was just increased to lasix 80 mg total per day from 40 mg 2 days ago. That really hasn't had much time to work for him. It seems reasonable to leave him at 40 mg q AM, 20 mg in the afternoon as advised 2 days ago. Discharge instr. as documented. Departure - Departure Time of Disposition: 18:31 Disposition: Home, Self-Care 01 Condition: Fair Clinical Impression: CHF, Congestive heart failure, Thrombocytopenia Anemia Qualifiers: Anemia type: unspecified type Qualified Code(s): D64.9 - Anemia, unspecified - Discharge Information Instructions: Heart Failure, Self Care, [id number] Referrals: Zaki Canales MD [Primary Care Provider] - Forms: ED Department Discharge Additional Instructions: Continue lasix at the increased dosage of 60 mg total daily as recomended by Dr Canales 2 days ago. Check your weight daily and keep a log for Dr Canales. Low salt diet. Keep legs elevated when resting. See Dr Canales next week in about 4 to 5 days for recheck, call for appointment. Return to ED as needed if symptoms worsening in any way.
== END 2021-06-18 18:43 | disposition home or self-care (01) ==
LOC: JD.ED 15:30
DX: I50.9 Heart failure, unspecified (principal); D69.6 Thrombocytopenia, unspecified; R60.0 Localized edema; I48.91 Unspecified atrial fibrillation; I25.10 Atherosclerotic heart disease of native coronary artery without angina pectoris; E78.00 Pure hypercholesterolemia, unspecified; E11.9 Type 2 diabetes mellitus without complications; E66.9 Obesity, unspecified; Z86.73 Personal history of transient ischemic attack (TIA), and cerebral infarction without residual deficits; Z88.5 Allergy status to narcotic agent; Z88.8 Allergy status to other drugs, medicaments and biological substances; Z68.31 Body mass index [BMI] 31.0-31.9, adult
CPT/HCPCS: 36415; 71045; 80053; 83880; 85025; 99285; A9270

== ENCOUNTER 2021-08-03 12:12 | Emergency (ER) | payer MEDICARE, BC ==
--- NOTE | 2021-08-03 15:39 | EDM.PDOC ---
ED HPI GENERAL MEDICAL PROBLEM - General Chief Complaint: Gastrointestinal Problem Stated Complaint: BLOOD IN STOOL Time Seen by Provider: 08/03/21 15:35 Source of Information: Reports: Patient History Limitations: Reports: No Limitations - History of Present Illness INITIAL COMMENTS - FREE TEXT/NARRATIVE: Patient is a 71-year-old male with a past medical history of GI bleed, liver cancer and cardiac history on anticoagulation presenting with chief complaint of blood in the stool. Patient states he has had this previously and was seen in May for similar complaint. He had a EGD done done at that time. Since then, he has resumed his anticoagulation. Yesterday, he did notice some blood in his stool was initially dark and then turned to bright red blood. Patient had laboratory studies done yesterday and was informed to come into the emergency room by his primary care physician today. Patient states he otherwise feels well. Denies any syncope, dizziness, lightheadedness, fatigue. He otherwise feels at his baseline. Hemoglobin yesterday was 8.4. - Related Data Allergies Allergy/AdvReac Type Severity Reaction Status Date / Time cyclobenzaprine AdvReac Intermediate Hallucinati Verified 08/03/21 12:40 [From Flexeril] ons gabapentin AdvReac Intermediate Hallucinati Verified 08/03/21 12:40 ons Home Meds: Home Meds Alfuzosin [Uroxatral] 10 mg PO DAILY 01/23/19 [History] Sertraline [Zoloft] 100 mg PO DAILY 01/23/19 [History] Cholecalciferol (Vitamin D3) [Vitamin D3] 2,000 units PO DAILY 08/06/19 [History] Rosuvastatin [Crestor] 10 mg PO BEDTIME 08/06/19 [History] Diltiazem [Cardizem CD] 120 mg PO DAILY 12/19/20 [History] Furosemide [Lasix] 40 mg PO BID 12/19/20 [History] Oxybutynin 5 mg PO BID 12/19/20 [History] metFORMIN HCl [Glucophage] 1,000 mg PO BID 12/20/20 [History] Rivaroxaban [Xarelto] 20 mg PO BEDTIME #0 06/01/21 [Rx] Pantoprazole Sodium [Protonix] 40 mg PO DAILY 08/03/21 [History] metOLazone [Metolazone] 2.5 mg PO ASDIRECTED 08/03/21 [History] Past Medical History HEENT History: Reports: Cataract, Other (See Below) Other HEENT History: wear upper dentures Cardiovascular History: Reports: Afib, Arrhythmia, CAD, Heart Murmur, High Cholesterol Other Cardiovascular History: aortic valve stenosis (s/p aortic valve replacement), right bundle branch block, atrial tachycardia Respiratory History: Reports: SOB Gastrointestinal History: Reports: Other (See Below) Other Gastrointestinal History: abnormal LFTs, biliary colic Genitourinary History: Reports: BPH, Other (See Below) Other Genitourinary History: frequency, benign non-nodular prostatic hyperplasia with lower urinary tract symptoms 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 Hematologic History: Reports: Other (See Below) Other Hematologic History: low platelets, black stool, thrombocytopenia Immunologic History: Reports: None Oncologic (Cancer) History: Reports: Liver, Other (See Below) Other Oncologic History: liver biopsy. Nodule to upper liver near the diaphragm (hepatocellular carcinoma) Dermatologic History: Reports: Cellulitis Other Dermatologic History: skin lesion, wound cellulitis (resolved) - Infectious Disease History Infectious Disease History: Reports: Chicken Pox, Measles, Mumps - Past Surgical History Head Surgeries/Procedures: Reports: None HEENT Surgical History: Reports: Cataract Surgery, Other (See Below) Other HEENT Surgeries/Procedures: resection wedge of eyelid Cardiovascular Surgical History: Reports: Valve Replacement Other Cardiovascular Surgeries/Procedures: IR ablation Respiratory Surgical History: Reports: None GI Surgical History: Reports: Cholecystectomy, Colonoscopy, Other (See Below) Other GI Surgeries/Procedures: Part of liver removed. Liver biopsy x2, ERCP Male Surgical History: Reports: None Endocrine Surgical History: Reports: None Neurological Surgical History: Reports: None Musculoskeletal Surgical History: Reports: Knee Replacement, Shoulder Surgery, Other (See Below) Other Musculoskeletal Surgeries/Procedures:: right knee surgery for dislocated knee cap, left shoulder surgery with rotator cuff repair, right quad tendon repair Oncologic Surgical History: Reports: None Other Oncologic Surgeries/Procedures: Liver ablation, liver nodule resection Dermatological Surgical History: Reports: None - Past Imaging History Past Imaging History: Reports: Angiography, Cardiac Echo, Carotid US, Holter Monitor, Stress Testing Social & Family History - Family History Family Medical History: No Pertinent Family History - Tobacco Use Tobacco Use Status *Q: Former Tobacco User Used Tobacco, but Quit: Yes Month/Year Tobacco Last Used: 10 Second Hand Smoke Exposure: Yes - Caffeine Use Caffeine Use: Reports: Coffee Other Caffeine Use: 2-3 cups coffee/day. 1 can pop/day - Recreational Drug Use Recreational Drug Use: No ED ROS GENERAL - Review of Systems Review Of Systems: See Below Free Text/Narrative/Comment: In addition to that documented in the HPI above, the additional ROS was o btained: Constitutional: Denies fevers or chills Eyes: Denies vision changes ENMT: Denies sore throat CV: Denies chest pain Resp: Denies SOB GI: Denies vomiting or diarrhea : Denies painful urination MSK: Denies recent trauma Skin: Denies new rashes Neuro: Denies new numbness or tingling or weakness Endocrine: Denies unexpected weight loss Heme: Denies bleeding disorders ED EXAM, GI/ABD - Physical Exam Exam: See Below Text/Narrative:: I have reviewed the triage vital signs Const: Well nourished, well developed, appears stated age Eyes: Pupils Equal and reactive to light bilaterally, no conjunctival injection HENT: No signs of trauma or swelling, Neck supple without meningismus CV: Regular Rate Rhythm, Warm, well-perfused extremities RESP: Unlabored respiratory effort GI: soft, non-tender, non-distended, no masses Rectal: (Med student Larry present) demonstrates black stool with out evidence of bright red blood. No hemorrhoids noted. MSK: No gross deformities appreciated Skin: Warm, dry. No rashes Neuro: Alert, family worker II-XII grossly intact. Sensation and motor function of extremities grossly intact. Psych: Appropriate mood and affect. Course - Vital Signs Last Recorded V/S: Last Vital Signs Temp 36.6 C 08/03/21 17:03 Pulse 68 08/03/21 17:03 Resp 14 08/03/21 17:03 BP 123/58 L 08/03/21 17:03 Pulse Ox 95 08/03/21 12:48 - Orders/Labs/Meds Orders: Active Orders 24 hr Category Date Time Status Sodium Chloride 0.9% [Normal Saline] 250 ml Med 08/03/21 16:45 Active IV ONETIME Transfuse PRBC [Transfuse Red Blood Cells] [COMM] Stat Oth 08/03/21 15:09 Ordered Medication Orders Sodium Chloride (Normal Saline) 250 mls @ 50 mls/hr IV ONETIME NURY Stop: 08/03/21 20:00 Last Admin: 08/03/21 16:51 Dose: 50 mls/hr Documented by: SABINE Labs: Laboratory Tests 08/03/21 08/03/21 08/03/21 Range/Units 13:37 13:37 13:37 WBC 2.10 L* (4.23-9.07) K/mm3 RBC 3.35 L (4.63-6.08) M/mm3 Hgb 7.8 L (13.7-17.5) gm/dl Hct 27.0 L (40.1-51.0) % MCV 80.6 D (79.0-92.2) fl MCH 23.3 L (25.7-32.2) pg MCHC 28.9 L (32.2-35.5) g/dl RDW Std Deviation 53.4 H (35.1-43.9) fL Plt Count 54 L (163-337) K/mm3 MPV 10.6 (9.4-12.3) fl Neut % (Auto) 69.0 H (34.0-67.9) % Lymph % (Auto) 17.6 L (21.8-53.1) % Sully % (Auto) 11.4 (5.3-12.2) % Eos % (Auto) 1.0 (0.8-7.0) Baso % (Auto) 1.0 (0.1-1.2) % Neut # (Auto) 1.45 L (1.78-5.38) K/mm3 Lymph # (Auto) 0.37 L (1.32-3.57) K/mm3 Sully # (Auto) 0.24 L (0.30-0.82) K/mm3 Eos # (Auto) 0.02 L (0.04-0.54) K/mm3 Baso # (Auto) 0.02 (0.01-0.08) K/mm3 Manual Slide Review Abnormal smear PT 15.1 H D (9.7-12.0) SECONDS INR 1.38 Sodium 138 (136-145) mEq/L Potassium 3.2 L (3.5-5.1) mEq/L Chloride 101 (98-107) mEq/L Carbon Dioxide 29 (21-32) mEq/L Anion Gap 11.2 (5-15) BUN 15 (7-18) mg/dL Creatinine 1.0 (0.7-1.3) mg/dL Est Cr Clr Drug Dosing 78.78 mL/min Estimated GFR (MDRD) > 60 (>60) mL/min BUN/Creatinine Ratio 15.0 (14-18) Glucose 151 H (70-99) mg/dL Calcium 8.6 (8.5-10.1) mg/dL Total Bilirubin 1.1 H (0.2-1.0) mg/dL AST 37 (15-37) U/L ALT 26 (16-63) U/L Alkaline Phosphatase 156 H (46-116) U/L Total Protein 7.2 (6.4-8.2) g/dl Albumin 3.0 L (3.4-5.0) g/dl Globulin 4.2 gm/dL Albumin/Globulin Ratio 0.7 L (1-2) Blood Type Gel Antibody Screen Crossmatch 08/03/21 Range/Units 13:37 WBC (4.23-9.07) K/mm3 RBC (4.63-6.08) M/mm3 Hgb (13.7-17.5) gm/dl Hct (40.1-51.0) % MCV (79.0-92.2) fl MCH (25.7-32.2) pg MCHC (32.2-35.5) g/dl RDW Std Deviation (35.1-43.9) fL Plt Count (163-337) K/mm3 MPV (9.4-12.3) fl Neut % (Auto) (34.0-67.9) % Lymph % (Auto) (21.8-53.1) % Sully % (Auto) (5.3-12.2) % Eos % (Auto) (0.8-7.0) Baso % (Auto) (0.1-1.2) % Neut # (Auto) (1.78-5.38) K/mm3 Lymph # (Auto) (1.32-3.57) K/mm3 Sully # (Auto) (0.30-0.82) K/mm3 Eos # (Auto) (0.04-0.54) K/mm3 Baso # (Auto) (0.01-0.08) K/mm3 Manual Slide Review PT (9.7-12.0) SECONDS INR Sodium (136-145) mEq/L Potassium (3.5-5.1) mEq/L Chloride (98-107) mEq/L Carbon Dioxide (21-32) mEq/L Anion Gap (5-15) BUN (7-18) mg/dL Creatinine (0.7-1.3) mg/dL Est Cr Clr Drug Dosing mL/min Estimated GFR (MDRD) (>60) mL/min BUN/Creatinine Ratio (14-18) Glucose (70-99) mg/dL Calcium (8.5-10.1) mg/dL Total Bilirubin (0.2-1.0) mg/dL AST (15-37) U/L ALT (16-63) U/L Alkaline Phosphatase (46-116) U/L Total Protein (6.4-8.2) g/dl Albumin (3.4-5.0) g/dl Globulin gm/dL Albumin/Globulin Ratio (1-2) Blood Type B POSITIVE Gel Antibody Screen Negative Crossmatch See Detail Meds: Medications Generic Name Dose Route Start Last Admin Trade Name Freq PRN Reason Stop Dose Admin Sodium Chloride 250 mls @ 50 mls/hr 08/03/21 16:45 08/03/21 16:51 Normal Saline IV 08/03/21 20:00 50 mls/hr ONETIME NURY Administration Departure - Departure Time of Disposition: 17:44 Disposition: Home, Self-Care 01 Clinical Impression: GI bleed Qualifiers: GI bleed type/associated pathology: unspecified gastrointestinal hemorrhage type Qualified Code(s): K92.2 - Gastrointestinal hemorrhage, unspecified - Discharge Information Instructions: Gastrointestinal Bleeding, [id number] Referrals: Zaki Canales MD [Primary Care Provider] - Forms: ED Department Discharge Additional Instructions: Please do not take your Xarelto for the next several days. He will follow-up with general surgery for possible outpatient endoscopy. Return to the emergency room should you start feeling lightheaded, significantly more fatigued or if you have other emergent concerns. Sepsis Event Note (ED) - Focused Exam Vital Signs: Vital Signs Temp Temp Pulse Resp BP Pulse Ox 08/03/21 17:03 36.6 C 68 14 123/58 L 08/03/21 16:46 36.7 C 66 12 126/55 L 08/03/21 12:48 36.8 C 84 20 113/69 95 - My Orders Last 24 Hours: My Active Orders 08/03/21 15:09 Transfuse PRBC [Transfuse Red Blood Cells] [COMM] Stat 08/03/21 16:45 Sodium Chloride 0.9% [Normal Saline] 250 ml IV ONETIME - Assessment/Plan Last 24 Hours: My Active Orders 08/03/21 15:09 Transfuse PRBC [Transfuse Red Blood Cells] [COMM] Stat 08/03/21 16:45 Sodium Chloride 0.9% [Normal Saline] 250 ml IV ONETIME Assessment:: Patient is a 71-year-old male presented to the emergency room with a complaint of bloody stool. Patient's course was unremarkable. His blood pressure remained slightly hypertensive. No tachycardia noted. Patient clinically well in appearance. Remained stable while in the emergency room. Hemoglobin found to be 7.8. Platelets and white blood cells both low as well consistent with prior studies. However, given patient's cardiac history decision was made to give patient 1 unit PRBCs for hemoglobin less than 8. This decision was made in conjunction with Dr. Hogan who agreed to see the patient this week and recommended stopping anticoagulation for several days. He received 1 unit without complication. Discharged from the emergency room in stable condition.
[2021-08-03] MEDS ORDERED: Sodium Chloride 0.9% 150 ML Bag IV PRN (16:34)
[2021-08-03] MEDS ORDERED: Sodium Chloride 0.9% 250 ML IV SCH (16:45)
[2021-08-03 19:15] VITALS: BP 123/56; PULSE 78
== END 2021-08-03 19:15 | disposition home or self-care (01) ==
LOC: JD.ED 12:12
DX: K92.2 Gastrointestinal hemorrhage, unspecified (principal); I48.91 Unspecified atrial fibrillation; I25.10 Atherosclerotic heart disease of native coronary artery without angina pectoris; E78.00 Pure hypercholesterolemia, unspecified; E11.9 Type 2 diabetes mellitus without complications; E66.9 Obesity, unspecified; Z68.30 Body mass index [BMI] 30.0-30.9, adult; Z86.73 Personal history of transient ischemic attack (TIA), and cerebral infarction without residual deficits; Z88.8 Allergy status to other drugs, medicaments and biological substances; Z87.891 Personal history of nicotine dependence; Z79.01 Long term (current) use of anticoagulants; Z79.84 Long term (current) use of oral hypoglycemic drugs; Z79.899 Other long term (current) drug therapy
CPT/HCPCS: 36415; 36430; 80053; 85025; 85610; 86850; 86900; 86901; 86922; 99284; J7050; P9016; 99285

== ENCOUNTER 2021-08-10 06:51 | Day surgery (SDC) | payer MEDICARE, BC ==
[~2021-08-10 06:51] MED LIST changes: -Lidocaine 1% 4 ML ONE; -Propofol 200 MG/20 ML SDV ONE
[2021-08-10 07:13] VITALS: BP 131/68; PULSE 78
--- NOTE | 2021-08-10 07:28 | PCM.PREANE ---
Preanesthetic Assessment - Procedure Proposed Procedure: Egd/Colonoscopy - Anesthesia/Transfusion/Family Hx Anesthesia History: Prior Anesthesia Without Reaction (Patient has needed oxygen following surgery) Family History of Anesthesia Reaction: No Transfusion History: Prior Transfusion Without Reaction Intubation History: Unknown - Review of Systems General: No Symptoms Pulmonary: No Symptoms Cardiovascular: Dyspnea on Exertion, Edema Gastrointestinal: No Symptoms Neurological: No Symptoms Other: Reports: Easy Bleeding, Easy Bruising, Diabetes (148 this am 07:30), Liver Problems (hepatocellular CA) - Physical Assessment NPO Status Date: 08/09/21 NPO Status Time: 00:00 Vital Signs: Last Vital Signs Temp 36.6 C 08/10/21 07:05 Pulse 78 08/10/21 07:05 Resp 16 08/10/21 07:05 BP 131/68 08/10/21 07:05 Pulse Ox 96 08/10/21 07:05 Height: 1.63 m Weight: 106 kg ASA Class: 3 Mental Status: Alert & Oriented x3 Airway Class: Mallampati = 1 Dentition: Reports: Dentures Thyro-Mental Finger Breadths: 3 Mouth Opening Finger Breadths: 3 ROM/Head Extension: Full Lungs: Clear to Auscultation, Normal Respiratory Effort Cardiovascular: Regular Rate, Regular Rhythm - Imaging/EKG Impressions: EKG SR with prolonged NE interval - Allergies Allergies/Adverse Reactions: Allergies Allergy/AdvReac Type Severity Reaction Status Date / Time cyclobenzaprine AdvReac Intermediate Hallucinati Verified 08/09/21 11:18 [From Flexeril] ons gabapentin AdvReac Intermediate Hallucinati Verified 08/09/21 11:18 ons - Anesthesia Plan Pre-Op Medication Ordered: None - Acknowledgements Anesthesia Type Planned: MAC Pt an Appropriate Candidate for the Planned Anesthesia: Yes Alternatives and Risks of Anesthesia Discussed w Pt/Guardian: Yes Pt/Guardian Understands and Agrees with Anesthesia Plan: Yes PreAnesthesia Questionnaire HEENT History: Reports: Cataract, Other (See Below) Other HEENT History: wear upper dentures Cardiovascular History: Reports: Afib, Arrhythmia, CAD, Heart Murmur, High Cholesterol Other Cardiovascular History: aortic valve stenosis (s/p aortic valve replacement), right bundle branch block, atrial tachycardia Respiratory History: Reports: SOB Gastrointestinal History: Reports: Other (See Below) Other Gastrointestinal History: abnormal LFTs, biliary colic Genitourinary History: Reports: BPH, Other (See Below) Other Genitourinary History: frequency, benign non-nodular prostatic hyperplasia with lower urinary tract symptoms 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 Hematologic History: Reports: Other (See Below) Other Hematologic History: low platelets, black stool, thrombocytopenia Immunologic History: Reports: None Oncologic (Cancer) History: Reports: Liver, Other (See Below) Other Oncologic History: liver biopsy. Nodule to upper liver near the diaphragm (hepatocellular carcinoma) Dermatologic History: Reports: Cellulitis Other Dermatologic History: skin lesion, wound cellulitis (resolved) - Infectious Disease History Infectious Disease History: Reports: Chicken Pox, Measles, Mumps - Past Surgical History Head Surgeries/Procedures: Reports: None HEENT Surgical History: Reports: Cataract Surgery, Other (See Below) Other HEENT Surgeries/Procedures: resection wedge of eyelid Cardiovascular Surgical History: Reports: Valve Replacement Other Cardiovascular Surgeries/Procedures: IR ablation Respiratory Surgical History: Reports: None GI Surgical History: Reports: Cholecystectomy, Colonoscopy, Other (See Below) Other GI Surgeries/Procedures: Part of liver removed. Liver biopsy x2, ERCP Female Surgical History: Reports: None Male Surgical History: Reports: None Endocrine Surgical History: Reports: None Neurological Surgical History: Reports: None Musculoskeletal Surgical History: Reports: Knee Replacement, Shoulder Surgery, Other (See Below) Other Musculoskeletal Surgeries/Procedures:: right knee surgery for dislocated knee cap, left shoulder surgery with rotator cuff repair, right quad tendon repair Oncologic Surgical History: Reports: None Other Oncologic Surgeries/Procedures: Liver ablation, liver nodule resection Dermatological Surgical History: Reports: None - Past Imaging History Past Imaging History: Reports: Angiography, Cardiac Echo, Carotid US, Holter Monitor, Stress Testing - SUBSTANCE USE Tobacco Use Status *Q: Former Tobacco User Tobacco Use Within Last Twelve Months: No Second Hand Smoke Exposure: No Days Per Week of Alcohol Use: 0 Number of Drinks Per Day: 0 Total Drinks Per Week: 0 Recreational Drug Use History: No - HOME MEDS Home Medications: Home Meds Alfuzosin [Uroxatral] 10 mg PO DAILY 01/23/19 [History] Sertraline [Zoloft] 100 mg PO DAILY 01/23/19 [History] Cholecalciferol (Vitamin D3) [Vitamin D3] 2,000 units PO DAILY 08/06/19 [History] Rosuvastatin [Crestor] 10 mg PO BEDTIME 08/06/19 [History] Diltiazem [Cardizem CD] 120 mg PO DAILY 12/19/20 [History] Furosemide [Lasix] 40 mg PO BID 12/19/20 [History] Oxybutynin 5 mg PO BID 12/19/20 [History] metFORMIN HCl [Glucophage] 1,000 mg PO BID 12/20/20 [History] Rivaroxaban [Xarelto] 20 mg PO BEDTIME #0 06/01/21 [Rx] metOLazone [Metolazone] 2.5 mg PO SUWE 08/03/21 [History] - CURRENT (IN HOUSE) MEDS Current Meds: Current Medications Lactated Ringer's (Ringers, Lactated) 1,000 mls @ 125 mls/hr IV ASDIRECTED NURY Stop: 08/10/21 23:00 Lidocaine/Sodium Bicarbonate (Lidocaine 1%/Sod Bicarbonate In Ns 8.4% 1 Ml Syringe) 0.25 ml IDERM ONETIME PRN PRN Reason: Prior to IV Start Stop: 08/10/21 18:00 Sodium Chloride (Sodium Chloride 0.9% 10 Ml Syringe) 10 ml FLUSH ASDIRECTED PRN PRN Reason: Keep Vein Open Stop: 08/10/21 18:00
[2021-08-10] MEDS ORDERED: fentaNYL 100 MCG/2 ML SDV ONE (08:06)
[2021-08-10] MEDS ORDERED: Lidocaine 1% 0 ML ONE (08:07)
[2021-08-10] MEDS ORDERED: Propofol 200 MG/20 ML SDV ONE (08:07)
[2021-08-10] MEDS ORDERED: Potassium Chloride 10 MEQ in Premix Bag 1 BAG IV ONE (09:30)
[2021-08-10] MEDS ORDERED: Potassium Chloride 20 MEQ Tab.ER PO ONE (10:00)
[2021-08-10] MEDS ORDERED: Iron Sucrose Complex 500 MG in Sodium Chloride 0.9% 250 ML IV ONE (10:30)
== END 2021-08-10 14:00 | disposition home or self-care (01) ==
LOC: JD.SDS 06:51
PROVIDERS: ATTEND Surgery
DX: K92.1 Melena (principal); Z53.09 Procedure and treatment not carried out because of other contraindication; I25.10 Atherosclerotic heart disease of native coronary artery without angina pectoris; E11.9 Type 2 diabetes mellitus without complications; I48.0 Paroxysmal atrial fibrillation; F32.A Depression, unspecified; E78.00 Pure hypercholesterolemia, unspecified; Z87.891 Personal history of nicotine dependence; Z79.899 Other long term (current) drug therapy; Z98.890 Other specified postprocedural states; Z79.84 Long term (current) use of oral hypoglycemic drugs; Z88.8 Allergy status to other drugs, medicaments and biological substances
CPT/HCPCS: 36415; 80053; 82947; 85025; A9270-GY; J1756; J2704; J3010; J3480; J7050; J7120

== ENCOUNTER → 2021-08-24 | Day surgery (SDC) | payer MEDICARE, BC ==
[~2021-08-24] MED LIST changes: +Lactated Ringers 1,000 ML ONE; +Lidocaine 1% 6 ML ONE; +Propofol 200 MG/20 ML SDV ONE; +fentaNYL 100 MCG/2 ML SDV ONE
--- NOTE | 2021-08-24 07:28 | PCM.PREANE ---
Preanesthetic Assessment - Procedure Proposed Procedure: EGD and Colonoscopy - Anesthesia/Transfusion/Family Hx Anesthesia History: Prior Anesthesia Without Reaction (Patient has needed oxygen following surgery) Transfusion History: Prior Transfusion Without Reaction Intubation History: Unknown - Review of Systems General: No Symptoms Pulmonary: Shortness of Breath Cardiovascular: No Symptoms Gastrointestinal: No Symptoms Neurological: No Symptoms Other: Reports: Diabetes - Physical Assessment NPO Status Date: 08/23/21 NPO Status Time: 22:30 Vital Signs: Last Vital Signs Temp 99.5 F 08/24/21 07:10 Pulse 72 08/24/21 07:10 Resp 16 08/24/21 07:10 BP 132/76 08/24/21 07:10 Pulse Ox 95 08/24/21 07:10 ASA Class: 3 Mental Status: Alert & Oriented x3 Airway Class: Mallampati = 2 Dentition: Reports: Dentures (upper and lower) Thyro-Mental Finger Breadths: 3 Mouth Opening Finger Breadths: 3 ROM/Head Extension: Full Lungs: Clear to Auscultation, Normal Respiratory Effort Cardiovascular: Regular Rate, Murmurs - Allergies Allergies/Adverse Reactions: Allergies Allergy/AdvReac Type Severity Reaction Status Date / Time cyclobenzaprine AdvReac Intermediate Hallucinati Verified 08/24/21 07:26 [From Flexeril] ons gabapentin AdvReac Intermediate Hallucinati Verified 08/24/21 07:26 ons - Acknowledgements Anesthesia Type Planned: MAC Pt an Appropriate Candidate for the Planned Anesthesia: Yes Alternatives and Risks of Anesthesia Discussed w Pt/Guardian: Yes Pt/Guardian Understands and Agrees with Anesthesia Plan: Yes PreAnesthesia Questionnaire HEENT History: Reports: Cataract, Other (See Below) Other HEENT History: wear upper dentures Cardiovascular History: Reports: Afib, Arrhythmia, CAD, Heart Murmur, High Cholesterol Other Cardiovascular History: aortic valve stenosis (s/p aortic valve repla cement), right bundle branch block, atrial tachycardia Respiratory History: Reports: SOB Gastrointestinal History: Reports: Other (See Below) Other Gastrointestinal History: abnormal LFTs, biliary colic Genitourinary History: Reports: BPH, Other (See Below) Other Genitourinary History: frequency, benign non-nodular prostatic hyperplasia with lower urinary tract symptoms 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 Hematologic History: Reports: Other (See Below) Other Hematologic History: low platelets, black stool, thrombocytopenia Immunologic History: Reports: None Oncologic (Cancer) History: Reports: Liver, Other (See Below) Other Oncologic History: liver biopsy. Nodule to upper liver near the diaphragm (hepatocellular carcinoma) Dermatologic History: Reports: Cellulitis Other Dermatologic History: skin lesion, wound cellulitis (resolved) - Infectious Disease History Infectious Disease History: Reports: None - Past Surgical History Head Surgeries/Procedures: Reports: None HEENT Surgical History: Reports: Cataract Surgery, Other (See Below) Other HEENT Surgeries/Procedures: resection wedge of eyelid Cardiovascular Surgical History: Reports: Valve Replacement Other Cardiovascular Surgeries/Procedures: IR ablation Respiratory Surgical History: Reports: None GI Surgical History: Reports: Cholecystectomy, Colonoscopy, Other (See Below) Other GI Surgeries/Procedures: Part of liver removed. Liver biopsy x2, ERCP Female Surgical History: Reports: None Male Surgical History: Reports: None Endocrine Surgical History: Reports: None Neurological Surgical History: Reports: None Musculoskeletal Surgical History: Reports: Knee Replacement, Shoulder Surgery, Other (See Below) Other Musculoskeletal Surgeries/Procedures:: right knee surgery for dislocated knee cap, left shoulder surgery with rotator cuff repair, right quad tendon repair Oncologic Surgical History: Reports: None Other Oncologic Surgeries/Procedures: Liver ablation, liver nodule resection Dermatological Surgical History: Reports: None - Past Imaging History Past Imaging History: Reports: Angiography, Cardiac Echo, Carotid US, Holter Monitor, Stress Testing - SUBSTANCE USE Tobacco Use Status *Q: Former Tobacco User Recreational Drug Use History: No - HOME MEDS Home Medications: Home Meds Alfuzosin [Uroxatral] 10 mg PO DAILY 01/23/19 [History] Sertraline [Zoloft] 100 mg PO DAILY 01/23/19 [History] Cholecalciferol (Vitamin D3) [Vitamin D3] 2,000 units PO DAILY 08/06/19 [History] Rosuvastatin [Crestor] 10 mg PO BEDTIME 08/06/19 [History] Diltiazem [Cardizem CD] 120 mg PO DAILY 12/19/20 [History] Furosemide [Lasix] 20 mg PO DAILY 12/19/20 [History] Oxybutynin 5 mg PO BID 12/19/20 [History] metFORMIN HCl [Glucophage] 1,000 mg PO BID 12/20/20 [History] metOLazone [Metolazone] 2.5 mg PO SUWE 08/03/21 [History] Pantoprazole [ProTONIX] 40 mg PO DAILY 08/24/21 [History] Potassium Chloride 20 meq PO BID 08/24/21 [History] Rivaroxaban [Xarelto] 20 mg PO DAILY 08/24/21 [History] - CURRENT (IN HOUSE) MEDS Current Meds: Current Medications Lactated Ringer's (Ringers, Lactated) 1,000 mls @ 125 mls/hr IV ASDIRECTED NURY Stop: 08/24/21 23:00 Lidocaine/Sodium Bicarbonate (Lidocaine 1%/Sod Bicarbonate In Ns 8.4% 1 Ml Syringe) 0.25 ml IDERM ONETIME PRN PRN Reason: Prior to IV Start Stop: 08/24/21 18:00 Sodium Chloride (Sodium Chloride 0.9% 10 Ml Syringe) 10 ml FLUSH ASDIRECTED PRN PRN Reason: Keep Vein Open Stop: 08/24/21 18:00
--- NOTE | 2021-08-24 09:36 | PCM.PRNOTE ---
- Free Text/Narrative Note: Operative Report Date of Procedure: August 24, 2021 Pre Op Diagnosis: Melena and hematochezia (recent GI bleed) Post-Op Diagnosis: same Operative Procedures: 1. EGD with biopsy 2. Colonoscopy to the cecum Primary Surgeon: Radha Hogan MD Anesthesia Provider: Luke Green CRNA Anesthesia Technique: MAC IV Fluid Replacement, Intraop: See anesthesia record Output, Urine Amount: 0 cc EBL in mLs: none Findings: 1. Gastritis 2. Duodenitis 3. Bile reflux 4. Irregular GE junction 5. Sigmoid colon polyp 6. Diverticulosis Specimens: 1. Gastric antrum biposies 2. Duodenal biopsies 3. GE junction biopsies 4. Sigmoid polyp Drain/Tubes: None Indication: The patient is a 71-year-old gentleman who presented to the clinic with findings of recent GI bleed that was evaluated in the ED. The patient reported symptoms of melena and hematochezia. The patient was consented for a diagnostic EGD and colonoscopy. Risks of bleeding, and perforation were discussed, and the patient agreed to the risks and wished to proceed. Description of the procedure: The patient was taken back to the endoscopy suite, and placed in the left lateral decubitus position. A bite block was placed. The patient was sedated with MAC anesthesia. The Olympus video endoscope was inserted into the oropharynx and guided under direct vision into the esophagus, stomach, and duodenum. The duodenal bulb and second portion of the duodenum were evaluated. There were scattered polypoid areas in the duodenal bulb that was biopsied with a cold biopsy forceps. The tissue was friable and erythematous. The scope was withdrawn to the stomach. The gastric antrum was inspected and cold biopsy forceps were used to take tissue samples for H. pylori. There was patchy erythema noted of the tissue consistent with gastritis. The scope was withdrawn to the stomach and retroflexed. There was adherent bilious fluid in the body of the stomach. No erosions or ulcers were noted. The scope was withdrawn to the esophagus. The Z-line was irregular and biopsies were taken in four quadrants with a cold biopsy forceps. The endoscope was then withdrawn. Next, anorectal examination was performed. No lesions, masses or hemorrhoids were noted externally or on palpation. The scope was placed into the rectum and advanced to cecum. Upon reaching the cecum, and the patients cecum was entered. There was moderate tortuosity of the colon with significant looping requiring abdominal pressure and change in patient position to supine. The ile ocecal valve was well visualized and the appendiceal orifice identified. At this point, the scope was slowly withdrawn, paying attention to the mucosa. The patient had a good bowel prep. The was friability noted of the mucosa diffusely in the colon. A 3mm polyp was seen and removed in the sigmoid colon. There were scattered few diverticula noted. The scope was removed. The patient tolerated the procedure very well. Complications: None apparent Condition: The patient was transported to PACU in stable condition. Radha Hogan MD General Surgery
--- NOTE | 2021-08-24 09:40 | PCM.OPNOTE ---
- General Post-Op/Procedure Note Date of Surgery/Procedure: 08/24/21 Operative Procedure(s): EGD and colonoscopy Findings: 1. Gastritis 2. Duodenitis 3. Bile reflux 4. Irregular GE junction 5. Sigmoid colon polyp 6. Diverticulosis Pre Op Diagnosis: melena and hematochezia Post-Op Diagnosis: same Anesthesia Technique: AMAYA Primary Surgeon: Radha Hogan Anesthesia Provider: Luke Grene Pathology: 1. Gastric antrum biposies 2. Duodenal biopsies 3. GE junction biopsies 4. Sigmoid polyp EBL in mLs: 0 Complications: none apparent Condition: Good
--- NOTE | 2021-08-24 09:41 | PCM48HPAN ---
Post Anesthesia Note - EVALUATION WITHIN 48HRS OF ANESTHETIC Vital Signs in Normal Range: Yes Patient Participated in Evaluation: Yes Respiratory Function Stable: Yes Airway Patent: Yes Cardiovascular Function Stable: Yes Hydration Status Stable: Yes Pain Control Satisfactory: Yes Nausea and Vomiting Control Satisfactory: Yes Mental Status Recovered: Yes Vital Signs: Last Vital Signs Temp 98.5 F 08/24/21 09:30 Pulse 74 08/24/21 09:30 Resp 16 08/24/21 09:30 BP 100/64 08/24/21 09:30 Pulse Ox 94 L 08/24/21 09:30
[2021-08-24 10:32] VITALS: BP 125/82; PULSE 95
== END | disposition home or self-care (01) ==
LOC: JD.SDS 06:59
PROVIDERS: ATTEND Surgery
DX: K63.5 Polyp of colon (principal); D46.4 Refractory anemia, unspecified; K29.50 Unspecified chronic gastritis without bleeding; K29.80 Duodenitis without bleeding; K21.9 Gastro-esophageal reflux disease without esophagitis; K22.89 Other specified disease of esophagus; K57.30 Diverticulosis of large intestine without perforation or abscess without bleeding; K31.89 Other diseases of stomach and duodenum; F17.210 Nicotine dependence, cigarettes, uncomplicated; E11.9 Type 2 diabetes mellitus without complications; E66.9 Obesity, unspecified; I25.10 Atherosclerotic heart disease of native coronary artery without angina pectoris; I48.91 Unspecified atrial fibrillation; Z88.8 Allergy status to other drugs, medicaments and biological substances; E78.00 Pure hypercholesterolemia, unspecified; Z86.73 Personal history of transient ischemic attack (TIA), and cerebral infarction without residual deficits
CPT/HCPCS: 36415; 43239; 45380; 80053; 85025; J2704; J3010; J7120; 00813; 99100

== ENCOUNTER 2022-04-01 13:38 | Emergency (ER) | payer MEDICARE, BC ==
[2022-04-01 13:54] VITALS: BP 130/87; PULSE 64
== END 2022-04-01 15:07 | disposition home or self-care (01) ==
LOC: JD.ED 13:38
DX: S31.114A Laceration without foreign body of abdominal wall, left lower quadrant without penetration into peritoneal cavity, initial encounter (principal); I48.91 Unspecified atrial fibrillation; I25.10 Atherosclerotic heart disease of native coronary artery without angina pectoris; E78.00 Pure hypercholesterolemia, unspecified; E11.9 Type 2 diabetes mellitus without complications; E66.9 Obesity, unspecified; Z68.30 Body mass index [BMI] 30.0-30.9, adult; Z86.73 Personal history of transient ischemic attack (TIA), and cerebral infarction without residual deficits; Z88.5 Allergy status to narcotic agent; Z88.8 Allergy status to other drugs, medicaments and biological substances; Z79.899 Other long term (current) drug therapy; Z79.84 Long term (current) use of oral hypoglycemic drugs
CPT/HCPCS: 12001; 99282

== ENCOUNTER 2022-04-18 01:48 | Emergency (ER) | payer MEDICARE, BC ==
[2022-04-18 02:05] VITALS: BP 121/67; PULSE 95
== END 2022-04-18 03:00 | disposition home or self-care (01) ==
LOC: JD.ED 01:48
DX: R18.8 Other ascites (principal); E11.9 Type 2 diabetes mellitus without complications; I48.91 Unspecified atrial fibrillation; I25.10 Atherosclerotic heart disease of native coronary artery without angina pectoris; E78.00 Pure hypercholesterolemia, unspecified; E66.9 Obesity, unspecified; Z68.30 Body mass index [BMI] 30.0-30.9, adult; Z87.19 Personal history of other diseases of the digestive system; Z88.8 Allergy status to other drugs, medicaments and biological substances; Z79.899 Other long term (current) drug therapy; Z79.84 Long term (current) use of oral hypoglycemic drugs
CPT/HCPCS: 99283

== ENCOUNTER 2022-05-02 22:31 | Emergency (ER) | payer MEDICARE, BC ==
[2022-05-02 23:06] VITALS: BP 135/86; PULSE 92
== END 2022-05-03 00:50 | disposition home or self-care (01) ==
LOC: JD.ED 22:31
DX: S31.114A Laceration without foreign body of abdominal wall, left lower quadrant without penetration into peritoneal cavity, initial encounter (principal); R18.8 Other ascites; I25.10 Atherosclerotic heart disease of native coronary artery without angina pectoris; E78.00 Pure hypercholesterolemia, unspecified; E11.9 Type 2 diabetes mellitus without complications; Z86.73 Personal history of transient ischemic attack (TIA), and cerebral infarction without residual deficits; Z88.5 Allergy status to narcotic agent; Z88.8 Allergy status to other drugs, medicaments and biological substances; Z90.49 Acquired absence of other specified parts of digestive tract
CPT/HCPCS: 12001; 99283

== ENCOUNTER 2022-05-05 03:45 | Emergency (ER) | payer MEDICARE, BC ==
[2022-05-05 03:56] VITALS: BP 116/72; PULSE 81
== END 2022-05-05 04:30 | disposition home or self-care (01) ==
LOC: JD.ED 03:45
DX: T81.31XA Disruption of external operation (surgical) wound, not elsewhere classified, initial encounter (principal); I25.10 Atherosclerotic heart disease of native coronary artery without angina pectoris; E11.9 Type 2 diabetes mellitus without complications; Z88.8 Allergy status to other drugs, medicaments and biological substances; Z79.899 Other long term (current) drug therapy; Z79.84 Long term (current) use of oral hypoglycemic drugs; Z90.49 Acquired absence of other specified parts of digestive tract
CPT/HCPCS: 12001; 99282

== ENCOUNTER 2022-05-11 20:09 | Emergency (ER) | payer MEDICARE, BC ==
[2022-05-11 20:38] VITALS: BP 96/64; PULSE 77
== END 2022-05-11 21:39 | disposition home or self-care (01) ==
LOC: JD.ED 20:09
DX: K91.841 Postprocedural hemorrhage of a digestive system organ or structure following other procedure (principal); I48.91 Unspecified atrial fibrillation; I25.10 Atherosclerotic heart disease of native coronary artery without angina pectoris; E78.00 Pure hypercholesterolemia, unspecified; E11.9 Type 2 diabetes mellitus without complications; Z98.890 Other specified postprocedural states; Z88.5 Allergy status to narcotic agent; Z88.8 Allergy status to other drugs, medicaments and biological substances; Z79.899 Other long term (current) drug therapy
CPT/HCPCS: 99283

== ENCOUNTER 2022-07-14 17:03 | Inpatient (IN) | payer MEDICARE, BC ==
[2022-07-14] MEDS ORDERED: Sodium Chloride 0.9% 10 ML Syringe FLUSH PRN (17:29)
[2022-07-14] MEDS ORDERED: Sodium Chloride 0.9% 1,000 ML IV ONE ×2 (17:29→18:45)
[2022-07-14] MEDS ORDERED: Acetaminophen 325 MG Tab PO ONE (17:39)
[2022-07-14] MEDS ORDERED: Ondansetron 4 MG/2 ML SDV IVPUSH ONE (17:39)
[2022-07-14] MEDS ORDERED: Piperacillin/Tazobactam 4.5 GM in Sodium Chloride 0.9% 100 ML IV ONE (18:39)
[2022-07-14 18:52] LABS: CORONAVIRUS COVID-19 NAA POSITIVE (NEGATIVE)
[2022-07-14] MEDS ORDERED: Acetaminophen 325 MG Tab PO PRN (19:58)
[2022-07-14] MEDS ORDERED: Sodium Chloride 0.9% 500 ML IV ONE (20:52)
[2022-07-14] MEDS ORDERED: Norepinephrine 4 MG in Dextrose 5% in Water 246 ML IV SCH ×2 (21:30)
[2022-07-14] MEDS: Lactulose Soln 10 GM/15 ML 30 ML UD Cup PO SCH (21:32)
[2022-07-14] MEDS: Flecainide 50 MG Tab PO SCH (21:33)
[2022-07-14] MEDS: Albumin 25% 12.5 GM in Premix Bag 1 BAG IV SCH ×2 (21:35→22:02)
[2022-07-15] MEDS: Piperacillin/Tazobactam 4.5 GM in Sodium Chloride 0.9% 100 ML IV SCH ×3 (02:12→18:33)
[2022-07-15] MEDS: Diltiazem 120 MG Cap.CD PO SCH (09:12)
[2022-07-15] MEDS: Flecainide 50 MG Tab PO SCH ×2 (09:12→22:40)
[2022-07-15] MEDS: Lactulose Soln 10 GM/15 ML 30 ML UD Cup PO SCH ×2 (09:13→15:53)
[2022-07-15] MEDS: Ondansetron 4 MG/2 ML SDV IV PRN (15:51)
[2022-07-15] MEDS ORDERED: chlorproMAZINE 25 MG Tab PO PRN (17:35)
[2022-07-15] MEDS ORDERED: Baclofen 10 MG Tab PO ONE (18:08)
[2022-07-15] MEDS ORDERED: Non-Formulary Medication 1 Each (Lactulose 10 GM/15 ML Bottle) PO SCH (21:00)
[2022-07-15] MEDS: Baclofen 10 MG Tab PO SCH (22:40)
[2022-07-15] MEDS: Potassium Chloride 20 MEQ Tab.ER PO SCH (22:40)
[2022-07-16] MEDS: Piperacillin/Tazobactam 4.5 GM in Sodium Chloride 0.9% 100 ML IV SCH ×3 (03:06→17:24)
[2022-07-16] MEDS: Ondansetron 4 MG/2 ML SDV IV PRN ×2 (03:15→10:04)
[2022-07-16] MEDS: Pantoprazole 40 MG Tab.CR PO SCH (06:36)
[2022-07-16] MEDS: Midodrine 5 MG Tab PO SCH ×3 (06:36→17:24)
[2022-07-16] MEDS: Potassium Chloride 20 MEQ Tab.ER PO SCH ×2 (06:36→17:23)
[2022-07-16] MEDS: Lactulose Soln 10 GM/15 ML 30 ML UD Cup PO SCH ×3 (09:12→20:40)
[2022-07-16] MEDS: Cholecalciferol (Vitamin D3) 25 MCG Tab PO SCH (09:13)
[2022-07-16] MEDS: Furosemide 40 MG Tab PO SCH (09:13)
[2022-07-16] MEDS: Flecainide 50 MG Tab PO SCH ×2 (09:13→20:32)
[2022-07-16] MEDS: Baclofen 10 MG Tab PO SCH ×3 (09:14→20:33)
[2022-07-16] MEDS: Diltiazem 120 MG Cap.CD PO SCH (09:14)
[2022-07-16] MEDS: Sertraline 50 MG Tab PO SCH (09:14)
[2022-07-16] MEDS: Tamsulosin 0.4 MG Cap.ER PO SCH (09:15)
[2022-07-16] MEDS: VANCOmycin 1.25 GM/250 ML 1.25 GM in Premix Bag 1 BAG IV SCH ×2 (10:15→21:41)
[2022-07-16] MEDS: Ondansetron 4 MG Tab.DIS PO PRN (20:21)
[2022-07-17] MEDS: Piperacillin/Tazobactam 4.5 GM in Sodium Chloride 0.9% 100 ML IV SCH ×3 (01:54→17:39)
[2022-07-17] MEDS: Ondansetron 4 MG/2 ML SDV IV PRN ×4 (03:16→19:18)
[2022-07-17] MEDS: Baclofen 10 MG Tab PO SCH ×3 (05:12→16:31)
[2022-07-17] MEDS: Pantoprazole 40 MG Tab.CR PO SCH (05:13)
[2022-07-17] MEDS: Flecainide 50 MG Tab PO SCH ×2 (08:46→20:32)
[2022-07-17] MEDS: Furosemide 40 MG Tab PO SCH (08:46)
[2022-07-17] MEDS: Cholecalciferol (Vitamin D3) 25 MCG Tab PO SCH (08:46)
[2022-07-17] MEDS: Potassium Chloride 20 MEQ Tab.ER PO SCH ×2 (08:47→18:07)
[2022-07-17] MEDS: Midodrine 5 MG Tab PO SCH ×3 (08:47→16:06)
[2022-07-17] MEDS: Sertraline 50 MG Tab PO SCH (08:47)
[2022-07-17] MEDS: Diltiazem 120 MG Cap.CD PO SCH (08:47)
[2022-07-17] MEDS: Lactulose Soln 10 GM/15 ML 30 ML UD Cup PO SCH ×3 (08:48→20:32)
[2022-07-17] MEDS: Tamsulosin 0.4 MG Cap.ER PO SCH (08:48)
[2022-07-17] MEDS: VANCOmycin 1.25 GM/250 ML 1.25 GM in Premix Bag 1 BAG IV SCH ×2 (10:24→22:40)
[2022-07-17] MEDS ORDERED: Lidocaine 1% 10 ML MDV INJECT SCH (10:30)
[2022-07-17] MEDS: Albumin 25% 12.5 GM in Premix Bag 1 BAG IV SCH ×6 (13:58→17:39)
[2022-07-18] MEDS: Piperacillin/Tazobactam 4.5 GM in Sodium Chloride 0.9% 100 ML IV SCH ×3 (01:35→18:08)
[2022-07-18] MEDS: Pantoprazole 40 MG Tab.CR PO SCH (06:04)
[2022-07-18] MEDS: Midodrine 5 MG Tab PO SCH ×3 (06:04→18:08)
[2022-07-18] MEDS: Potassium Chloride 20 MEQ Tab.ER PO SCH ×2 (07:40→18:08)
[2022-07-18] MEDS: Lactulose Soln 10 GM/15 ML 30 ML UD Cup PO SCH ×3 (08:59→20:57)
[2022-07-18] MEDS: Flecainide 50 MG Tab PO SCH ×2 (09:00→20:59)
[2022-07-18] MEDS: Diltiazem 120 MG Cap.CD PO SCH (09:00)
[2022-07-18] MEDS: Sertraline 50 MG Tab PO SCH (09:00)
[2022-07-18] MEDS: Cholecalciferol (Vitamin D3) 25 MCG Tab PO SCH (09:00)
[2022-07-18] MEDS: Tamsulosin 0.4 MG Cap.ER PO SCH (09:01)
[2022-07-18] MEDS: Furosemide 40 MG Tab PO SCH (09:01)
[2022-07-18] MEDS ORDERED: chlorproMAZINE 25 MG Tab PO PRN (10:19)
[2022-07-18] MEDS: VANCOmycin 1.25 GM/250 ML 1.25 GM in Premix Bag 1 BAG IV SCH ×3 (10:31→22:48)
[2022-07-19] MEDS: Piperacillin/Tazobactam 4.5 GM in Sodium Chloride 0.9% 100 ML IV SCH ×3 (01:51→17:22)
[2022-07-19] MEDS: Pantoprazole 40 MG Tab.CR PO SCH (06:26)
[2022-07-19] MEDS: Midodrine 5 MG Tab PO SCH ×3 (06:27→17:22)
[2022-07-19] MEDS: Flecainide 50 MG Tab PO SCH ×2 (08:40→20:09)
[2022-07-19] MEDS: Diltiazem 120 MG Cap.CD PO SCH (08:40)
[2022-07-19] MEDS: Tamsulosin 0.4 MG Cap.ER PO SCH (08:40)
[2022-07-19] MEDS: Furosemide 40 MG Tab PO SCH (08:40)
[2022-07-19] MEDS: Potassium Chloride 20 MEQ Tab.ER PO SCH ×2 (08:40→17:22)
[2022-07-19] MEDS: Cholecalciferol (Vitamin D3) 25 MCG Tab PO SCH (08:41)
[2022-07-19] MEDS: Lactulose Soln 10 GM/15 ML 30 ML UD Cup PO SCH ×3 (08:41→20:12)
[2022-07-19] MEDS: Sertraline 50 MG Tab PO SCH (08:41)
[2022-07-19] MEDS: VANCOmycin 1.25 GM/250 ML 1.25 GM in Premix Bag 1 BAG IV SCH ×2 (10:04→23:09)
[2022-07-19] MEDS ORDERED: Ibuprofen 600 MG Tab PO ONE (19:56)
[2022-07-19] MEDS: Ondansetron 4 MG Tab.DIS PO PRN (20:23)
[2022-07-20] MEDS: Piperacillin/Tazobactam 4.5 GM in Sodium Chloride 0.9% 100 ML IV SCH ×2 (02:16→11:38)
[2022-07-20] MEDS: Pantoprazole 40 MG Tab.CR PO SCH (05:52)
[2022-07-20] MEDS: Midodrine 5 MG Tab PO SCH ×3 (06:17→16:33)
[2022-07-20] MEDS: Diltiazem 120 MG Cap.CD PO SCH (08:08)
[2022-07-20] MEDS: Tamsulosin 0.4 MG Cap.ER PO SCH (08:09)
[2022-07-20] MEDS: Potassium Chloride 20 MEQ Tab.ER PO SCH ×2 (08:09→16:33)
[2022-07-20] MEDS: Furosemide 40 MG Tab PO SCH (08:09)
[2022-07-20] MEDS: Flecainide 50 MG Tab PO SCH ×2 (08:09→20:28)
[2022-07-20] MEDS: Cholecalciferol (Vitamin D3) 25 MCG Tab PO SCH (08:10)
[2022-07-20] MEDS: Lactulose Soln 10 GM/15 ML 30 ML UD Cup PO SCH ×3 (08:11→20:27)
[2022-07-20] MEDS: VANCOmycin 1.25 GM/250 ML 1.25 GM in Premix Bag 1 BAG IV SCH (11:39)
[2022-07-21] MEDS: Pantoprazole 40 MG Tab.CR PO SCH (06:13)
[2022-07-21] MEDS: Midodrine 5 MG Tab PO SCH ×3 (06:13→17:06)
[2022-07-21] MEDS: Potassium Chloride 20 MEQ Tab.ER PO SCH ×2 (06:13→17:06)
[2022-07-21] MEDS: Furosemide 40 MG Tab PO SCH (08:09)
[2022-07-21] MEDS: Diltiazem 120 MG Cap.CD PO SCH (08:09)
[2022-07-21] MEDS: Cholecalciferol (Vitamin D3) 25 MCG Tab PO SCH (08:09)
[2022-07-21] MEDS: Tamsulosin 0.4 MG Cap.ER PO SCH (08:09)
[2022-07-21] MEDS: Flecainide 50 MG Tab PO SCH ×2 (08:10→20:48)
[2022-07-21] MEDS: Lactulose Soln 10 GM/15 ML 30 ML UD Cup PO SCH ×3 (08:10→20:48)
[2022-07-21] MEDS: Ondansetron 4 MG Tab.DIS PO PRN (22:07)
[2022-07-22] MEDS: Pantoprazole 40 MG Tab.CR PO SCH (05:50)
[2022-07-22] MEDS: Midodrine 5 MG Tab PO SCH ×3 (06:28→17:02)
[2022-07-22] MEDS: Lactulose Soln 10 GM/15 ML 30 ML UD Cup PO SCH ×3 (08:10→20:20)
[2022-07-22] MEDS: Potassium Chloride 20 MEQ Tab.ER PO SCH ×2 (08:10→17:02)
[2022-07-22] MEDS: Diltiazem 120 MG Cap.CD PO SCH (08:10)
[2022-07-22] MEDS: Cholecalciferol (Vitamin D3) 25 MCG Tab PO SCH (08:11)
[2022-07-22] MEDS: Tamsulosin 0.4 MG Cap.ER PO SCH (08:11)
[2022-07-22] MEDS: Furosemide 40 MG Tab PO SCH (08:11)
[2022-07-22] MEDS: Flecainide 50 MG Tab PO SCH ×2 (08:11→20:20)
[2022-07-23] MEDS: Pantoprazole 40 MG Tab.CR PO SCH (07:00)
[2022-07-23] MEDS: Potassium Chloride 20 MEQ Tab.ER PO SCH ×2 (07:00→16:02)
[2022-07-23] MEDS: Midodrine 5 MG Tab PO SCH ×3 (07:00→16:02)
[2022-07-23] MEDS: Flecainide 50 MG Tab PO SCH ×2 (09:47→20:14)
[2022-07-23] MEDS: Cholecalciferol (Vitamin D3) 25 MCG Tab PO SCH (09:48)
[2022-07-23] MEDS: cefTRIAXone 1 GM in Sodium Chloride 0.9% 100 ML IV SCH (09:48)
[2022-07-23] MEDS: Furosemide 40 MG Tab PO SCH (09:48)
[2022-07-23] MEDS: Tamsulosin 0.4 MG Cap.ER PO SCH (09:49)
[2022-07-23] MEDS: Diltiazem 120 MG Cap.CD PO SCH (10:14)
[2022-07-23] MEDS: Lactulose Soln 10 GM/15 ML 30 ML UD Cup PO SCH ×3 (10:16→20:14)
[2022-07-23] MEDS: Ondansetron 4 MG Tab.DIS PO PRN (19:53)
[2022-07-24] MEDS: Pantoprazole 40 MG Tab.CR PO SCH (07:43)
[2022-07-24] MEDS: Midodrine 5 MG Tab PO SCH ×3 (07:43→16:22)
[2022-07-24] MEDS: Potassium Chloride 20 MEQ Tab.ER PO SCH ×2 (07:43→16:22)
[2022-07-24] MEDS: cefTRIAXone 1 GM in Sodium Chloride 0.9% 100 ML IV SCH (09:04)
[2022-07-24] MEDS: Flecainide 50 MG Tab PO SCH ×2 (09:05→21:14)
[2022-07-24] MEDS: Diltiazem 120 MG Cap.CD PO SCH (09:05)
[2022-07-24] MEDS: Cholecalciferol (Vitamin D3) 25 MCG Tab PO SCH (09:05)
[2022-07-24] MEDS: Furosemide 40 MG Tab PO SCH (09:06)
[2022-07-24] MEDS: Tamsulosin 0.4 MG Cap.ER PO SCH (09:06)
[2022-07-24] MEDS: Lactulose Soln 10 GM/15 ML 30 ML UD Cup PO SCH ×3 (09:06→21:14)
[2022-07-24] MEDS ORDERED: Lidocaine 1% 10 ML MDV INJECT SCH (12:20)
[2022-07-24] MEDS: Albumin 25% 12.5 GM in Premix Bag 1 BAG IV SCH ×4 (13:41→15:12)
[2022-07-24] MEDS: VANCOmycin 1.25 GM/250 ML 1.25 GM in Premix Bag 1 BAG IV SCH (13:41)
[2022-07-25] MEDS: VANCOmycin 1.25 GM/250 ML 1.25 GM in Premix Bag 1 BAG IV SCH ×2 (00:28→11:48)
[2022-07-25] MEDS: Pantoprazole 40 MG Tab.CR PO SCH (06:29)
[2022-07-25] MEDS: Midodrine 5 MG Tab PO SCH ×3 (06:29→16:44)
[2022-07-25] MEDS: Tamsulosin 0.4 MG Cap.ER PO SCH (08:12)
[2022-07-25] MEDS: Flecainide 50 MG Tab PO SCH ×2 (08:12→20:15)
[2022-07-25] MEDS: Diltiazem 120 MG Cap.CD PO SCH (08:12)
[2022-07-25] MEDS: Lactulose Soln 10 GM/15 ML 30 ML UD Cup PO SCH ×3 (08:13→20:15)
[2022-07-25] MEDS: Potassium Chloride 20 MEQ Tab.ER PO SCH ×2 (08:13→16:44)
[2022-07-25] MEDS: Cholecalciferol (Vitamin D3) 25 MCG Tab PO SCH (08:13)
[2022-07-25] MEDS: Furosemide 40 MG Tab PO SCH (08:13)
[2022-07-26] MEDS: VANCOmycin 1.25 GM/250 ML 1.25 GM in Premix Bag 1 BAG IV SCH ×2 (00:22→11:53)
[2022-07-26] MEDS: Potassium Chloride 20 MEQ Tab.ER PO SCH (06:47)
[2022-07-26] MEDS: Pantoprazole 40 MG Tab.CR PO SCH (06:48)
[2022-07-26] MEDS: Midodrine 5 MG Tab PO SCH ×2 (06:48→11:53)
[2022-07-26] MEDS: Cholecalciferol (Vitamin D3) 25 MCG Tab PO SCH (09:05)
[2022-07-26] MEDS: Diltiazem 120 MG Cap.CD PO SCH (09:06)
[2022-07-26] MEDS: Furosemide 40 MG Tab PO SCH (09:08)
[2022-07-26] MEDS: Lactulose Soln 10 GM/15 ML 30 ML UD Cup PO SCH (09:09)
[2022-07-26] MEDS: Tamsulosin 0.4 MG Cap.ER PO SCH (09:09)
[2022-07-26] MEDS: Flecainide 50 MG Tab PO SCH (09:09)
[2022-07-26 15:43] VITALS: BP 103/50; PULSE 96
== END 2022-07-26 15:32 | disposition home or self-care (01) | DRG 698 ==
LOC: JD.ED 17:03 → JD.ICU 19:08 → JD.MS 07-15 09:56
PROVIDERS: ADMIT Internal Medicine; ATTEND Internal Medicine
PROC: 3E03329 Introduction of Other Anti-infective into Peripheral Vein, Percutaneous Approach (ICD-10-PCS; 2022-07-14)
PROC: 0W9G3ZZ Drainage of Peritoneal Cavity, Percutaneous Approach (ICD-10-PCS; principal; 2022-07-17)
PROC: 0W9G3ZZ Drainage of Peritoneal Cavity, Percutaneous Approach (ICD-10-PCS; 2022-07-24)
DX: T83.511A Infection and inflammatory reaction due to indwelling urethral catheter, initial encounter (principal); J18.9 Pneumonia, unspecified organism; A41.81 Sepsis due to Enterococcus; I48.91 Unspecified atrial fibrillation; A41.89 Other specified sepsis; R65.20 Severe sepsis without septic shock; N40.0 Benign prostatic hyperplasia without lower urinary tract symptoms; U07.1 COVID-19; E11.9 Type 2 diabetes mellitus without complications; C22.0 Liver cell carcinoma; C22.8 Malignant neoplasm of liver, primary, unspecified as to type; D61.818 Other pancytopenia; Z79.899 Other long term (current) drug therapy; R18.0 Malignant ascites; K74.60 Unspecified cirrhosis of liver; E78.00 Pure hypercholesterolemia, unspecified; I25.10 Atherosclerotic heart disease of native coronary artery without angina pectoris; N40.1 Benign prostatic hyperplasia with lower urinary tract symptoms; R33.8 Other retention of urine; F32.A Depression, unspecified; D69.6 Thrombocytopenia, unspecified; Z96.651 Presence of right artificial knee joint; Z87.891 Personal history of nicotine dependence; Z88.1 Allergy status to other antibiotic agents; Z88.8 Allergy status to other drugs, medicaments and biological substances; Z79.01 Long term (current) use of anticoagulants; Z95.2 Presence of prosthetic heart valve; Z79.84 Long term (current) use of oral hypoglycemic drugs; Z86.73 Personal history of transient ischemic attack (TIA), and cerebral infarction without residual deficits; Z90.49 Acquired absence of other specified parts of digestive tract
CPT/HCPCS: 0240U; 36415; 51701; 51702; 51798; 71045; 80048; 80053; 80061; 80202; 81001; 82140; 83605; 85007; 85025; 85027; 85610; 86140; 87040; 87070; 87075; 87077; 87086; 87186; 87205; 93005; 94667; 94668; 94760; 97110; 97112; 97116; 97162; 97166; 97530; 97535; 99284; A9270-GY; J0696; J2405; J2543; J3370; J3490; J7030; J7050; P9047

== ENCOUNTER 2022-08-20 04:15 | Inpatient (IN) | payer MEDICARE, BC ==
[2022-08-20 06:50] LABS: CORONAVIRUS COVID-19 NAA NEGATIVE (NEGATIVE)
[2022-08-20] MEDS ORDERED: Iopamidol 612 MG/ML 150 ML Bottle IVPUSH ONE (07:22)
[2022-08-20] MEDS ORDERED: Diltiazem 25 MG/5 ML SDV IVPUSH ONE (07:26)
[2022-08-20] MEDS ORDERED: cefTRIAXone 1 GM in Sodium Chloride 0.9% 100 ML IV STA (07:54)
[2022-08-20] MEDS ORDERED: Ondansetron 4 MG/2 ML SDV IV PRN (12:46)
[2022-08-20] MEDS: Midodrine 5 MG Tab PO SCH (16:30)
[2022-08-20] MEDS: Acetaminophen 325 MG Tab PO PRN (18:32)
[2022-08-20] MEDS: Flecainide 50 MG Tab PO SCH (20:55)
[2022-08-20] MEDS: Potassium Chloride 20 MEQ Tab.ER PO SCH (20:55)
[2022-08-20] MEDS: Lactulose Soln 10 GM/15 ML 30 ML UD Cup PO SCH (20:55)
[2022-08-20] MEDS ORDERED: LACTULOSE 10 GM PO SCH (21:00)
[2022-08-20] MEDS: Rifaximin 550 MG Tab PO SCH (21:00)
[2022-08-20] MEDS: oxyCODONE 5 MG Tab PO PRN (21:56)
[2022-08-20] MEDS: traZODone 50 MG Tab PO PRN (23:43)
[2022-08-21] MEDS: Midodrine 5 MG Tab PO SCH ×3 (06:00→17:25)
[2022-08-21] MEDS: oxyCODONE 5 MG Tab PO PRN ×3 (06:00→22:40)
[2022-08-21] MEDS: Finasteride 5 MG Tab PO SCH (08:50)
[2022-08-21] MEDS: Pantoprazole 40 MG Tab.CR PO SCH (08:50)
[2022-08-21] MEDS: Furosemide 40 MG Tab PO SCH (08:50)
[2022-08-21] MEDS: cefTRIAXone 2 GM in Sodium Chloride 0.9% 100 ML IV SCH (08:50)
[2022-08-21] MEDS: Potassium Chloride 20 MEQ Tab.ER PO SCH ×2 (08:50→20:31)
[2022-08-21] MEDS: Flecainide 50 MG Tab PO SCH ×2 (08:50→20:31)
[2022-08-21] MEDS: Diltiazem 120 MG Cap.CD PO SCH (08:51)
[2022-08-21] MEDS: Sertraline 50 MG Tab PO SCH (08:51)
[2022-08-21] MEDS: ALFUZOSIN 10 MG PO SCH (08:51)
[2022-08-21] MEDS: Rifaximin 550 MG Tab PO SCH ×2 (08:53→20:57)
[2022-08-21] MEDS: Lactulose Soln 10 GM/15 ML 30 ML UD Cup PO SCH ×3 (08:54→20:32)
[2022-08-21] MEDS: Acetaminophen 325 MG Tab PO PRN (11:03)
[2022-08-22] MEDS: Acetaminophen 325 MG Tab PO PRN ×2 (00:47→14:02)
[2022-08-22] MEDS: Midodrine 5 MG Tab PO SCH ×3 (07:12→18:44)
[2022-08-22] MEDS: cefTRIAXone 2 GM in Sodium Chloride 0.9% 100 ML IV SCH (07:14)
[2022-08-22] MEDS ORDERED: Gadoxetate Disodium 10 ML SDV IV ONE (09:39)
[2022-08-22] MEDS ORDERED: Sodium Chloride 0.9% 10 ML Syringe FLUSH SCH (09:45)
[2022-08-22] MEDS: Lactulose Soln 10 GM/15 ML 30 ML UD Cup PO SCH ×3 (10:24→20:02)
[2022-08-22] MEDS: Furosemide 40 MG Tab PO SCH (10:25)
[2022-08-22] MEDS: Potassium Chloride 20 MEQ Tab.ER PO SCH (10:25)
[2022-08-22] MEDS: Diltiazem 120 MG Cap.CD PO SCH (10:25)
[2022-08-22] MEDS: Sertraline 50 MG Tab PO SCH (10:25)
[2022-08-22] MEDS: Flecainide 50 MG Tab PO SCH ×2 (10:26→20:03)
[2022-08-22] MEDS: Finasteride 5 MG Tab PO SCH (10:26)
[2022-08-22] MEDS: ALFUZOSIN 10 MG PO SCH (10:26)
[2022-08-22] MEDS: oxyCODONE 5 MG Tab PO PRN ×2 (10:26→16:52)
[2022-08-22] MEDS: Pantoprazole 40 MG Tab.CR PO SCH (10:26)
[2022-08-22] MEDS: Rifaximin 550 MG Tab PO SCH (10:47)
[2022-08-22] MEDS ORDERED: Lidocaine 1% 10 ML MDV ONE (12:22)
[2022-08-22] MEDS: Albumin 25% 12.5 GM in Premix Bag 1 BAG IV SCH ×4 (14:00→18:40)
[2022-08-22] MEDS ORDERED: Albumin 25% 50 ML ONE ×2 (15:05→15:06)
[2022-08-23] MEDS: Acetaminophen 325 MG Tab PO PRN (01:26)
[2022-08-23] MEDS: oxyCODONE 5 MG Tab PO PRN ×3 (01:31→14:29)
[2022-08-23] MEDS: traZODone 50 MG Tab PO PRN (01:32)
[2022-08-23] MEDS: Midodrine 5 MG Tab PO SCH ×3 (06:35→17:24)
[2022-08-23] MEDS: Flecainide 50 MG Tab PO SCH ×2 (08:30→20:00)
[2022-08-23] MEDS: Pantoprazole 40 MG Tab.CR PO SCH (08:31)
[2022-08-23] MEDS: Sertraline 50 MG Tab PO SCH (08:31)
[2022-08-23] MEDS: Diltiazem 120 MG Cap.CD PO SCH (08:31)
[2022-08-23] MEDS: Furosemide 40 MG Tab PO SCH (08:31)
[2022-08-23] MEDS: Finasteride 5 MG Tab PO SCH (08:31)
[2022-08-23] MEDS: cefTRIAXone 2 GM in Sodium Chloride 0.9% 100 ML IV SCH (08:37)
[2022-08-23] MEDS: ALFUZOSIN 10 MG PO SCH (08:37)
[2022-08-23] MEDS: Lactulose Soln 10 GM/15 ML 30 ML UD Cup PO SCH ×3 (08:37→20:00)
[2022-08-23] MEDS ORDERED: HYDROmorphone 0.5 MG/0.5 ML Syringe IVPUSH ONE ×2 (09:00→10:15)
[2022-08-23] MEDS ORDERED: fentaNYL 12 MCG/HR Transdermal Patch TRDERM SCH (10:30)
[2022-08-23] MEDS ORDERED: Piperacillin/Tazobactam 4.5 GM in Sodium Chloride 0.9% 100 ML IV ONE (15:00)
[2022-08-23] MEDS: Levofloxacin/Dextrose 5%-Water 750 MG in Premix Bag 1 BAG IV SCH (18:51)
[2022-08-23] MEDS ORDERED: HYDROmorphone 0.5 MG/0.5 ML Syringe ONE (19:50)
[2022-08-23] MEDS: HYDROmorphone 0.5 MG/0.5 ML Syringe IVPUSH PRN ×2 (19:57→22:08)
[2022-08-23] MEDS ORDERED: VANCOmycin 750 MG/150 ML 750 MG in Premix Bag 1 BAG IV SCH (20:00)
[2022-08-23] MEDS: Piperacillin/Tazobactam 4.5 GM in Sodium Chloride 0.9% 100 ML IV SCH (22:11)
[2022-08-24] MEDS: oxyCODONE 5 MG Tab PO PRN ×3 (00:19→16:13)
[2022-08-24] MEDS: HYDROmorphone 0.5 MG/0.5 ML Syringe IVPUSH PRN (01:49)
[2022-08-24] MEDS: Midodrine 5 MG Tab PO SCH ×3 (08:10→16:15)
[2022-08-24] MEDS: Piperacillin/Tazobactam 4.5 GM in Sodium Chloride 0.9% 100 ML IV SCH ×3 (08:11→23:04)
[2022-08-24] MEDS: Finasteride 5 MG Tab PO SCH (08:42)
[2022-08-24] MEDS: Diltiazem 120 MG Cap.CD PO SCH (08:42)
[2022-08-24] MEDS: Sertraline 50 MG Tab PO SCH (08:43)
[2022-08-24] MEDS: Pantoprazole 40 MG Tab.CR PO SCH (08:43)
[2022-08-24] MEDS: Flecainide 50 MG Tab PO SCH ×2 (08:43→20:56)
[2022-08-24] MEDS: Furosemide 40 MG Tab PO SCH (08:43)
[2022-08-24] MEDS: Lactulose Soln 10 GM/15 ML 30 ML UD Cup PO SCH ×3 (08:44→20:56)
[2022-08-24] MEDS: ALFUZOSIN 10 MG PO SCH (08:45)
[2022-08-24] MEDS ORDERED: Albumin 25% 12.5 GM/50 ML BAG IV SCH (09:00)
[2022-08-24] MEDS: Morphine 4 MG/ML Syringe IVPUSH PRN ×3 (09:03→19:44)
[2022-08-24] MEDS ORDERED: LORazepam 1 MG Tab PO PRN (10:05)
[2022-08-24] MEDS ORDERED: Morphine 10 MG/ML SDV IVPUSH PRN (10:56)
[2022-08-24] MEDS ORDERED: Morphine 2 MG/ML SYRINGE IVPUSH STA (10:59)
[2022-08-24] MEDS ORDERED: Lidocaine 1% 10 ML MDV INJECT ONE (11:30)
[2022-08-24] MEDS: Albumin 25% 12.5 GM/50 ML BAG IV SCH ×2 (12:33→13:18)
[2022-08-24] MEDS ORDERED: Naloxone 0.4 MG/ML SDV ONE (15:37)
[2022-08-24] MEDS ORDERED: Morphine 4 MG/ML Syringe IVPUSH ONE ×2 (17:48→18:19)
[2022-08-24] MEDS ORDERED: Naloxone 0.4 MG/ML SDV IVPUSH PRN (19:48)
[2022-08-24] MEDS: Levofloxacin/Dextrose 5%-Water 750 MG in Premix Bag 1 BAG IV SCH (19:48)
[2022-08-24] MEDS ORDERED: Sodium Chloride 0.9% 10 ML Syringe FLUSH ONE (20:06)
[2022-08-24] MEDS ORDERED: Iopamidol 612 MG/ML 100 ML Bottle IVPUSH ONE (20:06)
[2022-08-24] MEDS ORDERED: Sodium Chloride 0.9% 250 ML IV SCH (22:18)
[2022-08-25] MEDS: Morphine 4 MG/ML Syringe IVPUSH PRN ×4 (02:53→20:13)
[2022-08-25] MEDS ORDERED: Ketorolac 30 MG/ML SDV IVPUSH ONE (04:10)
[2022-08-25] MEDS ORDERED: Furosemide 40 MG/4 ML VIAL IVPUSH ONE (04:13)
[2022-08-25] MEDS: Piperacillin/Tazobactam 4.5 GM in Sodium Chloride 0.9% 100 ML IV SCH (06:09)
[2022-08-25] MEDS ORDERED: Pantoprazole 40 MG Vial IVPUSH SCH (09:00)
[2022-08-25] MEDS ORDERED: Rifaximin 550 MG Tab PO SCH (09:00)
[2022-08-25] MEDS ORDERED: Ketorolac 30 MG/ML SDV IVPUSH PRN (09:51)
[2022-08-25] MEDS: Midodrine 5 MG Tab PO SCH (10:22)
[2022-08-25] MEDS ORDERED: LORazepam 2 MG/ML SDV IVPUSH PRN (10:30)
[2022-08-25 10:37] VITALS: BP 74/52
[2022-08-25] MEDS: ALFUZOSIN 10 MG PO SCH (10:54)
[2022-08-25] MEDS: Lactulose Soln 10 GM/15 ML 30 ML UD Cup PO SCH (10:54)
[2022-08-25] MEDS: Diltiazem 120 MG Cap.CD PO SCH (10:54)
[2022-08-25] MEDS: Finasteride 5 MG Tab PO SCH (10:55)
[2022-08-25] MEDS: Sertraline 50 MG Tab PO SCH (10:55)
[2022-08-25] MEDS: Flecainide 50 MG Tab PO SCH (10:55)
[2022-08-25 21:18] VITALS: PULSE 70
== END 2022-08-26 01:53 | disposition expired | DRG 690 ==
LOC: JD.ED 04:15 → JD.MS 12:39 → UNDODISIN 08-22 23:05 → JD.ICU 08-24 11:46
PROVIDERS: ADMIT Internal Medicine; ATTEND Pediatrics
PROC: 0W9G3ZZ Drainage of Peritoneal Cavity, Percutaneous Approach (ICD-10-PCS; principal; 2022-08-22)
PROC: 0W9G3ZZ Drainage of Peritoneal Cavity, Percutaneous Approach (ICD-10-PCS; 2022-08-24)
DX: N12 Tubulo-interstitial nephritis, not specified as acute or chronic (principal); C22.0 Liver cell carcinoma; S22.43XA Multiple fractures of ribs, bilateral, initial encounter for closed fracture; R41.0 Disorientation, unspecified; D61.818 Other pancytopenia; E87.1 Hypo-osmolality and hyponatremia; I48.91 Unspecified atrial fibrillation; R18.0 Malignant ascites; I25.10 Atherosclerotic heart disease of native coronary artery without angina pectoris; N40.0 Benign prostatic hyperplasia without lower urinary tract symptoms; E78.00 Pure hypercholesterolemia, unspecified; F32.A Depression, unspecified; E11.9 Type 2 diabetes mellitus without complications; N39.0 Urinary tract infection, site not specified; Z20.822 Contact with and (suspected) exposure to COVID-19; K76.82 Hepatic encephalopathy; K74.69 Other cirrhosis of liver; Z66 Do not resuscitate; K43.9 Ventral hernia without obstruction or gangrene; F41.9 Anxiety disorder, unspecified; D64.9 Anemia, unspecified; I48.0 Paroxysmal atrial fibrillation; N40.1 Benign prostatic hyperplasia with lower urinary tract symptoms; R33.8 Other retention of urine; D69.6 Thrombocytopenia, unspecified; I50.9 Heart failure, unspecified; M81.0 Age-related osteoporosis without current pathological fracture; M19.90 Unspecified osteoarthritis, unspecified site; W19.XXXA Unspecified fall, initial encounter; B96.89 Other specified bacterial agents as the cause of diseases classified elsewhere; Z86.16 Personal history of COVID-19; Z79.899 Other long term (current) drug therapy; Z51.5 Encounter for palliative care; Z88.1 Allergy status to other antibiotic agents; Z95.2 Presence of prosthetic heart valve; Z98.890 Other specified postprocedural states; Z88.8 Allergy status to other drugs, medicaments and biological substances
CPT/HCPCS: 0241U; 36415; 36600; 51702; 51798; 70450; 71260; 72125; 74176; 74177; 74183; 80053; 81001; 82140; 82803; 82947; 83605; 83615; 83690; 83735; 83880; 83930; 83935; 84100; 84145; 84484; 85007; 85025; 85027; 85610; 85730; 86140; 87040; 87070; 87075; 87086; 87088; 87186; 87205; 93005; 96365; 96375; 97116; 97162; 97166; 97530; 97535; 99285; A9270-GY; A9581; J0696; J1170; J1885; J1940; J1956; J2060; J2270; J2310; J2543; J3490; J7050; P9047; Q9967